=== PATIENT | female | born 1980 | race African-American/Black ===

== ENCOUNTER → 2016-07-02 | Outpatient (CLI) | payer OTHER ==
[~2016-07-02] VITALS: Ht 154.9 cm; Wt 56.7 kg
[~2016-07-02] MED LIST: Acetaminophen PO; BUPIVAC MPF-EPI 0.5%-1:200000 30 ML VIAL. IJ ONE; CALC500T13 PO; CALC625T12 PO; CYCL10TA2 PO; DOCU-27 PO; ERGO500012 PO; FERR325T72 PO; IOHEXOL 180 MG/ML 10 ML VIAL. IT ONE; LEVO100T PO; LEVO112T4 PO; LEVO125T PO; LIDOCAINE 1% / SOD BICARB 8.4% 20 ML VIAL. IJ ONE; MAGN400T22 PO; METR500T PO; OXYC5TAB88 PO; POTA20LI27 PO; THIA100T4 PO
[2016-07-02 12:24] VITALS: BP 105/70
--- NOTE | 2016-07-02 15:00 | RAD ---
Indication chronic leg and low back pain. Lumbar myelogram and post myelogram CT was explained to the patient. Risks of infection and bleeding were outlined. The possibility of damage to nerve roots of worsening of symptoms was discussed. The small possibility of seizure was outlined the possibility of postprocedure headache assess dating placement of a blood patch was also discussed. The patient understood the risks associated with the procedure and wished proceed. Under fluoroscopic guidance appropriate level for entry into the subarachnoid space was identified. Initially a left paramidline approach was utilized. Local anesthesia was accomplished with 1% lidocaine after the skin was prepped and draped in the routine fashion. This approach was unsuccessful gaining access in the thecal sac. Subsequently, with a new tray a left side down midline decubitus approach was utilized. The skin was prepped and draped again in the routine fashion and again local anesthesia was accomplished with 1% lidocaine. The subarachnoid space was entered at L3-4 with a 25-gauge needle. Clear CSF was encountered. 11 cc of Omnipaque 180 was injected into the thecal sac. Multiple films were obtained. Following the myelogram post myelogram CT was performed. Axial images were obtained from the lower thoracic spine through the coccyx. Disc images were also obtained at all levels in the lumbar spine. Images were reformatted in the coronal and sagittal planes Patient tolerated the procedure well. The patient was watched for approximately 1 hour following the procedure and then discharged with appropriate instructions. Myelogram, findings. There is no significant narrowing of the contrast column. No significant finding is seen on the lumbar myelogram plain film. Post mammogram CT: Findings. The visualized soft tissues of the abdomen and pelvis are unremarkable. An IUD is noted. There is no significant canal narrowing or neural foraminal encroachment seen at any level. The conus appears unremarkable. Significant degenerative changes in the lumbar spine are not seen and no acute bony finding is apparent. IMPRESSION: Unremarkable lumbar myelogram and postmyelogram CT PQRS Compliance Statement: One or more of the following individualized dose reduction techniques were utilized for this examination: 1. Automated exposure control 2. Adjustment of the mA and/or kV according to patient size 3. Use of iterative reconstruction technique
== END | disposition home or self-care (01) ==
LOC: RAD 11:54
PROVIDERS: ATTEND Neurological Surgery
DX: M54.5 Low back pain (principal); M79.605 Pain in left leg; G89.29 Other chronic pain
CPT/HCPCS: 72132; 72265

== ENCOUNTER → 2016-11-26 | Outpatient (CLI) | payer OTHER ==
[2016-10-19 19:55] VITALS: BP 127/88
[~2016-11-26] MED LIST changes: -BUPIVAC MPF-EPI 0.5%-1:200000 30 ML VIAL. IJ ONE; +DOCU-109 PO; -DOCU-27 PO; -ERGO500012 PO; +ERGO500027 PO; +FAMO40TA57 PO; -IOHEXOL 180 MG/ML 10 ML VIAL. IT ONE; -LIDOCAINE 1% / SOD BICARB 8.4% 20 ML VIAL. IJ ONE
--- NOTE | 2016-11-26 13:16 | RAD ---
EXAM: Abdomen, 2 views. HISTORY: Pain. COMPARISON: None. FINDINGS: Frontal upright and supine views of the abdomen are obtained. There are nonspecific air-filled loops of bowel within the bilateral abdomen. No transition point is seen to suggest obstruction. There is no free air. There is an UD overlying the pelvis. IMPRESSION: Nonspecific bowel gas pattern, without evidence of obstruction.
== END | disposition home or self-care (01) ==
LOC: RAD 12:17
PROVIDERS: ATTEND Family Medicine
DX: R10.84 Generalized abdominal pain (principal)
CPT/HCPCS: 74020

== ENCOUNTER → 2016-12-16 | Day surgery (SDC) | payer OTHER ==
[~2016-12-16] VITALS: Ht 154.9 cm; Wt 54.4 kg
[~2016-12-16] MED LIST changes: +BUPIVACAINE-EPI 0.25%-1:200000 50 ML VIAL. ONE; +DEXAMETHASONE SOD PHOS 20 MG/5 ML VIAL. ONE; +GLYCOPYRROLATE 1 MG/5 ML VIAL. ONE; +HYDROmorphone 2 MG/ML VIAL IV PRN; +IOHEXOL 300 MG/ML 50 ML VIAL. ONE; +IV RINGERS,LACTATED 1000ML 1,000 ML IV SCH; +KETOROLAC 30 MG/ML INJ FOR OR. INJ ONE; +LIDOCAINE 1% PF 2 ML VIAL. ID PRN; +LIDOCAINE 2% PF Vial for OR 5 ML VIAL. ONE; +MORPHINE SULFATE 2 MG/ML DISP.SYRIN. ONE; +NEOSTIGMINE METHYLSULFATE 5 MG/5 ML SYRINGE. ONE; +ONDANSETRON PF 4 MG/2 ML VIAL. IV PRN; +ONDANSETRON PF 4 MG/2 ML VIAL. ONE; +OXYC-323 PO; +PROCHLORPERAZINE 10 MG/2 ML VIAL. IV PRN; +PROCHLORPERAZINE 10 MG/2 ML VIAL. ONE; +PROPOFOL 20 ML IV ONE; +ROCURONIUM 100 MG/10 ML VIAL. ONE; +SEVOFLURANE 31 TO 60 MINUTES. IH ONE; +SEVOFLURANE 61 TO 120 MINUTES. IH ONE; +SURGICEL HEMOSTAT 4X8 EACH. ONE; +fentaNYL PF VIAL 100 MCG/2 ML VIAL IV PRN; +fentaNYL PF VIAL 100 MCG/2 ML VIAL ONE; +oxyCODONE/APAP 5/325 1 TAB TABLET PO PRN
[2016-12-16 07:04] LABS: NEG OBC UR NEG; POS OBC UR POS
[2016-12-16 07:44] LABS: BARBITURATES NEG (NEG); BENZODIAZEPINES NEG (NEG); CANNABINOIDS NEG (NEG); COCAINE NEG (NEG); METHADONE NEG (NEG); PHENCYCLIDINE NEG (NEG)
[2016-12-16 07:48] LABS: OPIATES POS (NEG)
--- NOTE | 2016-12-16 08:54 | PDOC ---
BRIEF OPERATIVE NOTE Date: Dec 16, 2016 Pre-Op Diagnosis Chronic cholecystitis Post-Op Diagnosis Same Procedure Performed L/S Cholecystectomy Surgeon Eduard Anesthesia Type: General Blood Loss 20ml Specimens Obtained Gallbladder Findings as above Complications None JEAN SHARP MD Dec 16, 2016 8:54 am
--- NOTE | 2016-12-16 08:55 | DISCH ---
DISCHARGE INSTRUCTIONS Condition on Discharge Condition on Discharge: Stable Activity After Discharge Activity Instructions for Disc: Avoid exertion Other activity instructions: No lifting >20lbs for 2 weeks Diet after Discharge Diet after Discharge: Low Fat Wound Incision Care Other wound/incision instructi: May shower in 24 hours Contacting the after DC Call your doctor for: If your condition worsens Follow-Up Follow up with: Dr Sharp in 2 weeks JEAN SHARP MD Dec 16, 2016 8:55 am
[2016-12-16] MEDS: fentaNYL PF VIAL 100 MCG/2 ML VIAL IV PRN ×2 (09:07→09:13)
[2016-12-16] MEDS: MORPHINE SULFATE 2 MG/ML DISP.SYRIN. IV PRN ×2 (09:18→09:28)
--- NOTE | 2016-12-16 09:29 | OP ---
DATE OF SURGERY: 12/16/2016 PREOPERATIVE DIAGNOSIS: Chronic cholecystitis. POSTOPERATIVE DIAGNOSIS: Chronic cholecystitis. PROCEDURE: Laparoscopic cholecystectomy. SURGEON: Anatoliy Sharp MD. INDICATIONS: The patient is a 36-year-old female who has had symptoms of right upper quadrant abdominal pain, usually postprandial as well as diarrhea. Procedure of laparoscopic cholecystectomy was explained to the patient in detail. Risks, benefits were also discussed including bleeding, infection, injury to intra-abdominal contents, possibly necessitating further open operations. Alternatives to this procedure were also discussed with the patient who seemed to understand and gave verbal and written consent to have the procedure performed. DESCRIPTION OF PROCEDURE: The patient was taken to the operating room and placed in the supine position, general anesthesia was initiated. Once the patient was asleep and intubated, her abdomen was prepped and draped in usual sterile fashion using ChloraPrep. An area just below the umbilicus was injected with 0.25% Marcaine with epinephrine. Incision was made with an 11 blade scalpel, and a Veress needle was placed within the abdomen. Pneumoperitoneum was achieved. Once this was complete, an 11 mm port was placed, and a 5 mm camera was placed within the abdomen. Abdomen was inspected. No other abnormalities were noted. At this point, three 5 mm ports were placed, one in the epigastrium, 2 in the right upper quadrant under direct visualization. The dome of the gallbladder was grasped and retracted cephalad. Infundibulum of the gallbladder was grasped and retracted laterally exposing the triangle of Calot. Adherent tissues of the triangle were taken down with blunt dissection exposing the cystic duct and cystic artery. Both were doubly clipped and transected. The gallbladder was taken off the liver with hook electrocautery, placed in EndoCatch bag and removed from the umbilicus. Right upper quadrant was irrigated and suctioned dry. Hemostasis seemed to be appropriate and the pneumoperitoneum was reduced. All ports were removed. Fascial defect at the umbilicus closed with [id number] 0 Vicryl suture, and the skin was reapproximated at all port sites with 4-0 subcuticular Monocryl. Mastisol, Steri-Strips and Band-Aids were applied as dressings. The patient was awakened, extubated in the operating room, taken to recovery in stable condition. All sponge, instrument and needle counts listed as correct. Estimated blood loss 10 mL. ANATOLIY SHARP MD DR: JENNIFER/isamar JOB#: [id number] / [id number]
[2016-12-16 10:00] VITALS: BP 154/97
--- NOTE | 2016-12-17 14:31 | PATHOLOGY ---
PATHOLOGY REPORT * * * * * * * * FINAL DIAGNOSIS: Gallbladder, laparoscopic cholecystectomy: - Cholelithiasis. - Chronic cholecystitis. (JPM:yuliana; 12/17/2016) COMMENT: There is no evidence of malignancy. REPORT ELECTRONICALLY SIGNED BY: Erik Diana M.D. DATE/TIME: 12/17/2016 14:30 * * * * * * * * GROSS PATHOLOGY: Received in formalin labeled "Klaudia Rodriguez, gallbladder sac with contents," is an 8.6 x 3.2 x 2.4 cm, intact gallbladder with light pinkbluish, vascular, and wrinkled serosal surfaces. Opening the gallbladder reveals light green, velvety mucosa and an average wall thickness of 0.2 cm. Calculi are present, measuring 0.1-0.4 cm in maximum dimension, possessing a dark black color, and feeling friable to the touch. No masses are noted grossly. [employer] sections from the body and fundus are submitted along with the proximal margin in cassette A1. (TSD; 12/16/2016) INITIAL CPT CODE(S): A; 88973 Professional services performed [place] [facility] [address] Technical services performed by [facility] at [address] [place] [address], [facility] [address] [place] [address]. SPECIMEN(S) RECEIVED: A.Gallbladder sac with contents CLINICAL HISTORY: Chronic cholecystitis with calculus PATIENT: KLAUDIA RODRIGUEZ /AGE: 7 1980 (Age: 36) PATIENT #: [id number] ALT CASE #: SPECIMEN COLLECTION DATE: 12/16/2016 SPECIMEN RECEIVED DATE: 12/16/2016 [facility] - [address] [place] [address] - PHONE: [phone] * * * END OF REPORT * * *
== END | disposition home or self-care (01) ==
LOC: SURG 06:31
PROVIDERS: ATTEND Surgery
DX: K80.10 Calculus of gallbladder with chronic cholecystitis without obstruction (principal); E03.9 Hypothyroidism, unspecified; F17.200 Nicotine dependence, unspecified, uncomplicated; D64.9 Anemia, unspecified; Z72.0 Tobacco use; Z98.51 Tubal ligation status; Z87.39 Personal history of other diseases of the musculoskeletal system and connective tissue; Z72.89 Other problems related to lifestyle; Z88.2 Allergy status to sulfonamides
CPT/HCPCS: 47562; 80307; 81025; J0690; J0780; J1100; J1885; J2270; J2405; J2704; J2710; J3010; J3490; J7030; 88304; Q9967; G0479; J2001

== ENCOUNTER → 2017-01-16 | Outpatient (CLI) | payer OTHER ==
[2016-12-16 10:00] VITALS: BP 154/97
[~2017-01-16] MED LIST changes: -BUPIVACAINE-EPI 0.25%-1:200000 50 ML VIAL. ONE; -DEXAMETHASONE SOD PHOS 20 MG/5 ML VIAL. ONE; -GLYCOPYRROLATE 1 MG/5 ML VIAL. ONE; -HYDROmorphone 2 MG/ML VIAL IV PRN; -IOHEXOL 300 MG/ML 50 ML VIAL. ONE; -IV RINGERS,LACTATED 1000ML 1,000 ML IV SCH; -KETOROLAC 30 MG/ML INJ FOR OR. INJ ONE; -LIDOCAINE 1% PF 2 ML VIAL. ID PRN; -LIDOCAINE 2% PF Vial for OR 5 ML VIAL. ONE; -MORPHINE SULFATE 2 MG/ML DISP.SYRIN. ONE; -NEOSTIGMINE METHYLSULFATE 5 MG/5 ML SYRINGE. ONE; -ONDANSETRON PF 4 MG/2 ML VIAL. IV PRN; -ONDANSETRON PF 4 MG/2 ML VIAL. ONE; -PROCHLORPERAZINE 10 MG/2 ML VIAL. IV PRN; -PROCHLORPERAZINE 10 MG/2 ML VIAL. ONE; -PROPOFOL 20 ML IV ONE; -ROCURONIUM 100 MG/10 ML VIAL. ONE; -SEVOFLURANE 31 TO 60 MINUTES. IH ONE; -SEVOFLURANE 61 TO 120 MINUTES. IH ONE; -SURGICEL HEMOSTAT 4X8 EACH. ONE; -fentaNYL PF VIAL 100 MCG/2 ML VIAL IV PRN; -fentaNYL PF VIAL 100 MCG/2 ML VIAL ONE; -oxyCODONE/APAP 5/325 1 TAB TABLET PO PRN
--- NOTE | 2017-01-16 12:25 | RAD ---
MRI Brain without contrast History: Bilateral leg weakness for one year, numbness and tingling in extremities Technique: Multiplanar, multisequential noncontrast MR imaging was performed of the brain. Contrast: None Comparison: November 20, 2013 Findings: There is mild motion.There is no evidence of recent infarct or cytotoxic edema. The ventricles, sulci, and cisterns are within normal limits in size and configuration. There is no significant midline shift, mass effect, or focal abnormal extra-axial fluid collection. There is no significant signal abnormality of the brain parenchyma. There is preservation of the major intracranial flow-voids at the skull base. The mastoid air cells are overall aerated, mild thickening on the left as seen previously. The cerebellar tonsils are normal in location. There is no significant abnormality of the pineal gland or pituitary gland. Paranasal sinuses are overall aerated. There is preserved marrow signal of the clivus. Impression: 1. There is no new significant intracranial abnormality. Electronically signed by: Dmitriy Winter MD (01/16/2017 12:21 PM) [id number]
== END | disposition home or self-care (01) ==
LOC: MRI 10:34
PROVIDERS: ATTEND Family Medicine
DX: H53.9 Unspecified visual disturbance (principal); R53.1 Weakness; R20.2 Paresthesia of skin
CPT/HCPCS: 70551

== ENCOUNTER 2017-08-23 10:09 | Emergency (ER) | payer SELFPAY ==
[2017-08-23 11:44] LABS: ADD MAN DIFF? NO
[2017-08-23 11:52] LABS: BASO % 1 % (0-3); EOS % 1 % (0-3); HEMATOCRIT 31.8 % (36.0-47.0); HEMOGLOBIN 10.6 g/dL (12.0-15.5); LYMPH # 0.9 x10^3/uL (1.0-4.8); LYMPH % 26 % (24-48); MEAN CORPUSCULAR HEMOGLOBIN 35 pg (25-35); MEAN CORPUSCULAR HGB CONC 33 g/dL (31-37); MEAN CORPUSCULAR VOLUME 105 fL (79-100); MONO # 0.2 x10^3/uL (0.0-1.1); MONO % 5 % (0-9); NEUT # 2.2 x10^3uL (1.8-7.7); NEUT % 67 % (31-73); PLATELET COUNT 121 x10^3/uL (140-400); RED BLOOD COUNT 3.04 x10^6/uL (3.50-5.40); WHITE BLOOD COUNT 3.3 x10^3/uL (4.0-11.0)
[2017-08-23] MEDS: IV NORMAL SALINE 1000ML BAG 1,000 ML IV (11:53)
[2017-08-23] MEDS: ONDANSETRON PF 4 MG/2 ML VIAL. IV (11:54)
[2017-08-23 11:55] LABS: ANION GAP 17 (6-14); BLOOD UREA NITROGEN 13 mg/dL (7-20); BUN/CREATININE RATIO 26 (6-20); CALCIUM 7.9 mg/dL (8.5-10.1); CARBON DIOXIDE 23 mmol/L (21-32); CHLORIDE 102 mmol/L (98-107); CREATININE 0.5 mg/dL (0.6-1.0); GLUCOSE 82 mg/dL (70-99); POTASSIUM 3.1 mmol/L (3.5-5.1); SODIUM 142 mmol/L (136-145)
[2017-08-23] MEDS: MORPHINE SULFATE 10 MG/ML VIAL. IV (11:55)
[2017-08-23] MEDS: PANTOPRAZOLE IV PUSH 40 MG VIAL. IVP (11:55)
[2017-08-23 11:56] LABS: ETHANOL 209 mg/dL (0-10)
[2017-08-23 12:00] LABS: ALBUMIN 3.8 g/dL (3.4-5.0); ALBUMIN/GLOBULIN RATIO 0.8 (1.0-1.7); ALK PHOS 105 U/L (46-116); ALT (SGPT) 15 U/L (14-59); AST (SGOT) 79 U/L (15-37); LIPASE 190 U/L (73-393); TOTAL BILIRUBIN 3.4 mg/dL (0.2-1.0); TOTAL PROTEIN 8.5 g/dL (6.4-8.2)
[2017-08-23 12:43] LABS: BILIRUBIN,URINE SMALL (NEG); CLARITY,URINE CLEAR; COLOR,URINE AMBER; GLUCOSE,URINE NEGATIVE (NEG); NITRITE,URINE NEGATIVE (NEG); PH,URINE 5.5; PROTEIN,URINE 100 mg/dL (NEG-TRACE)
[2017-08-23 12:44] LABS: BARBITURATES NEG (NEG); BENZODIAZEPINES NEG (NEG); CANNABINOIDS NEG (NEG); COCAINE NEG (NEG); METHADONE NEG (NEG); OPIATES POS (NEG); PHENCYCLIDINE NEG (NEG)
[2017-08-23 12:45] LABS: AMPHETAMINE/METHAMPHETAMINE NEG (NEG); ETHANOL, URINE POS (NEG)
[2017-08-23 13:05] LABS: BACTERIA,URINE FEW /HPF (0-FEW); RBC,URINE RARE /HPF (0-2); SQUAMOUS EPITHELIAL CELL,UR FEW /LPF; WBC,URINE RARE /HPF (0-4)
[2017-08-23 13:49] LABS: ANISOCYTOSIS MOD; PLT ESTIMATE DECREASED (ADEQUATE)
[2017-08-23] MEDS: POTASSIUM CHLORIDE 20 MEQ TABLET.ER. PO (14:40)
== END 2017-08-23 15:26 | disposition home or self-care (01) ==
LOC: ER 10:09
DX: R10.84 Generalized abdominal pain (principal); G89.29 Other chronic pain; E87.6 Hypokalemia; M79.7 Fibromyalgia; I10 Essential (primary) hypertension; E03.9 Hypothyroidism, unspecified; F17.210 Nicotine dependence, cigarettes, uncomplicated; Z90.49 Acquired absence of other specified parts of digestive tract; Z98.51 Tubal ligation status; Z88.2 Allergy status to sulfonamides; Z91.041 Radiographic dye allergy status
CPT/HCPCS: 36415; 74022; 80053; 80307; 81001; 83690; 85025; 96361; 96374; 96375; 99285-25; C9113; G0480; J2270; J2405; J7030

== ENCOUNTER 2017-08-26 21:31 | Emergency (ER) | payer SELFPAY ==
[2017-08-26] MEDS: IV NORMAL SALINE 1000ML BAG 1,000 ML IV (23:00)
[2017-08-26 23:01] LABS: ADD MAN DIFF? NO
[2017-08-26 23:07] LABS: BASO % 1 % (0-3); EOS # 0.1 x10^3/uL (0.0-0.7); EOS % 1 % (0-3); HEMATOCRIT 29.8 % (36.0-47.0); HEMOGLOBIN 9.8 g/dL (12.0-15.5); LYMPH # 2.5 x10^3/uL (1.0-4.8); LYMPH % 45 % (24-48); MEAN CORPUSCULAR HEMOGLOBIN 35 pg (25-35); MEAN CORPUSCULAR HGB CONC 33 g/dL (31-37); MEAN CORPUSCULAR VOLUME 107 fL (79-100); MONO # 0.2 x10^3/uL (0.0-1.1); MONO % 3 % (0-9); NEUT # 2.9 x10^3uL (1.8-7.7); NEUT % 51 % (31-73); PLATELET COUNT 91 x10^3/uL (140-400); RED CELL DISTRIBUTION WIDTH 22.3 % (11.5-14.5); WHITE BLOOD COUNT 5.6 x10^3/uL (4.0-11.0)
[2017-08-26 23:13] LABS: NEG OBC SER NEG; POS OBC SER POS; PREG TEST PT QUAL NEGATIVE (NEG)
[2017-08-26 23:15] LABS: MAGNESIUM 1.2 mg/dL (1.8-2.4)
[2017-08-26 23:16] LABS: ANION GAP 14 (6-14); BLOOD UREA NITROGEN 9 mg/dL (7-20); BUN/CREATININE RATIO 23 (6-20); CALCIUM 8.2 mg/dL (8.5-10.1); CARBON DIOXIDE 25 mmol/L (21-32); CHLORIDE 104 mmol/L (98-107); CREATININE 0.4 mg/dL (0.6-1.0); GFR 217.3; GLUCOSE 108 mg/dL (70-99); SODIUM 143 mmol/L (136-145)
[2017-08-26 23:22] LABS: ALBUMIN 3.6 g/dL (3.4-5.0); ALBUMIN/GLOBULIN RATIO 0.8 (1.0-1.7); ALK PHOS 173 U/L (46-116); ALT (SGPT) 17 U/L (14-59); AST (SGOT) 50 U/L (15-37); LIPASE 236 U/L (73-393); TOTAL BILIRUBIN 2.5 mg/dL (0.2-1.0); TOTAL PROTEIN 7.9 g/dL (6.4-8.2)
[2017-08-26 23:23] LABS: TROPONINI < 0.017 ng/mL (0.000-0.055)
[2017-08-26 23:24] LABS: PLT ESTIMATE DECREASED (ADEQUATE)
[2017-08-26 23:25] LABS: ANISOCYTOSIS MOD
[2017-08-26 23:28] LABS: ETHANOL 426 mg/dL (0-10)
[2017-08-26 23:30] LABS: THYROID STIM HORMONE (TSH) 55.373 uIU/mL (0.358-3.74)
[2017-08-26 23:34] LABS: BILIRUBIN,URINE NEGATIVE (NEG); CLARITY,URINE CLOUDY; COLOR,URINE RED; GLUCOSE,URINE NEGATIVE (NEG); NITRITE,URINE POSITIVE (NEG); PH,URINE 6.5; PROTEIN,URINE 100 mg/dL (NEG-TRACE)
[2017-08-26 23:41] LABS: AMPHETAMINE/METHAMPHETAMINE NEG (NEG); BARBITURATES NEG (NEG); BENZODIAZEPINES NEG (NEG); CANNABINOIDS NEG (NEG); COCAINE NEG (NEG); ETHANOL, URINE POS (NEG); METHADONE NEG (NEG); OPIATES NEG (NEG); PHENCYCLIDINE NEG (NEG)
[2017-08-26 23:46] LABS: BACTERIA,URINE MANY /HPF (0-FEW); SQUAMOUS EPITHELIAL CELL,UR MANY /LPF
[2017-08-26] MEDS: IOHEXOL 300 MG/ML 100ML VIAL. IV (23:50)
[2017-08-27] MEDS: MAGNESIUM SULFATE 2GM 50 ML IV (01:34)
[2017-08-27] MEDS: POTASSIUM CL 40MEQ IN 0.9%NACL 1,000 ML IV (01:34)
== END 2017-08-27 06:00 | disposition home or self-care (01) ==
LOC: ER 08-27 06:00
DX: N39.0 Urinary tract infection, site not specified (principal); F10.129 Alcohol abuse with intoxication, unspecified; K52.9 Noninfective gastroenteritis and colitis, unspecified; I10 Essential (primary) hypertension; F17.210 Nicotine dependence, cigarettes, uncomplicated; E03.9 Hypothyroidism, unspecified; Z90.49 Acquired absence of other specified parts of digestive tract; Z98.51 Tubal ligation status; Z88.2 Allergy status to sulfonamides; Z91.041 Radiographic dye allergy status
CPT/HCPCS: 36415; 74177; 80053; 80307; 81001; 83690; 83735; 84439; 84443; 84484; 84703; 85025; 87086; 93005; 96361; 96365; 96366; 96368; 99285-25; G0480; J3475; J3480; J7030; Q9967

== ENCOUNTER 2017-08-30 20:51 | Emergency (ER) | payer SELFPAY ==
[2017-08-30 21:35] LABS: ADD MAN DIFF? NO
[2017-08-30] MEDS: IV NORMAL SALINE 1000ML BAG 1,000 ML IV (21:36)
[2017-08-30] MEDS: FAMOTIDINE 20 MG/2 ML VIAL IVP (21:36)
[2017-08-30] MEDS: ONDANSETRON PF 4 MG/2 ML VIAL. IV (21:36)
[2017-08-30 21:37] LABS: BASO % 1 % (0-3); EOS # 0.1 x10^3/uL (0.0-0.7); EOS % 2 % (0-3); HEMATOCRIT 29.6 % (36.0-47.0); HEMOGLOBIN 9.9 g/dL (12.0-15.5); LYMPH # 1.8 x10^3/uL (1.0-4.8); LYMPH % 50 % (24-48); MEAN CORPUSCULAR HEMOGLOBIN 36 pg (25-35); MEAN CORPUSCULAR HGB CONC 34 g/dL (31-37); MEAN CORPUSCULAR VOLUME 107 fL (79-100); MONO # 0.1 x10^3/uL (0.0-1.1); MONO % 2 % (0-9); NEUT # 1.7 x10^3uL (1.8-7.7); NEUT % 45 % (31-73); PLATELET COUNT 87 x10^3/uL (140-400); RED BLOOD COUNT 2.77 x10^6/uL (3.50-5.40); WHITE BLOOD COUNT 3.7 x10^3/uL (4.0-11.0)
[2017-08-30 21:51] LABS: ANION GAP 16 (6-14); BLOOD UREA NITROGEN 10 mg/dL (7-20); BUN/CREATININE RATIO 20 (6-20); CARBON DIOXIDE 26 mmol/L (21-32); CHLORIDE 103 mmol/L (98-107); CREATININE 0.5 mg/dL (0.6-1.0); GLUCOSE 98 mg/dL (70-99); SODIUM 145 mmol/L (136-145)
[2017-08-30 21:54] LABS: NEG OBC SER NEG; POS OBC SER POS; PREG TEST PT QUAL NEGATIVE (NEG)
[2017-08-30 21:55] LABS: ALBUMIN 3.6 g/dL (3.4-5.0); ALBUMIN/GLOBULIN RATIO 0.8 (1.0-1.7); ALK PHOS 127 U/L (46-116); ALT (SGPT) 16 U/L (14-59); AST (SGOT) 76 U/L (15-37); LIPASE 174 U/L (73-393); TOTAL BILIRUBIN 2.3 mg/dL (0.2-1.0); TOTAL PROTEIN 8.1 g/dL (6.4-8.2)
[2017-08-30] MEDS: POTASSIUM CHLORIDE 20 MEQ TABLET.ER. PO (22:15)
[2017-08-30 22:18] LABS: PLT ESTIMATE DECREASED (ADEQUATE)
[2017-08-30 22:19] LABS: ANISOCYTOSIS MOD
[2017-08-30] MEDS: KETOROLAC 30 MG/ML INJ. IV (22:21)
[2017-08-30] MEDS: POTASSIUM CHLORIDE 20 MEQ/15 ML ORAL LIQUID. PEG (22:22)
[2017-08-30 23:06] LABS: MAGNESIUM 1.2 mg/dL (1.8-2.4)
[2017-08-30] MEDS: HYDROcodone/APAP 5/325MG 1 TAB TABLET PO (23:08)
== END 2017-08-30 23:40 | disposition home or self-care (01) ==
LOC: ER 20:51
DX: M79.605 Pain in left leg (principal); M79.604 Pain in right leg; R94.8 Abnormal results of function studies of other organs and systems; R79.9 Abnormal finding of blood chemistry, unspecified; E87.6 Hypokalemia; M79.7 Fibromyalgia; I10 Essential (primary) hypertension; E03.9 Hypothyroidism, unspecified; Z88.2 Allergy status to sulfonamides; Z91.041 Radiographic dye allergy status
CPT/HCPCS: 36415; 80053; 83690; 83735; 84703; 85025; 96361; 96374; 96375; 99284-25; J1885; J2405; J7030; S0028

== ENCOUNTER 2017-09-01 18:45 | Emergency (ER) | payer SELFPAY ==
[2017-09-01 20:03] LABS: ADD MAN DIFF? NO
[2017-09-01 20:05] LABS: BASO % 1 % (0-3); EOS # 0.1 x10^3/uL (0.0-0.7); EOS % 3 % (0-3); HEMATOCRIT 27.3 % (36.0-47.0); HEMOGLOBIN 9.2 g/dL (12.0-15.5); LYMPH # 2.3 x10^3/uL (1.0-4.8); LYMPH % 58 % (24-48); MEAN CORPUSCULAR HEMOGLOBIN 36 pg (25-35); MEAN CORPUSCULAR HGB CONC 34 g/dL (31-37); MEAN CORPUSCULAR VOLUME 106 fL (79-100); MONO # 0.1 x10^3/uL (0.0-1.1); MONO % 1 % (0-9); NEUT # 1.5 x10^3uL (1.8-7.7); NEUT % 38 % (31-73); PLATELET COUNT 57 x10^3/uL (140-400); RED BLOOD COUNT 2.57 x10^6/uL (3.50-5.40); RED CELL DISTRIBUTION WIDTH 22.9 % (11.5-14.5)
[2017-09-01] MEDS: IV NORMAL SALINE 1000ML BAG 1,000 ML IV (20:11)
[2017-09-01] MEDS: HYDROcodone/APAP 5/325MG 1 TAB TABLET PO (20:12)
[2017-09-01 20:18] LABS: ANION GAP 13 (6-14); BLOOD UREA NITROGEN 6 mg/dL (7-20); CALCIUM 7.6 mg/dL (8.5-10.1); CARBON DIOXIDE 25 mmol/L (21-32); CHLORIDE 102 mmol/L (98-107); CREATININE 0.4 mg/dL (0.6-1.0); GFR 217.3; GLUCOSE 84 mg/dL (70-99); POTASSIUM 3.2 mmol/L (3.5-5.1); SODIUM 140 mmol/L (136-145)
[2017-09-01 20:26] LABS: ETHANOL 398 mg/dL (0-10)
[2017-09-01 20:37] LABS: ANISOCYTOSIS MOD; PLT ESTIMATE DECREASED (ADEQUATE); POIKILOCYTOSIS SLIGHT
[2017-09-01 20:38] LABS: OVALOCYTES OCC; SPHEROCYTES MOD
[2017-09-01] MEDS: LORazepam 1 MG TABLET PO (21:00)
== END 2017-09-01 21:01 | disposition home or self-care (01) ==
LOC: ER 18:45
DX: G89.29 Other chronic pain (principal); R10.84 Generalized abdominal pain; R53.1 Weakness; F10.229 Alcohol dependence with intoxication, unspecified; M79.7 Fibromyalgia; I10 Essential (primary) hypertension; E03.9 Hypothyroidism, unspecified; Z91.041 Radiographic dye allergy status; Z88.2 Allergy status to sulfonamides; Z90.49 Acquired absence of other specified parts of digestive tract; Z98.51 Tubal ligation status
CPT/HCPCS: 36415; 80048; 85025; 96360; 99284-25; G0480; J7030

== ENCOUNTER 2017-11-12 10:42 | Emergency (ER) | payer OTHER ==
[~2017-11-12] VITALS: Ht 154.9 cm; Wt 59.0 kg
[~2017-11-12 10:42] MED LIST changes: +CEPH-264 PO; +CIPR500T94 PO; +DILT180C29 PO; +GABA-586 PO; +METO50TA29 PO; +POTA10TA17 PO; -THIA100T4 PO; +THIA100T57 PO
[2017-11-12] MEDS ORDERED: MAGNESIUM CITRATE 296 ML SOLUTION. PO ONE (11:30)
[2017-11-12] MEDS ORDERED: BISA-42 PO (11:39)
--- NOTE | 2017-11-12 11:39 | PHYS DOC ---
Past Medical History Past Medical History: Cancer, Endometriosis, Fibromyalgia, Hypertension, Hypothyroid Additional Past Medical Histor: Graves Disease,x2 blood trans, Bulging disc, Lupus, Neuropathy Past Surgical History: Cholecystectomy, Tubal ligation, Other Additional Past Surgical Histo: back surgery Additional Information: 3 cig a day Alcohol Use: Sober Additional Information: Sober 5 days Drug Use: None Adult General Chief Complaint Chief Complaint: CONSTIPATION HPI HPI Patient is a 37 year old female presented to ER today for evaluation of constipation for about 8 days. Patient tried [id number] medication at home but did not get better. Patient denies any nausea, no vomiting, no abdominal pain, no fever. She says she is not . Review of Systems Review of Systems Constitutional: Denies fever or chills [] Eyes: Denies change in visual acuity, redness, or eye pain [] HENT: Denies nasal congestion or sore throat [] Respiratory: Denies cough or shortness of breath [] Cardiovascular: No additional information not addressed in HPI [] GI: Denies abdominal pain, nausea, vomiting, bloody stools or diarrhea . Positive for constipation. : Denies dysuria or hematuria [] Musculoskeletal: Denies back pain or joint pain [] Integument: Denies rash or skin lesions [] Neurologic: Denies headache, focal weakness or sensory changes [] Endocrine: Denies polyuria or polydipsia [] All other systems were reviewed and found to be within normal limits, except as documented in this note. Current Medications Current Medications Current Medications Medications (Trade) Dose Ordered Sig/Emelia Start Time Stop Time Status Last Admin Dose Admin Magnesium Citrate (Citroma) 296 ml 1X ONCE 11/12/17 11:30 11/12/17 11:31 DC 11/12/17 11:26 296 ML Allergies Allergies Allergies Coded Allergies Type Severity Reaction Last Updated Verified Sulfa (Sulfonamide Antibiotics) Allergy Intermediate rapid heart beat Yes I S O L A T I O N *CONTACT* Allergy Unknown 08/23/17 Yes Physical Exam Physical Exam Constitutional: Well developed, well nourished, no acute distress, non-toxic appearance. [] HENT: Normocephalic, atraumatic, bilateral external ears normal, oropharynx moist, no oral exudates, nose normal. [] Eyes: PERRLA, EOMI, conjunctiva normal, no discharge. [] Neck: Normal range of motion, no tenderness, supple, no stridor. [] Cardiovascular:Heart rate regular rhythm, no murmur [] Lungs & Thorax: Bilateral breath sounds clear to auscultation [] Abdomen: Bowel sounds normal, soft, no tenderness, no masses, no pulsatile masses. [] Skin: Warm, dry, no erythema, no rash. [] Back: No tenderness, no CVA tenderness. [] Extremities: No tenderness, no cyanosis, no clubbing, ROM intact, no edema. [] Neurologic: Alert and oriented X 3, normal motor function, normal sensory function, no focal deficits noted. [] Psychologic: Affect normal, judgement normal, mood normal. [] Current Patient Data Vital Signs Vital Signs Date Time Temp Pulse Resp B/P (MAP) Pulse Ox O2 Delivery O2 Flow Rate FiO2 11/12/17 11:45 90 16 126/90 (102) 99 Room Air 11/12/17 10:52 98.5 98.5 EKG EKG [] Radiology/Procedures Radiology/Procedures [] Impressions: constipation Course & Med Decision Making Course & Med Decision Making Pertinent Labs and Imaging studies reviewed. (See chart for details) [] Dragon Disclaimer Dragon Disclaimer This electronic medical record was generated, in whole or in part, using a voice recognition dictation system. Departure Departure Impression: Primary Impression: Constipation Disposition: 01 HOME, SELF-CARE Condition: STABLE Referrals: Mani MILLS MD (PCP) FOLLOW UP WITH YOUR DOCTOR IN 2 DAYS Patient Instructions: Constipation, Adult Scripts Bisacodyl (DULCOLAX) 5 Mg Tablet. 5 MG PO PRN DAILY PRN for CONSTIPATION, #30 TAB 0 Refills Prov: JASBIR VALENCIA DO 11/12/17 JASIBR VALENCIA DO Nov 12, 2017 11:39
[2017-11-12 11:45] VITALS: BP 126/90
[2017-11-17] MEDS ORDERED: FOLI1TAB16 PO (23:45)
[2017-11-17] MEDS ORDERED: LORA1TAB PO (23:45)
== END 2017-11-12 11:55 | disposition home or self-care (01) ==
LOC: ER 10:42
DX: K59.00 Constipation, unspecified (principal); M79.7 Fibromyalgia; I10 Essential (primary) hypertension; E03.9 Hypothyroidism, unspecified; F17.210 Nicotine dependence, cigarettes, uncomplicated; Z90.49 Acquired absence of other specified parts of digestive tract; Z98.51 Tubal ligation status; Z88.2 Allergy status to sulfonamides; Z91.041 Radiographic dye allergy status
CPT/HCPCS: 99284

== ENCOUNTER 2018-01-13 16:25 | Emergency (ER) | payer OTHER ==
[~2018-01-13] VITALS: Ht 154.9 cm; Wt 63.5 kg
[~2018-01-13 16:25] MED LIST changes: +BISA-42 PO; +FOLI1TAB16 PO; +LORA-434 PO; +LORA1TAB PO; +Nicotine 7MG TD; +Pantoprazole PO
[2018-01-13 17:18] LABS: BASO % 1 % (0-3); EOS % 1 % (0-3); HEMATOCRIT 39.2 % (36.0-47.0); HEMOGLOBIN 12.9 g/dL (12.0-15.5); LYMPH # 2.6 x10^3/uL (1.0-4.8); LYMPH % 51 % (24-48); MEAN CORPUSCULAR HEMOGLOBIN 34 pg (25-35); MEAN CORPUSCULAR HGB CONC 33 g/dL (31-37); MEAN CORPUSCULAR VOLUME 102 fL (79-100); MONO # 0.2 x10^3/uL (0.0-1.1); MONO % 3 % (0-9); NEUT # 2.2 x10^3uL (1.8-7.7); NEUT % 44 % (31-73); PLATELET COUNT 304 x10^3/uL (140-400); RED BLOOD COUNT 3.84 x10^6/uL (3.50-5.40); RED CELL DISTRIBUTION WIDTH 17.8 % (11.5-14.5); WHITE BLOOD COUNT 5.1 x10^3/uL (4.0-11.0)
--- NOTE | 2018-01-13 17:37 | PHYS DOC ---
Past Medical History Past Medical History: Alcoholism, Endometriosis, Fibromyalgia, Hypertension, Hypothyroid Additional Past Medical Histor: Graves Disease,x2 blood trans, Bulging disc, Lupus, Neuropathy Past Surgical History: Cholecystectomy, Tubal ligation, Other Additional Past Surgical Histo: back surgery Alcohol Use: Heavy Drug Use: Marijuana Adult General Chief Complaint Chief Complaint: CHEST PAIN HPI HPI Patient is a 37 year old female who presents with multiple complaints. The patient is intoxicated. She states that she drinks about a pint of vodka a day. She states that she started drinking this morning. She is complaining of chest pain, nausea and diarrhea. The patient states that she often has thoughts of harming herself or others. She is tearful in the room. She denies a plan to kill herself today. She denies diaphoresis, radiating chest pain or shortness of breath. She denies abdominal pain. Review of Systems Review of Systems Constitutional: Denies fever or chills [] Eyes: Denies change in visual acuity, redness, or eye pain [] HENT: Denies nasal congestion or sore throat [] Respiratory: Denies cough or shortness of breath [] Cardiovascular: No additional information not addressed in HPI [] GI: See history of present illness : Denies dysuria or hematuria [] Musculoskeletal: Denies back pain or joint pain [] Integument: Denies rash or skin lesions [] Neurologic: Denies headache, focal weakness or sensory changes [] Endocrine: Denies polyuria or polydipsia [] All other systems were reviewed and found to be within normal limits, except as documented in this note. Allergies Allergies Allergies Coded Allergies Type Severity Reaction Last Updated Verified Sulfa (Sulfonamide Antibiotics) Adverse Reaction Intermediate rapid heart beat 11/23/17 Yes Physical Exam Physical Exam Constitutional: Well developed, well nourished, no acute distress, non-toxic appearance. [] HENT: Normocephalic, atraumatic, bilateral external ears normal, oropharynx moist, no oral exudates, nose normal. [] Eyes: PERRLA, EOMI, conjunctiva normal, no discharge. [] Neck: Normal range of motion, no tenderness, supple, no stridor. [] Cardiovascular:Heart rate regular rhythm, no murmur [] Lungs & Thorax: Bilateral breath sounds clear to auscultation [] Abdomen: Bowel sounds normal, soft, no tenderness, no masses, no pulsatile masses. [] Skin: Warm, dry, no erythema, no rash. [] Back: No tenderness, no CVA tenderness. [] Extremities: No tenderness, no cyanosis, no clubbing, ROM intact, no edema. [] Neurologic: Alert and oriented X 3, normal motor function, normal sensory function, no focal deficits noted. [] Psychologic: The patient is tearful and intoxicated[] Current Patient Data Vital Signs Vital Signs Date Time Temp Pulse Resp B/P (MAP) Pulse Ox O2 Delivery O2 Flow Rate FiO2 01/13/18 17:31 97 16 135/96 (109) 97 Room Air 01/13/18 16:30 98.3 98.3 Lab Values Laboratory Tests Test 01/13/18 17:11 01/13/18 17:35 White Blood Count 5.1 x10^3/uL (4.0-11.0) Red Blood Count 3.84 x10^6/uL (3.50-5.40) Hemoglobin 12.9 g/dL (12.0-15.5) Hematocrit 39.2 % (36.0-47.0) Mean Corpuscular Volume 102 fL (79-100) H Mean Corpuscular Hemoglobin 34 pg (25-35) Mean Corpuscular Hemoglobin Concent 33 g/dL (31-37) Red Cell Distribution Width 17.8 % (11.5-14.5) H Platelet Count 304 x10^3/uL (140-400) Neutrophils (%) (Auto) 44 % (31-73) Lymphocytes (%) (Auto) 51 % (24-48) H Monocytes (%) (Auto) 3 % (0-9) Eosinophils (%) (Auto) 1 % (0-3) Basophils (%) (Auto) 1 % (0-3) Neutrophils # (Auto) 2.2 x10^3uL (1.8-7.7) Lymphocytes # (Auto) 2.6 x10^3/uL (1.0-4.8) Monocytes # (Auto) 0.2 x10^3/uL (0.0-1.1) Eosinophils # (Auto) 0.0 x10^3/uL (0.0-0.7) Basophils # (Auto) 0.0 x10^3/uL (0.0-0.2) Sodium Level 149 mmol/L (136-145) H Potassium Level 3.1 mmol/L (3.5-5.1) L Chloride Level 106 mmol/L (98-107) Carbon Dioxide Level 31 mmol/L (21-32) Anion Gap 12 (6-14) Blood Urea Nitrogen 11 mg/dL (7-20) Creatinine 0.6 mg/dL (0.6-1.0) Estimated GFR (Cockcroft-Gault) 135.4 BUN/Creatinine Ratio 18 (6-20) Glucose Level 92 mg/dL (70-99) Calcium Level 7.9 mg/dL (8.5-10.1) L Total Bilirubin 1.0 mg/dL (0.2-1.0) Aspartate Amino Transferase (AST) 47 U/L (15-37) H Alanine Aminotransferase (ALT) 24 U/L (14-59) Alkaline Phosphatase 97 U/L (46-116) Troponin I Quantitative < 0.017 ng/mL (0.000-0.055) Total Protein 8.1 g/dL (6.4-8.2) Albumin 3.4 g/dL (3.4-5.0) Albumin/Globulin Ratio 0.7 (1.0-1.7) L Salicylates Level < 2.8 mg/dL (2.8-20.0) L Salicylate Last Dose Date Unknown Salicylate Last Dose Time Unknown Ethyl Alcohol Level 279 mg/dL (0-10) H Laboratory Tests 01/13/18 17:11 Laboratory Tests 01/13/18 17:35 EKG EKG [] Radiology/Procedures Radiology/Procedures [] Course & Med Decision Making Course & Med Decision Making Pertinent Labs and Imaging studies reviewed. (See chart for details) []The psychiatric assessment team has been notified. The patient is been placed on one-to-one observation in the emergency department. The patient is being transferred to a psychiatric detox facility. She is in agreement with this plan. She is being sent via EMS. A prescription for Librium is being sent with the patient for potential alcohol withdrawal treatment. Dragon Disclaimer Dragon Disclaimer This electronic medical record was generated, in whole or in part, using a voice recognition dictation system. Departure Departure Impression: Primary Impression: Alcohol abuse Additional Impression: History of suicidal ideation Disposition: 05 TRANSFER OTHER Condition: GOOD Referrals: Mani MILLS MD (PCP) Patient Instructions: Alcohol Problems Scripts Chlordiazepoxide Hcl (CHLORDIAZEPOXIDE HCL) 5 Mg Capsule 5 MG PO TID PRN for DELIRIUM, #20 CAP Prov: JAY CRAIG APRN 01/13/18 Problem Qualifiers JAY CRAIG APRN Jan 13, 2018 17:37
--- NOTE | 2018-01-13 17:47 | EKG ---
[facility] [address] [place] [address] Test Date: 2018-01-13 Test Time: 16:32:59 Pat Name: LUIS RODRIGUEZ Department: Room: Gender: F Felled Seam Operator: : 1980 Requested By: JAY CRAIG Order Number: [id number] Reading MD: Jg Duron MD Measurements Intervals [place] Rate: 105 P: 37 NH: 142 QRS: 41 QRSD: 64 T: 87 QT: 382 QTc: 509 Interpretive Statements SINUS TACHYCARDIA Electronically Signed On 01-14-2018 10:46:23 FAMILY NURSE by Jg Duron MD
[2018-01-13 17:58] LABS: ETHANOL 279 mg/dL (0-10); SALIC < 2.8 mg/dL (2.8-20.0)
[2018-01-13 18:04] LABS: CALCIUM 7.9 mg/dL (8.5-10.1); CREATININE 0.6 mg/dL (0.6-1.0); GFR 135.4; POTASSIUM 3.1 mmol/L (3.5-5.1)
[2018-01-13 18:10] LABS: ALBUMIN 3.4 g/dL (3.4-5.0); ALBUMIN/GLOBULIN RATIO 0.7 (1.0-1.7); TOTAL PROTEIN 8.1 g/dL (6.4-8.2)
[2018-01-13] MEDS ORDERED: CHLO5CAP2 PO (19:04)
[2018-01-13] MEDS ORDERED: LORazepam 1 MG TABLET PO ONE (19:15)
[2018-01-13] MEDS ORDERED: POTASSIUM CHLORIDE 20 MEQ TABLET.ER. PO ONE (19:15)
[2018-01-13] MEDS ORDERED: POTASSIUM CHLORIDE 20 MEQ/15 ML ORAL LIQUID. PO ONE (19:30)
[2018-01-13 19:31] VITALS: BP 130/87
== END 2018-01-13 20:44 | disposition short-term general hospital (02) ==
LOC: ER 16:25
DX: F10.229 Alcohol dependence with intoxication, unspecified (principal); R45.851 Suicidal ideations; R07.89 Other chest pain; R19.7 Diarrhea, unspecified; M79.7 Fibromyalgia; I10 Essential (primary) hypertension; E03.9 Hypothyroidism, unspecified; G62.9 Polyneuropathy, unspecified; Z88.2 Allergy status to sulfonamides; Y90.8 Blood alcohol level of 240 mg/100 ml or more
CPT/HCPCS: 36415; 80053; 80329; 84484; 85025; 93005; 99285; G0480

== ENCOUNTER 2018-05-15 13:45 | Emergency (ER) | payer OTHER ==
[~2018-05-15] VITALS: Ht 154.9 cm; Wt 69.9 kg
[~2018-05-15 13:45] MED LIST changes: +CHLO5CAP2 PO; -GABA-586 PO; +GABA300C18 PO; -OXYC-323 PO; +OXYC1TAB15 PO
[2018-05-15] MEDS ORDERED: FAMOTIDINE 20 MG/2 ML VIAL IVP ONE (14:45)
[2018-05-15] MEDS ORDERED: IV NORMAL SALINE 1000ML BAG 1,000 ML IV ONE (14:45)
[2018-05-15] MEDS ORDERED: ASPIRIN 325 MG TABLET PO ONE (14:45)
[2018-05-15] MEDS ORDERED: ONDANSETRON PF 4 MG/2 ML VIAL. IV ONE (14:45)
--- NOTE | 2018-05-15 15:13 | RAD ---
PORTABLE CHEST 1V Clinical indications: HISTORY OF LUPUS, CHEST PAIN AND WEAKNESS COMPARISON: Chest x-ray dated August 23, 2017. Findings: No acute lung infiltrate or pleural effusion or pulmonary edema or lung mass or pneumothorax is seen. The heart size, pulmonary vasculature, mediastinum and both sirisha are unremarkable. Impression: No acute radiographic abnormality is seen. Electronically signed by: Jeanmarie Castro MD (05/15/2018 3:09 PM) [facility]
[2018-05-15 15:30] LABS: BASO % 1 % (0-3); EOS # 0.1 x10^3/uL (0.0-0.7); EOS % 1 % (0-3); HEMATOCRIT 38.1 % (36.0-47.0); HEMOGLOBIN 12.3 g/dL (12.0-15.5); LYMPH # 1.3 x10^3/uL (1.0-4.8); LYMPH % 15 % (24-48); MEAN CORPUSCULAR HEMOGLOBIN 31 pg (25-35); MEAN CORPUSCULAR HGB CONC 32 g/dL (31-37); MEAN CORPUSCULAR VOLUME 97 fL (79-100); MONO # 0.7 x10^3/uL (0.0-1.1); MONO % 9 % (0-9); NEUT # 6.2 x10^3uL (1.8-7.7); NEUT % 75 % (31-73); PLATELET COUNT 292 x10^3/uL (140-400); RED BLOOD COUNT 3.94 x10^6/uL (3.50-5.40); RED CELL DISTRIBUTION WIDTH 14.6 % (11.5-14.5); WHITE BLOOD COUNT 8.3 x10^3/uL (4.0-11.0)
[2018-05-15 15:56] LABS: CALCIUM 9.3 mg/dL (8.5-10.1); CREATININE 0.4 mg/dL (0.6-1.0); GFR 216.1
[2018-05-15 16:01] LABS: ALBUMIN 3.3 g/dL (3.4-5.0); ALBUMIN/GLOBULIN RATIO 0.6 (1.0-1.7); MAGNESIUM 1.5 mg/dL (1.8-2.4); TOTAL BILIRUBIN 0.5 mg/dL (0.2-1.0); TOTAL PROTEIN 8.4 g/dL (6.4-8.2)
--- NOTE | 2018-05-15 16:16 | PHYS DOC ---
Past Medical History Past Medical History: Alcoholism, Endometriosis, Fibromyalgia, Hypertension, Hypothyroid Additional Past Medical Histor: Graves Disease,x2 blood trans, Bulging disc, Lupus, Neuropathy (JUSTA PRECIADO APRN) Past Surgical History: Cholecystectomy, Tubal ligation, Other Additional Past Surgical Histo: back surgery (JUSTA PRECIADO APRN) Alcohol Use: Heavy Drug Use: Marijuana (JUSTA PRECIADO APRN) Adult General Chief Complaint Chief Complaint: MULTIPLE COMPLAINTS HPI HPI Patient is a 37 year old female with history of alcoholism, fibromyalgia, hypertension, who presents to the ED today with multiple complaints. Patient is complaining of chronic diarrhea, she states she's had this diarrhea for months. She states she's been tested for C. difficile before and was positive and was treated 6 months ago. Patient denies any blood in her stools. She is also complaining of nausea and vomiting for unknown period of time. She is also complaining of 10 out of 10 left-sided chest pain. She states the pain has been there for "a couple days". Patient unable to give me further information on this chest pain. She is also complaining of chronic lower extremity pain. Patient denies anything specifically exacerbating or alleviating, chronic lower extremity pain. She keeps asking for pain medicine and giving me limited information. At some point she was choosing not to talk. (JUSTA PRECIADO APRN) Review of Systems Review of Systems Constitutional: Denies fever or chills [] Eyes: Denies change in visual acuity, redness, or eye pain [] HENT: Denies nasal congestion or sore throat [] Respiratory: Denies cough or shortness of breath [] Cardiovascular: Reports chest pain. No additional information not addressed in HPI [] GI: Reports chronic diarrhea, nausea and vomiting. Denies abdominal pain,bloody stools or diarrhea [] : Denies dysuria or hematuria [] Musculoskeletal: Reports chronic lower extremity pain. Denies back pain Integument: Denies rash or skin lesions [] Neurologic: Denies headache, focal weakness or sensory changes [] All other systems were reviewed and found to be within normal limits, except as documented in this note. (JUSTA PRECIADO APRN) Current Medications Current Medications Current Medications Medications (Trade) Dose Ordered Sig/Emelia Start Time Stop Time Status Last Admin Dose Admin Aspirin (Yamini Aspirin) 325 mg 1X ONCE 05/15/18 14:45 3/16/19 14:51 DC 05/15/18 15:30 325 MG Famotidine (Pepcid Vial) 20 mg 1X ONCE 05/15/18 14:45 05/15/18 14:50 DC 05/15/18 15:30 20 MG Ondansetron HCl (Zofran) 4 mg 1X ONCE 05/15/18 14:45 05/15/18 14:50 DC 05/15/18 15:30 4 MG Sodium Chloride 1,000 ml @ 1,000 mls/hr 1X ONCE 05/15/18 14:45 05/15/18 15:44 DC 05/15/18 15:30 1,000 MLS/HR (ESTER ARENAS MD) Allergies Allergies Allergies Coded Allergies Type Severity Reaction Last Updated Verified Sulfa (Sulfonamide Antibiotics) Adverse Reaction Intermediate rapid heart beat 11/23/17 Yes (ESTER ARENAS MD) Physical Exam Physical Exam Constitutional: Well developed, well nourished, no acute distress, non-toxic appearance. [] HENT: Normocephalic, atraumatic, bilateral external ears normal, oropharynx moist, no oral exudates, nose normal. [] Eyes: PERRLA, EOMI, conjunctiva normal, no discharge. [] Neck: Normal range of motion, no tenderness, supple, no stridor. [] Cardiovascular:Heart rate regular rhythm, no murmur [] Lungs & Thorax: Bilateral breath sounds clear to auscultation [] Abdomen: Bowel sounds normal, soft, no tenderness, no masses, no pulsatile masses. [] Skin: Warm, dry, no erythema, no rash. [] Back: No tenderness, no CVA tenderness. [] Extremities: No tenderness, no cyanosis, no clubbing, ROM intact, no edema. [] Neurologic: Alert and oriented X 3, normal motor function, normal sensory function, no focal deficits noted. [] Psychologic: Affect normal, judgement normal, mood normal. [] (JUSTA PRECIADO APRN) Current Patient Data Vital Signs Vital Signs Date Time Temp Pulse Resp B/P (MAP) Pulse Ox O2 Delivery O2 Flow Rate FiO2 05/15/18 14:21 98.6 112 18 102/65 (77) 94 Room Air 98.6 (ESTER ARENAS MD) Lab Values Laboratory Tests Test 05/15/18 15:23 White Blood Count 8.3 x10^3/uL (4.0-11.0) Red Blood Count 3.94 x10^6/uL (3.50-5.40) Hemoglobin 12.3 g/dL (12.0-15.5) Hematocrit 38.1 % (36.0-47.0) Mean Corpuscular Volume 97 fL (79-100) Mean Corpuscular Hemoglobin 31 pg (25-35) Mean Corpuscular Hemoglobin Concent 32 g/dL (31-37) Red Cell Distribution Width 14.6 % (11.5-14.5) H Platelet Count 292 x10^3/uL (140-400) Neutrophils (%) (Auto) 75 % (31-73) H Lymphocytes (%) (Auto) 15 % (24-48) L Monocytes (%) (Auto) 9 % (0-9) Eosinophils (%) (Auto) 1 % (0-3) Basophils (%) (Auto) 1 % (0-3) Neutrophils # (Auto) 6.2 x10^3uL (1.8-7.7) Lymphocytes # (Auto) 1.3 x10^3/uL (1.0-4.8) Monocytes # (Auto) 0.7 x10^3/uL (0.0-1.1) Eosinophils # (Auto) 0.1 x10^3/uL (0.0-0.7) Basophils # (Auto) 0.0 x10^3/uL (0.0-0.2) Sodium Level 138 mmol/L (136-145) Potassium Level 5.0 mmol/L (3.5-5.1) Chloride Level 97 mmol/L (98-107) L Carbon Dioxide Level 33 mmol/L (21-32) H Anion Gap 8 (6-14) Blood Urea Nitrogen 10 mg/dL (7-20) Creatinine 0.4 mg/dL (0.6-1.0) L Estimated GFR (Cockcroft-Gault) 216.1 BUN/Creatinine Ratio 25 (6-20) H Glucose Level 88 mg/dL (70-99) Calcium Level 9.3 mg/dL (8.5-10.1) Magnesium Level 1.5 mg/dL (1.8-2.4) L Total Bilirubin 0.5 mg/dL (0.2-1.0) Aspartate Amino Transferase (AST) 75 U/L (15-37) H Alanine Aminotransferase (ALT) 113 U/L (14-59) H Alkaline Phosphatase 219 U/L (46-116) H Troponin I Quantitative < 0.017 ng/mL (0.000-0.055) TH-Ume-F-Type Natriuretic Peptide 45 pg/mL (0-124) Total Protein 8.4 g/dL (6.4-8.2) H Albumin 3.3 g/dL (3.4-5.0) L Albumin/Globulin Ratio 0.6 (1.0-1.7) L Lipase 43 U/L (73-393) L Thyroid Stimulating Hormone (TSH) 27.140 uIU/mL (0.358-3.74) H Ethyl Alcohol Level < 10 mg/dL (0-10) Laboratory Tests 05/15/18 15:23 Laboratory Tests 05/15/18 15:23 (ESTER ARENAS MD) EKG EKG [] (JUSTA PRECIADO APRN) Radiology/Procedures Radiology/Procedures [] (JUSTA PRECIADO APRN) Course & Med Decision Making Course & Med Decision Making Pertinent Labs and Imaging studies reviewed. (See chart for details) This is a 37-year-old female patient presenting to the ED today with multiple complaints. Patient is complaining of chronic lower extremity pain, chronic diarrhea, nausea, vomiting, no abdominal pain, also complaining of chest pain. Chest and has been there for couple days. She has history of alcoholism CBC with no acute findings, CMP with AST of 75, ALT of 113, AST 219, magnesium 1.5, troponin is normal. Alcohol<10. Patient has history of elevated liver enzymes, she is alcoholic. Patient refused to give us urine, informed she will not be given any pain medicine in the ED. She decided she wants to go home. (JUSTA PRECIADO APRN) Course & Med Decision Making Staff Physician Addendum: I was working in the ER during the course of this patient's visit. I was available for consultation as needed, but I was not directly involved in the care of this patient. (ESTER ARENAS MD) Dragon Disclaimer Dragon Disclaimer This electronic medical record was generated, in whole or in part, using a voice recognition dictation system. (JUSTA PRECIADO APRN) Departure Departure Impression: Primary Impression: Chest pain Additional Impressions: Chronic lower limb pain Chronic diarrhea Transaminitis Disposition: HOME, SELF-CARE Condition: STABLE Referrals: Mani MILLS MD (PCP) Follow-up next week Patient Instructions: Chest Pain (Nonspecific), Diarrhea, [id number] Additional Instructions: You were evaluated in the emergency room for multiple complaints. Your workup was negative for any acute findings. Please follow-up with your own doctor in the course of next week. Problem Qualifiers Primary Impression: Chest pain Chest pain type: unspecified Qualified Codes: R07.9 - Chest pain, unspecified Additional Impressions: Chronic lower limb pain Laterality: bilateral Qualified Codes: M79.604 - Pain in right leg; M79.605 - Pain in left leg; G89.29 - Other chronic pain JUSTA PRECIADO APRN May 15, 2018 16:16 ESTER ARENAS MD May 15, 2018 17:18
[2018-05-15 17:00] VITALS: BP 130/89
--- NOTE | 2018-05-16 14:09 | EKG ---
[facility] [address] [place] [address] Test Date: 2018-05-15 Test Time: 15:08:00 Pat Name: LUIS RODRIGUEZ Department: Room: Gender: F Cloth Examiner Hand: : 1980 Requested By: JUSTA PRECIADO Order Number: [id number] Reading MD: Jg Duron MD Measurements Intervals [place] Rate: 92 P: 54 LA: 160 QRS: 28 QRSD: 56 T: 68 QT: 330 QTc: 413 Interpretive Statements SINUS RHYTHM Electronically Signed On 05-20-2018 15:02:47 CDT by Jg Duron MD
[2018-05-31] MEDS ORDERED: FOLI1TAB16 PO (08:41)
[2018-05-31] MEDS ORDERED: THIA100T22 PO (08:41)
== END 2018-05-15 17:02 | disposition home or self-care (01) ==
LOC: ER 13:45
DX: K52.9 Noninfective gastroenteritis and colitis, unspecified (principal); R74.0 Nonspecific elevation of levels of transaminase and lactic acid dehydrogenase [LDH]; R07.89 Other chest pain; G89.29 Other chronic pain; M79.604 Pain in right leg; M79.605 Pain in left leg; F10.20 Alcohol dependence, uncomplicated; Y90.0 Blood alcohol level of less than 20 mg/100 ml; I10 Essential (primary) hypertension; E03.9 Hypothyroidism, unspecified; Z90.49 Acquired absence of other specified parts of digestive tract; Z98.51 Tubal ligation status; Z88.2 Allergy status to sulfonamides
CPT/HCPCS: 36415; 71045; 80053; 83690; 83735; 83880; 84443; 84484; 85025; 93005; 96361; 96374; 96375; 99285; G0480; J2405; J3490; J7030

== ENCOUNTER 2018-05-25 22:20 | Emergency (ER) | payer OTHER ==
[~2018-05-25] VITALS: Ht 154.9 cm; Wt 70.3 kg
[~2018-05-25 22:20] MED LIST changes: +IV NORMAL SALINE 1000ML BAG 1,000 ML IV ONE
[2018-05-25] MEDS ORDERED: IV NORMAL SALINE 1000ML BAG 1,000 ML IV ONE (23:00)
[2018-05-25] MEDS ORDERED: IOHEXOL 300 MG/ML 100ML VIAL. IV ONE (23:00)
[2018-05-25] MEDS ORDERED: CONTRAST GIVEN. MC PRN (23:00)
[2018-05-25] MEDS ORDERED: KETOROLAC 30 MG/ML VIAL. IV ONE (23:00)
[2018-05-25] MEDS ORDERED: ONDANSETRON PF 4 MG/2 ML VIAL. IV ONE (23:00)
[2018-05-25 23:36] LABS: BILIRUBIN,URINE NEGATIVE (NEG); CLARITY,URINE CLEAR; COLOR,URINE YELLOW; NITRITE,URINE NEGATIVE (NEG); PROTEIN,URINE NEGATIVE (NEG-TRACE); UROBILINOGEN,URINE 0.2 mg/dL (0.2 mg/dL)
[2018-05-25 23:42] LABS: BARBITURATES NEG (NEG); BENZODIAZEPINES NEG (NEG); CANNABINOIDS NEG (NEG); COCAINE NEG (NEG); METHADONE NEG (NEG); OPIATES NEG (NEG); PHENCYCLIDINE NEG (NEG)
[2018-05-25 23:43] LABS: AMPHETAMINE/METHAMPHETAMINE NEG (NEG)
[2018-05-25 23:45] LABS: BASO % 1 % (0-3); EOS # 0.1 x10^3/uL (0.0-0.7); EOS % 1 % (0-3); HEMATOCRIT 34.4 % (36.0-47.0); HEMOGLOBIN 11.3 g/dL (12.0-15.5); LYMPH # 1.6 x10^3/uL (1.0-4.8); LYMPH % 30 % (24-48); MEAN CORPUSCULAR HEMOGLOBIN 32 pg (25-35); MEAN CORPUSCULAR HGB CONC 33 g/dL (31-37); MEAN CORPUSCULAR VOLUME 97 fL (79-100); MONO # 0.7 x10^3/uL (0.0-1.1); MONO % 14 % (0-9); NEUT # 2.8 x10^3uL (1.8-7.7); NEUT % 53 % (31-73); PLATELET COUNT 327 x10^3/uL (140-400); RED BLOOD COUNT 3.55 x10^6/uL (3.50-5.40); RED CELL DISTRIBUTION WIDTH 15.1 % (11.5-14.5); WHITE BLOOD COUNT 5.3 x10^3/uL (4.0-11.0)
[2018-05-25 23:48] LABS: BACTERIA,URINE 0 /HPF (0-FEW); RBC,URINE OCC /HPF (0-2); SQUAMOUS EPITHELIAL CELL,UR MANY /LPF; WBC,URINE OCC /HPF (0-4)
[2018-05-25 23:49] LABS: AMORPHOUS SEDIMENT,UR PRESENT /HPF
[2018-05-25 23:57] LABS: PROTHROMBIN TIME PATIENT 15.5 SEC (11.7-14.0)
[2018-05-26] LABS: CALCIUM 9.1 mg/dL (8.5-10.1); GFR 75.1; POTASSIUM 4.6 mmol/L (3.5-5.1)
[2018-05-26 00:05] LABS: ALBUMIN 3.7 g/dL (3.4-5.0); ALBUMIN/GLOBULIN RATIO 0.7 (1.0-1.7); MAGNESIUM 1.1 mg/dL (1.8-2.4); TOTAL BILIRUBIN 0.4 mg/dL (0.2-1.0); TOTAL PROTEIN 8.8 g/dL (6.4-8.2)
--- NOTE | 2018-05-26 00:46 | RAD ---
EXAM: AP View of the chest DATE: 05/25/2018 10:38 PM INDICATION: WEAKNESS COMPARISON: 05/15/2018 FINDINGS/ IMPRESSION: The heart is not enlarged. Mediastinal and hilar contours are normal. Linear opacities left lung base likely scarring/atelectasis. No lobar consolidation. No pleural effusion or pneumothorax. Electronically signed by: Hu Nj MD (05/26/2018 12:43 AM) [facility]
[2018-05-26] MEDS ORDERED: MAGNESIUM SULFATE 1GM 100 ML IV ONE ×2 (01:00→01:45)
--- NOTE | 2018-05-26 01:35 | RAD ---
CT scan of the abdomen and pelvis with contrast 05/26/2018 CLINICAL HISTORY: Abdominal pain. TECHNIQUE: After the intravenous administration of 75 cc of Omnipaque 300, contiguous, 5 mm axial sections were obtained through the abdomen and pelvis. One or more of the following individualized dose reduction techniques were utilized for this study: 1. Automated exposure control. 2. Adjustment of the mA and/or kV according to patient size. 3. Use of iterative reconstruction technique. FINDINGS: Images through the lung bases demonstrate dependent subsegmental atelectasis involving both lower lobes. The liver, spleen, pancreas, adrenal glands and kidneys are within normal limits. Atherosclerotic calcification of the abdominal aorta is seen. The abdominal aorta tapers normally. Surgical clips are seen within the gallbladder fossa consistent with a cholecystectomy. No free fluid or free air is seen within the abdomen. There is no evidence of bowel obstruction. A moderate to large amount stool is seen throughout the colon. Images through the pelvis demonstrate the urinary bladder distended with urine. An IUD is seen within the uterus. No adnexal mass is seen. No free fluid is noted. Very mild S-shaped curvature of the thoracolumbar spine is seen. IMPRESSION: Moderate to large amount of stool is seen throughout the colon. There is no evidence of bowel obstruction. No acute abnormality is seen. Electronically signed by: Jose Heath MD (05/26/2018 1:32 AM) [facility]
--- NOTE | 2018-05-26 02:04 | PHYS DOC ---
Past Medical History Past Medical History: Alcoholism, Endometriosis, Fibromyalgia, Hypertension, Hypothyroid Additional Past Medical Histor: Graves Disease,x2 blood trans, Bulging disc, Lupus, Neuropathy (JUSTA PRECIADO APRN) Past Surgical History: Cholecystectomy, Tubal ligation, Other Additional Past Surgical Histo: back surgery (JUSTA PRECIADO APRN) Alcohol Use: Heavy Drug Use: Marijuana (JUSTA PRECIADO APRN) Adult General Chief Complaint Chief Complaint: WEAKNESS/GENERALIZED HPI HPI Patient is a 37 year old female with a history of alcoholism, hypertension, fibromyalgia, chronic neuropathy to bilateral lower extremities, who presents today complaining of generalized weakness that began today. Patient is also complaining of chronic nausea and vomiting. Denies any diarrhea. Denies any chance she is constipated. Denies any chest pain or shortness of breath. She is asking for pain medicine. Patient is also complaining of generalized 10 out of 10 abdominal pain as well as chronic lower extremity pain. Denies any known injury. Denies anything exacerbating or relieving her pain. She is not able to give me a description of her pain. (JUSTA PRECIADO APRN) Review of Systems Review of Systems Constitutional: Denies fever or chills [] Eyes: Denies change in visual acuity, redness, or eye pain [] HENT: Denies nasal congestion or sore throat [] Respiratory: Denies cough or shortness of breath [] Cardiovascular: No additional information not addressed in HPI [] GI: Reports nausea, vomiting, generalized abdominal pain, denies bloody stools or diarrhea [] : Denies dysuria or hematuria [] Musculoskeletal: Denies back pain or joint pain [] Integument: Denies rash or skin lesions [] Neurologic: Reports generalized weakness. Denies headache, focal weakness or sensory changes [] All other systems were reviewed and found to be within normal limits, except as documented in this note. (JUSTA PRECIADO APRN) Current Medications Current Medications Current Medications Medications (Trade) Dose Ordered Sig/Emelia Start Time Stop Time Status Last Admin Dose Admin Acetaminophen (Tylenol) 650 mg PRN Q4HRS PRN 05/26/18 02:15 05/26/18 02:58 DC Docusate Sodium (Colace) 100 mg DAILY 05/26/18 09:00 05/26/18 09:00 DC Info (CONTRAST GIVEN -- Rx MONITORING) 1 each PRN DAILY PRN 05/25/18 23:00 05/26/18 02:58 DC Iohexol (Omnipaque 300 Mg/ml) 75 ml 1X ONCE 05/25/18 23:00 05/25/18 23:01 DC 05/25/18 12:30 75 ML Ketorolac Tromethamine (Toradol 30mg Vial) 30 mg 1X ONCE 05/25/18 23:00 05/25/18 23:01 DC 05/25/18 23:38 30 MG Magnesium Sulfate/ Dextrose 100 ml @ 100 mls/hr 1X ONCE 05/26/18 01:45 05/26/18 02:44 DC Ondansetron HCl (Zofran) 4 mg PRN Q8HRS PRN 05/26/18 02:15 05/26/18 02:58 DC Polyethylene Glycol (miraLAX PACKET) 17 gm DAILY 05/26/18 09:00 05/26/18 09:00 DC Sodium Chloride 1,000 ml @ 1,000 mls/hr 1X ONCE 05/25/18 23:00 05/25/18 23:59 DC 05/25/18 23:35 1,000 MLS/HR (CANDACE ETIENNE DO) Allergies Allergies Allergies Coded Allergies Type Severity Reaction Last Updated Verified Sulfa (Sulfonamide Antibiotics) Adverse Reaction Intermediate rapid heart beat 11/23/17 Yes (CANDACE ETIENNE DO) Physical Exam Physical Exam Constitutional: Well developed, well nourished, no acute distress, non-toxic appearance. [] HENT: Normocephalic, atraumatic, bilateral external ears normal, oropharynx moist, no oral exudates, nose normal. [] Eyes: PERRLA, EOMI, conjunctiva normal, no discharge. [] Neck: Normal range of motion, no tenderness, supple, no stridor. [] Cardiovascular:Heart rate regular rhythm, no murmur [] Lungs & Thorax: Bilateral breath sounds clear to auscultation [] Abdomen: Bowel sounds normal, firm abdomen, diffuse tenderness throughout the abdomen no point tenderness to right upper quadrant or right lower quadrant, no masses, no pulsatile masses. [] Skin: Warm, dry, no erythema, no rash. [] Back: No tenderness, no CVA tenderness. [] Extremities: No tenderness, no cyanosis, no clubbing, ROM intact, no edema. [] Neurologic: Alert and oriented X 3, normal motor function, normal sensory function, no focal deficits noted. Cranial nerves II through XII intact Psychologic: Flat affect, appears withdrawn (MUTUNGA,JUSTA ELECTRONIC COMMUNICATIONS TECHNICIAN) Current Patient Data Vital Signs Vital Signs Date Time Temp Pulse Resp B/P (MAP) Pulse Ox O2 Delivery O2 Flow Rate FiO2 05/26/18 02:30 89 12 95 05/25/18 22:20 97.9 111/75 (87) Room Air 97.9 (ETIENNE,CANDACE R DO) Lab Values Laboratory Tests Test 05/25/18 23:20 05/25/18 23:35 Urine Collection Type U cath Urine Color Yellow Urine Clarity Clear Urine pH 5.0 Urine Specific [place] 1.020 Urine Protein Negative mg/dL (NEG-TRACE) Urine Glucose (UA) Negative mg/dL (NEG) Urine Ketones (Stick) Negative mg/dL (NEG) Urine Blood Small (NEG) Urine Nitrite Negative (NEG) Urine Bilirubin Negative (NEG) Urine Urobilinogen Dipstick 0.2 mg/dL (0.2 mg/dL) Urine Leukocyte Esterase Negative (NEG) Urine RBC Occ /HPF (0-2) Urine WBC Occ /HPF (0-4) Urine Squamous Epithelial Cells Many /LPF Urine Amorphous Sediment Present /HPF Urine Bacteria 0 /HPF (0-FEW) Urine Mucus Slight /LPF Urine Opiates Screen Neg (NEG) Urine Methadone Screen Neg (NEG) Urine Barbiturates Neg (NEG) Urine Phencyclidine Screen Neg (NEG) Urine Amphetamine/Methamphetamine Neg (NEG) Urine Benzodiazepines Screen Neg (NEG) Urine Cocaine Screen Neg (NEG) Urine Cannabinoids Screen Neg (NEG) Urine Ethyl Alcohol Pos (NEG) White Blood Count 5.3 x10^3/uL (4.0-11.0) Red Blood Count 3.55 x10^6/uL (3.50-5.40) Hemoglobin 11.3 g/dL (12.0-15.5) L Hematocrit 34.4 % (36.0-47.0) L Mean Corpuscular Volume 97 fL (79-100) Mean Corpuscular Hemoglobin 32 pg (25-35) Mean Corpuscular Hemoglobin Concent 33 g/dL (31-37) Red Cell Distribution Width 15.1 % (11.5-14.5) H Platelet Count 327 x10^3/uL (140-400) Neutrophils (%) (Auto) 53 % (31-73) Lymphocytes (%) (Auto) 30 % (24-48) Monocytes (%) (Auto) 14 % (0-9) H Eosinophils (%) (Auto) 1 % (0-3) Basophils (%) (Auto) 1 % (0-3) Neutrophils # (Auto) 2.8 x10^3uL (1.8-7.7) Lymphocytes # (Auto) 1.6 x10^3/uL (1.0-4.8) Monocytes # (Auto) 0.7 x10^3/uL (0.0-1.1) Eosinophils # (Auto) 0.1 x10^3/uL (0.0-0.7) Basophils # (Auto) 0.0 x10^3/uL (0.0-0.2) Prothrombin Time 15.5 SEC (11.7-14.0) H Prothrombin Time INR 1.3 (0.8-1.1) H Sodium Level 136 mmol/L (136-145) Potassium Level 4.6 mmol/L (3.5-5.1) Chloride Level 94 mmol/L (98-107) L Carbon Dioxide Level 29 mmol/L (21-32) Anion Gap 13 (6-14) Blood Urea Nitrogen 25 mg/dL (7-20) H Creatinine 1.0 mg/dL (0.6-1.0) Estimated GFR (Cockcroft-Gault) 75.1 BUN/Creatinine Ratio 25 (6-20) H Glucose Level 90 mg/dL (70-99) Calcium Level 9.1 mg/dL (8.5-10.1) Magnesium Level 1.1 mg/dL (1.8-2.4) L Total Bilirubin 0.4 mg/dL (0.2-1.0) Aspartate Amino Transferase (AST) 26 U/L (15-37) Alanine Aminotransferase (ALT) 26 U/L (14-59) Alkaline Phosphatase 117 U/L (46-116) H Creatine Kinase 85 U/L (26-192) Creatine Kinase MB (Mass) 1.1 ng/mL (0.0-3.6) Creatine Kinase MB Relative Index 1.3 % (0-4) Troponin I Quantitative < 0.017 ng/mL (0.000-0.055) YG-Whh-S-Type Natriuretic Peptide 40 pg/mL (0-124) Total Protein 8.8 g/dL (6.4-8.2) H Albumin 3.7 g/dL (3.4-5.0) Albumin/Globulin Ratio 0.7 (1.0-1.7) L Lipase 94 U/L (73-393) Thyroid Stimulating Hormone (TSH) 16.331 uIU/mL (0.358-3.74) H Free Thyroxine 0.69 ng/dL (0.76-1.46) L Free Triiodothyronine (T3) pg/mL 1.63 pg/mL (2.18-3.98) L Laboratory Tests 05/25/18 23:35 Laboratory Tests 05/25/18 23:35 (CANDACE ETIENNE DO) EKG EKG [] (JUSTA PRECIADO APRN) Radiology/Procedures Radiology/Procedures [] (JUSTA PRECIADO APRN) Radiology/Procedures PROCEDURE: PORTABLE CHEST 1V EXAM: AP View of the chest DATE: 05/25/2018 10:38 PM INDICATION: WEAKNESS COMPARISON: 05/15/2018 FINDINGS/ IMPRESSION: The heart is not enlarged. Mediastinal and hilar contours are normal. Linear opacities left lung base likely scarring/atelectasis. No lobar consolidation. No pleural effusion or pneumothorax. Electronically signed by: Hu Nj MD (05/26/2018 12:43 AM) [facility] PROCEDURE: CT ABD PELV W/ IV CONTRST ONLY CT scan of the abdomen and pelvis with contrast 05/26/2018 CLINICAL HISTORY: Abdominal pain. TECHNIQUE: After the intravenous administration of 75 cc of Omnipaque 300, contiguous, 5 mm axial sections were obtained through the abdomen and pelvis. One or more of the following individualized dose reduction techniques were utilized for this study: 1. Automated exposure control. 2. Adjustment of the mA and/or kV according to patient size. 3. Use of iterative reconstruction technique. FINDINGS: Images through the lung bases demonstrate dependent subsegmental atelectasis involving both lower lobes. The liver, spleen, pancreas, adrenal glands and kidneys are within normal limits. Atherosclerotic calcification of the abdominal aorta is seen. The abdominal aorta tapers normally. Surgical clips are seen within the gallbladder fossa consistent with a cholecystectomy. No free fluid or free air is seen within the abdomen. There is no evidence of bowel obstruction. A moderate to large amount stool is seen throughout the colon. Images through the pelvis demonstrate the urinary bladder distended with urine. An IUD is seen within the uterus. No adnexal mass is seen. No free fluid is noted. Very mild S-shaped curvature of the thoracolumbar spine is seen. IMPRESSION: Moderate to large amount of stool is seen throughout the colon. There is no evidence of bowel obstruction. No acute abnormality is seen. Electronically signed by: Jose Heath MD (05/26/2018 1:32 AM) [facility] (CANDACE ETIENNE DO) Course & Med Decision Making Course & Med Decision Making Pertinent Labs and Imaging studies reviewed. (See chart for details) This is a 37-year-old female patient presenting to the ED today complaining of generalized weakness, chronic nausea vomiting, chronic bilateral lower extremity pain from neuropathy. CBC with a normal WBC, CMP with magnesium of 1.1, patient was started on IV magnesium. Urine negative for infection. TSH 16.333 CT of the abdomen and pelvic is noted for constipation. Dr. Etienne had recommended we admit patient. Dr. Aranda requested we discharge her to home and f/u with the clinic (JUSTA PRECIADO APRN) Dragon Disclaimer Dragon Disclaimer This electronic medical record was generated, in whole or in part, using a voice recognition dictation system. (JUSTA PRECIADO APRN) Departure Departure Impression: Primary Impression: Constipation Additional Impressions: Weakness Neuropathy of left lower extremity Neuropathy of right lower extremity Hypothyroidism Hypomagnesemia Disposition: 01 HOME, SELF-CARE Condition: STABLE Referrals: Mani SPENCER MD (PCP) Follow-up in 1-2 days Patient Instructions: Constipation, Adult, Weakness, [id number]-Gerh Additional Instructions: You were evaluated in the emergency room and noted to have low magnesium, and constipation. Your thyroid levels of very high meaning you have hypothyroidism. Please contact Dr. Spencer tomorrow in follow-up. Consider taking medicine to help you have bowel movements like magnesium citrate. Scripts Diclofenac Potassium (DICLOFENAC POTASSIUM) 50 Mg Tablet 1 TAB PO BID, #20 TAB 0 Refills Prov: JUSTA PRECIADO APRN 05/26/18 Gabapentin (GABAPENTIN) 600 Mg Tablet 600 MG PO TID for NEUROGENIC PAIN, #30 TAB Prov: JUSTA PRECIADO MELLISA 05/26/18 Magnesium Oxide (MAG-OXIDE) 400 Mg Tablet 1 TAB PO BID, #10 TAB 5 Refills Prov: JUSTA PRECIADO MELLISA 05/26/18 Attending Signature Attending Signature I have reviewed the PA/CERTIFIED ADDICTION COUNSELOR's note and plan of care. I was available for consultation as needed during the patient's visit in the emergency department. I agree with the clinical impression, plan, and disposition. (CANDACE ETIENNE DO) Problem Qualifiers Primary Impression: Constipation Constipation type: unspecified constipation type Qualified Codes: K59.00 - Constipation, unspecified Additional Impressions: Hypothyroidism Hypothyroidism type: unspecified Qualified Codes: E03.9 - Hypothyroidism, unspecified JUSTA PRECIADO MELLISA May 26, 2018 02:04 CANDACE ETIENNE DO May 29, 2018 05:56
[2018-05-26] MEDS ORDERED: ONDANSETRON PF 4 MG/2 ML VIAL. IV PRN (02:15)
[2018-05-26] MEDS ORDERED: ACETAMINOPHEN 325 MG TABLET. PO PRN (02:15)
[2018-05-26] MEDS ORDERED: MAGN400T22 PO (02:15)
[2018-05-26] MEDS ORDERED: GABA600T7 PO (02:15)
[2018-05-26] MEDS ORDERED: DICL50TA2 PO (02:15)
[2018-05-26 02:26] LABS: FREE T4 0.69 ng/dL (0.76-1.46)
[2018-05-26 02:30] VITALS: BP 95/66
--- NOTE | 2018-05-26 04:06 | EKG ---
[facility] [address] [place] [address] Test Date: 2018-05-25 Test Time: 23:05:56 Pat Name: LUIS RODRIGUEZ Department: Room: Gender: F Net Finisher: : 1980 Requested By: JUSTA PRECIADO Order Number: [id number] Reading MD: Jg Duron MD Measurements Intervals [place] Rate: 102 P: 54 AL: 152 QRS: 29 QRSD: 68 T: 59 QT: 328 QTc: 431 Interpretive Statements SINUS TACHYCARDIA NON SPECIFIC ST-T ABNORMALITY (ELEVATION) Electronically Signed On 05-30-2018 21:49:56 CDT by Jg Duron MD
[2018-05-26] MEDS ORDERED: DOCUSATE SODIUM 100 MG CAPSULE. PO SCH (09:00)
[2018-05-26] MEDS ORDERED: POLYETHYLENE GLYCOL 3350 17 GM PACKET. PO SCH (09:00)
[2018-05-31] MEDS ORDERED: FOLI1TAB16 PO (08:41)
[2018-05-31] MEDS ORDERED: THIA100T22 PO (08:41)
== END 2018-05-26 02:58 | disposition home or self-care (01) ==
LOC: ER 22:20
DX: G57.82 Other specified mononeuropathies of left lower limb (principal); G57.81 Other specified mononeuropathies of right lower limb; K59.00 Constipation, unspecified; E03.9 Hypothyroidism, unspecified; E83.42 Hypomagnesemia; R53.1 Weakness; R11.2 Nausea with vomiting, unspecified; R10.84 Generalized abdominal pain; F10.20 Alcohol dependence, uncomplicated; Y90.9 Presence of alcohol in blood, level not specified; I10 Essential (primary) hypertension; Z90.49 Acquired absence of other specified parts of digestive tract; Z98.51 Tubal ligation status; Z88.2 Allergy status to sulfonamides
CPT/HCPCS: 36415; 71045; 74177; 80053; 80307; 81001; 82553; 83690; 83735; 83880; 84439; 84443; 84481; 84484; 85025; 85610; 93005; 96361; 96365; 96374; 96375; 99284; J1885; J2405; J3475; J7030; Q9967

== ENCOUNTER 2018-05-29 06:18 | Inpatient (IN) | payer OTHER ==
[~2018-05-29] VITALS: Ht 162.6 cm; Wt 77.8 kg
[~2018-05-29 06:18] MED LIST changes: +DICL50TA2 PO; +GABA600T7 PO; -IV NORMAL SALINE 1000ML BAG 1,000 ML IV ONE
[2018-05-29] MEDS ORDERED: MULTIVIT INFUSN ADULT K IV ONE ×5 (07:00)
[2018-05-29] MEDS ORDERED: [UNRECOGNIZED DRUG - OTHER] IV ONE ×5 (07:00)
[2018-05-29] MEDS ORDERED: THIAMINE IV ONE ×5 (07:00)
[2018-05-29] MEDS ORDERED: FOLIC ACID IV ONE ×5 (07:00)
--- NOTE | 2018-05-29 07:35 | RAD ---
PORTABLE CHEST 1V History: weakness, loss of strength in the right arm Comparison: May 25, 2018 Findings: AP view of the chest is submitted. There is again some likely atelectasis of the lung bases bilaterally. There is no dependent pleural fluid or pneumothorax. Heart size is stable. Impression: 1. There is bibasilar atelectasis. Electronically signed by: Dmitriy Winter MD (05/29/2018 7:32 AM) [facility]
--- NOTE | 2018-05-29 07:42 | PHYS DOC ---
Past Medical History Past Medical History: Alcoholism, Endometriosis, Fibromyalgia, Hypertension, Hypothyroid Additional Past Medical Histor: Graves Disease,x2 blood trans, Bulging disc, Lupus, Neuropathy Past Surgical History: Cholecystectomy, Tubal ligation, Other Additional Past Surgical Histo: back surgery Smoking: Cigarettes, Less than 1pk/day Alcohol Use: Heavy Drug Use: Marijuana Adult General Chief Complaint Chief Complaint: HYPOTENSION HPI HPI Patient is a 37 year old female who presents with feeling lightheaded and dizzy. This happened 3 days ago when she noted that she was hypotensive. She was evaluated in the emergency department. Ultimately sent home. She is been feeling dizzy since that time, diffuse body aches and pains. Patient has had some nausea, no vomiting or diarrhea. Worse with standing up. Better with sitting and laying down. No chest pain. Patient does drink alcohol, she reports 3-4 drinks a day, last drink at approximately midnight.[] Review of Systems Review of Systems Constitutional: Denies fever or chills [] Eyes: Denies change in visual acuity, redness, or eye pain [] HENT: Denies nasal congestion or sore throat [] Respiratory: Denies cough or shortness of breath [] Cardiovascular: No chest pain or palpitations[] GI: Denies abdominal pain, nausea, vomiting, bloody stools or diarrhea [] : Denies dysuria or hematuria [] Musculoskeletal: See history of present illness[] Integument: Denies rash or skin lesions [] Neurologic: Denies headache, focal weakness or sensory changes [] Endocrine: Denies polyuria or polydipsia [] All other systems were reviewed and found to be within normal limits, except as documented in this note. Current Medications Current Medications Current Medications Medications (Trade) Dose Ordered Sig/Emelia Start Time Stop Time Status Last Admin Dose Admin Multivitamins 10 ml/Thiamine HCl 100 mg/Folic Acid 1 mg/Magnesium Sulfate 2 gm/ Sodium Chloride 1,015.2 ml @ 1,000.088 mls/hr 1X ONCE 05/29/18 07:00 05/29/18 08:00 DC 05/29/18 07:12 1,000.088 MLS/HR Sodium Chloride 1,000 ml @ 1,000 mls/hr 1X ONCE 05/29/18 09:30 05/29/18 10:29 Allergies Allergies Allergies Coded Allergies Type Severity Reaction Last Updated Verified Sulfa (Sulfonamide Antibiotics) Adverse Reaction Intermediate rapid heart beat 11/23/17 Yes Physical Exam Physical Exam Constitutional: Well developed, well nourished, no acute distress, non-toxic appearance. [] HENT: Normocephalic, atraumatic, bilateral external ears normal, oropharynx moist, no oral exudates, nose normal. [] Eyes: PERRLA, EOMI, conjunctiva normal, no discharge. [] Neck: Normal range of motion, no tenderness, supple, no stridor. [] Cardiovascular:Heart rate is tachycardic in the 100s, with a regular rhythm, no murmur [] Lungs & Thorax: Bilateral breath sounds clear to auscultation [] Abdomen: Bowel sounds normal, soft, no tenderness, no masses, no pulsatile masses. [] Skin: Warm, dry, no erythema, no rash. [] Back: No tenderness, no CVA tenderness. [] Extremities: No tenderness, no cyanosis, no clubbing, ROM intact, no edema. [] Neurologic: Alert and oriented X 3, normal motor function, normal sensory function, no focal deficits noted. [] Psychologic: Affect normal, judgement normal, mood normal. [] Current Patient Data Vital Signs Vital Signs Date Time Temp Pulse Resp B/P (MAP) Pulse Ox O2 Delivery O2 Flow Rate FiO2 05/29/18 08:30 116 22 126/85 (99) 97 Room Air 05/29/18 06:20 97.0 97.0 Lab Values Laboratory Tests Test 05/29/18 07:30 05/29/18 08:22 White Blood Count 4.5 x10^3/uL (4.0-11.0) Red Blood Count 3.38 x10^6/uL (3.50-5.40) L Hemoglobin 11.2 g/dL (12.0-15.5) L Hematocrit 33.2 % (36.0-47.0) L Mean Corpuscular Volume 98 fL (79-100) Mean Corpuscular Hemoglobin 33 pg (25-35) Mean Corpuscular Hemoglobin Concent 34 g/dL (31-37) Red Cell Distribution Width 14.5 % (11.5-14.5) Platelet Count 275 x10^3/uL (140-400) Neutrophils (%) (Auto) 48 % (31-73) Lymphocytes (%) (Auto) 39 % (24-48) Monocytes (%) (Auto) 9 % (0-9) Eosinophils (%) (Auto) 3 % (0-3) Basophils (%) (Auto) 1 % (0-3) Neutrophils # (Auto) 2.1 x10^3uL (1.8-7.7) Lymphocytes # (Auto) 1.8 x10^3/uL (1.0-4.8) Monocytes # (Auto) 0.4 x10^3/uL (0.0-1.1) Eosinophils # (Auto) 0.1 x10^3/uL (0.0-0.7) Basophils # (Auto) 0.0 x10^3/uL (0.0-0.2) Prothrombin Time 13.4 SEC (11.7-14.0) Prothrombin Time INR 1.1 (0.8-1.1) Maternal Serum HCG Beta Subunit < 1 mIU/mL (0-5) Sodium Level 145 mmol/L (136-145) Potassium Level 3.8 mmol/L (3.5-5.1) Chloride Level 106 mmol/L (98-107) Carbon Dioxide Level 26 mmol/L (21-32) Anion Gap 13 (6-14) Blood Urea Nitrogen 9 mg/dL (7-20) Creatinine 0.5 mg/dL (0.6-1.0) L Estimated GFR (Cockcroft-Gault) 167.1 BUN/Creatinine Ratio 18 (6-20) Glucose Level 107 mg/dL (70-99) H Calcium Level 8.8 mg/dL (8.5-10.1) Magnesium Level 1.5 mg/dL (1.8-2.4) L Total Bilirubin 0.4 mg/dL (0.2-1.0) Aspartate Amino Transferase (AST) 20 U/L (15-37) Alanine Aminotransferase (ALT) 19 U/L (14-59) Alkaline Phosphatase 138 U/L (46-116) H Ammonia 43 mcmol/L (11-34) H Creatine Kinase 79 U/L (26-192) Troponin I Quantitative < 0.017 ng/mL (0.000-0.055) CO-Ibz-B-Type Natriuretic Peptide 32 pg/mL (0-124) Total Protein 7.6 g/dL (6.4-8.2) Albumin 3.3 g/dL (3.4-5.0) L Albumin/Globulin Ratio 0.8 (1.0-1.7) L Ethyl Alcohol Level 125 mg/dL (0-10) H Urine Collection Type Void Urine Color Yellow Urine Clarity Clear Urine pH 6.0 Urine Specific [place] 1.015 Urine Protein Negative mg/dL (NEG-TRACE) Urine Glucose (UA) Negative mg/dL (NEG) Urine Ketones (Stick) Negative mg/dL (NEG) Urine Blood Negative (NEG) Urine Nitrite Negative (NEG) Urine Bilirubin Negative (NEG) Urine Urobilinogen Dipstick 0.2 mg/dL (0.2 mg/dL) Urine Leukocyte Esterase Negative (NEG) Urine RBC 1-2 /HPF (0-2) Urine WBC 1-4 /HPF (0-4) Urine Squamous Epithelial Cells Mod /LPF Urine Bacteria Few /HPF (0-FEW) Urine Mucus Slight /LPF Urine Test Negative (NEG) Urine Opiates Screen Neg (NEG) Urine Methadone Screen Neg (NEG) Urine Barbiturates Neg (NEG) Urine Phencyclidine Screen Neg (NEG) Urine Amphetamine/Methamphetamine Neg (NEG) Urine Benzodiazepines Screen Neg (NEG) Urine Cocaine Screen Neg (NEG) Urine Cannabinoids Screen Neg (NEG) Urine Ethyl Alcohol Pos (NEG) Laboratory Tests 05/29/18 07:30 Laboratory Tests 05/29/18 07:30 EKG EKG EKG shows a sinus tachycardia at 102 bpm, normal axis, QTC of 463 ms, no ST elevation, interpreted by me at 0659. This was compared with an EKG of 05/25/2018 , no acute changes are noted.[] Radiology/Procedures Radiology/Procedures PORTABLE CHEST 1V History: weakness, loss of strength in the right arm Comparison: May 25, 2018 Findings: AP view of the chest is submitted. There is again some likely atelectasis of the lung bases bilaterally. There is no dependent pleural fluid or pneumothorax. Heart size is stable. Impression: 1. There is bibasilar atelectasis.[] Course & Med Decision Making Course & Med Decision Making Pertinent Labs and Imaging studies reviewed. (See chart for details) ED course: Patient arrived, was placed in bed, and tolerated exam well. Old records were reviewed and noted that the patient was hypomagnesemic on her last visit several days ago. She was given a "banana bag" containing multivitamins, thiamine, folate, and magnesium due to her history of both alcohol use as well as hypomagnesemia. Her heart rate stayed in the 100s to 110s. After the fluids were completed her blood pressure was noted to be 78/45. She was given additional fluids and consultation was made with the on-call member of her primary care team who recommended admission to the medical/surgical floor. Her systolic blood pressure improved to the upper 90s with the additional fluids. She was admitted in improved condition. Medical decision making: There is no evidence of rhabdomyolysis. No evidence of an acute renal failure. Patient is still hypomagnesemic at 1.5. Ammonia is noted to be elevated at 43 with no previous level for comparison. Her alcohol level is noted to be elevated, and most of these issues may be related to her alcohol use and abuse.[] Dragon Disclaimer Dragon Disclaimer This electronic medical record was generated, in whole or in part, using a voice recognition dictation system. Departure Departure Impression: Primary Impression: Hypotension Additional Impressions: Hypomagnesemia Hyperammonemia Alcohol abuse Admitting Physician: Benedicto Mills Condition: IMPROVED Referrals: Mani MILLS MD (PCP) Problem Qualifiers Primary Impression: Hypotension Hypotension type: unspecified hypotension type Qualified Codes: I95.9 - Hypotension, unspecified MISTY ERIC May 29, 2018 07:42
[2018-05-29 07:47] LABS: BASO % 1 % (0-3); EOS # 0.1 x10^3/uL (0.0-0.7); EOS % 3 % (0-3); HEMATOCRIT 33.2 % (36.0-47.0); HEMOGLOBIN 11.2 g/dL (12.0-15.5); LYMPH # 1.8 x10^3/uL (1.0-4.8); LYMPH % 39 % (24-48); MEAN CORPUSCULAR HEMOGLOBIN 33 pg (25-35); MEAN CORPUSCULAR HGB CONC 34 g/dL (31-37); MEAN CORPUSCULAR VOLUME 98 fL (79-100); MONO # 0.4 x10^3/uL (0.0-1.1); MONO % 9 % (0-9); NEUT # 2.1 x10^3uL (1.8-7.7); NEUT % 48 % (31-73); PLATELET COUNT 275 x10^3/uL (140-400); RED BLOOD COUNT 3.38 x10^6/uL (3.50-5.40); RED CELL DISTRIBUTION WIDTH 14.5 % (11.5-14.5); WHITE BLOOD COUNT 4.5 x10^3/uL (4.0-11.0)
[2018-05-29 07:59] LABS: PROTHROMBIN TIME PATIENT 13.4 SEC (11.7-14.0)
[2018-05-29 08:00] LABS: CALCIUM 8.8 mg/dL (8.5-10.1); CREATININE 0.5 mg/dL (0.6-1.0); GFR 167.1; POTASSIUM 3.8 mmol/L (3.5-5.1)
[2018-05-29 08:04] LABS: ALBUMIN 3.3 g/dL (3.4-5.0); ALBUMIN/GLOBULIN RATIO 0.8 (1.0-1.7); MAGNESIUM 1.5 mg/dL (1.8-2.4); TOTAL BILIRUBIN 0.4 mg/dL (0.2-1.0); TOTAL PROTEIN 7.6 g/dL (6.4-8.2)
[2018-05-29 08:48] LABS: BILIRUBIN,URINE NEGATIVE (NEG); CLARITY,URINE CLEAR; COLOR,URINE YELLOW; NITRITE,URINE NEGATIVE (NEG); PROTEIN,URINE NEGATIVE (NEG-TRACE); UROBILINOGEN,URINE 0.2 mg/dL (0.2 mg/dL)
[2018-05-29 08:49] LABS: AMPHETAMINE/METHAMPHETAMINE NEG (NEG); BARBITURATES NEG (NEG); BENZODIAZEPINES NEG (NEG); CANNABINOIDS NEG (NEG); COCAINE NEG (NEG); METHADONE NEG (NEG); OPIATES NEG (NEG); PHENCYCLIDINE NEG (NEG)
[2018-05-29 09:15] LABS: BACTERIA,URINE FEW /HPF (0-FEW); SQUAMOUS EPITHELIAL CELL,UR MOD /LPF
[2018-05-29 09:16] LABS: U PREG PATIENT NEGATIVE (NEG)
--- NOTE | 2018-05-29 09:23 | EKG ---
[facility] [address] [place] [address] Test Date: 2018-05-29 Test Time: 06:47:08 Pat Name: LUIS RODRIGUEZ Department: Room: Gender: F Assurance Engineer: : 1980 Requested By: MISTY ERIC Order Number: [id number] Reading MD: Jg Duron MD Measurements Intervals [place] Rate: 102 P: 36 ME: 156 QRS: 22 QRSD: 64 T: 47 QT: 352 QTc: 463 Interpretive Statements SINUS TACHYCARDIA NON-SPECIFIC ST/T CHANGES Electronically Signed On 05-31-2018 14:28:41 CDT by Jg Duron MD
[2018-05-29] MEDS ORDERED: IV NORMAL SALINE 1000ML BAG 1,000 ML IV ONE (09:30)
[2018-05-29] MEDS ORDERED: ACETAMINOPHEN 325 MG TABLET. PO PRN (10:00)
[2018-05-29] MEDS ORDERED: LACTULOSE 20 GM/30 ML SOLUTION. PO ONE (10:00)
[2018-05-29] MEDS ORDERED: ONDANSETRON PF 4 MG/2 ML VIAL. IV PRN (10:00)
[2018-05-29 10:20] VITALS: BP 122/78
[2018-05-29] MEDS ORDERED: CYAN10005 PO (10:46)
[2018-05-29] MEDS ORDERED: MULT1TAB52 PO (10:55)
[2018-05-29] MEDS ORDERED: QUET100T4 PO (10:55)
[2018-05-29] MEDS ORDERED: HALO5TAB PO (10:55)
[2018-05-29] MEDS ORDERED: LEVO200T5 PO (10:55)
[2018-05-29] MEDS ORDERED: GABA600T7 PO (10:55)
[2018-05-29] MEDS ORDERED: QUET200T4 PO (10:55)
[2018-05-29] MEDS ORDERED: TRAZ150T49 PO (10:55)
[2018-05-29] MEDS ORDERED: DULO60CA6 PO (10:55)
--- NOTE | 2018-05-29 12:13 | PDOC1 ---
History and Physical Date of Admission Date of Admission 05/29/18 Identification/Chief Complaint Chief Complaint Dizzyness Source Source: Patient History of Present Illness History of Present Illness Pt states that she came to the ER because of increased dizzyness and lightheadedness. She says that her symptoms have been going on all week. Pt is a chronic alcohol drinker who has seizures due to alcohol withdrawal. Last seizure was yesterday so started drinking again yesterday. She says that she has chronic diarrhea but the color recently changed to a dark brown. She is supposed to be taking antiabuse, but takes it intermittently. Vomited several times yesterday. Pt says that she was recently diagnosed with a UTI and has one day left of her antibiotics Past Medical History Cardiovascular: HTN, Other Pulmonary: No pertinent hx CENTRAL NERVOUS SYSTEM: Seizure GI: No pertinent hx Heme/Onc: No pertinent hx Hepatobiliary: No pertinent hx Psych: Addictions, Other (Mood Disorder) Rheumatologic: Fibromyalgia Infectious disease: No pertinent hx ENT: No pertinent hx Renal/: No pertinent hx, Other Endocrine: No pertinent hx, Hypothyroidism, Other Dermatology: No pertinent hx Past Surgical History Past Surgical History: Cholecystectomy, Tubal Ligation, Other (D&C, oral surgery) Family History Family History: Diabetes, Hypertension Social History Smoke: <1 pack per day ALCOHOL: heavy Drugs: None Current Problem List Problem List Problems Medical Problems: (1) Alcohol abuse Status: Acute (2) Hyperammonemia Status: Acute (3) Hypomagnesemia Status: Acute (4) Hypotension Status: Acute Current Medications Current Medications Current Medications Medications (Trade) Dose Ordered Sig/Emelia Start Time Stop Time Status Last Admin Dose Admin Acetaminophen (Tylenol) 650 mg PRN Q4HRS PRN 05/29/18 10:00 05/30/18 09:59 Lactulose (Lactulose) 20 gm 1X ONCE 05/29/18 10:00 05/29/18 10:02 DC Multivitamins 10 ml/Thiamine HCl 100 mg/Folic Acid 1 mg/Magnesium Sulfate 2 gm/ Sodium Chloride 1,015.2 ml @ 1,000.088 mls/hr 1X ONCE 05/29/18 07:00 05/29/18 08:00 DC 05/29/18 07:12 1,000.088 MLS/HR Ondansetron HCl (Zofran) 4 mg PRN Q8HRS PRN 05/29/18 10:00 05/30/18 09:59 Sodium Chloride 1,000 ml @ 125 mls/hr Q8H 05/29/18 09:54 05/30/18 09:53 Allergies Allergies Allergies Coded Allergies Type Severity Reaction Last Updated Verified Sulfa (Sulfonamide Antibiotics) Adverse Reaction Intermediate rapid heart beat 11/23/17 Yes ROS Review of System CONSTITUTIONAL: No fever or chills EYES: No recent changes SKIN: No rash or itching CARDIOVASCULAR: No chest pain, syncope, palpitations, or edema RESPIRATORY: No SOB or cough GASTROINTESTINAL: + nausea, vomiting, abdominal pain, diarrhea NEUROLOGICAL: No headaches or weakness ENDOCRINE: No cold or heat intolerance GENITOURINARY: No urgency +frequency of urination MUSCULOSKELETAL: No back pain or joint pain LYMPHATICS: No enlarged lymph nodes PSYCHIATRIC: No anxiety or depression Physical Exam Physical Exam GEN.: No apparent distress. Alert and oriented. HEENT: Head is normocephalic, atraumatic NECK: Supple. LUNGS: Clear to auscultation. HEART: RRR, S1, S2 present. Peripheral pulses intact ABDOMEN: Distended, tender throughout. Positive bowel sounds. EXTREMITIES: Without any cyanosis. NEUROLOGIC: Normal speech, normal tone PSYCHIATRIC: Normal affect, normal mood. SKIN: No ulcerations Vitals Vitals Vital Signs Date Time Temp Pulse Resp B/P (MAP) Pulse Ox O2 Delivery O2 Flow Rate FiO2 05/29/18 10:00 100 14 96/56 (69) 96 Room Air 05/29/18 06:20 97.0 97.0 Labs Labs Laboratory Tests Test 05/29/18 07:30 05/29/18 08:22 White Blood Count 4.5 x10^3/uL (4.0-11.0) Red Blood Count 3.38 x10^6/uL (3.50-5.40) Hemoglobin 11.2 g/dL (12.0-15.5) Hematocrit 33.2 % (36.0-47.0) Mean Corpuscular Volume 98 fL (79-100) Mean Corpuscular Hemoglobin 33 pg (25-35) Mean Corpuscular Hemoglobin Concent 34 g/dL (31-37) Red Cell Distribution Width 14.5 % (11.5-14.5) Platelet Count 275 x10^3/uL (140-400) Neutrophils (%) (Auto) 48 % (31-73) Lymphocytes (%) (Auto) 39 % (24-48) Monocytes (%) (Auto) 9 % (0-9) Eosinophils (%) (Auto) 3 % (0-3) Basophils (%) (Auto) 1 % (0-3) Neutrophils # (Auto) 2.1 x10^3uL (1.8-7.7) Lymphocytes # (Auto) 1.8 x10^3/uL (1.0-4.8) Monocytes # (Auto) 0.4 x10^3/uL (0.0-1.1) Eosinophils # (Auto) 0.1 x10^3/uL (0.0-0.7) Basophils # (Auto) 0.0 x10^3/uL (0.0-0.2) Prothrombin Time 13.4 SEC (11.7-14.0) Prothromb Time International Ratio 1.1 (0.8-1.1) Maternal Serum HCG Beta Subunit < 1 mIU/mL (0-5) Sodium Level 145 mmol/L (136-145) Potassium Level 3.8 mmol/L (3.5-5.1) Chloride Level 106 mmol/L (98-107) Carbon Dioxide Level 26 mmol/L (21-32) Anion Gap 13 (6-14) Blood Urea Nitrogen 9 mg/dL (7-20) Creatinine 0.5 mg/dL (0.6-1.0) Estimated GFR (Cockcroft-Gault) 167.1 BUN/Creatinine Ratio 18 (6-20) Glucose Level 107 mg/dL (70-99) Calcium Level 8.8 mg/dL (8.5-10.1) Magnesium Level 1.5 mg/dL (1.8-2.4) Total Bilirubin 0.4 mg/dL (0.2-1.0) Aspartate Amino Transf (AST/SGOT) 20 U/L (15-37) Alanine Aminotransferase (ALT/SGPT) 19 U/L (14-59) Alkaline Phosphatase 138 U/L (46-116) Ammonia 43 mcmol/L (11-34) Creatine Kinase 79 U/L (26-192) Troponin I Quantitative < 0.017 ng/mL (0.000-0.055) PO-Rqw-E-Type Natriuretic Peptide 32 pg/mL (0-124) Total Protein 7.6 g/dL (6.4-8.2) Albumin 3.3 g/dL (3.4-5.0) Albumin/Globulin Ratio 0.8 (1.0-1.7) Ethyl Alcohol Level 125 mg/dL (0-10) Urine Collection Type Void Urine Color Yellow Urine Clarity Clear Urine pH 6.0 Urine Specific [place] 1.015 Urine Protein Negative mg/dL (NEG-TRACE) Urine Glucose (UA) Negative mg/dL (NEG) Urine Ketones (Stick) Negative mg/dL (NEG) Urine Blood Negative (NEG) Urine Nitrite Negative (NEG) Urine Bilirubin Negative (NEG) Urine Urobilinogen Dipstick 0.2 mg/dL (0.2 mg/dL) Urine Leukocyte Esterase Negative (NEG) Urine RBC 1-2 /HPF (0-2) Urine WBC 1-4 /HPF (0-4) Urine Squamous Epithelial Cells Mod /LPF Urine Bacteria Few /HPF (0-FEW) Urine Mucus Slight /LPF Urine Test Negative (NEG) Urine Opiates Screen Neg (NEG) Urine Methadone Screen Neg (NEG) Urine Barbiturates Neg (NEG) Urine Phencyclidine Screen Neg (NEG) Urine Amphetamine/Methamphetamine Neg (NEG) Urine Benzodiazepines Screen Neg (NEG) Urine Cocaine Screen Neg (NEG) Urine Cannabinoids Screen Neg (NEG) Urine Ethyl Alcohol Pos (NEG) Laboratory Tests Test 05/29/18 07:30 05/29/18 08:22 White Blood Count 4.5 x10^3/uL (4.0-11.0) Red Blood Count 3.38 x10^6/uL (3.50-5.40) Hemoglobin 11.2 g/dL (12.0-15.5) Hematocrit 33.2 % (36.0-47.0) Mean Corpuscular Volume 98 fL (79-100) Mean Corpuscular Hemoglobin 33 pg (25-35) Mean Corpuscular Hemoglobin Concent 34 g/dL (31-37) Red Cell Distribution Width 14.5 % (11.5-14.5) Platelet Count 275 x10^3/uL (140-400) Neutrophils (%) (Auto) 48 % (31-73) Lymphocytes (%) (Auto) 39 % (24-48) Monocytes (%) (Auto) 9 % (0-9) Eosinophils (%) (Auto) 3 % (0-3) Basophils (%) (Auto) 1 % (0-3) Neutrophils # (Auto) 2.1 x10^3uL (1.8-7.7) Lymphocytes # (Auto) 1.8 x10^3/uL (1.0-4.8) Monocytes # (Auto) 0.4 x10^3/uL (0.0-1.1) Eosinophils # (Auto) 0.1 x10^3/uL (0.0-0.7) Basophils # (Auto) 0.0 x10^3/uL (0.0-0.2) Prothrombin Time 13.4 SEC (11.7-14.0) Prothromb Time International Ratio 1.1 (0.8-1.1) Maternal Serum HCG Beta Subunit < 1 mIU/mL (0-5) Sodium Level 145 mmol/L (136-145) Potassium Level 3.8 mmol/L (3.5-5.1) Chloride Level 106 mmol/L (98-107) Carbon Dioxide Level 26 mmol/L (21-32) Anion Gap 13 (6-14) Blood Urea Nitrogen 9 mg/dL (7-20) Creatinine 0.5 mg/dL (0.6-1.0) Estimated GFR (Cockcroft-Gault) 167.1 BUN/Creatinine Ratio 18 (6-20) Glucose Level 107 mg/dL (70-99) Calcium Level 8.8 mg/dL (8.5-10.1) Magnesium Level 1.5 mg/dL (1.8-2.4) Total Bilirubin 0.4 mg/dL (0.2-1.0) Aspartate Amino Transf (AST/SGOT) 20 U/L (15-37) Alanine Aminotransferase (ALT/SGPT) 19 U/L (14-59) Alkaline Phosphatase 138 U/L (46-116) Ammonia 43 mcmol/L (11-34) Creatine Kinase 79 U/L (26-192) Troponin I Quantitative < 0.017 ng/mL (0.000-0.055) XD-Yyi-J-Type Natriuretic Peptide 32 pg/mL (0-124) Total Protein 7.6 g/dL (6.4-8.2) Albumin 3.3 g/dL (3.4-5.0) Albumin/Globulin Ratio 0.8 (1.0-1.7) Ethyl Alcohol Level 125 mg/dL (0-10) Urine Collection Type Void Urine Color Yellow Urine Clarity Clear Urine pH 6.0 Urine Specific [place] 1.015 Urine Protein Negative mg/dL (NEG-TRACE) Urine Glucose (UA) Negative mg/dL (NEG) Urine Ketones (Stick) Negative mg/dL (NEG) Urine Blood Negative (NEG) Urine Nitrite Negative (NEG) Urine Bilirubin Negative (NEG) Urine Urobilinogen Dipstick 0.2 mg/dL (0.2 mg/dL) Urine Leukocyte Esterase Negative (NEG) Urine RBC 1-2 /HPF (0-2) Urine WBC 1-4 /HPF (0-4) Urine Squamous Epithelial Cells Mod /LPF Urine Bacteria Few /HPF (0-FEW) Urine Mucus Slight /LPF Urine Test Negative (NEG) Urine Opiates Screen Neg (NEG) Urine Methadone Screen Neg (NEG) Urine Barbiturates Neg (NEG) Urine Phencyclidine Screen Neg (NEG) Urine Amphetamine/Methamphetamine Neg (NEG) Urine Benzodiazepines Screen Neg (NEG) Urine Cocaine Screen Neg (NEG) Urine Cannabinoids Screen Neg (NEG) Urine Ethyl Alcohol Pos (NEG) VTE Prophylaxis Ordered VTE Prophylaxis Devices: No VTE Pharmacological Prophylaxi: No Assessment/Plan Assessment/Plan Pt is a 37yo AAF admitted for hypotension 1)Hypotension- pt currently receiving IVF hydration, CTM 2)Alcoholism- Alcohol withdrawal protocol ordered. Pt has history of seizures with withdrawal, last was yesterday. CIWA score currently low 3)Chronic back pain- pt continued on Oxycodone 5mg BID 4)Hypothyroidism- uncontrolled. Wonder if this is partially due to noncompliance. Pt currently on 200mcg. Will continue this and have pt f/u with Dr. Spencer outpatient 5)Depression/Mood Disorder/Recent Suicide attempt- pt continued on Haldol 5mg BID, Seroquel 100mg BID and 200mg QHS and Cymbalta 60mg ER 6)Abdominal distention- CT showing large amount of stool, pt currently have diarrhea 7)PEM- mild 8)Anemia- mild, chronic TRAMAINE GARCIA MD May 29, 2018 12:13
[2018-05-29] MEDS ORDERED: traZODone 100 MG TABLET. PO PRN (12:15)
[2018-05-29] MEDS: IV NORMAL SALINE 1000ML BAG 1,000 ML IV SCH ×2 (12:36→16:56)
[2018-05-29] MEDS: oxyCODONE IR 5 MG TABLET PO PRN ×2 (12:36→18:10)
[2018-05-29] MEDS: LORazepam 1 MG TABLET PO SCH ×2 (12:36→18:10)
[2018-05-29] MEDS: DULoxetine HCL 30 MG CAPSULE.DR PO SCH (13:29)
[2018-05-29] MEDS: QUEtiapine 100 MG TABLET. PO SCH ×2 (13:29→21:00)
[2018-05-29] MEDS: PANTOPRAZOLE 40 MG TABLET.DR. PO SCH (13:29)
[2018-05-29] MEDS: CYANOCOBALAMIN (VITAMIN B-12) 1,000 MCG TABLET. PO SCH (13:29)
[2018-05-29] MEDS: LEVOTHYROXINE 100 MCG TABLET PO SCH (13:29)
[2018-05-29] MEDS: HALOPERIDOL 5 MG TABLET. PO SCH ×2 (13:29→21:00)
[2018-05-29] MEDS: GABAPENTIN 300 MG CAPSULE. PO SCH ×2 (13:29→21:00)
[2018-05-29] MEDS: DICLOFENAC SODIUM 25 MG TABLET.DR PO SCH ×2 (15:31→21:00)
[2018-05-29 15:45] VITALS: BP 121/82
[2018-05-29 19:50] VITALS: BP 106/67
[2018-05-29 21:12] VITALS: BP 113/77
[2018-05-29 22:12] VITALS: BP 113/77
[2018-05-30] MEDS: LORazepam 1 MG TABLET PO SCH ×2 (00:15→05:48)
[2018-05-30] MEDS: IV NORMAL SALINE 1000ML BAG 1,000 ML IV SCH (00:21)
[2018-05-30 03:01] VITALS: BP 119/90
[2018-05-30 04:08] LABS: BASO % 1 % (0-3); EOS # 0.1 x10^3/uL (0.0-0.7); EOS % 3 % (0-3); HEMATOCRIT 29.6 % (36.0-47.0); HEMOGLOBIN 9.8 g/dL (12.0-15.5); LYMPH # 1.8 x10^3/uL (1.0-4.8); LYMPH % 40 % (24-48); MEAN CORPUSCULAR HEMOGLOBIN 33 pg (25-35); MEAN CORPUSCULAR HGB CONC 33 g/dL (31-37); MEAN CORPUSCULAR VOLUME 98 fL (79-100); MONO # 0.4 x10^3/uL (0.0-1.1); MONO % 8 % (0-9); NEUT # 2.3 x10^3uL (1.8-7.7); NEUT % 50 % (31-73); PLATELET COUNT 230 x10^3/uL (140-400); RED BLOOD COUNT 3.01 x10^6/uL (3.50-5.40); RED CELL DISTRIBUTION WIDTH 14.3 % (11.5-14.5); WHITE BLOOD COUNT 4.6 x10^3/uL (4.0-11.0)
[2018-05-30 04:39] LABS: ALBUMIN 2.6 g/dL (3.4-5.0); ALBUMIN/GLOBULIN RATIO 0.6 (1.0-1.7); CALCIUM 7.8 mg/dL (8.5-10.1); CREATININE 0.4 mg/dL (0.6-1.0); GFR 216.1; POTASSIUM 4.2 mmol/L (3.5-5.1); TOTAL BILIRUBIN 0.3 mg/dL (0.2-1.0); TOTAL PROTEIN 6.8 g/dL (6.4-8.2)
[2018-05-30] MEDS: LEVOTHYROXINE 100 MCG TABLET PO SCH (05:48)
[2018-05-30 07:25] VITALS: BP 118/81
--- NOTE | 2018-05-30 07:38 | PDOC ---
SUBJECTIVE Subjective Pt states that she is feeling okay; about the same as yesterday. Has not gotten out of bed. Discussed having physical therapy work with her today. Denies nausea, vomiting OBJECTIVE Vital Signs Vital Signs Date Time Temp Pulse Resp B/P (MAP) Pulse Ox O2 Delivery O2 Flow Rate FiO2 05/30/18 03:01 97.5 84 18 119/90 (100) 98 Room Air 97.5 05/29/18 22:12 97.7 94 12 113/77 (89) 99 Room Air 97.7 05/29/18 19:50 98.1 99 16 106/67 (80) 99 Room Air 98.1 05/29/18 19:10 18 98 Nasal Cannula 2.0 05/29/18 18:10 99 05/29/18 15:45 98.0 102 121/82 (95) 99 Room Air 98.0 05/29/18 12:36 18 100 05/29/18 10:20 106 122/78 (93) 100 Room Air 05/29/18 10:00 100 14 96/56 (69) 96 Room Air 05/29/18 09:00 104 13 93/54 (67) 97 Room Air 05/29/18 08:30 116 22 126/85 (99) 97 Room Air 05/29/18 08:00 112 19 108/76 (87) 97 Room Air I & O Intake and Output 05/30/18 06:59 Intake Total 3969.2 ml Output Total 100 ml Balance 3869.2 ml Intake Oral 600 ml IV Total 3369.2 ml Output Urine Total 100 ml # Voids 3 # Bowel Movements 4 PHYSICAL EXAM Physical Exam GEN.: No apparent distress. Alert and oriented. HEENT: Head is normocephalic, atraumatic NECK: Supple. LUNGS: Clear to auscultation. HEART: RRR, S1, S2 present. Peripheral pulses intact ABDOMEN: soft, NTTP, Positive bowel sounds. EXTREMITIES: Without any cyanosis. NEUROLOGIC: Normal speech, normal tone PSYCHIATRIC: flat affect, normal mood. SKIN: No ulcerations ASSESSMENT/PLAN Assessment/Plan Pt is a 37yo AAF admitted for hypotension 1)Hypotension- resolved. Received IVF hydration. 2)Weakness- will have PT/OT work with pt today 3)Alcoholism- Alcohol withdrawal protocol ordered. Pt has history of seizures with withdrawal, last was yesterday. CIWA score currently low 4)Chronic back pain- pt continued on Oxycodone 5mg BID 5)Hypothyroidism- uncontrolled. Wonder if this is partially due to noncompliance. Pt currently on 200mcg. Will continue this and have pt f/u with Dr. Spencer outpatient 6)Depression/Mood Disorder/Recent Suicide attempt- pt continued on Haldol 5mg BID, Seroquel 100mg BID and 200mg QHS and Cymbalta 60mg ER 7)Abdominal distention- recent CT showing large amount of stool, pt stated she was having diarrhea on admission. Abdomen soft this morning 8)PEM- moderate 9)Anemia- acute on chronic, with some contribution from dilution COMMENT Lab Laboratory Tests Test 05/29/18 08:22 05/30/18 02:45 05/30/18 02:55 Urine Collection Type Void Urine Color Yellow Urine Clarity Clear Urine pH 6.0 Urine Specific [place] 1.015 Urine Protein Negative mg/dL (NEG-TRACE) Urine Glucose (UA) Negative mg/dL (NEG) Urine Ketones (Stick) Negative mg/dL (NEG) Urine Blood Negative (NEG) Urine Nitrite Negative (NEG) Urine Bilirubin Negative (NEG) Urine Urobilinogen Dipstick 0.2 mg/dL (0.2 mg/dL) Urine Leukocyte Esterase Negative (NEG) Urine RBC 1-2 /HPF (0-2) Urine WBC 1-4 /HPF (0-4) Urine Squamous Epithelial Cells Mod /LPF Urine Bacteria Few /HPF (0-FEW) Urine Mucus Slight /LPF Urine Test Negative (NEG) Urine Opiates Screen Neg (NEG) Urine Methadone Screen Neg (NEG) Urine Barbiturates Neg (NEG) Urine Phencyclidine Screen Neg (NEG) Urine Amphetamine/Methamphetamine Neg (NEG) Urine Benzodiazepines Screen Neg (NEG) Urine Cocaine Screen Neg (NEG) Urine Cannabinoids Screen Neg (NEG) Urine Ethyl Alcohol Pos (NEG) Sodium Level 136 mmol/L (136-145) Potassium Level 4.2 mmol/L (3.5-5.1) Chloride Level 102 mmol/L (98-107) Carbon Dioxide Level 26 mmol/L (21-32) Anion Gap 8 (6-14) Blood Urea Nitrogen 17 mg/dL (7-20) Creatinine 0.4 mg/dL (0.6-1.0) Estimated GFR (Cockcroft-Gault) 216.1 BUN/Creatinine Ratio 43 (6-20) Glucose Level 90 mg/dL (70-99) Calcium Level 7.8 mg/dL (8.5-10.1) Total Bilirubin 0.3 mg/dL (0.2-1.0) Aspartate Amino Transf (AST/SGOT) 17 U/L (15-37) Alanine Aminotransferase (ALT/SGPT) 13 U/L (14-59) Alkaline Phosphatase 95 U/L (46-116) Total Protein 6.8 g/dL (6.4-8.2) Albumin 2.6 g/dL (3.4-5.0) Albumin/Globulin Ratio 0.6 (1.0-1.7) White Blood Count 4.6 x10^3/uL (4.0-11.0) Red Blood Count 3.01 x10^6/uL (3.50-5.40) Hemoglobin 9.8 g/dL (12.0-15.5) Hematocrit 29.6 % (36.0-47.0) Mean Corpuscular Volume 98 fL (79-100) Mean Corpuscular Hemoglobin 33 pg (25-35) Mean Corpuscular Hemoglobin Concent 33 g/dL (31-37) Red Cell Distribution Width 14.3 % (11.5-14.5) Platelet Count 230 x10^3/uL (140-400) Neutrophils (%) (Auto) 50 % (31-73) Lymphocytes (%) (Auto) 40 % (24-48) Monocytes (%) (Auto) 8 % (0-9) Eosinophils (%) (Auto) 3 % (0-3) Basophils (%) (Auto) 1 % (0-3) Neutrophils # (Auto) 2.3 x10^3uL (1.8-7.7) Lymphocytes # (Auto) 1.8 x10^3/uL (1.0-4.8) Monocytes # (Auto) 0.4 x10^3/uL (0.0-1.1) Eosinophils # (Auto) 0.1 x10^3/uL (0.0-0.7) Basophils # (Auto) 0.0 x10^3/uL (0.0-0.2) Magnesium Level 1.6 mg/dL (1.8-2.4) TRAMAINE GARCIA MD May 30, 2018 07:38
[2018-05-30] MEDS ORDERED: LORazepam 1 MG TABLET PO PRN ×2 (07:45)
[2018-05-30] MEDS: PANTOPRAZOLE 40 MG TABLET.DR. PO SCH (07:55)
[2018-05-30] MEDS: GABAPENTIN 300 MG CAPSULE. PO SCH ×3 (07:55→19:47)
[2018-05-30] MEDS: HALOPERIDOL 5 MG TABLET. PO SCH ×2 (07:55→19:47)
[2018-05-30] MEDS: QUEtiapine 100 MG TABLET. PO SCH ×3 (07:55→19:47)
[2018-05-30] MEDS: DULoxetine HCL 30 MG CAPSULE.DR PO SCH (07:56)
[2018-05-30] MEDS: DICLOFENAC SODIUM 25 MG TABLET.DR PO SCH ×3 (07:56→19:47)
[2018-05-30] MEDS: CYANOCOBALAMIN (VITAMIN B-12) 1,000 MCG TABLET. PO SCH (07:56)
[2018-05-30] MEDS: MULTIVITAMIN with MINERAL TABLET. PO SCH (08:00)
[2018-05-30] MEDS: THIAMINE 100 MG TABLET. PO SCH (08:00)
[2018-05-30] MEDS ORDERED: MULTIVIT INFUSN,ADULT 4,VIT K 10 ML, THIAMINE INJ 100 MG, FOLIC ACID INJ 1 MG in IV NOR... IV SCH (09:00)
[2018-05-30 11:29] VITALS: BP 120/80
[2018-05-30 15:07] VITALS: BP 137/93
[2018-05-30] MEDS: oxyCODONE IR 5 MG TABLET PO PRN (17:56)
[2018-05-30 19:40] VITALS: BP 107/68
[2018-05-30 23:00] VITALS: BP 100/67
[2018-05-31 02:50] VITALS: BP 108/74
[2018-05-31 04:52] LABS: HEMATOCRIT 29.4 % (36.0-47.0); HEMOGLOBIN 9.7 g/dL (12.0-15.5); RED BLOOD COUNT 3.02 x10^6/uL (3.50-5.40); RED CELL DISTRIBUTION WIDTH 14.6 % (11.5-14.5); WHITE BLOOD COUNT 4.2 x10^3/uL (4.0-11.0)
[2018-05-31] MEDS: LEVOTHYROXINE 100 MCG TABLET PO SCH (04:59)
[2018-05-31 07:00] VITALS: BP 115/82
[2018-05-31] MEDS: MULTIVITAMIN with MINERAL TABLET. PO SCH (08:25)
[2018-05-31] MEDS: QUEtiapine 100 MG TABLET. PO SCH (08:25)
[2018-05-31] MEDS: THIAMINE 100 MG TABLET. PO SCH (08:25)
[2018-05-31] MEDS: CYANOCOBALAMIN (VITAMIN B-12) 1,000 MCG TABLET. PO SCH (08:25)
[2018-05-31] MEDS: GABAPENTIN 300 MG CAPSULE. PO SCH (08:26)
[2018-05-31] MEDS: PANTOPRAZOLE 40 MG TABLET.DR. PO SCH (08:26)
[2018-05-31] MEDS: DULoxetine HCL 30 MG CAPSULE.DR PO SCH (08:26)
[2018-05-31] MEDS: HALOPERIDOL 5 MG TABLET. PO SCH (08:26)
[2018-05-31] MEDS: DICLOFENAC SODIUM 25 MG TABLET.DR PO SCH (08:39)
[2018-05-31] MEDS ORDERED: FOLI1TAB16 PO (08:41)
[2018-05-31] MEDS ORDERED: THIA100T22 PO (08:41)
[2018-05-31] MEDS ORDERED: FOLIC ACID 1 MG TABLET. PO SCH (09:00)
--- NOTE | 2018-05-31 11:04 | DISCH ---
DISCHARGE WITH HOME HEALTH DISCHARGE INFORMATION: Discharge Date: May 31, 2018 Final Diagnosis: Problems Medical Problems: (1) Alcohol abuse Status: Acute (2) Hyperammonemia Status: Acute (3) Hypomagnesemia Status: Acute (4) Hypotension Status: Acute Condition on Discharge: Stable CODE STATUS: Code Status: Full HOME HEALTH: Face to Face: I certify this patient is under my care and that I, or a nurse practitioner or physician's assistant professor of psychology working with me, had a face to face encounter that meets the physician face to face encounter requirements with this patient on 05/31/18. Medical Complications: Falls RN For Eval/Treatment: Yes Physical Therapy For: Evalulation/Treatment Occupational Therapy For: Evaluation/Treatment Pt Meets Homebound Status: Poor coordination w/ amb., Unsteady balance w/ amb, , Extreme weakness w/ amb., Frequent falls w/ injury, Limited distance walking POST DISCHARGE ORDERS: Activity Instructions for Disc: Resume previous activity Weight Bearing Status after Di: As tolerated DIET AFTER DISCHARGE: Regular CHECKS AFTER DISCHARGE: Checks after discharge: Check blood press - daily FOLLOW-UP: PCP to follow Home Health: 1-2 weeks TREATMENT/EQUIPMENT ORDERS: Adaptive Equipment Issued: None, Luanne CERTIFICATION STATEMENT: Certification Statement: Certification Statement: Based on the above finding, I certify that this patient is confined to the home and needs intermittent senior living care, physical therapy and/or speech therapy, or continues to need occupational therapy.~ This patient is under my care, and I have initiated the establishment of the plan of care.~ This patient will be followed by myself or a community physician who will periodically review the plan of care. Home Meds Active Scripts Folic Acid (FOLIC ACID) 1 Mg Tablet, 1 MG PO DAILY for vitamin replacement for 30 Days, #30 TAB Prov:Mani MILLS MD 05/31/18 Thiamine Mononitrate (VITAMIN B-1) 100 Mg Tablet, 100 MG PO DAILY for vitamin replacement for 30 Days, #30 TAB Prov:Mani MILLS MD 05/31/18 [Pantoprazole] [address] Huerta Conflict Check, 40 MG PO DAILYAC for 30 Days, #30 5 Refills Prov:Mani MILLS MD 11/24/17 Lorazepam (ATIVAN) 1 Mg Tablet, 2 MG PO PRN Q4HRS PRN for ANXIETY / AGITATION for 30 Days, #60 TAB Prov:Mani MILLS MD 11/24/17 Oxycodone HCl (Roxicodone) 5 Mg Tablet, 15 MG PO PRN Q6HRS PRN for PAIN, #40 TAB Prov:JASON ELAM MD 11/27/13 Reported Medications Trazodone Hcl (TRAZODONE HCL) 150 Mg Tablet, 1 TAB PO QHS for insomnia, #30 TAB 1 Refill 05/29/18 Quetiapine Fumarate (SEROQUEL) 200 Mg Tablet, 1 TAB PO QHS for mood, #30 TAB 1 Refill 05/29/18 Quetiapine Fumarate (SEROQUEL) 100 Mg Tablet, 100 MG PO BID for mood, TAB 05/29/18 Multivitamin (MULTIVITAMINS) 1 Each Tablet, 1 TAB PO DAILY for supp, #90 TAB 3 Refills 05/29/18 Levothyroxine Sodium (LEVOTHYROXINE SODIUM) 200 Mcg Tablet, 1 TAB PO DAILY for hypothyroid, #30 TAB 5 Refills 05/29/18 Haloperidol (HALOPERIDOL) 5 Mg Tablet, 1 TAB PO BID for mood, #60 TAB 1 Refill 05/29/18 Gabapentin (GABAPENTIN) 600 Mg Tablet, 300 MG PO TID for NEUROGENIC PAIN, TAB 05/29/18 Duloxetine Hcl (CYMBALTA) 60 Mg Capsule.dr, 1 CAP PO DAILY for depression, #90 CAP 3 Refills 05/29/18 Cyanocobalamin (Vitamin B-12) (VITAMIN B-12) 1,000 Mcg Tablet, 1 TAB PO DAILY for supp, #30 TAB 2 Refills 05/29/18 Discontinued Scripts Diclofenac Potassium (DICLOFENAC POTASSIUM) 50 Mg Tablet, 1 TAB PO BID, #20 TAB 0 Refills Prov:JUSTA PRECIADO CARDIAC MONITOR 05/26/18 Mani MILLS MD May 31, 2018 11:04
--- NOTE | 2018-05-31 11:28 | NUR ---
SS following up with discharge planning. Discharge orders received for home healthcare. SS contacted [facility], [facility], and [facility] to check on insurance and neither company stated that they could accept pt's insurance. SS contacted [facility] and verified that they could accept pt's insurance. SS phoned and faxed home healthcare referral to [facility], ; fax [phone]. Pt and pt's RN notified.
--- NOTE | 2018-05-31 11:35 | NUR ---
Discharge Note: LUIS RODRIGUEZ [address] [place] [address] Discharge instructions and discharge home medications reviewed with Patient and a copy given. All questions have been answered and understanding verbalized. The following instructions and handouts were given: discharge instructions, new med info, alcohol cessation info, hypotension info, tachycardia info. Discontinued lines and drains: Peripheral IV intact. Patient discharged to Home w/services with transportation via Wheelchair at 1135.
--- NOTE | 2018-05-31 11:59 | PDOC3 ---
Discharge Summary [facility] Date of Admission: May 29, 2018 Discharge Date: May 31, 2018 Admitting Diagnosis hypotension Final Diagnosis Hypotension CONSULTS none Procedures none Brief Hospital Course Ms. Santamaria is a 37 old [sex] who presented with hypotension and electrolyte abnormalities that required IV replacement and fluid bolus. the fluid bolus diluted her hemoglobin and made her chronic mild anemia look worse but her blood pressure normalized, she did not have any withdrawal symptoms, her usual meds were continued, her ammonia level was elevated but she was not confused and did not have encephalopathy, her liver enzymes were normal. She has chronic neuropathy of her legs and weakness and was felt to be in need of HH by therapy, she typically wears diapers and a home commode was also ordered. She is home bound due to leg weakness, balance issues with frequent falls and does not drive Patient History: Unknown Disposition home with HH CONDITION AT DISCHARGE: Improved Scheduled Cyanocobalamin (Vitamin B-12) (Vitamin B-12), 1 TAB PO DAILY, (Reported) Duloxetine Hcl (Cymbalta), 1 CAP PO DAILY, (Reported) Folic Acid (Folic Acid), 1 MG PO DAILY Gabapentin (Gabapentin), 300 MG PO TID, (Reported) Haloperidol (Haloperidol), 1 TAB PO BID, (Reported) Levothyroxine Sodium (Levothyroxine Sodium), 1 TAB PO DAILY, (Reported) Multivitamin (Multivitamins), 1 TAB PO DAILY, (Reported) Quetiapine Fumarate (Seroquel), 100 MG PO BID, (Reported) Quetiapine Fumarate (Seroquel), 1 TAB PO QHS, (Reported) Thiamine Mononitrate (Vitamin B-1), 100 MG PO DAILY Trazodone Hcl (Trazodone Hcl), 1 TAB PO QHS, (Reported) [Pantoprazole], 40 MG PO DAILYAC Scheduled PRN Lorazepam (Ativan), 2 MG PO PRN Q4HRS PRN for ANXIETY / AGITATION Oxycodone HCl (Roxicodone), 15 MG PO PRN Q6HRS PRN for PAIN Discontinued Medications Diclofenac Potassium (Diclofenac Potassium), 1 TAB PO BID Follow Up 1-2 weeks Mani MILLS MD May 31, 2018 11:59
[2018-06-04] MEDS ORDERED: THIAMINE INJ 100 MG in IV DEXTROSE 5% 50 ML IV SCH (09:00)
== END 2018-05-31 11:35 | disposition home health service (06) | DRG 315 ==
LOC: ER 06:18 → 2 NORTH 09:45
PROVIDERS: ADMIT Family Medicine; ATTEND Family Medicine
DX: I95.9 Hypotension, unspecified (principal); F10.239 Alcohol dependence with withdrawal, unspecified; E44.0 Moderate protein-calorie malnutrition; E72.20 Disorder of urea cycle metabolism, unspecified; J98.11 Atelectasis; D64.9 Anemia, unspecified; R56.9 Unspecified convulsions; E03.9 Hypothyroidism, unspecified; E83.42 Hypomagnesemia; F17.210 Nicotine dependence, cigarettes, uncomplicated; F32.9 Major depressive disorder, single episode, unspecified; G62.9 Polyneuropathy, unspecified; F12.90 Cannabis use, unspecified, uncomplicated; G89.29 Other chronic pain; I10 Essential (primary) hypertension; M79.7 Fibromyalgia; R29.6 Repeated falls; Z82.49 Family history of ischemic heart disease and other diseases of the circulatory system; Z91.5 Personal history of self-harm; Z83.3 Family history of diabetes mellitus; Z87.440 Personal history of urinary (tract) infections; Z88.2 Allergy status to sulfonamides; Z98.51 Tubal ligation status; Z68.29 Body mass index [BMI] 29.0-29.9, adult
CPT/HCPCS: 36415; 71045; 80053; 80307; 81001; 81025; 82140; 82550; 83735; 83880; 84484; 84702; 85025; 85027; 85610; 93005; 96365; G0480; J3475; J7030; 99285-25

== ENCOUNTER 2018-06-09 13:11 | Emergency (ER) | payer OTHER ==
[~2018-06-09] VITALS: Ht 154.9 cm; Wt 77.1 kg
[~2018-06-09 13:11] MED LIST changes: +CYAN10005 PO; +DULO60CA6 PO; +HALO5TAB PO; +LEVO200T5 PO; +MULT1TAB52 PO; +QUET100T4 PO; +QUET200T4 PO; +THIA100T22 PO; +TRAZ150T49 PO
[2018-06-09] MEDS ORDERED: MULTIVIT INFUSN,ADULT 4,VIT K 10 ML, THIAMINE INJ 100 MG, FOLIC ACID INJ 1 MG in IV NOR... IV ONE (14:00)
[2018-06-09] MEDS ORDERED: KETOROLAC 30 MG/ML VIAL. IV ONE (14:15)
--- NOTE | 2018-06-09 14:30 | RAD ---
EXAM: ABDOMEN 2 VIEWS WITH PA CHEST History: Constipation, bilateral leg edema COMPARISON: 08/23/2017. FINDINGS: The cardiomediastinal silhouette grossly appears unremarkable. Minimal bibasilar lung airspace opacities likely atelectasis or infiltrates. No evidence of free air identified in the abdomen. Cholecystectomy clips identified in the right upper quadrant of the abdomen. Nonspecific bowel gas pattern. Moderate amount of stool identified throughout the colon. Contraceptive device projects in the pelvis. IMPRESSION: Diffuse amount of stool identified in the colon likely constipation. Electronically signed by: Aime Valdes MD (06/09/2018 2:27 PM) [id number]
[2018-06-09 15:23] LABS: BILIRUBIN,URINE NEGATIVE (NEG); CLARITY,URINE CLEAR; COLOR,URINE YELLOW; NITRITE,URINE POSITIVE (NEG); PROTEIN,URINE NEGATIVE (NEG-TRACE)
[2018-06-09 15:27] LABS: BASO % 1 % (0-3); EOS # 0.1 x10^3/uL (0.0-0.7); EOS % 2 % (0-3); HEMATOCRIT 34.8 % (36.0-47.0); HEMOGLOBIN 11.4 g/dL (12.0-15.5); LYMPH # 2.6 x10^3/uL (1.0-4.8); LYMPH % 47 % (24-48); MEAN CORPUSCULAR HEMOGLOBIN 32 pg (25-35); MEAN CORPUSCULAR HGB CONC 33 g/dL (31-37); MEAN CORPUSCULAR VOLUME 99 fL (79-100); MONO # 0.4 x10^3/uL (0.0-1.1); MONO % 7 % (0-9); NEUT # 2.4 x10^3uL (1.8-7.7); NEUT % 44 % (31-73); PLATELET COUNT 240 x10^3/uL (140-400); RED BLOOD COUNT 3.54 x10^6/uL (3.50-5.40); RED CELL DISTRIBUTION WIDTH 14.9 % (11.5-14.5); WHITE BLOOD COUNT 5.5 x10^3/uL (4.0-11.0)
[2018-06-09 15:31] LABS: BARBITURATES NEG (NEG); BENZODIAZEPINES NEG (NEG); CANNABINOIDS NEG (NEG); COCAINE NEG (NEG); METHADONE NEG (NEG); OPIATES NEG (NEG); PHENCYCLIDINE NEG (NEG)
[2018-06-09 15:35] LABS: BACTERIA,URINE MANY /HPF (0-FEW); SQUAMOUS EPITHELIAL CELL,UR MOD /LPF
[2018-06-09 15:36] LABS: AMPHETAMINE/METHAMPHETAMINE NEG (NEG)
[2018-06-09 15:50] LABS: CALCIUM 8.9 mg/dL (8.5-10.1); CREATININE 0.6 mg/dL (0.6-1.0); GFR 135.4; POTASSIUM 3.6 mmol/L (3.5-5.1)
--- NOTE | 2018-06-09 15:53 | EKG ---
[facility] [address] [place] [address] Test Date: 2018-06-09 Test Time: 14:36:11 Pat Name: LUIS RODRIGUEZ Department: Room: Gender: F Director Of Hotel Operations: : 1980 Requested By: JUSTA PRECIADO Order Number: [id number] Reading MD: Jg Duron MD Measurements Intervals Combs Rate: 116 P: 45 OH: 136 QRS: 40 QRSD: 68 T: 72 QT: 320 QTc: 451 Interpretive Statements SINUS TACHYCARDIA NON-SPECIFIC ST/T CHANGES Electronically Signed On 06-21-2018 10:00:09 CDT by Jg Duron MD
[2018-06-09 15:55] LABS: ALBUMIN 3.5 g/dL (3.4-5.0); ALBUMIN/GLOBULIN RATIO 0.7 (1.0-1.7); MAGNESIUM 1.2 mg/dL (1.8-2.4); TOTAL BILIRUBIN 0.4 mg/dL (0.2-1.0); TOTAL PROTEIN 8.2 g/dL (6.4-8.2)
--- NOTE | 2018-06-09 16:36 | PHYS DOC ---
Past Medical History Past Medical History: Alcoholism, Endometriosis, Fibromyalgia, Hypertension, Hypothyroid Additional Past Medical Histor: Graves Disease,x2 blood trans, Bulging disc, Lupus, Neuropathy Past Surgical History: Cholecystectomy, Tubal ligation, Other Additional Past Surgical Histo: back surgery Alcohol Use: Heavy Drug Use: Marijuana Adult General Chief Complaint Chief Complaint: PAIN CONTROL HPI HPI Patient is a 37 year old female with a history of hypothyroidism, hypertension , fibromyalgia, lupus, who presents to the ED today complaining of chronic bilateral lower extremity pain due to neuropathy and weakness. Patient states she is supposed to be on oxycodone but she ran out of the medication. She appears intoxicated. She is also asking for pain medication. Review of Systems Review of Systems Constitutional: Denies fever or chills [] Eyes: Denies change in visual acuity, redness, or eye pain [] HENT: Denies nasal congestion or sore throat [] Respiratory: Denies cough or shortness of breath [] Cardiovascular: No additional information not addressed in HPI [] GI: Denies abdominal pain, nausea, vomiting, bloody stools or diarrhea [] : Denies dysuria or hematuria [] Musculoskeletal: Reports bilateral lower extremity pain-chronic Integument: Denies rash or skin lesions [] Neurologic: Denies headache, focal weakness or sensory changes [] All other systems were reviewed and found to be within normal limits, except as documented in this note. Current Medications Current Medications Current Medications Medications (Trade) Dose Ordered Sig/[facility] Start Time Stop Time Status Last Admin Dose Admin Ketorolac Tromethamine (Toradol 30mg Vial) 30 mg 1X ONCE 06/09/18 14:15 06/09/18 14:16 DC 06/09/18 15:17 30 MG Magnesium Oxide (Magnesium Oxide) 400 mg 1X STAT 06/09/18 16:48 06/09/18 16:49 DC Magnesium Sulfate 50 ml @ 25 mls/hr 1X ONCE 06/09/18 16:45 06/09/18 18:44 Cancel Multivitamins 10 ml/Thiamine HCl 100 mg/Folic Acid 1 mg/Sodium Chloride 1,011.2 ml @ 1,000.088 mls/hr 1X ONCE 06/09/18 14:00 06/09/18 15:00 DC 06/09/18 15:17 1,000.088 MLS/HR Allergies Allergies Allergies Coded Allergies Type Severity Reaction Last Updated Verified Sulfa (Sulfonamide Antibiotics) Adverse Reaction Intermediate rapid heart beat 11/23/17 Yes Physical Exam Physical Exam Constitutional: Well developed, well nourished, no acute distress, non-toxic appearance. [] HENT: Normocephalic, atraumatic, bilateral external ears normal, oropharynx moist, no oral exudates, nose normal. [] Eyes: PERRLA, EOMI, conjunctiva normal, no discharge. [] Neck: Normal range of motion, no tenderness, supple, no stridor. [] Cardiovascular:Heart rate regular rhythm, no murmur [] Lungs & Thorax: Bilateral breath sounds clear to auscultation [] Abdomen: Bowel sounds normal, soft, no tenderness, no masses, no pulsatile masses. [] Skin: Warm, dry, no erythema, no rash. [] Back: No tenderness, no CVA tenderness. [] Extremities: No tenderness, no cyanosis, no clubbing, ROM intact, no edema. Negative Homans sign bilaterally. Neurologic: Alert and oriented X 3, normal motor function, normal sensory function, no focal deficits noted. [] Psychologic: Flat affect, smells of alcohol. Current Patient Data Vital Signs Vital Signs Date Time Temp Pulse Resp B/P (MAP) Pulse Ox O2 Delivery O2 Flow Rate FiO2 06/09/18 13:18 99.2 120 16 120/72 (88) 96 Room Air 99.2 Lab Values Laboratory Tests Test 06/09/18 14:54 06/09/18 15:00 White Blood Count 5.5 x10^3/uL (4.0-11.0) Red Blood Count 3.54 x10^6/uL (3.50-5.40) Hemoglobin 11.4 g/dL (12.0-15.5) L Hematocrit 34.8 % (36.0-47.0) L Mean Corpuscular Volume 99 fL (79-100) Mean Corpuscular Hemoglobin 32 pg (25-35) Mean Corpuscular Hemoglobin Concent 33 g/dL (31-37) Red Cell Distribution Width 14.9 % (11.5-14.5) H Platelet Count 240 x10^3/uL (140-400) Neutrophils (%) (Auto) 44 % (31-73) Lymphocytes (%) (Auto) 47 % (24-48) Monocytes (%) (Auto) 7 % (0-9) Eosinophils (%) (Auto) 2 % (0-3) Basophils (%) (Auto) 1 % (0-3) Neutrophils # (Auto) 2.4 x10^3uL (1.8-7.7) Lymphocytes # (Auto) 2.6 x10^3/uL (1.0-4.8) Monocytes # (Auto) 0.4 x10^3/uL (0.0-1.1) Eosinophils # (Auto) 0.1 x10^3/uL (0.0-0.7) Basophils # (Auto) 0.0 x10^3/uL (0.0-0.2) Sodium Level 141 mmol/L (136-145) Potassium Level 3.6 mmol/L (3.5-5.1) Chloride Level 100 mmol/L (98-107) Carbon Dioxide Level 27 mmol/L (21-32) Anion Gap 14 (6-14) Blood Urea Nitrogen 17 mg/dL (7-20) Creatinine 0.6 mg/dL (0.6-1.0) Estimated GFR (Cockcroft-Gault) 135.4 BUN/Creatinine Ratio 28 (6-20) H Glucose Level 76 mg/dL (70-99) Calcium Level 8.9 mg/dL (8.5-10.1) Magnesium Level 1.2 mg/dL (1.8-2.4) L Total Bilirubin 0.4 mg/dL (0.2-1.0) Aspartate Amino Transferase (AST) 18 U/L (15-37) Alanine Aminotransferase (ALT) 14 U/L (14-59) Alkaline Phosphatase 114 U/L (46-116) Troponin I Quantitative < 0.017 ng/mL (0.000-0.055) NC-Ybs-V-Type Natriuretic Peptide 53 pg/mL (0-124) Total Protein 8.2 g/dL (6.4-8.2) Albumin 3.5 g/dL (3.4-5.0) Albumin/Globulin Ratio 0.7 (1.0-1.7) L Lipase 77 U/L (73-393) Thyroid Stimulating Hormone (TSH) 6.684 uIU/mL (0.358-3.74) H Ethyl Alcohol Level 47 mg/dL (0-10) H Urine Collection Type Unknown Urine Color Yellow Urine Clarity Clear Urine pH 6.0 Urine Specific [place] 1.020 Urine Protein Negative mg/dL (NEG-TRACE) Urine Glucose (UA) Negative mg/dL (NEG) Urine Ketones (Stick) Negative mg/dL (NEG) Urine Blood Trace (NEG) Urine Nitrite Positive (NEG) Urine Bilirubin Negative (NEG) Urine Urobilinogen Dipstick 1.0 mg/dL (0.2 mg/dL) Urine Leukocyte Esterase Trace (NEG) Urine RBC 1-2 /HPF (0-2) Urine WBC 5-10 /HPF (0-4) Urine Squamous Epithelial Cells Mod /LPF Urine Bacteria Many /HPF (0-FEW) Urine Opiates Screen Neg (NEG) Urine Methadone Screen Neg (NEG) Urine Barbiturates Neg (NEG) Urine Phencyclidine Screen Neg (NEG) Urine Amphetamine/Methamphetamine Neg (NEG) Urine Benzodiazepines Screen Neg (NEG) Urine Cocaine Screen Neg (NEG) Urine Cannabinoids Screen Neg (NEG) Urine Ethyl Alcohol Pos (NEG) Laboratory Tests 06/09/18 14:54 Laboratory Tests 06/09/18 14:54 EKG EKG Interpreted by Dr. Cleveland sinus tachycardia HR 116 no STEMI[] Radiology/Procedures Radiology/Procedures []PROCEDURE: ACUTE ABDOMEN SERIES EXAM: ABDOMEN 2 VIEWS WITH PA CHEST History: Constipation, bilateral leg edema COMPARISON: 08/23/2017. FINDINGS: The cardiomediastinal silhouette grossly appears unremarkable. Minimal bibasilar lung airspace opacities likely atelectasis or infiltrates. No evidence of free air identified in the abdomen. Cholecystectomy clips identified in the right upper quadrant of the abdomen. Nonspecific bowel gas pattern. Moderate amount of stool identified throughout the colon. Contraceptive device projects in the pelvis. IMPRESSION: Diffuse amount of stool identified in the colon likely constipation. Electronically signed by: Aime Valdes MD (06/09/2018 2:27 PM) [id number] DICTATED and SIGNED BY: AIME VALDES MD DATE: 06/09/18 1427 Course & Med Decision Making Course & Med Decision Making Pertinent Labs and Imaging studies reviewed. (See chart for details) This is a 37-year-old female patient well known to this ED presenting today complaining of bilateral lower extremity pain chronic in nature weakness. CBC with no acute findings, CMP noted for magnesium of 1.2. Alcohol level 42, urine analysis is positive for UTI. Acute abdominal series was noted for constipation- educated on OTC medications for constipation. Patient was given banana bag and magnesium in the ED. Spoke with Dr. Phyllis Aranda transition rn for Dr. Spencer, she requested we discharge patient to home and follow-up in the clinic. Patient was discharged to home. Patient was discharged with gabapentin. Also discharged with magnesium oxide. Instructed patient to follow-up with Dr. Spencer as soon as possible, she states she has an appointment on June 15, 2018. Dragon Disclaimer Dragon Disclaimer This electronic medical record was generated, in whole or in part, using a voice recognition dictation system. Departure Departure Impression: Primary Impression: UTI (lower urinary tract infection) Additional Impressions: Hypomagnesemia Chronic pain of lower extremity, bilateral Constipation Disposition: 01 HOME, SELF-CARE Condition: STABLE Referrals: Mani SPENCER MD (PCP) Contact the office tomorrow morning and set up a follow-up appointment Patient Instructions: Constipation, Adult, Urinary Tract Infection Additional Instructions: You were evaluated in the emergency room for chronic lower extremity pain and weakness. You have urinary tract infection, we put you on antibiotics. Please contact Dr. Spencer's office tomorrow and set up a follow-up appointment. Scripts Gabapentin (GABAPENTIN ) 300 Mg Capsule 300 MG PO TID for NEUROGENIC PAIN, #30 CAP Prov: JUSTA PRECIADO APRN 06/09/18 Cephalexin (CEPHALEXIN) 500 Mg Tablet 1 TAB PO BID, #14 TAB Prov: JUSTA PRECIADO APRN 06/09/18 Magnesium Oxide (MAGNESIUM OXIDE) 400 Mg Tablet 1 TAB PO DAILY, #7 TAB 0 Refills Prov: JUSTA PRECIADO APRN 06/09/18 Problem Qualifiers Additional Impressions: Constipation Constipation type: unspecified constipation type Qualified Codes: K59.00 - Constipation, unspecified JUSTA PRECIADO APRN Jun 09, 2018 16:36
[2018-06-09 16:45] VITALS: BP 113/76
[2018-06-09] MEDS ORDERED: MAGNESIUM SULFATE 2GM 50 ML IV ONE (16:45)
[2018-06-09] MEDS ORDERED: MAGNESIUM OXIDE 400 MG TABLET PO STA (16:48)
[2018-06-09] MEDS ORDERED: MAGN400T3 PO (16:54)
[2018-06-09] MEDS ORDERED: CEPH500T PO (16:54)
[2018-06-09] MEDS ORDERED: GABA300C18 PO (16:56)
== END 2018-06-09 17:38 | disposition home or self-care (01) ==
LOC: ER 13:11
DX: G89.29 Other chronic pain (principal); M79.604 Pain in right leg; M79.605 Pain in left leg; K59.00 Constipation, unspecified; N39.0 Urinary tract infection, site not specified; F10.20 Alcohol dependence, uncomplicated; Y90.2 Blood alcohol level of 40-59 mg/100 ml; I10 Essential (primary) hypertension; E03.9 Hypothyroidism, unspecified; Z90.49 Acquired absence of other specified parts of digestive tract; Z90.89 Acquired absence of other organs; Z88.2 Allergy status to sulfonamides
CPT/HCPCS: 36415; 74022; 80053; 80307; 81001; 83690; 83735; 83880; 84443; 84484; 85025; 87086; 93005; 96365; 96375; 99284; G0480; J1885; J7030; 87186

== ENCOUNTER 2018-06-29 05:27 | Emergency (ER) | payer OTHER ==
[~2018-06-29] VITALS: Ht 154.9 cm; Wt 77.1 kg
[~2018-06-29 05:27] MED LIST changes: +CEPH500T PO; +MAGN400T3 PO
[2018-06-29] MEDS ORDERED: IV NORMAL SALINE 1000ML BAG 1,000 ML IV ONE (06:00)
[2018-06-29 06:31] LABS: BILIRUBIN,URINE NEGATIVE (NEG); CLARITY,URINE CLEAR; COLOR,URINE COLORLESS; NITRITE,URINE NEGATIVE (NEG); PH,URINE 6.5; PROTEIN,URINE NEGATIVE (NEG-TRACE); UROBILINOGEN,URINE 0.2 mg/dL (0.2 mg/dL)
[2018-06-29 06:32] LABS: BACTERIA,URINE 0 /HPF (0-FEW); RBC,URINE OCC /HPF (0-2); SQUAMOUS EPITHELIAL CELL,UR MANY /LPF; WBC,URINE 0 /HPF (0-4)
[2018-06-29 06:48] LABS: BASO % 1 % (0-3); EOS # 0.1 x10^3/uL (0.0-0.7); EOS % 2 % (0-3); HEMATOCRIT 36.7 % (36.0-47.0); HEMOGLOBIN 12.1 g/dL (12.0-15.5); LYMPH # 1.4 x10^3/uL (1.0-4.8); LYMPH % 24 % (24-48); MEAN CORPUSCULAR HEMOGLOBIN 32 pg (25-35); MEAN CORPUSCULAR HGB CONC 33 g/dL (31-37); MEAN CORPUSCULAR VOLUME 97 fL (79-100); MONO # 0.5 x10^3/uL (0.0-1.1); MONO % 8 % (0-9); NEUT # 3.8 x10^3uL (1.8-7.7); NEUT % 65 % (31-73); PLATELET COUNT 242 x10^3/uL (140-400); RED BLOOD COUNT 3.78 x10^6/uL (3.50-5.40); RED CELL DISTRIBUTION WIDTH 14.6 % (11.5-14.5); WHITE BLOOD COUNT 5.9 x10^3/uL (4.0-11.0)
[2018-06-29 07:11] LABS: U PREG PATIENT NEGATIVE (NEG)
[2018-06-29] MEDS ORDERED: MORPHINE SULFATE 4 MG/ML VIAL. IV ONE (07:30)
[2018-06-29 08:36] LABS: CALCIUM 8.7 mg/dL (8.5-10.1); CREATININE 0.5 mg/dL (0.6-1.0); GFR 167.1; POTASSIUM 3.3 mmol/L (3.5-5.1)
[2018-06-29 08:42] LABS: ALBUMIN 3.3 g/dL (3.4-5.0); ALBUMIN/GLOBULIN RATIO 0.7 (1.0-1.7); MAGNESIUM 1.4 mg/dL (1.8-2.4); TOTAL BILIRUBIN 0.2 mg/dL (0.2-1.0)
[2018-06-29] MEDS ORDERED: POTASSIUM CHLORIDE 20 MEQ TABLET.ER. PO ONE (09:00)
--- NOTE | 2018-06-29 09:05 | PHYS DOC ---
Past Medical History Past Medical History: Alcoholism, Endometriosis, Fibromyalgia, Hypertension, Hypothyroid Additional Past Medical Histor: Graves Disease,x2 blood trans, Bulging disc, Lupus, Neuropathy Past Surgical History: Cholecystectomy, Tubal ligation, Other Additional Past Surgical Histo: back surgery Alcohol Use: Heavy Drug Use: Marijuana Adult General Chief Complaint Chief Complaint: DIARRHEA HPI HPI Patient is a 37 year old presented to the ER today for evaluation of nausea, vomiting, diarrhea with generalized abdominal pain. Patient is chronically on oxycodone. She ran out of her narcotic for three days. Patient said she will follow up with her PCP this week for refill. She always has diarrhea. NO FEVER. NO BLOOD IN HER STOOL. Review of Systems Review of Systems Constitutional: Denies fever or chills [] Eyes: Denies change in visual acuity, redness, or eye pain [] HENT: Denies nasal congestion or sore throat [] Respiratory: Denies cough or shortness of breath [] Cardiovascular: No additional information not addressed in HPI [] GI: Positive for abdominal pain, nausea, vomiting, and diarrhea [] : Denies dysuria or hematuria [] Musculoskeletal: Denies back pain or joint pain [] Integument: Denies rash or skin lesions [] Neurologic: Denies headache, focal weakness or sensory changes [] Endocrine: Denies polyuria or polydipsia [] All other systems were reviewed and found to be within normal limits, except as documented in this note. Current Medications Current Medications Current Medications Medications (Trade) Dose Ordered Sig/Emelia Start Time Stop Time Status Last Admin Dose Admin Morphine Sulfate (Morphine Sulfate) 4 mg 1X ONCE 06/29/18 07:30 06/29/18 07:31 DC 06/29/18 07:33 4 MG Potassium Chloride (Klor-Con) 40 meq 1X ONCE 06/29/18 09:00 06/29/18 09:01 DC Sodium Chloride 1,000 ml @ 1,000 mls/hr 1X ONCE 06/29/18 06:00 06/29/18 06:59 DC 06/29/18 06:39 1,000 MLS/HR Allergies Allergies Allergies Coded Allergies Type Severity Reaction Last Updated Verified Sulfa (Sulfonamide Antibiotics) Adverse Reaction Intermediate rapid heart beat 11/23/17 Yes Physical Exam Physical Exam Constitutional: Well developed, well nourished, no acute distress, non-toxic appearance. [] HENT: Normocephalic, atraumatic, bilateral external ears normal, oropharynx moist, no oral exudates, nose normal. [] Eyes: PERRLA, EOMI, conjunctiva normal, no discharge. [] Neck: Normal range of motion, no tenderness, supple, no stridor. [] Cardiovascular: Sinus tachycardiar , regular rhythm, no murmur [] Lungs & Thorax: Bilateral breath sounds clear to auscultation [] Abdomen: Bowel sounds normal, soft, no tenderness, no masses, no pulsatile ma sses. [] Skin: Warm, dry, no erythema, no rash. [] Back: No tenderness, no CVA tenderness. [] Extremities: No tenderness, no cyanosis, no clubbing, ROM intact, no edema. [] Neurologic: Alert and oriented X 3, normal motor function, normal sensory function, no focal deficits noted. [] Psychologic: Affect normal, judgement normal, mood normal. [] Current Patient Data Vital Signs Vital Signs Date Time Temp Pulse Resp B/P (MAP) Pulse Ox O2 Delivery O2 Flow Rate FiO2 06/29/18 07:33 18 98 Room Air 06/29/18 05:30 98.5 114 141/95 (110) 98.5 Lab Values Laboratory Tests Test 06/29/18 06:10 06/29/18 06:35 06/29/18 08:15 Urine Collection Type Unknown Urine Color Colorless Urine Clarity Clear Urine pH 6.5 Urine Specific Spencer <=1.005 Urine Protein Negative mg/dL (NEG-TRACE) Urine Glucose (UA) Negative mg/dL (NEG) Urine Ketones (Stick) Negative mg/dL (NEG) Urine Blood Trace (NEG) Urine Nitrite Negative (NEG) Urine Bilirubin Negative (NEG) Urine Urobilinogen Dipstick 0.2 mg/dL (0.2 mg/dL) Urine Leukocyte Esterase Negative (NEG) Urine RBC Occ /HPF (0-2) Urine WBC 0 /HPF (0-4) Urine Squamous Epithelial Cells Many /LPF Urine Bacteria 0 /HPF (0-FEW) Urine Test Negative (NEG) White Blood Count 5.9 x10^3/uL (4.0-11.0) Red Blood Count 3.78 x10^6/uL (3.50-5.40) Hemoglobin 12.1 g/dL (12.0-15.5) Hematocrit 36.7 % (36.0-47.0) Mean Corpuscular Volume 97 fL (79-100) Mean Corpuscular Hemoglobin 32 pg (25-35) Mean Corpuscular Hemoglobin Concent 33 g/dL (31-37) Red Cell Distribution Width 14.6 % (11.5-14.5) H Platelet Count 242 x10^3/uL (140-400) Neutrophils (%) (Auto) 65 % (31-73) Lymphocytes (%) (Auto) 24 % (24-48) Monocytes (%) (Auto) 8 % (0-9) Eosinophils (%) (Auto) 2 % (0-3) Basophils (%) (Auto) 1 % (0-3) Neutrophils # (Auto) 3.8 x10^3uL (1.8-7.7) Lymphocytes # (Auto) 1.4 x10^3/uL (1.0-4.8) Monocytes # (Auto) 0.5 x10^3/uL (0.0-1.1) Eosinophils # (Auto) 0.1 x10^3/uL (0.0-0.7) Basophils # (Auto) 0.0 x10^3/uL (0.0-0.2) Sodium Level 142 mmol/L (136-145) Potassium Level 3.3 mmol/L (3.5-5.1) L Chloride Level 105 mmol/L (98-107) Carbon Dioxide Level 23 mmol/L (21-32) Anion Gap 14 (6-14) Blood Urea Nitrogen 9 mg/dL (7-20) Creatinine 0.5 mg/dL (0.6-1.0) L Estimated GFR (Cockcroft-Gault) 167.1 BUN/Creatinine Ratio 18 (6-20) Glucose Level 98 mg/dL (70-99) Lactic Acid Level 2.5 mmol/L (0.4-2.0) H Calcium Level 8.7 mg/dL (8.5-10.1) Magnesium Level 1.4 mg/dL (1.8-2.4) L Total Bilirubin 0.2 mg/dL (0.2-1.0) Aspartate Amino Transferase (AST) 118 U/L (15-37) H Alanine Aminotransferase (ALT) 35 U/L (14-59) Alkaline Phosphatase 125 U/L (46-116) H Total Protein 8.0 g/dL (6.4-8.2) Albumin 3.3 g/dL (3.4-5.0) L Albumin/Globulin Ratio 0.7 (1.0-1.7) L Lipase 360 U/L (73-393) Laboratory Tests 06/29/18 06:35 Laboratory Tests 06/29/18 08:15 EKG EKG [] Radiology/Procedures Radiology/Procedures [] Course & Med Decision Making Course & Med Decision Making Pertinent Labs and Imaging studies reviewed. (See chart for details) Patient appeared to be in narcotic withdraw, she was given 4 mg morphine, felt much better. Patient tolerated PO without any problem afterward. Dragon Disclaimer Dragon Disclaimer This electronic medical record was generated, in whole or in part, using a voice recognition dictation system. Departure Departure Impression: Primary Impression: Gastroenteritis Disposition: 01 HOME, SELF-CARE Condition: IMPROVED Referrals: Mani MILLS MD (PCP) follow up with your doctor in 1-2 days for reevaluation Patient Instructions: Viral Gastroenteritis JASBIR VALENCIA DO Jun 29, 2018 09:05
[2018-06-29 09:30] VITALS: BP 147/96
== END 2018-06-29 09:57 | disposition home or self-care (01) ==
LOC: ER 05:27
DX: K52.89 Other specified noninfective gastroenteritis and colitis (principal); I10 Essential (primary) hypertension; E03.9 Hypothyroidism, unspecified; F10.20 Alcohol dependence, uncomplicated; Y90.9 Presence of alcohol in blood, level not specified; Z90.49 Acquired absence of other specified parts of digestive tract; Z98.51 Tubal ligation status; Z88.2 Allergy status to sulfonamides
CPT/HCPCS: 36415; 80053; 81001; 81025; 83605; 83690; 83735; 85025; 96361; 96374; 99284; J2270; J7030

== ENCOUNTER 2018-08-11 16:22 | Emergency (ER) | payer OTHER ==
[~2018-08-11] VITALS: Ht 154.9 cm; Wt 72.6 kg
--- NOTE | 2018-08-11 18:10 | PHYS DOC ---
Past Medical History Past Medical History: Alcoholism, Endometriosis, Fibromyalgia, Hypertension, Hypothyroid Additional Past Medical Histor: Graves Disease,x2 blood trans, Bulging disc, Lupus, Neuropathy (CANDACE RILEY APRN) Past Surgical History: Cholecystectomy, Tubal ligation, Other Additional Past Surgical Histo: back surgery (CANDACE RILEY APRN) Additional Information: 2 smokes per days. Alcohol Use: Heavy Drug Use: Marijuana (CANDACE RILEY APRN) Adult General Chief Complaint Chief Complaint: HEADACHE HPI HPI Patient is a 37 year old female presents with a headache this been ongoing for 1 week. The patient also had left flank pain started around the same time. The patient has CVA tenderness to left side. The headache is worse when she moves her neck. Rates her pain as 10 out of 10 and describes as sharp and throbbing. The patient has tried ibuprofen and Tylenol at home but has not helped associated symptoms include a fever this been as high as 101. The fevers 99.5 here in the ER. (CANDACE RILEY APRN) Review of Systems Review of Systems Constitutional: Denies fever or chills [] Eyes: Denies change in visual acuity, redness, or eye pain [] HENT: Denies nasal congestion or sore throat Reports neck pain. Respiratory: Denies cough or shortness of breath [] Cardiovascular: No additional information not addressed in HPI [] GI: Reports L flank abdominal pain, nausea, vomiting, bloody stools or diarrhea [] : Denies dysuria or hematuria [] Musculoskeletal: Denies back pain or joint pain [] Integument: Denies rash or skin lesions [] Neurologic: Reports headache, focal weakness or sensory changes [] Endocrine: Denies polyuria or polydipsia [] Complete systems were reviewed and found to be within normal limits, except as documented in this note. (CANDACE RILEY APRN) Current Medications Current Medications Current Medications Medications (Trade) Dose Ordered Sig/Emelia Start Time Stop Time Status Last Admin Dose Admin Diphenhydramine HCl (Benadryl) 25 mg 1X ONCE 08/11/18 18:30 08/11/18 18:31 DC 08/11/18 18:30 25 MG Ketorolac Tromethamine (Toradol 15mg Vial) 15 mg 1X ONCE 08/11/18 18:30 08/11/18 18:31 DC 08/11/18 19:19 15 MG Levofloxacin (Levaquin) 750 mg 1X ONCE 08/11/18 19:45 08/11/18 19:46 DC 08/11/18 19:48 750 MG Potassium Chloride (KCl Oral Soln) 40 meq 1X ONCE 08/11/18 20:00 08/11/18 20:01 DC 08/11/18 20:04 40 MEQ Potassium Chloride (Klor-Con) 40 meq 1X ONCE 08/11/18 19:30 08/11/18 19:31 DC Prochlorperazine Edisylate (Compazine) 10 mg 1X ONCE 08/11/18 18:30 08/11/18 18:31 DC 08/11/18 19:17 10 MG Sodium Chloride 1,000 ml @ 1,000 mls/hr 1X ONCE 08/11/18 18:30 08/11/18 19:29 DC 08/11/18 19:16 1,000 MLS/HR (ESTER ARENAS MD) Allergies Allergies Allergies Coded Allergies Type Severity Reaction Last Updated Verified Sulfa (Sulfonamide Antibiotics) Adverse Reaction Intermediate rapid heart beat 11/23/17 Yes (ESTER ARENAS MD) Physical Exam Physical Exam Constitutional: Well developed, well nourished, no acute distress, non-toxic appearance. [] HENT: Normocephalic, atraumatic, bilateral external ears normal, oropharynx moist, no oral exudates, nose normal. [] Eyes: PERRLA, EOMI, conjunctiva normal, no discharge. [] Neck: reduced range of motion, tenderness, supple, no stridor. [] Cardiovascular:Heart rate regular rhythm, no murmur [] Lungs & Thorax: Bilateral breath sounds clear to auscultation [] Abdomen: Bowel sounds normal, soft, L flank tenderness, no masses, no pulsatile masses. [] Skin: Warm, dry, no erythema, no rash. [] Back: No tenderness, L CVA tenderness. [] Extremities: No tenderness, no cyanosis, no clubbing, ROM intact, no edema. [] Neurologic: Alert and oriented X 3, normal motor function, normal sensory function, no focal deficits noted. [] Psychologic: Affect normal, judgement normal, mood normal. [] (CANDACE RILEY APRN) Current Patient Data Vital Signs Vital Signs Date Time Temp Pulse Resp B/P (MAP) Pulse Ox O2 Delivery O2 Flow Rate FiO2 08/11/18 19:38 92 98 08/11/18 17:10 99.5 20 131/86 (101) Room Air 99.5 (ESTER ARENAS MD) Lab Values Laboratory Tests Test 08/11/18 18:00 08/11/18 18:10 08/11/18 19:00 Urine Collection Type Unknown Urine Color Mary Jane Urine Clarity Cloudy Urine pH 6.0 Urine Specific [place] >=1.030 Urine Protein 100 mg/dL (NEG-TRACE) Urine Glucose (UA) Negative mg/dL (NEG) Urine Ketones (Stick) Negative mg/dL (NEG) Urine Blood Negative (NEG) Urine Nitrite Negative (NEG) Urine Bilirubin Small (NEG) Urine Urobilinogen Dipstick 2.0 mg/dL (0.2 mg/dL) Urine Leukocyte Esterase Small (NEG) Urine RBC 11-20 /HPF (0-2) Urine WBC 5-10 /HPF (0-4) Urine Squamous Epithelial Cells Mod /LPF Urine Transitional Epithelial Cells Few /LPF Urine Bacteria 0 /HPF (0-FEW) Urine Hyaline Casts Moderate /HPF Urine Mucus Marked /LPF Urine Test Negative (NEG) White Blood Count 8.8 x10^3/uL (4.0-11.0) Red Blood Count 3.39 x10^6/uL (3.50-5.40) L Hemoglobin 11.2 g/dL (12.0-15.5) L Hematocrit 32.8 % (36.0-47.0) L Mean Corpuscular Volume 97 fL (79-100) Mean Corpuscular Hemoglobin 33 pg (25-35) Mean Corpuscular Hemoglobin Concent 34 g/dL (31-37) Red Cell Distribution Width 16.9 % (11.5-14.5) H Platelet Count 206 x10^3/uL (140-400) Neutrophils (%) (Auto) 75 % (31-73) H Lymphocytes (%) (Auto) 13 % (24-48) L Monocytes (%) (Auto) 10 % (0-9) H Eosinophils (%) (Auto) 1 % (0-3) Basophils (%) (Auto) 1 % (0-3) Neutrophils # (Auto) 6.6 x10^3uL (1.8-7.7) Lymphocytes # (Auto) 1.2 x10^3/uL (1.0-4.8) Monocytes # (Auto) 0.9 x10^3/uL (0.0-1.1) Eosinophils # (Auto) 0.1 x10^3/uL (0.0-0.7) Basophils # (Auto) 0.1 x10^3/uL (0.0-0.2) Sodium Level 140 mmol/L (136-145) Potassium Level 3.2 mmol/L (3.5-5.1) L Chloride Level 101 mmol/L (98-107) Carbon Dioxide Level 27 mmol/L (21-32) Anion Gap 12 (6-14) Blood Urea Nitrogen 8 mg/dL (7-20) Creatinine 0.6 mg/dL (0.6-1.0) Estimated GFR (Cockcroft-Gault) 135.4 BUN/Creatinine Ratio 13 (6-20) Glucose Level 100 mg/dL (70-99) H Calcium Level 8.3 mg/dL (8.5-10.1) L Total Bilirubin 0.4 mg/dL (0.2-1.0) Aspartate Amino Transferase (AST) 30 U/L (15-37) Alanine Aminotransferase (ALT) 52 U/L (14-59) Alkaline Phosphatase 120 U/L (46-116) H Total Protein 7.7 g/dL (6.4-8.2) Albumin 2.4 g/dL (3.4-5.0) L Albumin/Globulin Ratio 0.5 (1.0-1.7) L Lipase 58 U/L (73-393) L Laboratory Tests 08/11/18 19:00 Laboratory Tests 08/11/18 19:00 (ESTER ARENAS MD) Lab Values Laboratory Tests Test 08/11/18 18:00 08/11/18 18:10 08/11/18 19:00 Urine Collection Type Unknown Urine Color Mary Jane Urine Clarity Cloudy Urine pH 6.0 Urine Specific [place] >=1.030 Urine Protein 100 mg/dL (NEG-TRACE) Urine Glucose (UA) Negative mg/dL (NEG) Urine Ketones (Stick) Negative mg/dL (NEG) Urine Blood Negative (NEG) Urine Nitrite Negative (NEG) Urine Bilirubin Small (NEG) Urine Urobilinogen Dipstick 2.0 mg/dL (0.2 mg/dL) Urine Leukocyte Esterase Small (NEG) Urine RBC 11-20 /HPF (0-2) Urine WBC 5-10 /HPF (0-4) Urine Squamous Epithelial Cells Mod /LPF Urine Transitional Epithelial Cells Few /LPF Urine Bacteria 0 /HPF (0-FEW) Urine Hyaline Casts Moderate /HPF Urine Mucus Marked /LPF Urine Test Negative (NEG) White Blood Count 8.8 x10^3/uL (4.0-11.0) Red Blood Count 3.39 x10^6/uL (3.50-5.40) L Hemoglobin 11.2 g/dL (12.0-15.5) L Hematocrit 32.8 % (36.0-47.0) L Mean Corpuscular Volume 97 fL (79-100) Mean Corpuscular Hemoglobin 33 pg (25-35) Mean Corpuscular Hemoglobin Concent 34 g/dL (31-37) Red Cell Distribution Width 16.9 % (11.5-14.5) H Platelet Count 206 x10^3/uL (140-400) Neutrophils (%) (Auto) 75 % (31-73) H Lymphocytes (%) (Auto) 13 % (24-48) L Monocytes (%) (Auto) 10 % (0-9) H Eosinophils (%) (Auto) 1 % (0-3) Basophils (%) (Auto) 1 % (0-3) Neutrophils # (Auto) 6.6 x10^3uL (1.8-7.7) Lymphocytes # (Auto) 1.2 x10^3/uL (1.0-4.8) Monocytes # (Auto) 0.9 x10^3/uL (0.0-1.1) Eosinophils # (Auto) 0.1 x10^3/uL (0.0-0.7) Basophils # (Auto) 0.1 x10^3/uL (0.0-0.2) Sodium Level 140 mmol/L (136-145) Potassium Level 3.2 mmol/L (3.5-5.1) L Chloride Level 101 mmol/L (98-107) Carbon Dioxide Level 27 mmol/L (21-32) Anion Gap 12 (6-14) Blood Urea Nitrogen 8 mg/dL (7-20) Creatinine 0.6 mg/dL (0.6-1.0) Estimated GFR (Cockcroft-Gault) 135.4 BUN/Creatinine Ratio 13 (6-20) Glucose Level 100 mg/dL (70-99) H Calcium Level 8.3 mg/dL (8.5-10.1) L Total Bilirubin 0.4 mg/dL (0.2-1.0) Aspartate Amino Transferase (AST) 30 U/L (15-37) Alanine Aminotransferase (ALT) 52 U/L (14-59) Alkaline Phosphatase 120 U/L (46-116) H Total Protein 7.7 g/dL (6.4-8.2) Albumin 2.4 g/dL (3.4-5.0) L Albumin/Globulin Ratio 0.5 (1.0-1.7) L Lipase 58 U/L (73-393) L Laboratory Tests 08/11/18 19:00 Laboratory Tests 08/11/18 19:00 (CANDACE RILEY APRN) EKG EKG [] (CANDACE RILEY APRN) Radiology/Procedures Radiology/Procedures []PATIENT: LUIS RODRIGUEZ TACCOUNT: [id number]#: [id number] : 1980 LOCATION: ER AGE: 37 SEX: F EXAM STATUS: REG ER ORD. PHYSICIAN: CANDACE RILEY APRN REASON: LEFT FLANK PAIN PROCEDURE: CT CHEST ABDOMEN PELVIS WO Exam performed: CT chest, abdomen and pelvis without contrast HISTORY: Left flank pain. DATE OF SERVICE: 08/11/2018. COMPARISON: None available TECHNIQUE: Contiguous helical acquisitions are obtained through the chest, abdomen and pelvis without IV contrast. Sagittal and coronally acquired images are obtained and reviewed. FINDINGS: Consolidating infiltrates seen in the posterior left lower lobe with air bronchograms. There are linear opacities in the right upper lobe probably atelectasis or scarring. Unopacified neck and intrathoracic great vessels appear grossly normal in course and caliber. No mediastinal or hilar adenopathy is seen. Heart size is normal without pericardial effusion. Aorta is normal in caliber. Bones are normal. Unopacified liver, spleen, adrenals appear normal. Cholecystectomy. Both adrenal glands and bilateral kidneys are normal in size. No hydronephrosis or nephrolithiasis is seen. Mild atheromatous aortic calcification without aneurysm. Unopacified small and large bowel loops are nondilated and unremarkable. Visualized appendix is normal. No inflammatory changes seen in the right lower quadrant. Urinary bladder is decompressed. Uterus is anteverted with IUD in place. No adnexal masses seen. No free or focal fluid collections. Bones are normal. IMPRESSION: Consolidative infiltrate left lower lobe consistent with pneumonia. No acute intra-abdominal or pelvic process detected. PQRS Compliance Statement: One or more of the following individualized dose reduction techniques were utilized for this examination: 1. Automated exposure control 2. Adjustment of the mA and/or kV according to patient size 3. Use of iterative reconstruction technique Electronically signed by: Judy Kiran MD (08/11/2018 7:10 PM) [facility] PATIENT: LUIS RODRIGUEZ ACCOUNT: [id number] : 1980 LOCATION: ER AGE: 37 SEX: F EXAM STATUS: REG ER ORD. PHYSICIAN: CANDACE RILEY APRN REASON: headache PROCEDURE: CT HEAD WO CONTRAST Exam performed: CT scan of the head without contrast. Date of Service: 08/11/2018. Comparison: None available. Clinical History: Headache. Technique: Helical acquisitions are obtained from the foramen magnum to the vertex without intravenous administration of contrast. Findings: The ventricles are midline without evidence of dilatation. Normal wong-white differentiation is maintained. The sulcal prominence is somewhat out of proportion to the patient's age There is no extra axial fluid collection, intraparenchymal hemorrhage or mass lesion. The visualized portions of the orbits, paranasal sinuses and the mastoid air cells appear clear. The calvarium is intact. Impression: 1. No acute intracranial process detected. PQRS Compliance Statement: One or more of the following individualized dose reduction techniques were utilized for this examination: 1. Automated exposure control 2. Adjustment of the mA and/or kV according to patient size 3. Use of iterative reconstruction technique Electronically signed by: Judy Kiran MD (08/11/2018 6:30 PM) [facility] (CANDACE RILEY APRN) Course & Med Decision Making Course & Med Decision Making Pertinent Labs and Imaging studies reviewed. (See chart for details) Will get CT of head, labs, urine, CT abd pelvis wo, chest and give supportive care. Appears to have pneumonia. Will d/c home with Levaquin. WBC is 8.8. Potassium is 3.2, will give 40 meq of potassium. Other than that labs are unremarkable. Will d/c home. (CANDACE RILEY APRN) Course & Med Decision Making Staff Physician Addendum: I was working in the ER during the course of this patient's visit. I was available for consultation as needed, but I was not directly involved in the care of this patient. (ESTER ARENAS MD) Dragon Disclaimer Dragon Disclaimer This electronic medical record was generated, in whole or in part, using a voice recognition dictation system. (CANDACE RILEY APRN) Departure Departure Impression: Primary Impression: Pneumonia Additional Impression: UTI (lower urinary tract infection) Disposition: HOME, SELF-CARE Condition: STABLE Referrals: Mani MILLS MD (PCP) Patient Instructions: Pneumonia, Adult, Urinary Tract Infection Additional Instructions: Follow up with your doctor for follow up imaging make sure the treatment is successful in 6 weeks. Follow up with ER and primary care as needed. Come back if symptoms worsen. Scripts Levofloxacin (LEVOFLOXACIN) 750 Mg Tablet 1 TAB PO DAILY for 7 Days, #7 TAB Prov: CANDACE RILEY APRN 08/11/18 Problem Qualifiers Primary Impression: Pneumonia Pneumonia type: due to unspecified organism Laterality: left Lung location: lower lobe of lung Qualified Codes: J18.1 - Lobar pneumonia, unspecified organism CANDACE RILEY APRN Aug 11, 2018 18:10 ESTER ARENAS MD Aug 11, 2018 21:44
[2018-08-11 18:20] LABS: BILIRUBIN,URINE SMALL (NEG); CLARITY,URINE CLOUDY; COLOR,URINE AMBER; NITRITE,URINE NEGATIVE (NEG); PROTEIN,URINE 100 mg/dL (NEG-TRACE)
[2018-08-11 18:26] LABS: HYALINE CASTS, URINE MODERATE /HPF; SQUAMOUS EPITHELIAL CELL,UR MOD /LPF
[2018-08-11 18:27] LABS: BACTERIA,URINE 0 /HPF (0-FEW)
[2018-08-11] MEDS ORDERED: IV NORMAL SALINE 1000ML BAG 1,000 ML IV ONE (18:30)
[2018-08-11] MEDS ORDERED: KETOROLAC 15 MG/ML VIAL. IV ONE (18:30)
[2018-08-11] MEDS ORDERED: diphenhydrAMINE 50 MG/ML VIAL IVP ONE (18:30)
[2018-08-11] MEDS ORDERED: PROCHLORPERAZINE 10 MG/2 ML VIAL. IV ONE (18:30)
--- NOTE | 2018-08-11 18:33 | RAD ---
Exam performed: CT scan of the head without contrast. Date of Service: 08/11/2018. Comparison: None available. Clinical History: Headache. Technique: Helical acquisitions are obtained from the foramen magnum to the vertex without intravenous administration of contrast. Findings: The ventricles are midline without evidence of dilatation. Normal wong-white differentiation is maintained. The sulcal prominence is somewhat out of proportion to the patient's age There is no extra axial fluid collection, intraparenchymal hemorrhage or mass lesion. The visualized portions of the orbits, paranasal sinuses and the mastoid air cells appear clear. The calvarium is intact. Impression: 1. No acute intracranial process detected. PQRS Compliance Statement: One or more of the following individualized dose reduction techniques were utilized for this examination: 1. Automated exposure control 2. Adjustment of the mA and/or kV according to patient size 3. Use of iterative reconstruction technique Electronically signed by: Judy Kiran MD (08/11/2018 6:30 PM) [facility]
[2018-08-11 19:13] LABS: BASO # 0.1 x10^3/uL (0.0-0.2); BASO % 1 % (0-3); EOS # 0.1 x10^3/uL (0.0-0.7); EOS % 1 % (0-3); HEMATOCRIT 32.8 % (36.0-47.0); HEMOGLOBIN 11.2 g/dL (12.0-15.5); LYMPH # 1.2 x10^3/uL (1.0-4.8); LYMPH % 13 % (24-48); MEAN CORPUSCULAR HEMOGLOBIN 33 pg (25-35); MEAN CORPUSCULAR HGB CONC 34 g/dL (31-37); MEAN CORPUSCULAR VOLUME 97 fL (79-100); MONO # 0.9 x10^3/uL (0.0-1.1); MONO % 10 % (0-9); NEUT # 6.6 x10^3uL (1.8-7.7); NEUT % 75 % (31-73); PLATELET COUNT 206 x10^3/uL (140-400); RED BLOOD COUNT 3.39 x10^6/uL (3.50-5.40); RED CELL DISTRIBUTION WIDTH 16.9 % (11.5-14.5); WHITE BLOOD COUNT 8.8 x10^3/uL (4.0-11.0)
--- NOTE | 2018-08-11 19:13 | RAD ---
Exam performed: CT chest, abdomen and pelvis without contrast HISTORY: Left flank pain. DATE OF SERVICE: 08/11/2018. COMPARISON: None available TECHNIQUE: Contiguous helical acquisitions are obtained through the chest, abdomen and pelvis without IV contrast. Sagittal and coronally acquired images are obtained and reviewed. FINDINGS: Consolidating infiltrates seen in the posterior left lower lobe with air bronchograms. There are linear opacities in the right upper lobe probably atelectasis or scarring. Unopacified neck and intrathoracic great vessels appear grossly normal in course and caliber. No mediastinal or hilar adenopathy is seen. Heart size is normal without pericardial effusion. Aorta is normal in caliber. Bones are normal. Unopacified liver, spleen, adrenals appear normal. Cholecystectomy. Both adrenal glands and bilateral kidneys are normal in size. No hydronephrosis or nephrolithiasis is seen. Mild atheromatous aortic calcification without aneurysm. Unopacified small and large bowel loops are nondilated and unremarkable. Visualized appendix is normal. No inflammatory changes seen in the right lower quadrant. Urinary bladder is decompressed. Uterus is anteverted with IUD in place. No adnexal masses seen. No free or focal fluid collections. Bones are normal. IMPRESSION: Consolidative infiltrate left lower lobe consistent with pneumonia. No acute intra-abdominal or pelvic process detected. PQRS Compliance Statement: One or more of the following individualized dose reduction techniques were utilized for this examination: 1. Automated exposure control 2. Adjustment of the mA and/or kV according to patient size 3. Use of iterative reconstruction technique Electronically signed by: Judy Kiran MD (08/11/2018 7:10 PM) [facility]
[2018-08-11 19:23] LABS: CALCIUM 8.3 mg/dL (8.5-10.1); CREATININE 0.6 mg/dL (0.6-1.0); GFR 135.4; POTASSIUM 3.2 mmol/L (3.5-5.1)
[2018-08-11 19:28] LABS: ALBUMIN 2.4 g/dL (3.4-5.0); ALBUMIN/GLOBULIN RATIO 0.5 (1.0-1.7); TOTAL BILIRUBIN 0.4 mg/dL (0.2-1.0); TOTAL PROTEIN 7.7 g/dL (6.4-8.2)
[2018-08-11] MEDS ORDERED: POTASSIUM CHLORIDE 20 MEQ TABLET.ER. PO ONE (19:30)
[2018-08-11 19:38] VITALS: BP 136/94
[2018-08-11 19:38] LABS: U PREG PATIENT NEGATIVE (NEG)
[2018-08-11] MEDS ORDERED: LEVO750T5 PO (19:42)
[2018-08-11] MEDS ORDERED: POTASSIUM CHLORIDE 20 MEQ/15 ML ORAL LIQUID. PO ONE (20:00)
== END 2018-08-11 20:16 | disposition home or self-care (01) ==
LOC: ER 16:22
DX: J18.1 Lobar pneumonia, unspecified organism (principal); N39.0 Urinary tract infection, site not specified; R11.2 Nausea with vomiting, unspecified; I10 Essential (primary) hypertension; E03.9 Hypothyroidism, unspecified; Z98.51 Tubal ligation status; Z90.49 Acquired absence of other specified parts of digestive tract; F10.20 Alcohol dependence, uncomplicated; Y90.9 Presence of alcohol in blood, level not specified; F17.200 Nicotine dependence, unspecified, uncomplicated; Z88.2 Allergy status to sulfonamides
CPT/HCPCS: 36415; 70450; 71250; 74176; 80053; 81001; 81025; 83690; 85025; 96361; 96374; 96375; 99285; J0780; J1200; J1885; J7030

== ENCOUNTER 2019-02-19 18:35 | Emergency (ER) | payer OTHER ==
[~2019-02-19] VITALS: Ht 154.9 cm; Wt 72.6 kg
[~2019-02-19 18:35] MED LIST changes: +CYAN-25 PO; -CYAN10005 PO; +LEVO750T5 PO; -MAGN400T3 PO; +MAGN400T5 PO; +POTA20LI2 PO; -POTA20LI27 PO
[2019-02-19] MEDS ORDERED: fentaNYL PF VIAL 100 MCG/2 ML VIAL IV ONE (19:00)
[2019-02-19] MEDS ORDERED: ONDANSETRON PF 4 MG/2 ML VIAL. IV ONE (19:00)
[2019-02-19 19:16] LABS: BILIRUBIN,URINE NEGATIVE (NEG); CLARITY,URINE CLOUDY; COLOR,URINE YELLOW; NITRITE,URINE NEGATIVE (NEG); PROTEIN,URINE 30 mg/dL (NEG-TRACE)
[2019-02-19 19:24] LABS: BARBITURATES NEG (NEG); BENZODIAZEPINES NEG (NEG); CANNABINOIDS NEG (NEG); COCAINE NEG (NEG); METHADONE NEG (NEG); OPIATES NEG (NEG); PHENCYCLIDINE NEG (NEG)
[2019-02-19 19:32] LABS: AMPHETAMINE/METHAMPHETAMINE NEG (NEG)
[2019-02-19 19:33] LABS: BACTERIA,URINE 0 /HPF (0-FEW); SQUAMOUS EPITHELIAL CELL,UR MOD /LPF; WBC,URINE OCC /HPF (0-4)
[2019-02-19 19:34] LABS: AMORPHOUS SEDIMENT,UR PRESENT /HPF
[2019-02-19] MEDS ORDERED: MULTIVIT INFUSN,ADULT 4,VIT K 10 ML, THIAMINE INJ 100 MG, FOLIC ACID INJ 1 MG in IV NOR... IV ONE (20:00)
[2019-02-19 20:04] LABS: BASO % 1 % (0-3); EOS # 0.1 x10^3/uL (0.0-0.7); EOS % 2 % (0-3); HEMATOCRIT 36.2 % (36.0-47.0); HEMOGLOBIN 12.1 g/dL (12.0-15.5); LYMPH # 2.1 x10^3/uL (1.0-4.8); LYMPH % 49 % (24-48); MEAN CORPUSCULAR HEMOGLOBIN 33 pg (25-35); MEAN CORPUSCULAR HGB CONC 33 g/dL (31-37); MEAN CORPUSCULAR VOLUME 100 fL (79-100); MONO # 0.4 x10^3/uL (0.0-1.1); MONO % 9 % (0-9); NEUT # 1.7 x10^3/uL (1.8-7.7); NEUT % 40 % (31-73); PLATELET COUNT 358 x10^3/uL (140-400); RED BLOOD COUNT 3.61 x10^6/uL (3.50-5.40); RED CELL DISTRIBUTION WIDTH 17.9 % (11.5-14.5); WHITE BLOOD COUNT 4.3 x10^3/uL (4.0-11.0)
[2019-02-19 20:13] LABS: CALCIUM 8.8 mg/dL (8.5-10.1); CREATININE 0.6 mg/dL (0.6-1.0); GFR 134.7; POTASSIUM 3.5 mmol/L (3.5-5.1)
[2019-02-19 20:18] LABS: ALBUMIN 4.3 g/dL (3.4-5.0); MAGNESIUM 1.6 mg/dL (1.8-2.4); TOTAL BILIRUBIN 0.8 mg/dL (0.2-1.0); TOTAL PROTEIN 8.7 g/dL (6.4-8.2)
--- NOTE | 2019-02-19 20:26 | PHYS DOC ---
Past Medical History Past Medical History: Alcoholism, Endometriosis, Fibromyalgia, Hypertension, Hypothyroid Additional Past Medical Histor: Graves Disease,x2 blood trans, Bulging disc, Lupus, Neuropathy Past Surgical History: Cholecystectomy, Tubal ligation, Other Additional Past Surgical Histo: back surgery Additional Information: 3 CIGS/DAY Alcohol Use: Heavy Additional Information: 1 PINT EVERY 3 DAYS Drug Use: Marijuana Adult General Chief Complaint Chief Complaint: GENERALIZED BODY ACHES HPI HPI Patient is a 38-year-old female with multiple medical problems including lupus and alcoholism presents stating she hurts all over. She states she self medicates with alcohol at home. She states she also takes oxycodone at times for her discomfort and she has not had this for several months. She denies any fever chills or sweats. She denies any trauma. She has not been seeing her primary care physician. She states the pain that she is sensing is aching in her muscles and joints. She has been able to ambulate without difficulty. She states it feels most similar to her lupus.[] Review of Systems Review of Systems Constitutional: Denies fever or chills [] Eyes: Denies change in visual acuity, redness, or eye pain [] HENT: Denies nasal congestion or sore throat [] Respiratory: Denies cough or shortness of breath [] Cardiovascular: No additional information not addressed in HPI [] GI: Denies abdominal pain, nausea, vomiting, bloody stools or diarrhea [] : Denies dysuria or hematuria [] Musculoskeletal: Reports myalgias and arthralgias[] Integument: Denies rash or skin lesions [] Neurologic: Reports headache but denies any lateralizing neurologic weakness[] Endocrine: Denies polyuria or polydipsia [] All other systems were reviewed and found to be within normal limits, except as documented in this note. Current Medications Current Medications Current Medications Medications (Trade) Dose Ordered Sig/Emelia Start Time Stop Time Status Last Admin Dose Admin Fentanyl Citrate (Fentanyl 2ml Vial) 25 mcg 1X ONCE 02/19/19 19:00 02/19/19 19:01 DC 02/19/19 19:48 25 MCG Multivitamins 10 ml/Thiamine HCl 100 mg/Folic Acid 1 mg/Sodium Chloride 1,011.2 ml @ 1,000.088 mls/hr 1X ONCE 02/19/19 20:00 02/19/19 21:00 DC 02/19/19 19:49 1,000.088 MLS/HR Ondansetron HCl (Zofran) 4 mg 1X ONCE 02/19/19 19:00 02/19/19 19:01 DC 02/19/19 19:49 4 MG Allergies Allergies Allergies Coded Allergies Type Severity Reaction Last Updated Verified No Known Medication Allergies Allergy Unknown 02/19/19 Yes Sulfa (Sulfonamide Antibiotics) Adverse Reaction Intermediate rapid heart beat 11/23/17 Yes Physical Exam Physical Exam Constitutional: Well developed, well nourished, no acute distress, non-toxic appearance, smells strongly of alcohol. [] HENT: Normocephalic, atraumatic, bilateral external ears normal, oropharynx moist, no oral exudates, nose normal. [] Eyes: PERRLA, EOMI, conjunctiva normal, no discharge. [] Neck: Normal range of motion, no tenderness, supple, no stridor. [] Cardiovascular:Heart rate regular rhythm, no murmur [] Lungs & Thorax: Bilateral breath sounds clear to auscultation [] Abdomen: Bowel sounds normal, soft, no tenderness, no masses, no pulsatile masses. [] Skin: Warm, dry, no erythema, no rash. [] Back: No tenderness, no CVA tenderness. [] Extremities: No tenderness, no cyanosis, no clubbing, ROM intact, no edema, no obvious joint swelling see. [] Neurologic: Alert and oriented X 3, normal motor function, normal sensory function, no focal deficits noted. [] Psychologic: Pressed affect but not suicidal or homicidal. [] Current Patient Data Vital Signs Vital Signs Date Time Temp Pulse Resp B/P (MAP) Pulse Ox O2 Delivery O2 Flow Rate FiO2 02/19/19 20:57 89 18 123/79 (94) 96 Room Air 02/19/19 18:47 98.3 98.3 Lab Values Laboratory Tests Test 02/19/19 19:08 02/19/19 19:44 Urine Collection Type U cath Urine Color Yellow Urine Clarity Cloudy Urine pH 6.0 Urine Specific [place] 1.015 Urine Protein 30 mg/dL (NEG-TRACE) Urine Glucose (UA) Negative mg/dL (NEG) Urine Ketones (Stick) Trace mg/dL (NEG) Urine Blood Moderate (NEG) Urine Nitrite Negative (NEG) Urine Bilirubin Negative (NEG) Urine Urobilinogen Dipstick 1.0 mg/dL (0.2 mg/dL) Urine Leukocyte Esterase Negative (NEG) Urine RBC 1-2 /HPF (0-2) Urine WBC Occ /HPF (0-4) Urine Squamous Epithelial Cells Mod /LPF Urine Amorphous Sediment Present /HPF Urine Bacteria 0 /HPF (0-FEW) Urine Opiates Screen Neg (NEG) Urine Methadone Screen Neg (NEG) Urine Barbiturates Neg (NEG) Urine Phencyclidine Screen Neg (NEG) Urine Amphetamine/Methamphetamine Neg (NEG) Urine Benzodiazepines Screen Neg (NEG) Urine Cocaine Screen Neg (NEG) Urine Cannabinoids Screen Neg (NEG) Urine Ethyl Alcohol Pos (NEG) White Blood Count 4.3 x10^3/uL (4.0-11.0) Red Blood Count 3.61 x10^6/uL (3.50-5.40) Hemoglobin 12.1 g/dL (12.0-15.5) Hematocrit 36.2 % (36.0-47.0) Mean Corpuscular Volume 100 fL (79-100) Mean Corpuscular Hemoglobin 33 pg (25-35) Mean Corpuscular Hemoglobin Concent 33 g/dL (31-37) Red Cell Distribution Width 17.9 % (11.5-14.5) H Platelet Count 358 x10^3/uL (140-400) Neutrophils (%) (Auto) 40 % (31-73) Lymphocytes (%) (Auto) 49 % (24-48) H Monocytes (%) (Auto) 9 % (0-9) Eosinophils (%) (Auto) 2 % (0-3) Basophils (%) (Auto) 1 % (0-3) Neutrophils # (Auto) 1.7 x10^3/uL (1.8-7.7) L Lymphocytes # (Auto) 2.1 x10^3/uL (1.0-4.8) Monocytes # (Auto) 0.4 x10^3/uL (0.0-1.1) Eosinophils # (Auto) 0.1 x10^3/uL (0.0-0.7) Basophils # (Auto) 0.0 x10^3/uL (0.0-0.2) Segmented Neutrophils % 23 % (35-66) L Band Neutrophils % 13 % (0-9) H Lymphocytes % 53 % (24-48) H Monocytes % 11 % (0-10) H Platelet Estimate Adequate (ADEQUATE) Erythrocyte Sedimentation Rate 71 (0-25) H Sodium Level 141 mmol/L (136-145) Potassium Level 3.5 mmol/L (3.5-5.1) Chloride Level 98 mmol/L (98-107) Carbon Dioxide Level 21 mmol/L (21-32) Anion Gap 22 (6-14) H Blood Urea Nitrogen 9 mg/dL (7-20) Creatinine 0.6 mg/dL (0.6-1.0) Estimated GFR (Cockcroft-Gault) 134.7 BUN/Creatinine Ratio 15 (6-20) Glucose Level 75 mg/dL (70-99) Calcium Level 8.8 mg/dL (8.5-10.1) Magnesium Level 1.6 mg/dL (1.8-2.4) L Total Bilirubin 0.8 mg/dL (0.2-1.0) Aspartate Amino Transferase (AST) 150 U/L (15-37) H Alanine Aminotransferase (ALT) 35 U/L (14-59) Alkaline Phosphatase 129 U/L (46-116) H C-Reactive Protein, Quantitative 8.2 mg/L (0-3.3) H Total Protein 8.7 g/dL (6.4-8.2) H Albumin 4.3 g/dL (3.4-5.0) Albumin/Globulin Ratio 1.0 (1.0-1.7) Ethyl Alcohol Level 340 mg/dL (0-10) H Laboratory Tests 02/19/19 19:44 Laboratory Tests 02/19/19 19:44 EKG EKG [] Radiology/Procedures Radiology/Procedures [] Course & Med Decision Making Course & Med Decision Making Pertinent Labs and Imaging studies reviewed. (See chart for details) [ED course: Evaluation reveals a 38-year-old mildly intoxicated female. Her laboratory studies appear unremarkable. She was given a banana bag during her stay in the department along with significant known Zofran to call her symptoms. At this point I think she is safe for discharge home.] Dragon Disclaimer Dragon Disclaimer This electronic medical record was generated, in whole or in part, using a voice recognition dictation system. Departure Departure Impression: Primary Impression: Alcohol intoxication Additional Impression: Chronic pain Disposition: HOME, SELF-CARE Condition: STABLE Referrals: Mani MILLS MD (PCP) Patient Instructions: Alcohol Intoxication, Chronic Alcoholism, Chronic Pain Additional Instructions: Follow with Dr. Mills this week for recheck. Problem Qualifiers Primary Impression: Alcohol intoxication Complication of substance-induced condition: uncomplicated Qualified Codes: F10.920 - Alcohol use, unspecified with intoxication, uncomplicated Additional Impression: Chronic pain Chronic pain type: chronic pain syndrome Qualified Codes: G89.4 - Chronic pain syndrome OTTO MCNAMARA DO Feb 19, 2019 20:26
[2019-02-19 20:47] LABS: C-REACTIVE PROTEIN 8.2 mg/L (0-3.3)
[2019-02-19 20:57] VITALS: BP 123/79
[2019-02-19 21:17] LABS: % BANDS 13 % (0-9); % LYMPHS 53 % (24-48); % MONOS 11 % (0-10); % SEGS 23 % (35-66)
[2019-02-19 21:18] LABS: PLT ESTIMATE ADEQUATE (ADEQUATE)
== END 2019-02-19 23:08 | disposition home or self-care (01) ==
LOC: ER 18:35
DX: F10.229 Alcohol dependence with intoxication, unspecified (principal); R07.89 Other chest pain; Y90.8 Blood alcohol level of 240 mg/100 ml or more; G89.4 Chronic pain syndrome; M32.9 Systemic lupus erythematosus, unspecified; E03.9 Hypothyroidism, unspecified; I10 Essential (primary) hypertension; Z98.51 Tubal ligation status; Z90.49 Acquired absence of other specified parts of digestive tract; F17.210 Nicotine dependence, cigarettes, uncomplicated; Z88.2 Allergy status to sulfonamides
CPT/HCPCS: 36415; 80053; 80307; 81001; 83735; 85007; 85025; 85651; 86140; 96365; 96375; 99284; G0480; J2405; J3010; J7030

== ENCOUNTER 2019-03-20 11:35 | Emergency (ER) | payer OTHER ==
[2019-03-20 12:37] LABS: BASO # 0.1 x10^3/uL (0.0-0.2); BASO % 1 % (0-3); EOS # 0.1 x10^3/uL (0.0-0.7); EOS % 2 % (0-3); HEMOGLOBIN 12.9 g/dL (12.0-15.5); LYMPH # 1.8 x10^3/uL (1.0-4.8); LYMPH % 34 % (24-48); MEAN CORPUSCULAR HEMOGLOBIN 35 pg (25-35); MEAN CORPUSCULAR HGB CONC 35 g/dL (31-37); MEAN CORPUSCULAR VOLUME 101 fL (79-100); MONO # 0.4 x10^3/uL (0.0-1.1); MONO % 7 % (0-9); NEUT # 2.9 x10^3/uL (1.8-7.7); NEUT % 56 % (31-73); PLATELET COUNT 321 x10^3/uL (140-400); RED BLOOD COUNT 3.66 x10^6/uL (3.50-5.40); RED CELL DISTRIBUTION WIDTH 18.8 % (11.5-14.5); WHITE BLOOD COUNT 5.2 x10^3/uL (4.0-11.0)
--- NOTE | 2019-03-20 12:37 | RAD ---
Three-view left shoulder dated 03/20/2019. No comparison available. CLINICAL INDICATION: Chest pain. FINDINGS: 3 views left shoulder show normal bony alignment. No displaced fracture. No acute osseous or articular abnormality. Mild hypertrophic change of the AC joint. IMPRESSION: No acute radiographic abnormality. Electronically signed by: Eugenio Mcneill MD (03/20/2019 12:34 PM) [facility]
--- NOTE | 2019-03-20 12:37 | RAD ---
Single view chest dated 03/20/2019: Comparison made to 05/29/2018 Clinical Indication: Chest pain. Findings: Single upright portable exam of the chest was performed. Heart size and mediastinal contours are within normal limits given technique. The lungs are clear without evidence of focal consolidation. Vascular interstitium is within normal limits. Impression:: Negative portable chest. Electronically signed by: Eugenio Mcneill MD (03/20/2019 12:33 PM) [facility]
[2019-03-20] MEDS ORDERED: ACETAMINOPHEN 500 MG TABLET PO ONE (12:45)
[2019-03-20 12:46] LABS: BILIRUBIN,URINE NEGATIVE (NEG); CLARITY,URINE CLEAR; COLOR,URINE YELLOW; NITRITE,URINE POSITIVE (NEG); PH,URINE 5.5; PROTEIN,URINE >=300 mg/dL (NEG-TRACE); UROBILINOGEN,URINE 0.2 mg/dL (0.2 mg/dL)
[2019-03-20 12:50] LABS: ANION GAP 19 (6-14); BLOOD UREA NITROGEN 13 mg/dL (7-20); BUN/CREATININE RATIO 33 (6-20); CALCIUM 9.3 mg/dL (8.5-10.1); CARBON DIOXIDE 22 mmol/L (21-32); CHLORIDE 101 mmol/L (98-107); CREATININE 0.4 mg/dL (0.6-1.0); GLUCOSE 75 mg/dL (70-99); POTASSIUM 3.3 mmol/L (3.5-5.1); SODIUM 142 mmol/L (136-145)
[2019-03-20 12:54] LABS: BARBITURATES NEG (NEG); BENZODIAZEPINES NEG (NEG); CANNABINOIDS NEG (NEG); COCAINE NEG (NEG); METHADONE NEG (NEG); OPIATES NEG (NEG); PHENCYCLIDINE NEG (NEG)
[2019-03-20 12:55] LABS: ALBUMIN/GLOBULIN RATIO 0.8 (1.0-1.7); ALK PHOS 91 U/L (46-116); AST (SGOT) 20 U/L (15-37); TOTAL BILIRUBIN 0.7 mg/dL (0.2-1.0); TOTAL PROTEIN 9.2 g/dL (6.4-8.2)
[2019-03-20 13:00] LABS: ALT (SGPT) < 6 U/L (14-59); ETHANOL 293 mg/dL (0-10); SALIC 2.8 mg/dL (2.8-20.0)
[2019-03-20 13:01] LABS: ACETAMIN < 2 mcg/ml (10-30)
[2019-03-20 13:01] LABS: AMPHETAMINE/METHAMPHETAMINE NEG (NEG); SQUAMOUS EPITHELIAL CELL,UR FEW /LPF
[2019-03-20 13:02] LABS: HYALINE CASTS, URINE MODERATE /HPF
[2019-03-20 13:03] LABS: BACTERIA,URINE MANY /HPF (0-FEW); RBC,URINE 0 /HPF (0-2)
[2019-03-20] MEDS ORDERED: POTASSIUM CHLORIDE 20 MEQ TABLET.ER. PO ONE (13:15)
[2019-03-20] MEDS ORDERED: KETOROLAC 30 MG/ML VIAL. IM ONE (14:00)
--- NOTE | 2019-03-20 14:10 | PHYS DOC ---
Past Medical History Past Medical History: Alcoholism, Endometriosis, Fibromyalgia, Hypertension, Hypothyroid Additional Past Medical Histor: Graves Disease,x2 blood trans, Bulging disc, Lupus, Neuropathy Past Surgical History: Cholecystectomy, Tubal ligation, Other Additional Past Surgical Histo: back surgery Alcohol Use: Heavy Additional Information: PT REPORTS SHE DRANK A "WHOLE LOT" LAST NIGHT, A PINT OF VODKA. Drug Use: Marijuana Adult General Chief Complaint Chief Complaint: SUICDAL IDEATION HPI HPI Patient is a 38 year old female chief complaint left shoulder pain and alcohol intoxication and suicidal ideation. Patient has a long history of chronic pain has been diagnosed with fibromyalgia may have lupus apparently the AMA was elevated a while back nontender any medication for that however. She drank alcohol quite heavily she also smokes marijuana. She says the shoulder. Hurting her for a month she does not recall trauma. She reports suicidal ideation she says she's been that way for 2 years initially she said she doesn't have a plan but then she told me that she wanted to overdose on her pills that she might do it. She's been having months and months if not years now for abdominal pain and diarrhea.] Review of Systems Review of Systems Limited by alcohol intoxication Current Medications Current Medications Current Medications Medications (Trade) Dose Ordered Sig/Emelia Start Time Stop Time Status Last Admin Dose Admin Acetaminophen (Tylenol) 1,000 mg 1X ONCE 03/20/19 12:45 03/20/19 12:46 DC 03/20/19 12:50 1,000 MG Ketorolac Tromethamine (Toradol 30mg Vial) 30 mg 1X ONCE 03/20/19 14:00 03/20/19 14:01 DC 03/20/19 14:16 30 MG Potassium Bicarbonate (Potassium Effervescent Tablet) 40 meq 1X ONCE 03/20/19 14:15 03/20/19 14:16 DC 03/20/19 14:14 40 MEQ Potassium Chloride (Klor-Con) 40 meq 1X ONCE 03/20/19 13:15 03/20/19 13:16 DC Allergies Allergies Allergies Coded Allergies Type Severity Reaction Last Updated Verified Sulfa (Sulfonamide Antibiotics) Adverse Reaction Intermediate rapid heart beat 11/23/17 Yes Physical Exam Physical Exam Constitutional: Well developed, well nourished, no acute distress, non-toxic appearance. [] HENT: Normocephalic, atraumatic, bilateral external ears normal, oropharynx moist, no oral exudates, nose normal. [] Eyes: PERRLA, EOMI, conjunctiva normal, no discharge. [] Neck: Normal range of motion, no tenderness, supple, no stridor. [] Cardiovascular:Heart rate regular rhythm, no murmur [] Lungs & Thorax: Bilateral breath sounds clear to auscultation [] Abdomen: Bowel sounds normal, soft, no tenderness, no masses, no pulsatile masses. [] Skin: Warm, dry, no erythema, no rash. [] Back: No tenderness, no CVA tenderness. [] Extremities: Tender to palpation left shoulder range of motion is somewhat limited secondary to pain with passive range of motion is intact there is no erythema no induration Neurologic: Alert and oriented X 3, normal motor function, normal sensory function, no focal deficits noted. []Slurred speech consistent with known alcohol Psychologic: Patient is reporting suicidal ideation does have a intermittently labile mood. Current Patient Data Vital Signs Vital Signs Date Time Temp Pulse Resp B/P (MAP) Pulse Ox O2 Delivery O2 Flow Rate FiO2 03/20/19 11:35 97.9 105 18 115/82 (93) 98 Room Air 97.9 Lab Values Laboratory Tests Test 03/20/19 12:20 03/20/19 12:40 White Blood Count 5.2 x10^3/uL (4.0-11.0) Red Blood Count 3.66 x10^6/uL (3.50-5.40) Hemoglobin 12.9 g/dL (12.0-15.5) Hematocrit 37.0 % (36.0-47.0) Mean Corpuscular Volume 101 fL (79-100) H Mean Corpuscular Hemoglobin 35 pg (25-35) Mean Corpuscular Hemoglobin Concent 35 g/dL (31-37) Red Cell Distribution Width 18.8 % (11.5-14.5) H Platelet Count 321 x10^3/uL (140-400) Neutrophils (%) (Auto) 56 % (31-73) Lymphocytes (%) (Auto) 34 % (24-48) Monocytes (%) (Auto) 7 % (0-9) Eosinophils (%) (Auto) 2 % (0-3) Basophils (%) (Auto) 1 % (0-3) Neutrophils # (Auto) 2.9 x10^3/uL (1.8-7.7) Lymphocytes # (Auto) 1.8 x10^3/uL (1.0-4.8) Monocytes # (Auto) 0.4 x10^3/uL (0.0-1.1) Eosinophils # (Auto) 0.1 x10^3/uL (0.0-0.7) Basophils # (Auto) 0.1 x10^3/uL (0.0-0.2) Maternal Serum HCG Beta Subunit < 1 mIU/mL (0-5) Sodium Level 142 mmol/L (136-145) Potassium Level 3.3 mmol/L (3.5-5.1) L Chloride Level 101 mmol/L (98-107) Carbon Dioxide Level 22 mmol/L (21-32) Anion Gap 19 (6-14) H Blood Urea Nitrogen 13 mg/dL (7-20) Creatinine 0.4 mg/dL (0.6-1.0) L Estimated GFR (Cockcroft-Gault) 215.0 BUN/Creatinine Ratio 33 (6-20) H Glucose Level 75 mg/dL (70-99) Calcium Level 9.3 mg/dL (8.5-10.1) Total Bilirubin 0.7 mg/dL (0.2-1.0) Aspartate Amino Transferase (AST) 20 U/L (15-37) Alanine Aminotransferase (ALT) < 6 U/L (14-59) L Alkaline Phosphatase 91 U/L (46-116) Total Protein 9.2 g/dL (6.4-8.2) H Albumin 4.0 g/dL (3.4-5.0) Albumin/Globulin Ratio 0.8 (1.0-1.7) L Salicylates Level 2.8 mg/dL (2.8-20.0) Salicylate Last Dose Date Unknown Salicylate Last Dose Time Unknown Acetaminophen Level < 2 mcg/ml (10-30) L Acetaminophen Last Dose Date Unknown Acetaminophen Last Dose Time Unknown Ethyl Alcohol Level 293 mg/dL (0-10) H Urine Collection Type U cath Urine Color Yellow Urine Clarity Clear Urine pH 5.5 Urine Specific [place] 1.020 Urine Protein >=300 mg/dL (NEG-TRACE) Urine Glucose (UA) Negative mg/dL (NEG) Urine Ketones (Stick) Negative mg/dL (NEG) Urine Blood Large (NEG) Urine Nitrite Positive (NEG) Urine Bilirubin Negative (NEG) Urine Urobilinogen Dipstick 0.2 mg/dL (0.2 mg/dL) Urine Leukocyte Esterase Negative (NEG) Urine RBC 0 /HPF (0-2) Urine WBC 1-4 /HPF (0-4) Urine Squamous Epithelial Cells Few /LPF Urine Bacteria Many /HPF (0-FEW) Urine Hyaline Casts Moderate /HPF Urine Mucus Slight /LPF Urine Opiates Screen Neg (NEG) Urine Methadone Screen Neg (NEG) Urine Barbiturates Neg (NEG) Urine Phencyclidine Screen Neg (NEG) Urine Amphetamine/Methamphetamine Neg (NEG) Urine Benzodiazepines Screen Neg (NEG) Urine Cocaine Screen Neg (NEG) Urine Cannabinoids Screen Neg (NEG) Urine Ethyl Alcohol Pos (NEG) Laboratory Tests 03/20/19 12:20 Laboratory Tests 03/20/19 12:20 EKG EKG []nsr no stemi or ischemia Radiology/Procedures Radiology/Procedures []Findings: Single upright portable exam of the chest was performed. Heart size and mediastinal contours are within normal limits given technique. The lungs are clear without evidence of focal consolidation. Vascular interstitium is within normal limits. Impression:: Negative portable chest. Electronically signed by: Eugenio Mcneill MD (03/20/2019 12:33 PM) [facility] DICTATED and SIGNED BY: EUGENIO MCNEILL MD DATE: 03/20/19 1233 Impressions: 3 views left shoulder show normal bony alignment. No displaced fracture. No acute osseous or articular abnormality. Mild hypertrophic change of the AC joint. IMPRESSION: No acute radiographic abnormality. Electronically signed by: Eugenio Mcneill MD (03/20/2019 12:34 PM) [facility] DICTATED and SIGNED BY: EUGENIO MCNEILL MD DATE: 03/20/19 1234 Course & Med Decision Making Course & Med Decision Making Pertinent Labs and Imaging studies reviewed. (See chart for details) []38-year-old female presenting with multiple issues primary issue appears to be musculoskeletal pain she has a long history of same no evidence of trauma or septic joint here in the emergency room today complaining of some diarrhea long- standing chronic no evidence of diarrhea here in the ER. Patient occult level was quite elevated I think that's probably the primary issue going on. Did re port suicidal H ideation we did place the patient on a 1-1 and had Chery from the PET team come over to see the patient, SHE SIGNED safety plan, she said she is not actuallly suicidal. labs looked stable, i ordered potassium. pt stable in er, asked for food it went down fine. reports months or years of diarrhea, noted her history but abdomen benign today, labs looked good, taking po in the er, no diarrhea while here. she asked for meds refilled. i refilled her thyroid medicine and a short course seroquel but she was given resources for rsi and i advsied she follow up [facility] for treatment of her alcohol abuse and psychiatric issues. Dragon Disclaimer Dragon Disclaimer This electronic medical record was generated, in whole or in part, using a voice recognition dictation system. Departure Departure Impression: Primary Impression: Alcohol abuse Disposition: 01 HOME, SELF-CARE Condition: STABLE Referrals: Mani MILLS MD (PCP) Scripts Levothyroxine Sodium (LEVOTHYROXINE SODIUM) 200 Mcg Tablet 1 TAB PO DAILY, #30 TAB Prov: ESTER ARENAS MD 03/20/19 Quetiapine Fumarate (SEROQUEL) 100 Mg Tablet 100 MG PO BID, #10 TAB Prov: ESTER ARENAS MD 03/20/19 ESTER ARENAS MD Mar 20, 2019 14:09
[2019-03-20] MEDS ORDERED: POTASSIUM BICARB 20 MEQ EFFERVESCENT TABLET. PO ONE (14:15)
[2019-03-20 14:30] VITALS: BP 97/75
[2019-03-20] MEDS ORDERED: QUET100T4 PO (14:50)
[2019-03-20] MEDS ORDERED: LEVO200T5 PO (15:05)
--- NOTE | 2019-03-21 06:10 | EKG ---
[facility] [address] [place] [address] Test Date: 2019-03-20 Test Time: 12:07:59 Pat Name: LUIS RODRIGUEZ Department: Room: Gender: F [employer]: : 1980 Requested By: ESTER ARENAS Order Number: [id number] Reading MD: Measurements Intervals [place] Rate: 101 P: -95 WV: 116 QRS: 28 QRSD: 70 T: 86 QT: 376 QTc: 488 Interpretive Statements SUPRAVENTRICULAR RHYTHM T ABNORMALITY IN ANTEROLATERAL LEADS ABNORMAL ECG RI6.01 No previous ECG available for comparison
== END 2019-03-20 15:10 | disposition home or self-care (01) ==
LOC: ER 11:35
DX: F10.229 Alcohol dependence with intoxication, unspecified (principal); Y90.8 Blood alcohol level of 240 mg/100 ml or more; M25.512 Pain in left shoulder; R45.851 Suicidal ideations; E03.9 Hypothyroidism, unspecified; I10 Essential (primary) hypertension; G89.29 Other chronic pain; Z88.2 Allergy status to sulfonamides
CPT/HCPCS: 36415; 71045; 73030; 80053; 80307; 80329; 81001; 84702; 85025; 87086; 93005; 96372; 99285; G0480; J1885

== ENCOUNTER 2019-07-05 10:27 | Inpatient (IN) | payer SELFPAY ==
[~2019-07-05] VITALS: Ht 154.9 cm; Wt 77.6 kg
[~2019-07-05 10:27] MED LIST changes: +LEVO-101 PO; -LEVO100T PO; -LEVO112T4 PO; +LEVO112T49 PO
[2019-07-05 11:30] LABS: BARBITURATES NEG (NEG); BENZODIAZEPINES NEG (NEG); CANNABINOIDS NEG (NEG); COCAINE NEG (NEG); METHADONE NEG (NEG); OPIATES NEG (NEG); PHENCYCLIDINE NEG (NEG)
[2019-07-05 11:32] LABS: AMPHETAMINE/METHAMPHETAMINE NEG (NEG)
[2019-07-05 11:43] LABS: BASO # 0.1 x10^3/uL (0.0-0.2); BASO % 1 % (0-3); EOS % 1 % (0-3); HEMATOCRIT 33.1 % (36.0-47.0); LYMPH # 1.5 x10^3/uL (1.0-4.8); LYMPH % 41 % (24-48); MEAN CORPUSCULAR HEMOGLOBIN 36 pg (25-35); MEAN CORPUSCULAR HGB CONC 33 g/dL (31-37); MEAN CORPUSCULAR VOLUME 109 fL (79-100); MONO # 0.3 x10^3/uL (0.0-1.1); MONO % 9 % (0-9); NEUT # 1.7 x10^3/uL (1.8-7.7); NEUT % 48 % (31-73); PLATELET COUNT 402 x10^3/uL (140-400); RED BLOOD COUNT 3.03 x10^6/uL (3.50-5.40); RED CELL DISTRIBUTION WIDTH 17.8 % (11.5-14.5); WHITE BLOOD COUNT 3.6 x10^3/uL (4.0-11.0)
--- NOTE | 2019-07-05 11:44 | RAD ---
PORTABLE CHEST 1V 07/05/2019 10:58 AM INDICATION: Chest pain COMPARISON: 03/20/2019 TECHNIQUE: Portable frontal view of the chest is provided. FINDINGS: The cardiomediastinal silhouette is within normal limits. Low lung volumes eccentric pulmonary vasculature. There is poor inspiratory excursion. No new airspace consolidation. There are no significant pleural effusions. There is no pulmonary vascular congestion. No pneumothorax. No suspicious osseous abnormality. IMPRESSION: Given limitations due to poor inspiratory excursion, no acute cardiopulmonary process. Electronically signed by: Yasmin Llamas MD (07/05/2019 11:41 AM) [id number]
[2019-07-05 11:52] LABS: PROTHROMBIN TIME PATIENT 18.9 SEC (11.7-14.0)
[2019-07-05 12:02] LABS: ALBUMIN 3.2 g/dL (3.4-5.0); ALBUMIN/GLOBULIN RATIO 0.7 (1.0-1.7); CALCIUM 6.7 mg/dL (8.5-10.1); CREATININE 0.7 mg/dL (0.6-1.0); GFR 112.7; MAGNESIUM 1.1 mg/dL (1.8-2.4); TOTAL BILIRUBIN 0.8 mg/dL (0.2-1.0); TOTAL PROTEIN 7.9 g/dL (6.4-8.2)
[2019-07-05 12:07] LABS: POTASSIUM 2.6 mmol/L (3.5-5.1)
[2019-07-05] MEDS ORDERED: POTASSIUM CHLORIDE 20 MEQ TABLET.ER. PO ONE ×2 (12:15→16:15)
[2019-07-05] MEDS ORDERED: MAGNESIUM SULFATE 2GM 50 ML IV ONE (12:15)
[2019-07-05] MEDS ORDERED: fentaNYL PF VIAL 100 MCG/2 ML VIAL IVP ONE (13:00)
[2019-07-05] MEDS ORDERED: ONDANSETRON PF 4 MG/2 ML VIAL. IVP ONE (13:00)
--- NOTE | 2019-07-05 13:05 | PHYS DOC ---
Past Medical History Past Medical History: Alcoholism, Endometriosis, Fibromyalgia, Hypertension, Hypothyroid Additional Past Medical Histor: Graves Disease,x2 blood trans, Bulging disc, Lupus, Neuropathy Past Surgical History: Cholecystectomy, Tubal ligation, Other Additional Past Surgical Histo: back surgery Smoking Status: Current Every Day Smoker Alcohol Use: Heavy Drug Use: Marijuana Social History Narrative: "has not used marijuana in 3 weeks" General Adult EDM: Chief Complaint: CHEST WALL PAIN HPI: HPI: Patient is a 38 year old female who was brought here by EMS from home due to nausea vomiting, generalized weakness, diarrhea. Patient has history of neuropathy in her legs, now she is having pain all over her legs. Patient denies any trouble breathing or no cough or fever. Patient complained of chest pain for 2 days. Patient says she was exposed to somebody who tested positive for COVID-19 about 10 days ago. Review of Systems: Review of Systems: Constitutional: Denies fever or chills. [] Eyes: Denies change in visual acuity. [] HENT: Denies nasal congestion or sore throat. [] Respiratory: Denies cough or shortness of breath. [] Cardiovascular: Positive for chest pain, no edema. [] GI: Denies abdominal pain, positive for nausea, vomiting, diarrhea. [] : Denies dysuria. [] Musculoskeletal: Denies back pain, positive for joint pain. [] Integument: Denies rash. [] Neurologic: Denies headache, focal weakness or sensory changes. [] Endocrine: Denies polyuria or polydipsia. [] Lymphatic: Denies swollen glands. [] Psychiatric: Denies depression or anxiety. [] Heart Score: Risk Factors: Risk Factors: DM, Current or recent (<one month) smoker, HTN, HLP, family history of CAD, obesity. Risk Scores: Score 0 - 3: 2.5% MACE over next 6 weeks - Discharge Home Score 4 - 6: 20.3% MACE over next 6 weeks - Admit for Clinical Observation Score 7 - 10: 72.7% MACE over next 6 weeks - Early Invasive Strategies Current Medications: Current Medications Medications (Trade) Dose Ordered Sig/Emelia Start Time Stop Time Status Last Admin Dose Admin Fentanyl Citrate (Fentanyl 2ml Vial) 50 mcg 1X ONCE 07/05/19 13:00 07/05/19 13:01 DC Magnesium Sulfate 50 ml @ 25 mls/hr 1X ONCE 07/05/19 12:15 07/05/19 14:14 07/05/19 12:46 25 MLS/HR Ondansetron HCl (Zofran) 4 mg 1X ONCE 07/05/19 13:00 07/05/19 13:01 DC Potassium Chloride (Klor-Con) 80 meq 1X ONCE 07/05/19 12:15 07/05/19 12:55 DC Allergies: Allergies: Allergies Coded Allergies Type Severity Reaction Last Updated Verified Sulfa (Sulfonamide Antibiotics) Adverse Reaction Intermediate rapid heart beat 11/23/17 Yes Physical Exam: PE: Constitutional: Well developed, well nourished, no acute distress, non-toxic appearance. [] HENT: Normocephalic, atraumatic, bilateral external ears normal, oropharynx moist, no oral exudates, nose normal. [] Eyes: PERRLA, EOMI, conjunctiva normal, no discharge. [] Neck: Normal range of motion, no tenderness, supple, no stridor. [] Cardiovascular:Heart rate regular rhythm, no murmur [] Lungs & Thorax: Bilateral breath sounds clear to auscultation [] Abdomen: Bowel sounds normal, soft, no tenderness, no masses, no pulsatile masses. [] Skin: Warm, dry, no erythema, no rash. [] Back: No tenderness, no CVA tenderness. [] Extremities: No tenderness, no cyanosis, no clubbing, ROM intact, no edema. [] Neurologic: Alert and oriented X 3, normal motor function, normal sensory function, no focal deficits noted. [] Psychologic: Affect normal, judgement normal, mood normal. [] Current Patient Data: Labs: Laboratory Tests Test 07/05/19 11:15 07/05/19 11:30 Urine Opiates Screen Neg (NEG) Urine Methadone Screen Neg (NEG) Urine Barbiturates Neg (NEG) Urine Phencyclidine Screen Neg (NEG) Urine Amphetamine/Methamphetamine Neg (NEG) Urine Benzodiazepines Screen Neg (NEG) Urine Cocaine Screen Neg (NEG) Urine Cannabinoids Screen Neg (NEG) Urine Ethyl Alcohol Pos (NEG) White Blood Count 3.6 x10^3/uL (4.0-11.0) L Red Blood Count 3.03 x10^6/uL (3.50-5.40) L Hemoglobin 11.0 g/dL (12.0-15.5) L Hematocrit 33.1 % (36.0-47.0) L Mean Corpuscular Volume 109 fL (79-100) H Mean Corpuscular Hemoglobin 36 pg (25-35) H Mean Corpuscular Hemoglobin Concent 33 g/dL (31-37) Red Cell Distribution Width 17.8 % (11.5-14.5) H Platelet Count 402 x10^3/uL (140-400) H Neutrophils (%) (Auto) 48 % (31-73) Lymphocytes (%) (Auto) 41 % (24-48) Monocytes (%) (Auto) 9 % (0-9) Eosinophils (%) (Auto) 1 % (0-3) Basophils (%) (Auto) 1 % (0-3) Neutrophils # (Auto) 1.7 x10^3/uL (1.8-7.7) L Lymphocytes # (Auto) 1.5 x10^3/uL (1.0-4.8) Monocytes # (Auto) 0.3 x10^3/uL (0.0-1.1) Eosinophils # (Auto) 0.0 x10^3/uL (0.0-0.7) Basophils # (Auto) 0.1 x10^3/uL (0.0-0.2) Prothrombin Time 18.9 SEC (11.7-14.0) H Prothrombin Time INR 1.6 (0.8-1.1) H Sodium Level 144 mmol/L (136-145) Potassium Level 2.6 mmol/L (3.5-5.1) *L Chloride Level 101 mmol/L (98-107) Carbon Dioxide Level 28 mmol/L (21-32) Anion Gap 15 (6-14) H Blood Urea Nitrogen 7 mg/dL (7-20) Creatinine 0.7 mg/dL (0.6-1.0) Estimated GFR (Cockcroft-Gault) 112.7 BUN/Creatinine Ratio 10 (6-20) Glucose Level 85 mg/dL (70-99) Calcium Level 6.7 mg/dL (8.5-10.1) L Magnesium Level 1.1 mg/dL (1.8-2.4) L Total Bilirubin 0.8 mg/dL (0.2-1.0) Aspartate Amino Transferase (AST) 73 U/L (15-37) H Alanine Aminotransferase (ALT) 16 U/L (14-59) Alkaline Phosphatase 156 U/L (46-116) H Troponin I Quantitative < 0.017 ng/mL (0.000-0.055) BG-Iav-X-Type Natriuretic Peptide 33 pg/mL (0-124) Total Protein 7.9 g/dL (6.4-8.2) Albumin 3.2 g/dL (3.4-5.0) L Albumin/Globulin Ratio 0.7 (1.0-1.7) L Lipase 71 U/L (73-393) L Thyroid Stimulating Hormone (TSH) 52.956 uIU/mL (0.358-3.74) H Laboratory Tests 07/05/19 11:30 Laboratory Tests 07/05/19 11:30 Vital Signs: Vital Signs Date Time Temp Pulse Resp B/P (MAP) Pulse Ox O2 Delivery O2 Flow Rate FiO2 07/05/19 10:45 98.4 99 16 96/66 (76) 93 Room Air 98.4 EKG: EKG: EKG was done at 1033, heart rate of 98 bpm, sinus rhythm, prolonged QT C interval 495 MS, no ST segment elevation. EKG was read by this physician. Radiology/Procedures: Radiology/Procedures: [][facility] [address] [place] [address] IMAGING REPORT Signed PATIENT: LUIS RODRIGUEZ ACCOUNT: [id number] : 1980 LOCATION: ER AGE: 38 SEX: F EXAM STATUS: REG ER ORD. PHYSICIAN: JASBIR VALENCIA DO REASON: CHEST PAIN PROCEDURE: PORTABLE CHEST 1V PORTABLE CHEST 1V 07/05/2019 10:58 AM INDICATION: Chest pain COMPARISON: 03/20/2019 TECHNIQUE: Portable frontal view of the chest is provided. FINDINGS: The cardiomediastinal silhouette is within normal limits. Low lung volumes eccentric pulmonary vasculature. There is poor inspiratory excursion. No new airspace consolidation. There are no significant pleural effusions. There is no pulmonary vascular congestion. No pneumothorax. No suspicious osseous abnormality. IMPRESSION: Given limitations due to poor inspiratory excursion, no acute cardiopulmonary process. Electronically signed by: Dami Brock MD (07/05/2019 11:41 AM) [id number] DICTATED and SIGNED BY: DAMI BROCK MD DATE: 07/05/19 1141 Course & Med Decision Making: Course & Med Decision Making Pertinent Labs and Imaging studies reviewed. (See chart for details) Patient is a 38-year-old female who was evaluated in the ER today due to nausea vomiting, diarrhea. Patient was found to have significant low level of magnesium, potassium, calcium. Patient will be admitted to hospital for further evaluation and treatment. Patient was exposed to COVID-19 positive individual, patient will be put in isolation and tested for COVID-19. Dragon Disclaimer: Dragon Disclaimer: This electronic medical record was generated, in whole or in part, using a voice recognition dictation system. Departure Departure Impression: Primary Impression: Hypomagnesemia Additional Impressions: Hypokalemia Nausea & vomiting Suspected 2019-nCoV infection Hypocalcemia Disposition: ADMITTED INPATIENT Admitting Physician: WILBUR (Dr. JOYCE) Condition: STABLE Referrals: Mani MILLS MD (PCP) COVID-19 Assessment: COVID-19 Patient Risks: Age 65 or older: No Sign of co-morbidity: Yes Exp to person + for COVID: Yes Exp to PUI: Yes Travel from affected area: No Lower respiratory symptoms: No Fever: No Other: No PPE Use: Full PPE with N95 mask or PAPR: Yes JASBIR VALENCIA DO July 05, 2019 13:05
--- NOTE | 2019-07-05 13:26 | EKG ---
[facility] [address] [place] [address] Test Date: 2019-07-05 Test Time: 10:32:29 Pat Name: LUIS RODRIGUEZ Department: Room: Gender: F Security Infrastructure Engineer: : 1980 Requested By: JASBIR VALENCIA Order Number: [id number] Reading MD: Jg Duron MD Measurements Intervals [place] Rate: 98 P: 11 MI: 178 QRS: 31 QRSD: 74 T: 54 QT: 386 QTc: 495 Interpretive Statements SINUS RHYTHM PROLONGED QT Electronically Signed On 07-07-2019 11:28:43 CDT by Jg Duron MD
[2019-07-05] MEDS ORDERED: CALCIUM CHLORIDE 1,000 MG/10 ML DISP.SYRIN IV ONE (13:30)
[2019-07-05] MEDS ORDERED: IV NORMAL SALINE 1000ML BAG 1,000 ML IV SCH (13:38)
[2019-07-05] MEDS ORDERED: MORPHINE SULFATE 4 MG/ML VIAL. IV PRN (13:45)
[2019-07-05] MEDS ORDERED: ONDANSETRON PF 4 MG/2 ML VIAL. IV PRN (13:45)
[2019-07-05] MEDS: POTASSIUM CHLORIDE 40 MEQ in IV DEXTROSE 5% 1,000 ML IV SCH (14:33)
[2019-07-05] MEDS ORDERED: MAGNESIUM SULFATE 4GM 100 ML IV ONE (16:15)
[2019-07-05 17:37] VITALS: BP 112/67
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
[2019-07-05] MEDS ORDERED: MULTIVIT INFUSN,ADULT 4,VIT K 10 ML, FOLIC ACID INJ 1 MG in IV NORMAL SALINE 1000ML BAG... IV ONE (18:15)
[2019-07-05] MEDS ORDERED: LEVOTHYROXINE 100 MCG TABLET PO ONE (18:15)
[2019-07-05] MEDS: oxyCODONE/APAP 5/325 1 TAB TABLET PO PRN ×2 (18:53→23:00)
[2019-07-05 19:00] VITALS: BP 102/71
[2019-07-05] MEDS ORDERED: LOPERAMIDE 2 MG CAPSULE PO PRN (21:15)
[2019-07-05] MEDS: QUEtiapine 100 MG TABLET. PO SCH (21:54)
[2019-07-05] MEDS: GABAPENTIN 300 MG CAPSULE. PO SCH (21:54)
[2019-07-05] MEDS: traZODone 50 MG TABLET. PO SCH (21:54)
[2019-07-05 23:00] VITALS: BP 99/74
[2019-07-06 03:30] VITALS: BP 104/62
[2019-07-06] MEDS: oxyCODONE/APAP 5/325 1 TAB TABLET PO PRN ×4 (03:45→23:58)
[2019-07-06 05:33] LABS: ALBUMIN 2.7 g/dL (3.4-5.0); ALBUMIN/GLOBULIN RATIO 0.8 (1.0-1.7); CREATININE 0.9 mg/dL (0.6-1.0); GFR 84.3; POTASSIUM 3.3 mmol/L (3.5-5.1); TOTAL BILIRUBIN 0.5 mg/dL (0.2-1.0); TOTAL PROTEIN 6.3 g/dL (6.4-8.2)
[2019-07-06 05:51] LABS: BASO % 0 % (0-3); EOS % 1 % (0-3); HEMATOCRIT 26.8 % (36.0-47.0); LYMPH # 1.2 x10^3/uL (1.0-4.8); LYMPH % 34 % (24-48); MEAN CORPUSCULAR HEMOGLOBIN 37 pg (25-35); MEAN CORPUSCULAR HGB CONC 34 g/dL (31-37); MEAN CORPUSCULAR VOLUME 111 fL (79-100); MONO # 0.2 x10^3/uL (0.0-1.1); MONO % 6 % (0-9); NEUT # 2.1 x10^3/uL (1.8-7.7); NEUT % 59 % (31-73); PLATELET COUNT 291 x10^3/uL (140-400); RED BLOOD COUNT 2.42 x10^6/uL (3.50-5.40); WHITE BLOOD COUNT 3.6 x10^3/uL (4.0-11.0)
[2019-07-06] MEDS: LEVOTHYROXINE 100 MCG TABLET PO SCH (06:11)
[2019-07-06] MEDS: PANTOPRAZOLE 40 MG TABLET.DR. PO SCH (06:11)
[2019-07-06 07:00] VITALS: BP 109/67
[2019-07-06] MEDS ORDERED: CYANOCOBALAMIN (VITAMIN B-12) 1,000 MCG TABLET. PO SCH (09:00)
[2019-07-06] MEDS ORDERED: MAGNESIUM SULFATE 4GM 100 ML IV ONE (10:00)
[2019-07-06] MEDS ORDERED: ERGOCALCIFEROL (VITAMIN D2) 50,000 UNIT CAPSULE. PO SCH (10:00)
[2019-07-06] MEDS: GABAPENTIN 300 MG CAPSULE. PO SCH ×3 (10:16→20:50)
[2019-07-06] MEDS: VITAMIN B12,B9,B6 COMPLEX 1 TABLET. PO SCH (10:16)
[2019-07-06] MEDS: POTASSIUM CHLORIDE 20 MEQ TABLET.ER. PO SCH (10:16)
[2019-07-06] MEDS: THIAMINE 100 MG TABLET. PO SCH (10:16)
[2019-07-06] MEDS: MULTIVITAMIN with MINERAL TABLET. PO SCH (10:16)
[2019-07-06] MEDS: FOLIC ACID 1 MG TABLET. PO SCH (10:16)
[2019-07-06] MEDS: MAGNESIUM OXIDE 400 MG TABLET PO SCH (10:16)
[2019-07-06] MEDS: QUEtiapine 100 MG TABLET. PO SCH ×2 (10:17→20:50)
[2019-07-06 10:48] LABS: PLT ESTIMATE ADEQUATE (ADEQUATE)
[2019-07-06 10:52] LABS: ANISOCYTOSIS PRESENT
[2019-07-06 11:00] VITALS: BP 115/76
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
--- NOTE | 2019-07-06 14:17 | NUR ---
IP: Pt is COVID negative.
--- NOTE | 2019-07-06 14:51 | NUR ---
SS following for discharge planning. SS reviewed pt chart and discussed with pt RN. Pt is from home with daughter and is currently requiring oxygen. Pt's RN working to titrate oxygen. Pt is self pay pt. PAT team met with pt on 07/05/2019 for ETOH and history of SI. Pt having no SI at this time. Pt declined needing help with ETOH. Resources provided for RADAC, RSI, and AA meetings. Pt also provided with community resource list. Pt is COVID19 negative. SS will continue to follow for discharge planning.
[2019-07-06 15:00] VITALS: BP 90/68
[2019-07-06] MEDS: POTASSIUM CHLORIDE 40 MEQ in IV DEXTROSE 5% 1,000 ML IV SCH ×2 (17:12→18:35)
[2019-07-06 19:00] VITALS: BP 104/79
[2019-07-06] MEDS: traZODone 50 MG TABLET. PO SCH (20:50)
[2019-07-06 23:00] VITALS: BP 102/76
[2019-07-07 03:00] VITALS: BP 113/75
[2019-07-07 04:01] LABS: BASO % 1 % (0-3); EOS % 0 % (0-3); HEMATOCRIT 27.9 % (36.0-47.0); HEMOGLOBIN 9.1 g/dL (12.0-15.5); LYMPH # 1.3 x10^3/uL (1.0-4.8); LYMPH % 23 % (24-48); MEAN CORPUSCULAR HEMOGLOBIN 36 pg (25-35); MEAN CORPUSCULAR HGB CONC 33 g/dL (31-37); MEAN CORPUSCULAR VOLUME 112 fL (79-100); MONO # 0.2 x10^3/uL (0.0-1.1); MONO % 3 % (0-9); NEUT # 4.4 x10^3/uL (1.8-7.7); NEUT % 74 % (31-73); PLATELET COUNT 271 x10^3/uL (140-400); RED CELL DISTRIBUTION WIDTH 17.3 % (11.5-14.5)
[2019-07-07 04:39] LABS: ALBUMIN 2.9 g/dL (3.4-5.0); ALBUMIN/GLOBULIN RATIO 0.8 (1.0-1.7); CALCIUM 6.6 mg/dL (8.5-10.1); CREATININE 0.7 mg/dL (0.6-1.0); GFR 112.7; POTASSIUM 4.8 mmol/L (3.5-5.1); TOTAL BILIRUBIN 0.4 mg/dL (0.2-1.0); TOTAL PROTEIN 6.5 g/dL (6.4-8.2)
[2019-07-07] MEDS: LEVOTHYROXINE 100 MCG TABLET PO SCH (06:20)
[2019-07-07 07:00] VITALS: BP 87/64
[2019-07-07] MEDS: POTASSIUM CHLORIDE 20 MEQ TABLET.ER. PO SCH (08:19)
[2019-07-07] MEDS: GABAPENTIN 300 MG CAPSULE. PO SCH ×3 (08:20→19:59)
[2019-07-07] MEDS: MAGNESIUM OXIDE 400 MG TABLET PO SCH (08:20)
[2019-07-07] MEDS: THIAMINE 100 MG TABLET. PO SCH (08:20)
[2019-07-07] MEDS: PANTOPRAZOLE 40 MG TABLET.DR. PO SCH (08:20)
[2019-07-07] MEDS: QUEtiapine 100 MG TABLET. PO SCH ×2 (08:20→19:59)
[2019-07-07] MEDS: MULTIVITAMIN with MINERAL TABLET. PO SCH (08:20)
[2019-07-07] MEDS: VITAMIN B12,B9,B6 COMPLEX 1 TABLET. PO SCH (08:20)
[2019-07-07] MEDS: oxyCODONE/APAP 5/325 1 TAB TABLET PO PRN (08:26)
[2019-07-07] MEDS: FOLIC ACID 1 MG TABLET. PO SCH (08:27)
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
--- NOTE | 2019-07-07 09:27 | NUR ---
SW following. Discussed with RN, pt from home, requiring oxygen on and off but does not want to wear it. Pt cleared by PAT. Pt is COVID-19 negative. HCFS following for self pay status. SW will continue to follow.
[2019-07-07] MEDS: POTASSIUM CHLORIDE 40 MEQ in IV DEXTROSE 5% 1,000 ML IV SCH ×2 (09:45→23:19)
[2019-07-07 11:00] VITALS: BP 112/78
[2019-07-07 15:00] VITALS: BP 98/69
[2019-07-07 19:00] VITALS: BP 100/71
[2019-07-07] MEDS: traZODone 50 MG TABLET. PO SCH (19:59)
--- NOTE | 2019-07-07 20:00 | NUR ---
2100 medication given at this time per Patient request.
[2019-07-07 23:00] VITALS: BP 96/71
[2019-07-08 03:00] VITALS: BP 104/74
[2019-07-08] MEDS: oxyCODONE/APAP 5/325 1 TAB TABLET PO PRN ×2 (03:31→08:43)
[2019-07-08] MEDS: LEVOTHYROXINE 100 MCG TABLET PO SCH (06:13)
[2019-07-08 07:00] VITALS: BP 111/71
[2019-07-08] MEDS: GABAPENTIN 300 MG CAPSULE. PO SCH (08:37)
[2019-07-08] MEDS: QUEtiapine 100 MG TABLET. PO SCH (08:37)
[2019-07-08] MEDS: MULTIVITAMIN with MINERAL TABLET. PO SCH (08:37)
[2019-07-08] MEDS: MAGNESIUM OXIDE 400 MG TABLET PO SCH (08:37)
[2019-07-08] MEDS: THIAMINE 100 MG TABLET. PO SCH (08:37)
[2019-07-08] MEDS: POTASSIUM CHLORIDE 20 MEQ TABLET.ER. PO SCH (08:38)
[2019-07-08] MEDS: VITAMIN B12,B9,B6 COMPLEX 1 TABLET. PO SCH (08:38)
[2019-07-08] MEDS: PANTOPRAZOLE 40 MG TABLET.DR. PO SCH (08:38)
[2019-07-08] MEDS: FOLIC ACID 1 MG TABLET. PO SCH (08:43)
[2019-07-08] MEDS: POTASSIUM CHLORIDE 40 MEQ in IV DEXTROSE 5% 1,000 ML IV SCH (10:00)
[2019-07-08] MEDS ORDERED: TRAZ150T49 PO (10:39)
[2019-07-08] MEDS ORDERED: GABA300C18 PO (10:39)
[2019-07-08] MEDS ORDERED: LEVO200T5 PO (10:39)
[2019-07-08 11:47] VITALS: BP 98/77
--- NOTE | 2019-07-08 12:50 | NUR ---
SW following. Discussed with RN, pt discharging home today with self care. Pt is wheelchair bound. Transportation arranged with [employer] due to no [employer] bung driver today. Transportation time [id number]. RN notified.
--- NOTE | 2019-07-08 14:00 | NUR ---
Pt discharged home with self care. Discharge instructions and prescriptions discussed. Pt verbalized understanding. IV removed.
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
== END 2019-07-08 14:00 | disposition home or self-care (01) | DRG 643 ==
LOC: ER 10:27 → 6 SOUTH 13:35 → 4 NORTH 07-06 19:24
PROVIDERS: ADMIT Internal Medicine; ATTEND Internal Medicine
DX: E05.91 Thyrotoxicosis, unspecified with thyrotoxic crisis or storm (principal); E03.5 Myxedema coma; E83.42 Hypomagnesemia; E87.6 Hypokalemia; F32.9 Major depressive disorder, single episode, unspecified; Z20.828 Contact with and (suspected) exposure to other viral communicable diseases; D53.9 Nutritional anemia, unspecified; F10.10 Alcohol abuse, uncomplicated; F17.210 Nicotine dependence, cigarettes, uncomplicated; I10 Essential (primary) hypertension; M79.7 Fibromyalgia; R53.81 Other malaise; Z91.19 Patient's noncompliance with other medical treatment and regimen; Z91.14 Patient's other noncompliance with medication regimen; Z88.2 Allergy status to sulfonamides; Z83.3 Family history of diabetes mellitus; Z82.49 Family history of ischemic heart disease and other diseases of the circulatory system
CPT/HCPCS: 36415; 71045; 80053; 80307; 83690; 83735; 83880; 84443; 84484; 85025; 85610; 87635; 93005; 96361; 96374; 96375; J2405; J3010; J3475; J3480; J3490; J7030; J7060; 99285-25; G0378

== ENCOUNTER 2019-11-05 15:40 | Inpatient (IN) | payer SELFPAY ==
[~2019-11-05] VITALS: Ht 154.9 cm; Wt 71.7 kg
[~2019-11-05 15:40] MED LIST changes: -CALC500T13 PO; +CALC500T14 PO; +MULT-445 PO; -MULT1TAB52 PO
[2019-11-05] MEDS ORDERED: IV NORMAL SALINE 1000ML BAG 1,000 ML IV ONE (16:45)
[2019-11-05 16:56] LABS: BILIRUBIN,URINE NEGATIVE (NEG); CLARITY,URINE CLEAR; COLOR,URINE YELLOW; NITRITE,URINE NEGATIVE (NEG); PH,URINE 6.5 (<5.0-8.0); PROTEIN,URINE NEGATIVE (NEG-TRACE)
[2019-11-05 17:02] LABS: BARBITURATES NEG (NEG); BENZODIAZEPINES NEG (NEG); CANNABINOIDS NEG (NEG); COCAINE NEG (NEG); METHADONE NEG (NEG); OPIATES NEG (NEG); PHENCYCLIDINE NEG (NEG)
[2019-11-05 17:05] LABS: AMPHETAMINE/METHAMPHETAMINE NEG (NEG)
[2019-11-05 17:16] LABS: AMORPHOUS SEDIMENT,UR PRESENT /HPF; BACTERIA,URINE FEW /HPF (0-FEW); RBC,URINE 0 /HPF (0-2); SQUAMOUS EPITHELIAL CELL,UR FEW /LPF; WBC,URINE 0 /HPF (0-4)
--- NOTE | 2019-11-05 17:33 | RAD ---
PORTABLE CHEST 1V 11/05/2019 4:42 PM INDICATION: Weakness COMPARISON: 07/05/2019 TECHNIQUE: Portable frontal view of the chest is provided. FINDINGS: The cardiomediastinal silhouette is within normal limits. Lungs are clear. There are no significant pleural effusions. There is no pulmonary vascular congestion. No pneumothorax. No suspicious osseous abnormality. IMPRESSION: There is no acute cardiopulmonary process. Electronically signed by: Yasmin Llamas MD (11/05/2019 5:30 PM) [facility]
[2019-11-05 18:01] LABS: BASO % 1 % (0-3); EOS % 1 % (0-3); HEMATOCRIT 31.5 % (36.0-47.0); HEMOGLOBIN 10.3 g/dL (12.0-15.5); LYMPH # 2.1 x10^3/uL (1.0-4.8); LYMPH % 58 % (24-48); MEAN CORPUSCULAR HEMOGLOBIN 35 pg (25-35); MEAN CORPUSCULAR HGB CONC 33 g/dL (31-37); MEAN CORPUSCULAR VOLUME 106 fL (79-100); MONO # 0.2 x10^3/uL (0.0-1.1); MONO % 5 % (0-9); NEUT # 1.2 x10^3/uL (1.8-7.7); NEUT % 35 % (31-73); PLATELET COUNT 147 x10^3/uL (140-400); RED BLOOD COUNT 2.98 x10^6/uL (3.50-5.40); RED CELL DISTRIBUTION WIDTH 20.4 % (11.5-14.5); WHITE BLOOD COUNT 3.5 x10^3/uL (4.0-11.0)
[2019-11-05 18:15] LABS: ALBUMIN 3.6 g/dL (3.4-5.0); ALBUMIN/GLOBULIN RATIO 0.7 (1.0-1.7); CALCIUM 7.1 mg/dL (8.5-10.1); CREATININE 0.6 mg/dL (0.6-1.0); TOTAL BILIRUBIN 2.5 mg/dL (0.2-1.0); TOTAL PROTEIN 8.9 g/dL (6.4-8.2)
[2019-11-05 18:19] LABS: POTASSIUM 2.2 mmol/L (3.5-5.1)
[2019-11-05] MEDS ORDERED: POTASSIUM CHLORIDE 20 MEQ TABLET.ER. PO ONE (19:15)
[2019-11-05] MEDS: POTASSIUM CHLORIDE 10MEQ 100 ML IV SCH ×2 (19:15→20:15)
[2019-11-05] MEDS ORDERED: ONDANSETRON PF 4 MG/2 ML VIAL. IV PRN (20:15)
[2019-11-05] MEDS ORDERED: cloNIDine HCL 0.1 MG TABLET PO PRN (20:15)
[2019-11-05 20:25] LABS: PLT ESTIMATE ADEQUATE (ADEQUATE)
[2019-11-05 20:26] LABS: ANISOCYTOSIS MOD; POLYCHROMASIA SLIGHT
--- NOTE | 2019-11-05 20:27 | PHYS DOC ---
Past Medical History Past Medical History: Alcoholism, Endometriosis, Fibromyalgia, Hypertension, Hypothyroid Additional Past Medical Histor: Graves Disease,x2 blood trans, Bulging disc, Lupus, Neuropathy (JUSTA PRECIADO APRN) Past Surgical History: Cholecystectomy, Tubal ligation, Other Additional Past Surgical Histo: back surgery (JUSTA PRECIADO APRN) Smoking Status: Current Every Day Smoker Alcohol Use: Heavy Drug Use: Marijuana (JUSTA PRECIADO APRN) General Adult EDM: Chief Complaint: NAUSEA/VOMITING/DIARRHA HPI: HPI: Patient is a 39 year old female with a history of fibromyalgia, hypertension, high cholesterol, who presents the ED today with multiple complaints. Patient is concerned she has COVID19. She states she has been exposed through friends. Patient denies any fever or coughing. She is also complaining of generalized fatigue for 1 week. She is also complaining of diarrhea for 1 week. She is al so complaining of weakness to bilateral lower extremities. Patient denies any hematemesis or bloody stools. She also reports she has history of alcoholism and had a cup of vodka yesterday. (JUSTA PRECIADO APRN) Review of Systems: Review of Systems: Constitutional: Reports concern for COVID19, reports fatigue. Denies fever or chills. [] Eyes: Denies change in visual acuity. [] HENT: Denies nasal congestion or sore throat. [] Respiratory: Denies cough or shortness of breath. [] Cardiovascular: Denies chest pain or edema. [] GI: Reports diarrhea. Denies abdominal pain, nausea, vomiting, bloody stools : Denies dysuria. [] Musculoskeletal: Reports weakness to bilateral lower extremities. Denies back pain or joint pain. [] Integument: Denies rash. [] Neurologic: Denies headache, focal weakness or sensory changes. [] Psychiatric: Denies depression or anxiety. [] (JUSTA PRECIADO APRN) Heart Score: Risk Factors: Risk Factors: DM, Current or recent (<one month) smoker, HTN, HLP, family history of CAD, obesity. Risk Scores: Score 0 - 3: 2.5% MACE over next 6 weeks - Discharge Home Score 4 - 6: 20.3% MACE over next 6 weeks - Admit for Clinical Observation Score 7 - 10: 72.7% MACE over next 6 weeks - Early Invasive Strategies (JUSTA PRECIADO APRN) Current Medications: Current Medications Medications (Trade) Dose Ordered Sig/Emelia Start Time Stop Time Status Last Admin Dose Admin Acetaminophen (Tylenol) 650 mg PRN Q4HRS PRN 11/05/19 20:15 11/06/19 20:14 Clonidine HCl (Catapres) 0.1 mg PRN Q1HR PRN 11/05/19 20:15 UNV Lorazepam (Ativan Inj) 2 mg PRN Q1HR PRN 11/05/19 20:15 UNV Magnesium Sulfate/ Dextrose 100 ml @ 100 mls/hr 1X ONCE 11/05/19 20:15 11/05/19 21:14 UNV Morphine Sulfate (Morphine Sulfate) 2 mg PRN Q2HR PRN 11/05/19 20:15 11/06/19 20:14 Multivitamins 10 ml/Thiamine HCl 100 mg/Folic Acid 1 mg/Sodium Chloride 1,011.2 ml @ 100 mls/ hr DAILY 11/06/19 09:00 11/10/19 19:07 UNV Ondansetron HCl (Zofran) 4 mg PRN Q8HRS PRN 11/05/19 20:15 11/06/19 20:14 Potassium Chloride/Water 100 ml @ 100 mls/hr Q1H 11/05/19 19:15 11/05/19 21:14 11/05/19 19:15 100 MLS/HR Potassium Chloride (Klor-Con) 40 meq 1X ONCE 11/05/19 19:15 11/05/19 19:16 DC 11/05/19 19:15 40 MEQ Sodium Chloride 1,000 ml @ 1,000 mls/hr 1X ONCE 11/05/19 16:45 11/05/19 17:44 DC 11/05/19 16:45 1,000 MLS/HR (JUSTA PRECIADO BIOSTATISTICS PROFESSOR) Allergies: Allergies: Allergies Coded Allergies Type Severity Reaction Last Updated Verified Sulfa (Sulfonamide Antibiotics) Adverse Reaction Intermediate rapid heart beat 11/23/17 Yes (JUSTA PRECIADO APRN) Physical Exam: PE: Constitutional: Well developed, well nourished, no acute distress, non-toxic appearance. [] HENT: Normocephalic, atraumatic, bilateral external ears normal, oropharynx moist, no oral exudates, nose normal. [] Eyes: PERRLA, EOMI, jaundice to bilateral conjunctiva, no discharge. [] Neck: Normal range of motion, no tenderness, supple, no stridor. [] Cardiovascular:Heart rate regular rhythm, no murmur [] Lungs & Thorax: Bilateral breath sounds clear to auscultation [] Abdomen: Bowel sounds normal, soft, no tenderness, no masses, no pulsatile masses. [] Skin: Warm, dry, no erythema, no rash. [] Back: No tenderness, no CVA tenderness. [] Extremities: No tenderness, no cyanosis, no clubbing, ROM intact, no edema. [] Neurologic: Alert and oriented X 3, normal motor function, normal sensory function, no focal deficits noted. [] Psychologic: Flat affect, appears drunk (MUTUNGA,JUSTA BIOSTATISTICS PROFESSOR) Current Patient Data: Labs: Laboratory Tests Test 11/05/19 16:20 11/05/19 17:48 Urine Collection Type Void Urine Color Yellow Urine Clarity Clear Urine pH 6.5 (<5.0-8.0) Urine Specific Delta <=1.005 (1.000-1.030) Urine Protein Negative mg/dL (NEG-TRACE) Urine Glucose (UA) Negative mg/dL (NEG) Urine Ketones (Stick) Negative mg/dL (NEG) Urine Blood Trace (NEG) Urine Nitrite Negative (NEG) Urine Bilirubin Negative (NEG) Urine Urobilinogen Dipstick 1.0 mg/dL (0.2 mg/dL) Urine Leukocyte Esterase Negative (NEG) Urine RBC 0 /HPF (0-2) Urine WBC 0 /HPF (0-4) Urine Squamous Epithelial Cells Few /LPF Urine Amorphous Sediment Present /HPF Urine Bacteria Few /HPF (0-FEW) Urine Opiates Screen Neg (NEG) Urine Methadone Screen Neg (NEG) Urine Barbiturates Neg (NEG) Urine Phencyclidine Screen Neg (NEG) Urine Amphetamine/Methamphetamine Neg (NEG) Urine Benzodiazepines Screen Neg (NEG) Urine Cocaine Screen Neg (NEG) Urine Cannabinoids Screen Neg (NEG) Urine Ethyl Alcohol Pos (NEG) White Blood Count 3.5 x10^3/uL (4.0-11.0) L Red Blood Count 2.98 x10^6/uL (3.50-5.40) L Hemoglobin 10.3 g/dL (12.0-15.5) L Hematocrit 31.5 % (36.0-47.0) L Mean Corpuscular Volume 106 fL (79-100) H Mean Corpuscular Hemoglobin 35 pg (25-35) Mean Corpuscular Hemoglobin Concent 33 g/dL (31-37) Red Cell Distribution Width 20.4 % (11.5-14.5) H Platelet Count 147 x10^3/uL (140-400) Neutrophils (%) (Auto) 35 % (31-73) Lymphocytes (%) (Auto) 58 % (24-48) H Monocytes (%) (Auto) 5 % (0-9) Eosinophils (%) (Auto) 1 % (0-3) Basophils (%) (Auto) 1 % (0-3) Neutrophils # (Auto) 1.2 x10^3/uL (1.8-7.7) L Lymphocytes # (Auto) 2.1 x10^3/uL (1.0-4.8) Monocytes # (Auto) 0.2 x10^3/uL (0.0-1.1) Eosinophils # (Auto) 0.0 x10^3/uL (0.0-0.7) Basophils # (Auto) 0.0 x10^3/uL (0.0-0.2) Platelet Estimate Pending Sodium Level 136 mmol/L (136-145) Potassium Level 2.2 mmol/L (3.5-5.1) *L Chloride Level 95 mmol/L (98-107) L Carbon Dioxide Level 25 mmol/L (21-32) Anion Gap 16 (6-14) H Blood Urea Nitrogen 3 mg/dL (7-20) L Creatinine 0.6 mg/dL (0.6-1.0) Estimated GFR (Cockcroft-Gault) 134.0 BUN/Creatinine Ratio 5 (6-20) L Glucose Level 88 mg/dL (70-99) Calcium Level 7.1 mg/dL (8.5-10.1) L Magnesium Level 1.0 mg/dL (1.8-2.4) L Total Bilirubin 2.5 mg/dL (0.2-1.0) H Aspartate Amino Transferase (AST) 73 U/L (15-37) H Alanine Aminotransferase (ALT) 15 U/L (14-59) Alkaline Phosphatase 161 U/L (46-116) H Troponin I Quantitative < 0.017 ng/mL (0.000-0.055) Total Protein 8.9 g/dL (6.4-8.2) H Albumin 3.6 g/dL (3.4-5.0) Albumin/Globulin Ratio 0.7 (1.0-1.7) L Lipase 155 U/L (73-393) Ethyl Alcohol Level 310 mg/dL (0-10) H Laboratory Tests 11/05/19 17:48 Laboratory Tests 11/05/19 17:48 Vital Signs: Vital Signs Date Time Temp Pulse Resp B/P (MAP) Pulse Ox O2 Delivery O2 Flow Rate FiO2 11/05/19 18:21 97.4 108 18 97/70 (79) 100 Room Air 97.4 (JUSTA PRECIADO APRN) EKG: EKG: [] (JUSTA PRECIADO APRN) Radiology/Procedures: Radiology/Procedures: [] (JUSTA PRECIADO APRN) Course & Med Decision Making: Course & Med Decision Making Pertinent Labs and Imaging studies reviewed. (See chart for details) This is a 39-year-old female patient presenting to the ED today with multiple complaints including alcohol intoxication, generalized weakness, diarrhea for 1 week, concern for COVID19. CBC with a WBC of 3.5, RAMESH globin 10.8, hematocrit 31.5, potassium 2.2, oral potassium was administered as well as IV potassium started. Magnesium 7.1, IV magnesium was ordered. Bilirubin 2.5, AST 73, ALT 15, ALK 161, calcium 7.1. Alcohol level [address] Townsend who accepted patient for admission. (JUSTA PRECIADO APRN) Dragon Disclaimer: Dragon Disclaimer: This electronic medical record was generated, in whole or in part, using a voice recognition dictation system. (JUSTA PRECIADO APRN) Departure Departure Impression: Primary Impression: Hypokalemia Additional Impressions: Person under investigation for COVID-19 Hypomagnesemia ETOH abuse Disposition: ADMITTED INPATIENT Condition: STABLE Referrals: Mani MILLS MD (PCP) Justicifation of Admission Dx: Justifications for Admission: Justification of Admission Dx: Yes (JUSTA PRECIADO APRN) Attending Signature Attending Signature I have reviewed the PA/REGULATORY AFFAIRS CONSULTANT's note and plan of care. I was available for consultation as needed during the patient's visit in the emergency department. I agree with the clinical impression, plan, and disposition. (CANDACE ETIENNE DO) JUSTA PRECIADO APRN Nov 05, 2019 20:27 CANDACE ETIENNE DO Nov 06, 2019 06:26
[2019-11-05] MEDS ORDERED: MAGNESIUM SULFATE 1GM 100 ML IV ONE (21:00)
[2019-11-05 22:45] VITALS: BP 95/63
[2019-11-06 03:00] VITALS: BP 96/57
[2019-11-06] MEDS ORDERED: POTASSIUM BICARB 20 MEQ EFFERVESCENT TABLET. PO ONE ×2 (04:00→11:00)
[2019-11-06] MEDS: MORPHINE SULFATE 2 MG/ML VIAL. IV PRN ×3 (04:05→14:58)
[2019-11-06 05:04] LABS: BASO % 1 % (0-3); EOS % 1 % (0-3); HEMATOCRIT 27.1 % (36.0-47.0); LYMPH # 1.6 x10^3/uL (1.0-4.8); LYMPH % 48 % (24-48); MEAN CORPUSCULAR HEMOGLOBIN 34 pg (25-35); MEAN CORPUSCULAR HGB CONC 33 g/dL (31-37); MEAN CORPUSCULAR VOLUME 102 fL (79-100); MONO # 0.1 x10^3/uL (0.0-1.1); MONO % 4 % (0-9); NEUT # 1.6 x10^3/uL (1.8-7.7); NEUT % 46 % (31-73); PLATELET COUNT 128 x10^3/uL (140-400); RED BLOOD COUNT 2.67 x10^6/uL (3.50-5.40); WHITE BLOOD COUNT 3.4 x10^3/uL (4.0-11.0)
[2019-11-06 05:06] VITALS: BP 96/57
[2019-11-06 05:08] LABS: CALCIUM 6.5 mg/dL (8.5-10.1); CREATININE 0.6 mg/dL (0.6-1.0)
[2019-11-06 05:19] LABS: POTASSIUM 2.2 mmol/L (3.5-5.1)
[2019-11-06 07:00] VITALS: BP 90/56
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
[2019-11-06] MEDS: THIAMINE 100 MG TABLET. PO SCH (09:14)
[2019-11-06] MEDS: PANTOPRAZOLE 40 MG TABLET.DR. PO SCH (09:14)
[2019-11-06] MEDS: HALOPERIDOL 5 MG TABLET. PO SCH ×2 (09:14→21:00)
[2019-11-06] MEDS: MULTIVITAMIN with MINERAL TABLET. PO SCH (09:14)
[2019-11-06] MEDS: DULoxetine HCL 30 MG CAPSULE.DR PO SCH (09:14)
[2019-11-06] MEDS: GABAPENTIN 300 MG CAPSULE. PO SCH ×3 (09:14→21:00)
[2019-11-06] MEDS: CYANOCOBALAMIN (VITAMIN B-12) 1,000 MCG TABLET. PO SCH (09:14)
[2019-11-06] MEDS: FOLIC ACID 1 MG TABLET. PO SCH (09:14)
[2019-11-06] MEDS: MULTIVIT INFUSN,ADULT 4,VIT K 10 ML, THIAMINE INJ 100 MG, FOLIC ACID INJ 1 MG in IV NOR... IV SCH (09:15)
[2019-11-06] MEDS: LEVOTHYROXINE 100 MCG TABLET PO SCH (09:15)
[2019-11-06] MEDS ORDERED: MAGNESIUM SULFATE 4GM 100 ML IV ONE ×2 (09:30→13:30)
[2019-11-06] MEDS: ONDANSETRON PF 4 MG/2 ML VIAL. IV PRN ×2 (09:39→14:57)
[2019-11-06 11:00] VITALS: BP 87/62
[2019-11-06 15:01] VITALS: BP 109/76
[2019-11-06] MEDS ORDERED: LEVOTHYROXINE SODIUM INJ 100 MCG in NORMAL SALINE 5 ML IVP ONE (16:00)
[2019-11-06] MEDS: ENOXAPARIN 40 MG/0.4 ML SYRINGE. SQ SCH (17:21)
[2019-11-06 19:57] VITALS: BP 120/79
[2019-11-06] MEDS: QUEtiapine 100 MG TABLET. PO SCH (21:00)
[2019-11-06] MEDS: traZODone 50 MG TABLET. PO SCH (21:00)
[2019-11-07] VITALS (7 sets, daily range): BP systolic 81–105; BP diastolic 44–64
[2019-11-07 06:31] LABS: CALCIUM 6.1 mg/dL (8.5-10.1); CREATININE 0.6 mg/dL (0.6-1.0); MAGNESIUM 2.1 mg/dL (1.8-2.4)
[2019-11-07 06:39] LABS: POTASSIUM 2.7 mmol/L (3.5-5.1)
[2019-11-07] MEDS ORDERED: POTASSIUM BICARB 20 MEQ EFFERVESCENT TABLET. PEG ONE (07:00)
[2019-11-07 07:06] LABS: BASO % 0 % (0-3); EOS % 1 % (0-3); HEMATOCRIT 22.5 % (36.0-47.0); HEMOGLOBIN 7.6 g/dL (12.0-15.5); LYMPH # 1.2 x10^3/uL (1.0-4.8); LYMPH % 29 % (24-48); MEAN CORPUSCULAR HEMOGLOBIN 34 pg (25-35); MEAN CORPUSCULAR HGB CONC 34 g/dL (31-37); MEAN CORPUSCULAR VOLUME 102 fL (79-100); MONO # 0.1 x10^3/uL (0.0-1.1); MONO % 2 % (0-9); NEUT # 2.8 x10^3/uL (1.8-7.7); NEUT % 68 % (31-73); PLATELET COUNT 81 x10^3/uL (140-400); RED BLOOD COUNT 2.21 x10^6/uL (3.50-5.40); RED CELL DISTRIBUTION WIDTH 19.8 % (11.5-14.5); WHITE BLOOD COUNT 4.2 x10^3/uL (4.0-11.0)
[2019-11-07] MEDS: LEVOTHYROXINE 100 MCG TABLET PO SCH (07:21)
[2019-11-07] MEDS: PANTOPRAZOLE 40 MG TABLET.DR. PO SCH (07:22)
[2019-11-07] MEDS: MULTIVIT INFUSN,ADULT 4,VIT K 10 ML, THIAMINE INJ 100 MG, FOLIC ACID INJ 1 MG in IV NOR... IV SCH (09:09)
[2019-11-07] MEDS: HALOPERIDOL 5 MG TABLET. PO SCH ×2 (09:10→21:57)
[2019-11-07] MEDS: DULoxetine HCL 30 MG CAPSULE.DR PO SCH (09:10)
[2019-11-07] MEDS: GABAPENTIN 300 MG CAPSULE. PO SCH ×3 (09:10→21:56)
[2019-11-07] MEDS: CYANOCOBALAMIN (VITAMIN B-12) 1,000 MCG TABLET. PO SCH (09:10)
[2019-11-07] MEDS: POTASSIUM BICARB 20 MEQ EFFERVESCENT TABLET. PEG SCH ×2 (09:10→21:00)
[2019-11-07] MEDS: THIAMINE 100 MG TABLET. PO SCH (09:10)
[2019-11-07] MEDS: FOLIC ACID 1 MG TABLET. PO SCH (09:10)
[2019-11-07] MEDS: ACETAMINOPHEN 325 MG TABLET. PO PRN (09:10)
[2019-11-07] MEDS: MULTIVITAMIN with MINERAL TABLET. PO SCH (09:10)
--- NOTE | 2019-11-07 11:17 | PDOC ---
PROGRESS NOTES Date of Service: DATE: 11/07/19 TIME: 11:17 Chief Complaint Chief Complaint VTE Prophylaxis Ordered VTE Prophylaxis Devices: Yes VTE Pharmacological Prophylaxi: Yes IMPRESSION Assessment/Plan A/P: Acute metabolic encephalopathy - will cont CIWA scale and replace lytes and levothyroxine Myxedema coma, continue levothyroxine. May need IV hypokalemia, hypomag, critical - will replace Severe depression SLE - not on meds Tobacco use - counseled on cessation macrocytic anemia alcohol use, abuse disorder on ciwa protocol - will have PAT team to see non-compliance meds, 1 month, weakness and debility - PT/OT Fibromyalgia - cont meds SLE - stable FEN - General PPX - lovenox FULL CODE Dispo - inpatient NEEDS DPOA History of Present Illness History of Present Illness History of Present Illness History of Present Illness Ms Santamaria is a 39 yo F with a history of fibromyalgia, lupus, hypertension, high cholesterol, hypothyroidism, ETOH abuse who presents the ED with multiple complaints. Patient is concerned she has COVID19. She states she has been exposed through friends. Patient denies any fever or coughing. She is also complaining of generalized fatigue for 1 week. She is also complaining of diarrhea for 1 week. She is also complaining of weakness to bilateral lower extremities. Patient denies any hematemesis or bloody stools. She also reports she has history of alcoholism and had a cup of vodka right before admission. WBC of 3.5, Hb 10.8, hematocrit 31.5, potassium 2.2, oral potassium was administered as well as IV potassium started. Magnesium 7.1, IV magnesium was ordered. Bilirubin 2.5, AST 73, ALT 15, ALK 161, calcium 7.1. Alcohol level 310 TSH 50 CXR clear Past Medical History Cardiovascular: HTN, Other Heme/Onc: No pertinent hx Rheumatologic: Fibromyalgia Renal/: Other Endocrine: Hypothyroidism, Other Past Surgical History Past Surgical History: Tubal Ligation Family History Family History: Diabetes, Hypertension Social History Smoke: 1 pack per day ALCOHOL: heavy Drugs: None Vitals Vitals Vital Signs Date Time Temp Pulse Resp B/P (MAP) Pulse Ox O2 Delivery O2 Flow Rate FiO2 11/07/19 11:00 97.8 108 20 98/57 (71) 92 Nasal Cannula 2.5 97.8 Physical Exam General: Alert, Cooperative, mild distress Lungs: Clear Abdomen: Normal bowel sounds, Soft, No tenderness, No hepatosplenomegaly, No masses Extremities: No clubbing, No cyanosis, No edema, Normal pulses, No tenderness/swelling Skin: No rashes, No breakdown, No significant lesion Labs LABS Laboratory Tests Test 11/07/19 05:55 White Blood Count 4.2 x10^3/uL (4.0-11.0) Red Blood Count 2.21 x10^6/uL (3.50-5.40) Hemoglobin 7.6 g/dL (12.0-15.5) Hematocrit 22.5 % (36.0-47.0) Mean Corpuscular Volume 102 fL (79-100) Mean Corpuscular Hemoglobin 34 pg (25-35) Mean Corpuscular Hemoglobin Concent 34 g/dL (31-37) Red Cell Distribution Width 19.8 % (11.5-14.5) Platelet Count 81 x10^3/uL (140-400) Neutrophils (%) (Auto) 68 % (31-73) Lymphocytes (%) (Auto) 29 % (24-48) Monocytes (%) (Auto) 2 % (0-9) Eosinophils (%) (Auto) 1 % (0-3) Basophils (%) (Auto) 0 % (0-3) Neutrophils # (Auto) 2.8 x10^3/uL (1.8-7.7) Lymphocytes # (Auto) 1.2 x10^3/uL (1.0-4.8) Monocytes # (Auto) 0.1 x10^3/uL (0.0-1.1) Eosinophils # (Auto) 0.0 x10^3/uL (0.0-0.7) Basophils # (Auto) 0.0 x10^3/uL (0.0-0.2) Sodium Level 136 mmol/L (136-145) Potassium Level 2.7 mmol/L (3.5-5.1) Chloride Level 97 mmol/L (98-107) Carbon Dioxide Level 32 mmol/L (21-32) Anion Gap 7 (6-14) Blood Urea Nitrogen 3 mg/dL (7-20) Creatinine 0.6 mg/dL (0.6-1.0) Estimated GFR (Cockcroft-Gault) 134.0 Glucose Level 87 mg/dL (70-99) Calcium Level 6.1 mg/dL (8.5-10.1) Magnesium Level 1.9 mg/dL (1.8-2.4) C-Reactive Protein, Quantitative 3.4 mg/L (0-3.3) Assessment and Plan Assessmemt and Plan Problems Medical Problems: (1) Hypokalemia Status: Acute (2) Hypomagnesemia Status: Acute (3) Person under investigation for COVID-19 Status: Acute DPOA DISCUSSION 16 MIN What Is a Power of Toy Mechanic? A power of state's attorney (POA) is a legal document giving one person (the agent or inibekeg-ue-orgj) the power to act for another person (the principal). The agent can have broad legal authority or limited authority to make legal decisions about the principal's property, finances or medical care. The power of state's attorney is frequently used in the event of a principal's illness or disability, or when the principal can't be present to sign necessary legal documents for financial transactions. A power of state's attorney can end for a number of reasons, such as when the principal dies, the principal revokes it, a court invalidates it, the principal divorces their spouse, who happens to be the agent, or the agent can no longer carry out the outlined responsibilities. Conventional POAs lapse when the creator becomes incapacitated, but a durable POA remains in force to enable the agent to manage the creators affairs, and a springing POA comes into effect only if and when the creator of the POA becomes incapacitated. A medical or healthcare POA enables an agent to make medical decisions on behalf of an incapacitated person. A power of state's attorney (POA) is a legal document giving one person, the agent or qymggees-wb-zyqd the power to act for another person, the principal. The agent can have broad legal authority or limited authority to make decisions about the principal's property, finances or medical care. The power of state's attorney is often used when a principal becomes ill or disabled, or when they can't be present to sign necessary legal documents for financial transactions. Understanding Power of Toy Mechanic A power of state's attorney should be considered when planning for long-term care. There are different types of POAs that fall under either a general power of state's attorney or limited power of state's attorney. A general power of state's attorney acts on behalf of the principal in any and all matters, as allowed by the state. The agent under a general POA agreement may be authorized to take care of issues such as handling bank accounts, signing check s, selling property and assets like stocks, f A limited power of state's attorney gives the agent the power to act on behalf of the principal in specific matters or events. For example, the limited POA may explicitly state that the agent is only allowed to manage the principal's nursing home accounts. A limited POA may also be limited to a specific period of time (e.g., if the principal will be out of the country for, say, two years). Most cobb of state's attorney documents allow an agent to represent the principal in all property and financial matters as long as the principals mental state of mind is good. If a situation occurs where the principal becomes incapable of making decisions for him or herself, the POA agreement would automatically end. However, someone who wants the POA to remain in effect after the persons health deteriorates would need to sign a durable power of state's attorney (DPOA). Important:A person appointed as power of state's attorney is not necessarily an state's attorney. The person could just be a trusted family member, friend, or acquaintance. Understanding the Durable Power of Toy Mechanic (DPOA) The durable power of state's attorney (DPOA) remains in control of certain legal, property or financial matters specifically spelled out in the agreement, even after the principal becomes mentally incapacitated. While a DPOA can pay medical bills on behalf of the principal, the durable agent cannot make decisions related to the principal's health (e.g., taking the principal off life support is not up to a DPOA). The principal can sign a durable power of state's attorney for health care, or healthcare power of state's attorney (HCPA), if he wants an agent to have the power to make health-related decisions. This document also called a healthcare proxy, outlines the principals consent to give the agent POA privileges in the event of an unfortunate medical condition. The durable POA for healthcare is legally bound to oversee medical care decisions on behalf of the principal. Another type of DPOA is the durable power of state's attorney for finances, or simply a financial power of state's attorney. This document allows an agent to manage the business and financial affairs of the principal, such as signing checks, filing tax returns, mailing and depositing Social Security checks and managing investment accounts, in the event, the latter becomes unable to understand or make decisions. To the extent of what the agreement spells out as the agents responsibility, the agent has to carry out the principals wishes to the best of his ability. When the agent acts on behalf of the principal by making investment decisions through the farm service consultant or medical decisions through the healthcare professional, both institutions would ask to see the DPOA. Although the DPOA for both medical and financial matters can be one document, it is good to have separate DPOA for healthcare and finances. Since the DPOA for healthcare will have the principal's personal medical information, it would be inappropriate for the farm service consultant to have it, and the medical records administrator dont need to know the financial status of the patient either. conditions for which a durable POA may become active are set up in a document called the springing power of state's attorney. The springing POA defines the kind of event or level of incapacitation that should occur before the DPOA springs into effect. A power of state's attorney can remain dormant until a negative health occurrence activates it to a DPOA. How Power of Toy Mechanic Works You can buy or download a power of state's attorney template. If you do, be sure it is for your state, as requirements differ. However, this document may be too important to leave to the chance that you got the correct form and handled it properly. A better way to start the process of establishing a power of state's attorney is by locating an state's attorney who specializes in family law in your state. If state's attorney's fees are more than you can afford, legal services offices staffed with cre dentialed attorneys exist in virtually every part of the [place]. Visit the [employer] website, which has a "Find Program Specialist" search function. Clients who qualify will receive pro isael (cost-free) assistance Many states require that the signature of the principal (the person who initiates the POA) be notarized. Some states also require that witnesses' signa tures be notarized. The following provisos apply generally, nationwide, and everyone who needs to create a POA should be aware of them: There is no standard POA form for all 50 states; state law and procedures vary All states accept some version of the durable power of state's attorney A few ruano cobb cannot be delegated. These include the authority to do the following: Make, amend, or revoke a will Contract a marriage in most states, although a handful of states allow it Vote (but the guardian may request a ballot on behalf of the principal) While the details may differ, the following rules apply [place] [facility]: Put It in Writing While some regions of the country accept oral POA grants, verbal instruction is not a reliable substitute for getting each of the cobb of state's attorney granted to your agent spelled out [id number] on paper. Written clarity helps to avoid arguments and confusion. Use the Proper Format Many variations of power of state's attorney forms exist. Some POAs are short-lived; others are meant to last until . Decide what cobb you wish to araseli and prepare a POA specific to that desire. The POA must also satisfy the requirements of your state. To find a form that will be accepted by a court of law in the state in which you live, perform an internet search, check with an office-supply store or ask a local estate-planning professional to help you. The best option is to use an state's attorney. Identify the Parties The term for the person granting the POA is the "principal." The individual who receives the power of state's attorney is called either the "agent" or the "erdwkghi-ec-owoe." Check whether your state requires that you use specific terminology. Delegate the Cobb A POA can be as broad or as limited as the principal wishes. However, each of the cobb granted must be clear, even if the principal grants the agent "general power of state's attorney." In other words, the principal cannot araseli sweeping authority such as, I delegate all things having to do with my life. Specify Durability In most states, a power of state's attorney terminates if the principal is incapacitated. If this happens, the only way an agent can keep his or her cobb is if the POA was written with an indication that it is "durable," a designation that makes it last for the principal's lifetime unless the principal revokes it. Notarize the POA Many states require cobb of state's attorney to be notarized. Even in states that don't, it is potentially much easier for the agent if a notarys seal and signature are on the document. Record It Not all cobb of state's attorney must be recorded formally by the county in order to be legal. But recording is standard practice for many estate planners and individuals who want to create a record that the document exists. File It Some states require specific kinds of POAs to be filed with a court or government office before they can be made valid. For instance, [place] requires that any POA used to araseli grandparents guardianship over a child must be filed with the juvenile court. It also requires a POA that transfers real estate to be recorded by the [facility] in which the property is located. Choosing a Power of Toy Mechanic Like the property deed for your house or car, a POA grants immense ownership authority and responsibility. It is literally a matter of life and in the case of a medical POA. And you could find yourself facing financial privation or bankruptcy if you end up with a mishandled or abused durable POA. Therefore, you should choose your agent with the greatest of care to ensure your wishes are carried out to the greatest extent possible. It is critical to name a person who is both trustworthy and capable to serve as your agent. This person will act with the same legal authority you would have, so any mistakes made by your agent may be very difficult to correct. Even worse, depending on the extent of the cobb you araseli, there may be dangerous potential for self-dealing. An agent may have access to your bank accounts, the power to make gifts and transfer your funds, and the ability to sell your property. Your agent can be any competent adult, including a professional such as an state's attorney, prison psychiatrist, or banker. But your agent may also be a family member such as a spouse, adult child or another relative. Naming a family member as your agent saves the fees a professional would charge, and may also keep confidential information about your finances and other private matters in the family." Naming Children as Power of Toy Mechanic Parents who create POAs very commonly choose adult children to serve as their agents. Compared to naming ones spouse as the agent, the relative youth of the child is an advantage when the purpose of the POA is to relieve an aging parent of the burden of managing the details of financial and investment affairs or provide management for an aging parents affairs should the parent become incapacitated. In these cases, a spouse named as the agent who is near the same age as the person creating the POA may come to suffer the same debilities that led the POAs creator to establish it, defeating its purpose. When the child is honest, capable, and respects the parents desires, this can be the best choice for a POA. When there is more than one child, parents may struggle with the decision of who to select for the role of the agent. This is not a decision to be taken lightly. Your agent named under your POA acts with your authority, so costly financial mistakes resulting from carelessness or lack of financial understanding may be impossible to fix. The same is true of acts that create interfamily conflict by favoring some members over others. Worst of all, when delivered into the wrong hands, a POA can create a veritable license to steal, giving your agent access to your bank accounts and the ability to spend your money and take many other wrongful actions. Children have different characters, skills, and circumstances, and mckeon selection of children as agents, and of the cobb given to them, can avert these dangers. The good news is that you can have multiple POAs naming separate agents and customize them for each rick skill set, temperament, and ability to act on your behalf. Consider these three ruano factors when choosing which child you want to give important cobb to under a POA: 1.Trustworthiness: This is the single most important trait of any agent named under a POA. This includes not just honesty but also reliability in performing tasks that need regular attention, from managing an investment portfolio to payi ng bills, and diligence in acting according to your wishes. 2.Abilities of each child: Specific abilities of different children may make them best suited to take on particular roles in managing your financial affairs. You can use limited POAs to give different children defined and limited cobb over different aspects of your finances. These may include the followin.Managing everyday expenses of the family 4.Receiving income from and paying expenses on real estate 5.Controlling a financial portfolio 6.Managing insurance and annuities 7.Running a [employer] business 8.Multiple agents: More than one agent can be named by a POA, either with the authority to act separately or required to act jointly. Having two children separately authorized to manage routine items can be a convenience if one becomes unavailable for some reason while requiring two to agree on major actions like selling a house can assure family agreement over major decisions. Tip:Say one child is a busy financial expert living in a distant city, while another works part-time and lives conveniently close by. You can have one POA that names the first to manage your investment portfolio and another that names the second to manage your routine daily expenses and pay monthly bills. But naming multiple agents can cause problems if disputes arise between them. For instance, if two children are required to act jointly in managing an investment account but disagree over how to do so, it may be effectively frozen. So when choosing two children to act jointly as agents under a POA, be sure they have not only the skills for the task but personalities to cooperate. Risks of Naming Children as Power of Toy Mechanic Mistakesand worse, acts of self-dealingcommitted by your agent can be extr yunior costly. This is especially so with a durable POA that gives broad control over your affairs during a time when you are incapacitated. You must be convinced that the agent will follow your instructions, has the ability to do so, and will pursue your wishes even over the objections of other family members if need be. Never name a child to be your agent as a matter of fairness, to avoid hurt feelings or to preserve family harmony, if you lack trust. The cobb are far too important to be granted other than on the merits of trustworthiness and ability. Beware naming a child as your agent if: You experience difficulty, awkwardness, or resistance when explaining to the child the duties to be taken on as your agent under the POA The child may not be available to perform the duties, or not be reliable in doing so due to their own concerns or distractions The child has a history of problems with gambling or substance abuse The child has serious debts or has been irresponsible in managing his/her own finances and affairs The child is engaged in intra-family conflicts that may result is using the cobb received under the POA to favor some family members over others Risks of Naming a POA Be aware of the dangers of theft and self-dealing created by a POA, even when your agent is your own child. To minimize the risk of such wrongdoing, in addition to the steps mentioned above, have your POA require your agent to report all actions periodically to an outside democrat, such as the familys prison psychiatrist or state's attorney. In other words, trust but verify. A capable state's attorney can draft your POA to include these safeguards under your states laws. As family circumstances change, periodically review and update the POAs you have created. You can revoke a POA simply by writing a letter that clearly identifies it and states that you revoke it, and delivering the letter to your former agent . (Some states require such a letter to be notarized.) Its a good idea to also send copies to third parties with whom the agent may have acted on your behalf. Then create a new POA and deliver it to your new choice of agent. A power of state's attorney can provide you with both convenience and protection by giving a trusted individual the legal authority to act on your behalf and in yo ur interests. Adult children who are both fully trustworthy and capable of accomplishing your wishes may make the best agent under your POA. But dont name a person the agent simply because he or she is your child. Be sure your agent is trustworthy and capable as a first requirement, whomever you name. Getting Your Parents' to Create a Power of Toy Mechanic If you are the child as opposed to the parent in this situation, you face a different set of obstacles. Parents often are reluctant to give others power over their affairs. Moreover, a POA applies to individuals, not couples, so the challenge is to convince each parent to create a POA. If you have a parent who is reluctant to do so, try the following ideas to persuade them. Warn of the dangers of not having POAs. If a parent becomes incapacitated and unable to manage his or her own affairs without a POA in place that enables a named agent to step in and do so, then nobody may have the legal right to do so. For instance, nobody may have the right to take JERONIMO distributions the parent needs for income or to borrow funds to pay medical bills or to deal with the IRS concerning the parents taxes. It then will be necessary to go to court to seek to be named as a conservator or guardian for the parent, a course that may prove costly and slowand could be contested, causing family conflicts. Suggest customized POAs for their needs. There are many different kinds of POAs, and a person can have more than one. While a general POA enables the agent to ac t with the authority of the POAs creator in all matters, a special POA can limit that authority to a specific subject, such as managing an investment account, or to a limited period of time, such as while the creator of the POA is traveling abroad. Convince your parents by crafting one or more POAs to meet a parents specific wishes. You can begin by suggesting a special POA to be used only to provide a convenience that the parent will valuesuch as one that enables you to prepare and file the parents tax return and manage the parents dealings with the IRS. A parent who benefits from one POA is more likely to then become open to using others. Ask parents to create POAs for the sake of everyone in the familyincluding the children and grandchildrenwho may be harmed by the complications and costs that result if a parent is incapacitated without a durable POA in place to manage the parents affairs. Have Safeguards The creator of a POA may, and should, be concerned about the risk that the agent will abuse the cobb received under it. Insure against this by having the POA require that the agent periodically report all actions taken to a trusted third democrat whom family members agree upon, such as the [employer] almond huller or prison psychiatrist. Or have them name two agents and require they agree on major transactions, such as the sale of a home. Persons of all ages gain valuable protection from having a durable POA, as one can become unexpectedly incapacitated at any stage of life. One way to encourage a reluctant parent to create a durable POA is to create one for yourself and ask your parents to join you by doing the same. Consult Trusted Advisors Trusted professional advisors, such as a almond huller, prison psychiatrist, and doctor, can help persuade parents of the wisdom and necessity of adopting POAs. Obtaining POAs from your parents can provide valuable benefits to both them and the entire family. If they are reluctant to araseli broad cobb at once, you may still be able to convince them to do so gradually. But dont delay, or there may be costly consequences. A person must be mentally competent to create a power of state's attorney. Once a parent loses the capability to manage his or her own affairs it is too late, and court proceedings likely will be necessary. Special Considerations There are many good reasons to make a power of state's attorney, as it ensures that someone will look after your financial affairs if you become incapacitated. You should choose a trusted family member, a proven friend, or a reputable and honest professional. Remember, however, that signing a power of state's attorney that grants broad authority to an agent is very much like signing a blank checkso make sure you choose wisely and understand the laws that apply to the document. Comment Comment Review of Relevant I have reviewed the following items fernandez (where applicable) has been applied. Labs Laboratory Tests Test 11/05/19 16:20 11/05/19 17:48 11/06/19 04:30 11/07/19 05:55 Urine Collection Type Void Urine Color Yellow Urine Clarity Clear Urine pH 6.5 (<5.0-8.0) Urine Specific [place] <=1.005 (1.000-1.030) Urine Protein Negative mg/dL (NEG-TRACE) Urine Glucose (UA) Negative mg/dL (NEG) Urine Ketones (Stick) Negative mg/dL (NEG) Urine Blood Trace (NEG) Urine Nitrite Negative (NEG) Urine Bilirubin Negative (NEG) Urine Urobilinogen Dipstick 1.0 mg/dL (0.2 mg/dL) Urine Leukocyte Esterase Negative (NEG) Urine RBC 0 /HPF (0-2) Urine WBC 0 /HPF (0-4) Urine Squamous Epithelial Cells Few /LPF Urine Amorphous Sediment Present /HPF Urine Bacteria Few /HPF (0-FEW) Urine Opiates Screen Neg (NEG) Urine Methadone Screen Neg (NEG) Urine Barbiturates Neg (NEG) Urine Phencyclidine Screen Neg (NEG) Urine Amphetamine/Methamphetamine Neg (NEG) Urine Benzodiazepines Screen Neg (NEG) Urine Cocaine Screen Neg (NEG) Urine Cannabinoids Screen Neg (NEG) Urine Ethyl Alcohol Pos (NEG) White Blood Count 3.5 x10^3/uL (4.0-11.0) 3.4 x10^3/uL (4.0-11.0) 4.2 x10^3/uL (4.0-11.0) Red Blood Count 2.98 x10^6/uL (3.50-5.40) 2.67 x10^6/uL (3.50-5.40) 2.21 x10^6/uL (3.50-5.40) Hemoglobin 10.3 g/dL (12.0-15.5) 9.0 g/dL (12.0-15.5) 7.6 g/dL (12.0-15.5) Hematocrit 31.5 % (36.0-47.0) 27.1 % (36.0-47.0) 22.5 % (36.0-47.0) Mean Corpuscular Volume 106 fL (79-100) 102 fL (79-100) 102 fL (79-100) Mean Corpuscular Hemoglobin 35 pg (25-35) 34 pg (25-35) 34 pg (25-35) Mean Corpuscular Hemoglobin Concent 33 g/dL (31-37) 33 g/dL (31-37) 34 g/dL (31-37) Red Cell Distribution Width 20.4 % (11.5-14.5) 19.0 % (11.5-14.5) 19.8 % (11.5-14.5) Platelet Count 147 x10^3/uL (140-400) 128 x10^3/uL (140-400) 81 x10^3/uL (140-400) Neutrophils (%) (Auto) 35 % (31-73) 46 % (31-73) 68 % (31-73) Lymphocytes (%) (Auto) 58 % (24-48) 48 % (24-48) 29 % (24-48) Monocytes (%) (Auto) 5 % (0-9) 4 % (0-9) 2 % (0-9) Eosinophils (%) (Auto) 1 % (0-3) 1 % (0-3) 1 % (0-3) Basophils (%) (Auto) 1 % (0-3) 1 % (0-3) 0 % (0-3) Neutrophils # (Auto) 1.2 x10^3/uL (1.8-7.7) 1.6 x10^3/uL (1.8-7.7) 2.8 x10^3/uL (1.8-7.7) Lymphocytes # (Auto) 2.1 x10^3/uL (1.0-4.8) 1.6 x10^3/uL (1.0-4.8) 1.2 x10^3/uL (1.0-4.8) Monocytes # (Auto) 0.2 x10^3/uL (0.0-1.1) 0.1 x10^3/uL (0.0-1.1) 0.1 x10^3/uL (0.0-1.1) Eosinophils # (Auto) 0.0 x10^3/uL (0.0-0.7) 0.0 x10^3/uL (0.0-0.7) 0.0 x10^3/uL (0.0-0.7) Basophils # (Auto) 0.0 x10^3/uL (0.0-0.2) 0.0 x10^3/uL (0.0-0.2) 0.0 x10^3/uL (0.0-0.2) Platelet Estimate Adequate (ADEQUATE) Giant Platelets Occ Polychromasia Slight Anisocytosis Mod Macrocytosis Slight Sodium Level 136 mmol/L (136-145) 137 mmol/L (136-145) 136 mmol/L (136-145) Potassium Level 2.2 mmol/L (3.5-5.1) 2.2 mmol/L (3.5-5.1) 2.7 mmol/L (3.5-5.1) Chloride Level 95 mmol/L (98-107) 96 mmol/L (98-107) 97 mmol/L (98-107) Carbon Dioxide Level 25 mmol/L (21-32) 26 mmol/L (21-32) 32 mmol/L (21-32) Anion Gap 16 (6-14) 15 (6-14) 7 (6-14) Blood Urea Nitrogen 3 mg/dL (7-20) 4 mg/dL (7-20) 3 mg/dL (7-20) Creatinine 0.6 mg/dL (0.6-1.0) 0.6 mg/dL (0.6-1.0) 0.6 mg/dL (0.6-1.0) Estimated GFR (Cockcroft-Gault) 134.0 134.0 134.0 BUN/Creatinine Ratio 5 (6-20) Glucose Level 88 mg/dL (70-99) 99 mg/dL (70-99) 87 mg/dL (70-99) Calcium Level 7.1 mg/dL (8.5-10.1) 6.5 mg/dL (8.5-10.1) 6.1 mg/dL (8.5-10.1) Magnesium Level 1.0 mg/dL (1.8-2.4) 0.8 mg/dL (1.8-2.4) 1.9 mg/dL (1.8-2.4) Total Bilirubin 2.5 mg/dL (0.2-1.0) Aspartate Amino Transf (AST/SGOT) 73 U/L (15-37) Alanine Aminotransferase (ALT/SGPT) 15 U/L (14-59) Alkaline Phosphatase 161 U/L (46-116) Troponin I Quantitative < 0.017 ng/mL (0.000-0.055) Total Protein 8.9 g/dL (6.4-8.2) Albumin 3.6 g/dL (3.4-5.0) Albumin/Globulin Ratio 0.7 (1.0-1.7) Lipase 155 U/L (73-393) Ethyl Alcohol Level 310 mg/dL (0-10) Thyroid Stimulating Hormone (TSH) 50.130 uIU/mL (0.358-3.74) C-Reactive Protein, Quantitative 3.4 mg/L (0-3.3) Laboratory Tests Test 11/07/19 05:55 White Blood Count 4.2 x10^3/uL (4.0-11.0) Red Blood Count 2.21 x10^6/uL (3.50-5.40) Hemoglobin 7.6 g/dL (12.0-15.5) Hematocrit 22.5 % (36.0-47.0) Mean Corpuscular Volume 102 fL (79-100) Mean Corpuscular Hemoglobin 34 pg (25-35) Mean Corpuscular Hemoglobin Concent 34 g/dL (31-37) Red Cell Distribution Width 19.8 % (11.5-14.5) Platelet Count 81 x10^3/uL (140-400) Neutrophils (%) (Auto) 68 % (31-73) Lymphocytes (%) (Auto) 29 % (24-48) Monocytes (%) (Auto) 2 % (0-9) Eosinophils (%) (Auto) 1 % (0-3) Basophils (%) (Auto) 0 % (0-3) Neutrophils # (Auto) 2.8 x10^3/uL (1.8-7.7) Lymphocytes # (Auto) 1.2 x10^3/uL (1.0-4.8) Monocytes # (Auto) 0.1 x10^3/uL (0.0-1.1) Eosinophils # (Auto) 0.0 x10^3/uL (0.0-0.7) Basophils # (Auto) 0.0 x10^3/uL (0.0-0.2) Sodium Level 136 mmol/L (136-145) Potassium Level 2.7 mmol/L (3.5-5.1) Chloride Level 97 mmol/L (98-107) Carbon Dioxide Level 32 mmol/L (21-32) Anion Gap 7 (6-14) Blood Urea Nitrogen 3 mg/dL (7-20) Creatinine 0.6 mg/dL (0.6-1.0) Estimated GFR (Cockcroft-Gault) 134.0 Glucose Level 87 mg/dL (70-99) Calcium Level 6.1 mg/dL (8.5-10.1) Magnesium Level 1.9 mg/dL (1.8-2.4) C-Reactive Protein, Quantitative 3.4 mg/L (0-3.3) Medications Current Medications Sodium Chloride 1,000 ml @ 1,000 mls/hr 1X ONCE IV Last administered on 11/05/19at 16:45; Start 11/05/19 at 16:45; Stop 11/05/19 at 17:44; Status DC Potassium Chloride (Klor-Con) 40 meq 1X ONCE PO Last administered on 11/05/19at 19:15; Start 11/05/19 at 19:15; Stop 11/05/19 at 19:16; Status DC Potassium Chloride/Water 100 ml @ 100 mls/hr Q1H IV Last administered on 11/05/19at 19:15; Start 11/05/19 at 19:15; Stop 11/05/19 at 21:14; Status DC Ondansetron HCl (Zofran) 4 mg PRN Q8HRS PRN IV NAUSEA/VOMITING Last administered on 11/06/19at 04:05; Start 11/05/19 at 20:15; Stop 11/06/19 at 09:29; Status DC Morphine Sulfate (Morphine Sulfate) 2 mg PRN Q2HR PRN IV PAIN Last administered on 11/06/19at 14:58; Start 11/05/19 at 20:15 Acetaminophen (Tylenol) 650 mg PRN Q4HRS PRN PO FEVER > 100.3'F Last administered on 11/07/19at 09:10; Start 11/05/19 at 20:15 Multivitamins 10 ml/Thiamine HCl 100 mg/Folic Acid 1 mg/Sodium Chloride 1,011.2 ml @ 100 mls/ hr DAILY IV Last administered on 11/07/19at 09:09; Start 11/06/19 at 09:00; Stop 11/10/19 at 19:07 Lorazepam (Ativan Inj) 2 mg PRN Q1HR PRN IV For CIWA 8-14; Start 11/05/19 at 20:15 Clonidine HCl (Catapres) 0.1 mg PRN Q1HR PRN PO SBP > 180 or DBP > 100, MRX3; Start 11/05/19 at 20:15 Magnesium Sulfate/ Dextrose 100 ml @ 100 mls/hr 1X ONCE IV Last administered on 11/06/19at 04:52; Start 11/05/19 at 21:00; Stop 11/05/19 at 21:59; Status DC Potassium Bicarbonate (Potassium Effervescent Tablet) 40 meq 1X ONCE PO Last administered on 11/06/19at 04:55; Start 11/06/19 at 04:00; Stop 11/06/19 at 04:13; Status DC Potassium Bicarbonate (Potassium Effervescent Tablet) 40 meq 1X ONCE PO Last administered on 11/06/19at 11:19; Start 11/06/19 at 11:00; Stop 11/06/19 at 11:01; Status DC Calcium Carbonate/ Glycine (Tums) 500 mg TIDAFTMEAL PRN PO INDIGESTION; Start 11/06/19 at 07:30 Cyanocobalamin (Vitamin B-12) 1,000 mcg DAILY PO Last administered on 11/07/19 09:10; Start 11/06/19 at 09:00 Folic Acid (Folic Acid) 1 mg DAILY PO Last administered on 11/07/19 09:10; Start 11/06/19 at 09:00 Gabapentin (Neurontin) 300 mg TID PO Last administered on 11/07/19 09:10; Start 11/06/19 at 09:00 Haloperidol (Haldol) 5 mg BID PO Last administered on 11/07/19 09:10; Start 11/06/19 at 09:00 Thiamine Mononitrate (Vitamin B-1) 100 mg DAILY PO Last administered on 11/07/19 09:10; Start 11/06/19 at 09:00 Duloxetine HCl (Cymbalta) 60 mg DAILY PO Last administered on 11/07/19 09:10; Start 11/06/19 at 09:00 Levothyroxine Sodium (Synthroid) 200 mcg DAILY06 PO Last administered on 11/07/19 07:21; Start 11/06/19 at 07:30 Multivitamins (Thera M Plus) 1 tab DAILY PO Last administered on 11/07/19 09:10; Start 11/06/19 at 09:00 Quetiapine Fumarate (SEROquel) 200 mg QHS PO Last administered on 11/06/19 21:00; Start 11/06/19 at 21:00 Trazodone HCl (Desyrel) 150 mg QHS PO Last administered on 11/06/19 21:00; Start 11/06/19 at 21:00 Pantoprazole Sodium (Protonix) 40 mg DAILYAC PO Last administered on 11/07/19 07:22; Start 11/06/19 at 08:00 Ondansetron HCl (Zofran) 4 mg PRN Q4HRS PRN IV NAUSEA/VOMITING Last administered on 11/06/19at 14:57; Start 9/6/20 at 09:30 Magnesium Sulfate 100 ml @ 25 mls/hr 1X ONCE IV Last administered on 11/06/19at 13:05; Start 11/06/19 at 13:30; Stop 11/06/19 at 17:29; Status DC Magnesium Sulfate 100 ml @ 25 mls/hr 1X ONCE IV Last administered on 11/06/19at 09:40; Start 11/06/19 at 09:30; Stop 11/06/19 at 13:29; Status DC Levothyroxine Sodium 100 mcg/ Sodium Chloride 5 ml @ 100 mls/hr 1X ONCE IVP Last administered on 11/06/19at 17:21; Start 11/06/19 at 16:00; Stop 11/06/19 at 16:02; Status DC Enoxaparin Sodium (Lovenox 40mg Syringe) 40 mg Q24H SQ Last administered on 11/06/19at 17:21; Start 11/06/19 at 18:00 Potassium Bicarbonate (Potassium Effervescent Tablet) 40 meq BID PEG Last administered on 11/07/19at 09:10; Start 11/07/19 at 09:00 Potassium Bicarbonate (Potassium Effervescent Tablet) 120 meq 1X ONCE PEG Last administered on 11/07/19at 07:22; Start 11/07/19 at 07:00; Stop 11/07/19 at 07:04; Status DC Active Scripts Active Gabapentin (Gabapentin) 300 Mg Capsule 300 Mg PO TID Trazodone Hcl 150 Mg Tablet 1 Tab PO QHS Levothyroxine Sodium 200 Mcg Tablet 1 Tab PO DAILY Folic Acid 1 Mg Tablet 1 Mg PO DAILY 30 Days Vitamin B-1 (Thiamine Mononitrate) 100 Mg Tablet 100 Mg PO DAILY 30 Days [Pantoprazole] 40 MG Tablet. 40 Mg PO DAILYAC 30 Days Reported Seroquel (Quetiapine Fumarate) 200 Mg Tablet 1 Tab PO QHS Multivitamins (Multivitamin) 1 Each Tablet 1 Tab PO DAILY Haloperidol 5 Mg Tablet 1 Tab PO BID Cymbalta (Duloxetine Hcl) 60 Mg Capsule. 1 Cap PO DAILY Vitamin B-12 (Cyanocobalamin (Vitamin B-12)) 1,000 Mcg Tablet 1 Tab PO DAILY Vitals/I & O Vital Sign - Last 24 Hours 11/06/19 11/06/19 11/06/19 11/06/19 14:58 15:01 17:12 19:25 Temp 97.4 97.4 Pulse 96 Resp 18 17 18 B/P (MAP) 109/76 (87) Pulse Ox 92 87 87 O2 Delivery Room Air Nasal Cannula O2 Flow Rate 2.0 11/06/19 11/07/19 11/07/19 11/07/19 19:57 03:20 07:00 08:00 Temp 97.9 97.3 97.7 97.9 97.3 97.7 Pulse 86 109 118 Resp 16 16 18 B/P (MAP) 120/79 (93) 83/52 (62) 105/64 (78) Pulse Ox 94 94 92 O2 Delivery Nasal Cannula Nasal Cannula Nasal Cannula Nasal Cannula O2 Flow Rate 2.0 2.0 3.0 3.0 11/07/19 11:00 Temp 97.8 97.8 Pulse 108 Resp 20 B/P (MAP) 98/57 (71) Pulse Ox 92 O2 Delivery Nasal Cannula O2 Flow Rate 2.5 Intake and Output 11/06/19 11/06/19 11/07/19 15:00 23:00 07:00 Intake Total 900 ml Balance 900 ml Justicifation of Admission Dx: Justifications for Admission: Justification of Admission Dx: Yes JEAN AHN MD Nov 07, 2019 11:17
[2019-11-07] MEDS: MORPHINE SULFATE 2 MG/ML VIAL. IV PRN (11:47)
[2019-11-07] MEDS: ENOXAPARIN 40 MG/0.4 ML SYRINGE. SQ SCH (13:48)
--- NOTE | 2019-11-07 16:10 | NUR ---
This Rn gave report to José Manuel Pina on 2S. Brought patient down at 1600. Belongings and chart with her. informed daughter and patient COVID neg.
[2019-11-07 18:29] LABS: CREATININE 0.6 mg/dL (0.6-1.0)
[2019-11-07 18:37] LABS: CALCIUM 5.8 mg/dL (8.5-10.1); POTASSIUM 6.1 mmol/L (3.5-5.1)
[2019-11-07] MEDS: QUEtiapine 100 MG TABLET. PO SCH (21:56)
[2019-11-07] MEDS: traZODone 50 MG TABLET. PO SCH (21:56)
[2019-11-07] MEDS ORDERED: CALCIUM CARBONATE 500 MG TABLET PO PRN (23:45)
[2019-11-08] LABS: CREATININE 0.5 mg/dL (0.6-1.0); GFR 165.3; MAGNESIUM 1.7 mg/dL (1.8-2.4); POTASSIUM 4.9 mmol/L (3.5-5.1)
[2019-11-08 00:07] LABS: CALCIUM 5.9 mg/dL (8.5-10.1)
[2019-11-08 02:54] VITALS: BP 90/61
[2019-11-08] MEDS: ACETAMINOPHEN 325 MG TABLET. PO PRN ×3 (04:26→21:00)
[2019-11-08] MEDS: LEVOTHYROXINE 100 MCG TABLET PO SCH (06:26)
[2019-11-08 07:00] VITALS: BP 91/55
[2019-11-08 08:14] LABS: CALCIUM 6.2 mg/dL (8.5-10.1); CREATININE 0.5 mg/dL (0.6-1.0); GFR 165.3; MAGNESIUM 1.8 mg/dL (1.8-2.4)
[2019-11-08] MEDS: MULTIVIT INFUSN,ADULT 4,VIT K 10 ML, THIAMINE INJ 100 MG, FOLIC ACID INJ 1 MG in IV NOR... IV SCH (08:53)
[2019-11-08] MEDS: MULTIVITAMIN with MINERAL TABLET. PO SCH (08:54)
[2019-11-08] MEDS: CYANOCOBALAMIN (VITAMIN B-12) 1,000 MCG TABLET. PO SCH (08:54)
[2019-11-08] MEDS: THIAMINE 100 MG TABLET. PO SCH (08:54)
[2019-11-08] MEDS: DULoxetine HCL 30 MG CAPSULE.DR PO SCH (08:54)
[2019-11-08] MEDS: CALCIUM CARBONATE 500 MG TAB.CHEW PO PRN ×2 (08:54→20:58)
[2019-11-08] MEDS: FOLIC ACID 1 MG TABLET. PO SCH (08:54)
[2019-11-08] MEDS: HALOPERIDOL 5 MG TABLET. PO SCH ×2 (08:54→20:57)
[2019-11-08] MEDS: PANTOPRAZOLE 40 MG TABLET.DR. PO SCH (08:54)
[2019-11-08] MEDS: POTASSIUM BICARB 20 MEQ EFFERVESCENT TABLET. PEG SCH ×2 (08:55→20:57)
[2019-11-08] MEDS: GABAPENTIN 300 MG CAPSULE. PO SCH ×3 (08:55→20:58)
[2019-11-08] MEDS ORDERED: CALCIUM CHLORIDE 2,000 MG in IV NORMAL SALINE 100ML 100 ML IV ONE (10:30)
[2019-11-08 10:52] LABS: FREE T4 0.64 ng/dL (0.76-1.46)
[2019-11-08 10:53] VITALS: BP 88/60
--- NOTE | 2019-11-08 11:33 | RAD ---
EXAM: Head CT without contrast. HISTORY: Hemiplegia. TECHNIQUE: Computed tomographic images of the head were obtained without contrast. *One or more of the following individualized dose reduction techniques were utilized for this examination: 1. Automated exposure control. 2. Adjustment of the mA and/or kV according to patient size. 3. Use of iterative reconstruction technique. COMPARISON: 08/11/2018. FINDINGS: There is no acute or subacute extra-axial or intraparenchymal hemorrhage. There is no mass effect or midline shift. There is no hydrocephalus. There is cerebral volume loss. This is greater than expected for patient age. The wong-white matter differentiation pattern is intact. The visualized portions of the orbits, paranasal sinuses and mastoid air cells are unremarkable. No suspicious calvarial lesion is seen. IMPRESSION: 1. No acute intracranial finding. Note is made that MRI is more sensitive for acute infarction. 2. Cerebral volume loss. This is greater than expected for patient age. Electronically signed by: Veronica Anne MD (11/08/2019 11:30 AM) [id number]
--- NOTE | 2019-11-08 12:15 | NUR ---
SS following for discharge planning. SS reviewed pt chart and discussed with pt RN. Pt is from home with daughter and is currently requiring oxygen. PT/OT recommended acute rehabilitation. Pt is self pay. PAT team consulted for ETOH. SS will continue to follow for discharge planning.
--- NOTE | 2019-11-08 12:22 | PDOC ---
PROGRESS NOTES Date of Service: DATE: 11/08/19 TIME: 12:18 Chief Complaint Chief Complaint VTE Prophylaxis Ordered VTE Prophylaxis Devices: Yes VTE Pharmacological Prophylaxi: Yes IMPRESSION Assessment/Plan A/P: Acute metabolic encephalopathy - will cont CIWA scale and replace lytes and levothyroxine, will do CT of the head rule out CVA Myxedema coma, continue levothyroxine. will add T3 hypokalemia, hypomag, critical - will replace Severe depression SLE - not on meds Tobacco use - counseled on cessation macrocytic anemia alcohol use, abuse disorder on ciwa protocol - will have PAT team to see non-compliance meds, 1 month, weakness and debility - PT/OT, patient unable to move lower extremities as per therapist, deep tendon reflexed were decreased as expected with Hypothyroidism Fibromyalgia - cont meds SLE - stable FEN - General PPX - lovenox FULL CODE Dispo - inpatient NEEDS DPOA History of Present Illness History of Present Illness History of Present Illness History of Present Illness Ms Santamaria is a 39 yo F with a history of fibromyalgia, lupus, hypertension, high cholesterol, hypothyroidism, ETOH abuse who presents the ED with multiple complaints. Patient is concerned she has COVID19. She states she has been exposed through friends. Patient denies any fever or coughing. She is also complaining of generalized fatigue for 1 week. She is also complaining of diarrhea for 1 week. She is also complaining of weakness to bilateral lower extremities. Patient denies any hematemesis or bloody stools. She also reports she has history of alcoholism and had a cup of vodka right before admission. WBC of 3.5, Hb 10.8, hematocrit 31.5, potassium 2.2, oral potassium was administered as well as IV potassium started. Magnesium 7.1, IV magnesium was ordered. Bilirubin 2.5, AST 73, ALT 15, ALK 161, calcium 7.1. Alcohol level 310 TSH 50 CXR clear 11/08/2019 Patient quite debilitated and unable to have a meaningful conversation patient seems to be just mumbling seems to be oriented in person but cannot assess if he is aware of her surroundings. She is trying to eat a breakfast time which during my visit but is unable to do so, discussed with nursing staff and therapists. Thyroid function test have been requested and we will do CAT scan of the head rule out central etiology for her symptoms Vitals Vitals Vital Signs Date Time Temp Pulse Resp B/P (MAP) Pulse Ox O2 Delivery O2 Flow Rate FiO2 11/08/19 10:53 97.4 99 16 88/60 (69) 90 Nasal Cannula 3.0 97.4 Physical Exam Physical Exam Neurological exam Cranial nerves II to XII seem to be grossly intact Motor deficits over the lower extremity 1 out of 5 weakness No sensory deficit appreciated Grimaces to painful stimuli Deep tendon reflexes decreased in the lower extremities General: Alert, Cooperative, mild distress Heart: Regular rate, Normal S1, Normal S2 Lungs: Clear Abdomen: Normal bowel sounds, Soft, No tenderness, No hepatosplenomegaly, No masses Extremities: No clubbing, No cyanosis, No edema, Normal pulses, No tend erness/swelling Skin: No rashes, No breakdown, No significant lesion Labs LABS Laboratory Tests Test 11/07/19 17:53 11/07/19 23:02 11/08/19 07:15 Sodium Level 136 mmol/L (136-145) 135 mmol/L (136-145) 136 mmol/L (136-145) Potassium Level 6.1 mmol/L (3.5-5.1) 4.9 mmol/L (3.5-5.1) 4.0 mmol/L (3.5-5.1) Chloride Level 102 mmol/L (98-107) 100 mmol/L (98-107) 100 mmol/L (98-107) Carbon Dioxide Level 31 mmol/L (21-32) 27 mmol/L (21-32) 28 mmol/L (21-32) Anion Gap 3 (6-14) 8 (6-14) 8 (6-14) Blood Urea Nitrogen 3 mg/dL (7-20) 2 mg/dL (7-20) 3 mg/dL (7-20) Creatinine 0.6 mg/dL (0.6-1.0) 0.5 mg/dL (0.6-1.0) 0.5 mg/dL (0.6-1.0) Estimated GFR (Cockcroft-Gault) 134.0 165.3 165.3 Glucose Level 93 mg/dL (70-99) 93 mg/dL (70-99) 84 mg/dL (70-99) Calcium Level 5.8 mg/dL (8.5-10.1) 5.9 mg/dL (8.5-10.1) 6.2 mg/dL (8.5-10.1) Magnesium Level 1.7 mg/dL (1.8-2.4) 1.8 mg/dL (1.8-2.4) Free Thyroxine 0.64 ng/dL (0.76-1.46) Free Triiodothyronine (T3) pg/mL 0.59 pg/mL (2.18-3.98) Assessment and Plan Assessmemt and Plan Problems Medical Problems: (1) Hypokalemia Status: Acute (2) Hypomagnesemia Status: Acute (3) Person under investigation for COVID-19 Status: Acute Comment Review of Relevant I have reviewed the following items fernandez (where applicable) has been applied. Labs Laboratory Tests Test 11/07/19 05:55 11/07/19 17:53 11/07/19 23:02 11/08/19 07:15 White Blood Count 4.2 x10^3/uL (4.0-11.0) Red Blood Count 2.21 x10^6/uL (3.50-5.40) Hemoglobin 7.6 g/dL (12.0-15.5) Hematocrit 22.5 % (36.0-47.0) Mean Corpuscular Volume 102 fL (79-100) Mean Corpuscular Hemoglobin 34 pg (25-35) Mean Corpuscular Hemoglobin Concent 34 g/dL (31-37) Red Cell Distribution Width 19.8 % (11.5-14.5) Platelet Count 81 x10^3/uL (140-400) Neutrophils (%) (Auto) 68 % (31-73) Lymphocytes (%) (Auto) 29 % (24-48) Monocytes (%) (Auto) 2 % (0-9) Eosinophils (%) (Auto) 1 % (0-3) Basophils (%) (Auto) 0 % (0-3) Neutrophils # (Auto) 2.8 x10^3/uL (1.8-7.7) Lymphocytes # (Auto) 1.2 x10^3/uL (1.0-4.8) Monocytes # (Auto) 0.1 x10^3/uL (0.0-1.1) Eosinophils # (Auto) 0.0 x10^3/uL (0.0-0.7) Basophils # (Auto) 0.0 x10^3/uL (0.0-0.2) Sodium Level 136 mmol/L (136-145) 136 mmol/L (136-145) 135 mmol/L (136-145) 136 mmol/L (136-145) Potassium Level 2.7 mmol/L (3.5-5.1) 6.1 mmol/L (3.5-5.1) 4.9 mmol/L (3.5-5.1) 4.0 mmol/L (3.5-5.1) Chloride Level 97 mmol/L (98-107) 102 mmol/L (98-107) 100 mmol/L (98-107) 100 mmol/L (98-107) Carbon Dioxide Level 32 mmol/L (21-32) 31 mmol/L (21-32) 27 mmol/L (21-32) 28 mmol/L (21-32) Anion Gap 7 (6-14) 3 (6-14) 8 (6-14) 8 (6-14) Blood Urea Nitrogen 3 mg/dL (7-20) 3 mg/dL (7-20) 2 mg/dL (7-20) 3 mg/dL (7- 20) Creatinine 0.6 mg/dL (0.6-1.0) 0.6 mg/dL (0.6-1.0) 0.5 mg/dL (0.6-1.0) 0.5 mg/dL (0.6-1.0) Estimated GFR (Cockcroft-Gault) 134.0 134.0 165.3 165.3 Glucose Level 87 mg/dL (70-99) 93 mg/dL (70-99) 93 mg/dL (70-99) 84 mg/dL (70-99) Calcium Level 6.1 mg/dL (8.5-10.1) 5.8 mg/dL (8.5-10.1) 5.9 mg/dL (8.5-10.1) 6.2 mg/dL (8.5-10.1) Magnesium Level 1.9 mg/dL (1.8-2.4) 1.7 mg/dL (1.8-2.4) 1.8 mg/dL (1.8-2.4) C-Reactive Protein, Quantitative 3.4 mg/L (0-3.3) Free Thyroxine 0.64 ng/dL (0.76-1.46) Free Triiodothyronine (T3) pg/mL 0.59 pg/mL (2.18-3.98) Laboratory Tests Test 11/07/19 17:53 11/07/19 23:02 11/08/19 07:15 Sodium Level 136 mmol/L (136-145) 135 mmol/L (136-145) 136 mmol/L (136-145) Potassium Level 6.1 mmol/L (3.5-5.1) 4.9 mmol/L (3.5-5.1) 4.0 mmol/L (3.5-5.1) Chloride Level 102 mmol/L (98-107) 100 mmol/L (98-107) 100 mmol/L (98-107) Carbon Dioxide Level 31 mmol/L (21-32) 27 mmol/L (21-32) 28 mmol/L (21-32) Anion Gap 3 (6-14) 8 (6-14) 8 (6-14) Blood Urea Nitrogen 3 mg/dL (7-20) 2 mg/dL (7-20) 3 mg/dL (7-20) Creatinine 0.6 mg/dL (0.6-1.0) 0.5 mg/dL (0.6-1.0) 0.5 mg/dL (0.6-1.0) Estimated GFR (Cockcroft-Gault) 134.0 165.3 165.3 Glucose Level 93 mg/dL (70-99) 93 mg/dL (70-99) 84 mg/dL (70-99) Calcium Level 5.8 mg/dL (8.5-10.1) 5.9 mg/dL (8.5-10.1) 6.2 mg/dL (8.5-10.1) Magnesium Level 1.7 mg/dL (1.8-2.4) 1.8 mg/dL (1.8-2.4) Free Thyroxine 0.64 ng/dL (0.76-1.46) Free Triiodothyronine (T3) pg/mL 0.59 pg/mL (2.18-3.98) Medications Current Medications Sodium Chloride 1,000 ml @ 1,000 mls/hr 1X ONCE IV Last administered on 11/05/19at 16:45; Start 11/05/19 at 16:45; Stop 11/05/19 at 17:44; Status DC Potassium Chloride (Klor-Con) 40 meq 1X ONCE PO Last administered on 11/05/19at 19:15; Start 11/05/19 at 19:15; Stop 11/05/19 at 19:16; Status DC Potassium Chloride/Water 100 ml @ 100 mls/hr Q1H IV Last administered on 11/05/19at 19:15; Start 11/05/19 at 19:15; Stop 11/05/19 at 21:14; Status DC Ondansetron HCl (Zofran) 4 mg PRN Q8HRS PRN IV NAUSEA/VOMITING Last administered on 11/06/19at 04:05; Start 11/05/19 at 20:15; Stop 11/06/19 at 09:29; Status DC Morphine Sulfate (Morphine Sulfate) 2 mg PRN Q2HR PRN IV PAIN Last administered on 11/07/19at 11:47; Start 11/05/19 at 20:15 Acetaminophen (Tylenol) 650 mg PRN Q4HRS PRN PO FEVER > 100.3'F Last administered on 11/08/19at 04:26; Start 11/05/19 at 20:15 Multivitamins 10 ml/Thiamine HCl 100 mg/Folic Acid 1 mg/Sodium Chloride 1,011.2 ml @ 100 mls/ hr DAILY IV Last administered on 11/08/19at 08:53; Start 11/06/19 at 09:00; Stop 11/10/19 at 19:07 Lorazepam (Ativan Inj) 2 mg PRN Q1HR PRN IV For CIWA 8-14; Start 11/05/19 at 20:15 Clonidine HCl (Catapres) 0.1 mg PRN Q1HR PRN PO SBP > 180 or DBP > 100, MRX3; Start 11/05/19 at 20:15 Magnesium Sulfate/ Dextrose 100 ml @ 100 mls/hr 1X ONCE IV Last administered on 11/06/19at 04:52; Start 11/05/19 at 21:00; Stop 11/05/19 at 21:59; Status DC Potassium Bicarbonate (Potassium Effervescent Tablet) 40 meq 1X ONCE PO Last administered on 11/06/19 04:55; Start 11/06/19 at 04:00; Stop 11/06/19 at 04:13; Status DC Potassium Bicarbonate (Potassium Effervescent Tablet) 40 meq 1X ONCE PO Last administered on 11/06/19 11:19; Start 11/06/19 at 11:00; Stop 11/06/19 at 11:01; Status DC Calcium Carbonate/ Glycine (Tums) 500 mg TIDAFTMEAL PRN PO INDIGESTION Last administered on 11/08/19 08:54; Start 11/06/19 at 07:30 Cyanocobalamin (Vitamin B-12) 1,000 mcg DAILY PO Last administered on 11/08/19 08:54; Start 11/06/19 at 09:00 Folic Acid (Folic Acid) 1 mg DAILY PO Last administered on 11/08/19 08:54; Start 11/06/19 at 09:00 Gabapentin (Neurontin) 300 mg TID PO Last administered on 11/08/19 08:55; Start 11/06/19 at 09:00 Haloperidol (Haldol) 5 mg BID PO Last administered on 11/08/19 08:54; Start 11/06/19 at 09:00 Thiamine Mononitrate (Vitamin B-1) 100 mg DAILY PO Last administered on 11/08/19 08:54; Start 11/06/19 at 09:00 Duloxetine HCl (Cymbalta) 60 mg DAILY PO Last administered on 11/08/19 08:54; Start 11/06/19 at 09:00 Levothyroxine Sodium (Synthroid) 200 mcg DAILY06 PO Last administered on 06:26; Start 11/06/19 at 07:30 Multivitamins (Thera M Plus) 1 tab DAILY PO Last administered on 11/08/19 08:54; Start 11/06/19 at 09:00 Quetiapine Fumarate (SEROquel) 200 mg QHS PO Last administered on 11/07/19 21:56; Start 11/06/19 at 21:00 Trazodone HCl (Desyrel) 150 mg QHS PO Last administered on 11/07/19 21:56; Start 11/06/19 at 21:00 Pantoprazole Sodium (Protonix) 40 mg DAILYAC PO Last administered on 11/08/19at 08:54; Start 11/06/19 at 08:00 Ondansetron HCl (Zofran) 4 mg PRN Q4HRS PRN IV NAUSEA/VOMITING Last administered on 11/06/19at 14:57; Start 11/06/19 at 09:30 Magnesium Sulfate 100 ml @ 25 mls/hr 1X ONCE IV Last administered on 11/06/19at 13:05; Start 11/06/19 at 13:30; Stop 11/06/19 at 17:29; Status DC Magnesium Sulfate 100 ml @ 25 mls/hr 1X ONCE IV Last administered on 11/06/19at 09:40; Start 11/06/19 at 09:30; Stop 11/06/19 at 13:29; Status DC Levothyroxine Sodium 100 mcg/ Sodium Chloride 5 ml @ 100 mls/hr 1X ONCE IVP Last administered on 11/06/19at 17:21; Start 11/06/19 at 16:00; Stop 11/06/19 at 16:02; Status DC Enoxaparin Sodium (Lovenox 40mg Syringe) 40 mg Q24H SQ Last administered on 11/07/19at 13:48; Start 11/06/19 at 18:00 Potassium Bicarbonate (Potassium Effervescent Tablet) 40 meq BID PEG Last administered on 11/07/19at 09:10; Start 11/07/19 at 09:00 Potassium Bicarbonate (Potassium Effervescent Tablet) 120 meq 1X ONCE PEG Last administered on 11/07/19at 07:22; Start 11/07/19 at 07:00; Stop 11/07/19 at 07:04; Status DC Calcium Carbonate/ Glycine (Oscal) 1,000 mg 1X PRN PO PER PROTOCOL Last adm inistered on 11/08/19at 00:22; Start 11/07/19 at 23:45 Calcium Chloride 2000 mg/Sodium Chloride 120 ml @ 240 mls/hr 1X ONCE IV Last administered on 11/08/19at 11:30; Start 11/08/19 at 10:30; Stop 11/08/19 at 10:59; Status DC Active Scripts Active Gabapentin (Gabapentin) 300 Mg Capsule 300 Mg PO TID Trazodone Hcl 150 Mg Tablet 1 Tab PO QHS Levothyroxine Sodium 200 Mcg Tablet 1 Tab PO DAILY Folic Acid 1 Mg Tablet 1 Mg PO DAILY 30 Days Vitamin B-1 (Thiamine Mononitrate) 100 Mg Tablet 100 Mg PO DAILY 30 Days [Pantoprazole] 40 MG Tablet.dr 40 Mg PO DAILYAC 30 Days Reported Seroquel (Quetiapine Fumarate) 200 Mg Tablet 1 Tab PO QHS Multivitamins (Multivitamin) 1 Each Tablet 1 Tab PO DAILY Haloperidol 5 Mg Tablet 1 Tab PO BID Cymbalta (Duloxetine Hcl) 60 Mg Capsule. 1 Cap PO DAILY Vitamin B-12 (Cyanocobalamin (Vitamin B-12)) 1,000 Mcg Tablet 1 Tab PO DAILY Vitals/I & O Vital Sign - Last 24 Hours 11/07/19 11/07/19 11/07/19 11/07/19 12:30 14:10 15:00 17:51 Temp 98.4 97.7 98.4 97.7 Pulse 48 98 Resp 16 18 B/P (MAP) 82/44 (57) 96/57 (70) Pulse Ox 92 88 93 O2 Delivery Nasal Cannula Nasal Cannula Nasal Cannula Nasal Cannula O2 Flow Rate 2.5 3.0 2.5 2.0 11/07/19 11/07/19 11/07/19 11/08/19 19:00 20:00 22:45 02:54 Temp 97.8 98.0 98.2 97.8 98.0 98.2 Pulse 98 101 68 Resp 19 18 18 B/P (MAP) 88/61 (70) 81/59 (66) 90/61 (71) Pulse Ox 96 97 94 O2 Delivery Nasal Cannula Nasal Cannula Nasal Cannula Nasal Cannula O2 Flow Rate 2.5 3.0 2.5 3.0 11/08/19 11/08/19 11/08/19 07:00 08:00 10:53 Temp 97.6 97.4 97.6 97.4 Pulse 113 99 Resp 18 16 B/P (MAP) 91/55 (67) 88/60 (69) Pulse Ox 90 90 O2 Delivery Nasal Cannula Nasal Cannula Nasal Cannula O2 Flow Rate 3.0 3.0 3.0 Intake and Output 11/07/19 11/07/19 11/08/19 15:00 23:00 07:00 Intake Total 320 ml 600 ml Balance 320 ml 600 ml Justicifation of Admission Dx: Justifications for Admission: Justification of Admission Dx: Yes VANDANA DAVILA MD Nov 08, 2019 12:22
[2019-11-08] MEDS: LIOTHYRONINE 5 MCG TABLET. PO SCH (13:27)
[2019-11-08 15:00] VITALS: BP 110/81
--- NOTE | 2019-11-08 15:09 | NUR ---
SS following up with discharge planning. Chery from PAT team met with pt and pt declining services for ETOH at this time. Per report, pt drinks one pint of vodka per day. Chery reported that she will visit with pt tomorrow to discuss further. SS will continue to follow for discharge planning.
[2019-11-08] MEDS: ENOXAPARIN 40 MG/0.4 ML SYRINGE. SQ SCH (17:42)
[2019-11-08 19:00] VITALS: BP 120/84
[2019-11-08] MEDS: traZODone 50 MG TABLET. PO SCH (20:57)
[2019-11-08] MEDS: QUEtiapine 100 MG TABLET. PO SCH (20:58)
[2019-11-08] MEDS: MORPHINE SULFATE 2 MG/ML VIAL. IV PRN (21:10)
--- NOTE | 2019-11-08 21:13 | NUR ---
Patient rates her pain at 10 -plus bilateral legs. States that the pain medicine she recieved last night and today (Tylenol) did not relieve her pain adequately.
[2019-11-08 23:26] VITALS: BP 95/75
[2019-11-09 03:13] VITALS: BP 96/67
--- NOTE | 2019-11-09 04:33 | EKG ---
[facility] [address] [place] [address] Test Date: 2019-11-05 Test Time: 17:10:34 Pat Name: LUIS RODRIGUEZ Department: Room: Gender: F Microbiology Lab Analyst: : [id number] Requested By: JUSTA PRECIADO Order Number: [id number] Reading MD: Measurements Intervals [place] Rate: 114 P: 42 AR: 152 QRS: 31 QRSD: 84 T: 156 QT: 366 QTc: 508 Interpretive Statements SINUS TACHYCARDIA OTHERWISE NORMAL ECG RI6.02 No previous ECG available for comparison
[2019-11-09] MEDS: MORPHINE SULFATE 2 MG/ML VIAL. IV PRN (05:10)
[2019-11-09] MEDS: LEVOTHYROXINE 100 MCG TABLET PO SCH (05:47)
[2019-11-09 07:00] VITALS: BP 109/81
[2019-11-09 07:11] LABS: CALCIUM 9.3 mg/dL (8.5-10.1); CREATININE 0.5 mg/dL (0.6-1.0); GFR 165.3; POTASSIUM 4.6 mmol/L (3.5-5.1)
[2019-11-09] MEDS: GABAPENTIN 300 MG CAPSULE. PO SCH ×3 (08:47→21:40)
[2019-11-09] MEDS: CYANOCOBALAMIN (VITAMIN B-12) 1,000 MCG TABLET. PO SCH (08:47)
[2019-11-09] MEDS: DULoxetine HCL 30 MG CAPSULE.DR PO SCH (08:48)
[2019-11-09] MEDS: HALOPERIDOL 5 MG TABLET. PO SCH ×2 (08:48→21:41)
[2019-11-09] MEDS: THIAMINE 100 MG TABLET. PO SCH (08:48)
[2019-11-09] MEDS: FOLIC ACID 1 MG TABLET. PO SCH (08:48)
[2019-11-09] MEDS: LIOTHYRONINE 5 MCG TABLET. PO SCH (08:48)
[2019-11-09] MEDS: CALCIUM CARBONATE 500 MG TAB.CHEW PO PRN (08:48)
[2019-11-09] MEDS: PANTOPRAZOLE 40 MG TABLET.DR. PO SCH (08:48)
[2019-11-09] MEDS: MULTIVITAMIN with MINERAL TABLET. PO SCH ×2 (08:48→08:53)
[2019-11-09] MEDS: POTASSIUM BICARB 20 MEQ EFFERVESCENT TABLET. PEG SCH ×2 (08:49→21:40)
[2019-11-09] MEDS: MULTIVIT INFUSN,ADULT 4,VIT K 10 ML, THIAMINE INJ 100 MG, FOLIC ACID INJ 1 MG in IV NOR... IV SCH (10:51)
[2019-11-09 11:00] VITALS: BP 95/70
--- NOTE | 2019-11-09 12:26 | PDOC ---
[employer] PROGRESS NOTE Date of Service DOS: DATE: 11/09/19 TIME: 12:23 Chief Complaint Chief Complaint IMPRESSION Assessment/Plan A/P: Acute metabolic encephalopathy - will cont CIWA scale and replace lytes and levothyroxine, CT head negative Myxedema coma, continue levothyroxine. Continue T3 replacement hypokalemia, hypomag, critical - will continue to replace Severe depression SLE - not on meds Tobacco use - counseled on cessation macrocytic anemia alcohol use, abuse disorder on ciwa protocol - will have PAT team to see non-compliance meds, 1 month, weakness and debility - PT/OT, patient unable to move lower extremities as per therapist, deep tendon reflexed were decreased as expected with Hypothyroidism Fibromyalgia - cont meds SLE - stable FEN - General PPX - lovenox FULL CODE Dispo - inpatient NEEDS DPOA History of Present Illness History of Present Illness History of Present Illness History of Present Illness Ms Santamaria is a 39 yo F with a history of fibromyalgia, lupus, hypertension, high cholesterol, hypothyroidism, ETOH abuse who presents the ED with multiple compl aints. Patient is concerned she has COVID19. She states she has been exposed through friends. Patient denies any fever or coughing. She is also complaining of generalized fatigue for 1 week. She is also complaining of diarrhea for 1 week. She is also complaining of weakness to bilateral lower extremities. Patient denies any hematemesis or bloody stools. She also reports she has history of alcoholism and had a cup of vodka right before admission. WBC of 3.5, Hb 10.8, hematocrit 31.5, potassium 2.2, oral potassium was administered as well as IV potassium started. Magnesium 7.1, IV magnesium was ordered. Bilirubin 2.5, AST 73, ALT 15, ALK 161, calcium 7.1. Alcohol level 310 TSH 50 CXR clear 11/08/2019 Patient quite debilitated and unable to have a meaningful conversation patient seems to be just mumbling seems to be oriented in person but cannot assess if he is aware of her surroundings. She is trying to eat a breakfast time which during my visit but is unable to do so, discussed with nursing staff and therapists. Thyroid function test have been requested and we will do CAT scan of the head rule out central etiology for her symptoms 11/09/2019 No acute events overnight. Patient appears to be lethargic but sitting in a recliner. Weakness in lower extremities but wiggling her toes. Tolerating diet. CIWA high as of 8. Patient's chart, labs, images were reviewed and discussed with RN Vitals/I&O Vitals/I&O: Vital Signs Date Time Temp Pulse Resp B/P (MAP) Pulse Ox O2 Delivery O2 Flow Rate FiO2 11/09/19 11:00 98.0 96 16 95/70 (78) 98 Nasal Cannula 3.0 98.0 I & O 11/08/19 11/08/19 11/09/19 15:00 23:00 07:00 Intake Total 50 ml 75 ml 180 ml Balance 50 ml 75 ml 180 ml Physical Exam Physical Exam: Neurological exam Cranial nerves II to XII seem to be grossly intact Motor deficits over the lower extremity 1 out of 5 weakness No sensory deficit appreciated Grimaces to painful stimuli Deep tendon reflexes decreased in the lower extremities General: Alert, Cooperative, mild distress Heart: Regular rate, Normal S1, Normal S2 Lungs: Clear Abdomen: Normal bowel sounds, Soft, No tenderness, No hepatosplenomegaly, No masses Extremities: No clubbing, No cyanosis, No edema, Normal pulses, No tenderness/swelling Skin: No rashes, No breakdown, No significant lesion Labs Labs: Laboratory Tests Test 11/09/19 06:25 Sodium Level 136 mmol/L (136-145) Potassium Level 4.6 mmol/L (3.5-5.1) Chloride Level 102 mmol/L (98-107) Carbon Dioxide Level 28 mmol/L (21-32) Anion Gap 6 (6-14) Blood Urea Nitrogen 2 mg/dL (7-20) Creatinine 0.5 mg/dL (0.6-1.0) Estimated GFR (Cockcroft-Gault) 165.3 Glucose Level 90 mg/dL (70-99) Calcium Level 9.3 mg/dL (8.5-10.1) Cortisol AM Sample 8.7 ug/dL (4.3-22.4) Assessment and Plan Assessmemt and Plan Problems Medical Problems: (1) Hypokalemia Status: Acute (2) Hypomagnesemia Status: Acute (3) Person under investigation for COVID-19 Status: Acute Comment Review of Relevant I have reviewed the following items fernandez (where applicable) has been applied. Medications: Current Medications Medications (Trade) Dose Ordered Sig/Emelia Route PRN Reason Start Time Stop Time Status Last Admin Dose Admin Liothyronine Sodium (Cytomel) 5 mcg DAILY PO 11/08/19 13:00 11/09/19 08:48 Justifications for Admission Other Justification ADI MCINTYRE MD Nov 09, 2019 12:26
--- NOTE | 2019-11-09 13:11 | NUR ---
SS following up with discharge planning. SS reviewed pt chart and discussed with pt RN. Pt is currently requiring oxygen. PT/OT recommended acute rehabilitation. Pt is self pay. Pt on CIWA protocol. Chery from PAT team met with pt on 11/08/2019 and is meeting again with pt today to discuss ETOH and resources for treatment. SS will continue to follow for discharge planning.
[2019-11-09 15:00] VITALS: BP 116/77
[2019-11-09] MEDS: ENOXAPARIN 40 MG/0.4 ML SYRINGE. SQ SCH (18:30)
[2019-11-09 19:58] VITALS: BP 111/79
[2019-11-09] MEDS: traZODone 50 MG TABLET. PO SCH (21:41)
[2019-11-09] MEDS: QUEtiapine 100 MG TABLET. PO SCH (21:41)
[2019-11-09 23:02] VITALS: BP 104/80
[2019-11-10 03:26] VITALS: BP 101/72
[2019-11-10 07:00] VITALS: BP 94/69
[2019-11-10 07:31] LABS: CALCIUM 9.2 mg/dL (8.5-10.1); CREATININE 0.5 mg/dL (0.6-1.0); GFR 165.3; MAGNESIUM 1.3 mg/dL (1.8-2.4); PHOSPHORUS 3.7 mg/dL (2.6-4.7); POTASSIUM 4.6 mmol/L (3.5-5.1)
[2019-11-10] MEDS: LEVOTHYROXINE 100 MCG TABLET PO SCH (07:42)
[2019-11-10] MEDS: PANTOPRAZOLE 40 MG TABLET.DR. PO SCH (07:42)
[2019-11-10] MEDS: POTASSIUM BICARB 20 MEQ EFFERVESCENT TABLET. PEG SCH ×2 (08:52→21:00)
[2019-11-10] MEDS: DULoxetine HCL 30 MG CAPSULE.DR PO SCH (08:54)
[2019-11-10] MEDS: THIAMINE 100 MG TABLET. PO SCH (08:54)
[2019-11-10] MEDS: GABAPENTIN 300 MG CAPSULE. PO SCH ×3 (08:54→22:31)
[2019-11-10] MEDS: LIOTHYRONINE 5 MCG TABLET. PO SCH (08:55)
[2019-11-10] MEDS: MULTIVITAMIN with MINERAL TABLET. PO SCH (08:55)
[2019-11-10] MEDS: FOLIC ACID 1 MG TABLET. PO SCH (08:55)
[2019-11-10] MEDS: MORPHINE SULFATE 2 MG/ML VIAL. IV PRN ×2 (08:55→15:09)
[2019-11-10] MEDS: HALOPERIDOL 5 MG TABLET. PO SCH ×2 (08:55→22:31)
[2019-11-10] MEDS: CYANOCOBALAMIN (VITAMIN B-12) 1,000 MCG TABLET. PO SCH (08:56)
[2019-11-10 11:00] VITALS: BP 87/62
[2019-11-10] MEDS ORDERED: MAGNESIUM SULFATE 4GM 100 ML IV ONE (11:00)
[2019-11-10 15:00] VITALS: BP 91/63
[2019-11-10 16:11] LABS: ANA INTERP Negative (.)
--- NOTE | 2019-11-10 16:54 | PDOC ---
PROGRESS NOTES Date of Service: DATE: 11/10/19 TIME: 16:44 Chief Complaint Chief Complaint IMPRESSION Assessment/Plan A/P: Acute metabolic encephalopathy - will cont CIWA scale and replace lytes and levothyroxine, CT head negative Myxedema coma, continue levothyroxine. Continue T3 replacement hypokalemia, hypomag, critical - will continue to replace Severe depression SLE - not on meds Tobacco use - counseled on cessation macrocytic anemia alcohol use, abuse disorder on ciwa protocol - will have PAT team to see non-compliance meds, 1 month, weakness and debility - PT/OT, patient unable to move lower extremities as per therapist, deep tendon reflexed were decreased as expected with Hypothyroidism Fibromyalgia - cont meds SLE - stable FEN - General PPX - lovenox FULL CODE Dispo - inpatient NEEDS DPOA History of Present Illness History of Present Illness History of Present Illness History of Present Illness Ms Santamaria is a 39 yo F with a history of fibromyalgia, lupus, hypertension, high cholesterol, hypothyroidism, ETOH abuse who presents the ED with multiple complaints. Patient is concerned she has COVID19. She states she has been exposed through friends. Patient denies any fever or coughing. She is also complaining of generalized fatigue for 1 week. She is also complaining of diarrhea for 1 week. She is also complaining of weakness to bilateral lower extremities. Patient denies any hematemesis or bloody stools. She also reports she has history of alcoholism and had a cup of vodka right before admission. WBC of 3.5, Hb 10.8, hematocrit 31.5, potassium 2.2, oral potassium was adminis tered as well as IV potassium started. Magnesium 7.1, IV magnesium was ordered. Bilirubin 2.5, AST 73, ALT 15, ALK 161, calcium 7.1. Alcohol level 310 TSH 50 CXR clear 11/08/2019 Patient quite debilitated and unable to have a meaningful conversation patient seems to be just mumbling seems to be oriented in person but cannot assess if he is aware of her surroundings. She is trying to eat a breakfast time which during my visit but is unable to do so, discussed with nursing staff and therapists. Thyroid function test have been requested and we will do CAT scan of the head rule out central etiology for her symptoms 11/09/2019 No acute events overnight. Patient appears to be lethargic but sitting in a recliner. Weakness in lower extremities but wiggling her toes. Tolerating diet. CIWA high as of 8. Patient's chart, labs, images were reviewed and discussed with RN 11/10/2019 Patient working with PT seems to be doing little improvements, hopefully tomorrow her thyroid fucntion tests are better. No new complaints or acute events reported overnight. Vitals Vitals Vital Signs Date Time Temp Pulse Resp B/P (MAP) Pulse Ox O2 Delivery O2 Flow Rate FiO2 11/10/19 15:39 94 Room Air 2.0 11/10/19 15:00 97.6 88 20 91/63 (72) 97.6 Physical Exam Physical Exam Neurological exam Cranial nerves II to XII seem to be grossly intact Motor deficits over the lower extremity 1 out of 5 weakness No sensory deficit appreciated Grimaces to painful stimuli Deep tendon reflexes decreased in the lower extremities General: Alert, Cooperative, mild distress Heart: Regular rate, Normal S1, Normal S2 Lungs: Clear Abdomen: Normal bowel sounds, Soft, No tenderness, No hepatosplenomegaly, No masses Extremities: No clubbing, No cyanosis, No edema, Normal pulses, No tenderness/swelling Skin: No rashes, No breakdown, No significant lesion Labs LABS Laboratory Tests Test 11/10/19 06:15 Sodium Level 134 mmol/L (136-145) Potassium Level 4.6 mmol/L (3.5-5.1) Chloride Level 99 mmol/L (98-107) Carbon Dioxide Level 28 mmol/L (21-32) Anion Gap 7 (6-14) Blood Urea Nitrogen 4 mg/dL (7-20) Creatinine 0.5 mg/dL (0.6-1.0) Estimated GFR (Cockcroft-Gault) 165.3 Glucose Level 82 mg/dL (70-99) Calcium Level 9.2 mg/dL (8.5-10.1) Phosphorus Level 3.7 mg/dL (2.6-4.7) Magnesium Level 1.3 mg/dL (1.8-2.4) Assessment and Plan Assessmemt and Plan Problems Medical Problems: (1) Hypokalemia Status: Acute (2) Hypomagnesemia Status: Acute (3) Person under investigation for COVID-19 Status: Acute Comment Review of Relevant I have reviewed the following items fernandez (where applicable) has been applied. Labs Laboratory Tests Test 11/09/19 06:25 11/10/19 06:15 Sodium Level 136 mmol/L (136-145) 134 mmol/L (136-145) Potassium Level 4.6 mmol/L (3.5-5.1) 4.6 mmol/L (3.5-5.1) Chloride Level 102 mmol/L (98-107) 99 mmol/L (98-107) Carbon Dioxide Level 28 mmol/L (21-32) 28 mmol/L (21-32) Anion Gap 6 (6-14) 7 (6-14) Blood Urea Nitrogen 2 mg/dL (7-20) 4 mg/dL (7-20) Creatinine 0.5 mg/dL (0.6-1.0) 0.5 mg/dL (0.6-1.0) Estimated GFR (Cockcroft-Gault) 165.3 165.3 Glucose Level 90 mg/dL (70-99) 82 mg/dL (70-99) Calcium Level 9.3 mg/dL (8.5-10.1) 9.2 mg/dL (8.5-10.1) Cortisol AM Sample 8.7 ug/dL (4.3-22.4) Phosphorus Level 3.7 mg/dL (2.6-4.7) Magnesium Level 1.3 mg/dL (1.8-2.4) Laboratory Tests Test 11/10/19 06:15 Sodium Level 134 mmol/L (136-145) Potassium Level 4.6 mmol/L (3.5-5.1) Chloride Level 99 mmol/L (98-107) Carbon Dioxide Level 28 mmol/L (21-32) Anion Gap 7 (6-14) Blood Urea Nitrogen 4 mg/dL (7-20) Creatinine 0.5 mg/dL (0.6-1.0) Estimated GFR (Cockcroft-Gault) 165.3 Glucose Level 82 mg/dL (70-99) Calcium Level 9.2 mg/dL (8.5-10.1) Phosphorus Level 3.7 mg/dL (2.6-4.7) Magnesium Level 1.3 mg/dL (1.8-2.4) Medications Current Medications Sodium Chloride 1,000 ml @ 1,000 mls/hr 1X ONCE IV Last administered on 11/05/19at 16:45; Start 11/05/19 at 16:45; Stop 11/05/19 at 17:44; Status DC Potassium Chloride (Klor-Con) 40 meq 1X ONCE PO Last administered on 11/05/19at 19:15; Start 11/05/19 at 19:15; Stop 11/05/19 at 19:16; Status DC Potassium Chloride/Water 100 ml @ 100 mls/hr Q1H IV Last administered on 11/05/19at 19:15; Start 11/05/19 at 19:15; Stop 11/05/19 at 21:14; Status DC Ondansetron HCl (Zofran) 4 mg PRN Q8HRS PRN IV NAUSEA/VOMITING Last administered on 11/06/19at 04:05; Start 11/05/19 at 20:15; Stop 11/06/19 at 09:29; Status DC Morphine Sulfate (Morphine Sulfate) 2 mg PRN Q2HR PRN IV PAIN Last administered on 11/10/19at 15:09; Start 11/05/19 at 20:15 Acetaminophen (Tylenol) 650 mg PRN Q4HRS PRN PO FEVER > 100.3'F Last administered on 11/08/19at 21:00; Start 11/05/19 at 20:15 Multivitamins 10 ml/Thiamine HCl 100 mg/Folic Acid 1 mg/Sodium Chloride 1,011.2 ml @ 100 mls/ hr DAILY IV Last administered on 11/09/19at 10:51; Start 11/06/19 at 09:00; Stop 11/09/19 at 14:39; Status DC Lorazepam (Ativan Inj) 2 mg PRN Q1HR PRN IV For CIWA 8-14; Start 11/05/19 at 20:15 Clonidine HCl (Catapres) 0.1 mg PRN Q1HR PRN PO SBP > 180 or DBP > 100, MRX3; Start 11/05/19 at 20:15 Magnesium Sulfate/ Dextrose 100 ml @ 100 mls/hr 1X ONCE IV Last administered on 11/06/19at 04:52; Start 11/05/19 at 21:00; Stop 11/05/19 at 21:59; Status DC Potassium Bicarbonate (Potassium Effervescent Tablet) 40 meq 1X ONCE PO Last administered on 11/06/19at 04:55; Start 11/06/19 at 04:00; Stop 11/06/19 at 04:13; Status DC Potassium Bicarbonate (Potassium Effervescent Tablet) 40 meq 1X ONCE PO Last administered on 11/06/19 11:19; Start 11/06/19 at 11:00; Stop 11/06/19 at 11:01; Status DC Calcium Carbonate/ Glycine (Tums) 500 mg TIDAFTMEAL PRN PO INDIGESTION Last administered on 11/09/19 08:48; Start 11/06/19 at 07:30 Cyanocobalamin (Vitamin B-12) 1,000 mcg DAILY PO Last administered on 11/10/19 08:56; Start 11/06/19 at 09:00 Folic Acid (Folic Acid) 1 mg DAILY PO Last administered on 11/10/19 08:55; Start 11/06/19 at 09:00 Gabapentin (Neurontin) 300 mg TID PO Last administered on 11/10/19 14:28; Start 11/06/19 at 09:00 Haloperidol (Haldol) 5 mg BID PO Last administered on 11/10/19 08:55; Start 11/06/19 at 09:00 Thiamine Mononitrate (Vitamin B-1) 100 mg DAILY PO Last administered on 11/10/19 08:54; Start 11/06/19 at 09:00 Duloxetine HCl (Cymbalta) 60 mg DAILY PO Last administered on 11/10/19 08:54; Start 11/06/19 at 09:00 Levothyroxine Sodium (Synthroid) 200 mcg DAILY06 PO Last administered on 11/10/19 07:42; Start 11/06/19 at 07:30 Multivitamins (Thera M Plus) 1 tab DAILY PO Last administered on 11/08/19 08:54; Start 11/06/19 at 09:00 Quetiapine Fumarate (SEROquel) 200 mg QHS PO Last administered on 11/09/19 21:41; Start 11/06/19 at 21:00 Trazodone HCl (Desyrel) 150 mg QHS PO Last administered on 11/09/19 21:41; Start 11/06/19 at 21:00 Pantoprazole Sodium (Protonix) 40 mg DAILYAC PO Last administered on 11/10/19 07:42; Start 11/06/19 at 08:00 Ondansetron HCl (Zofran) 4 mg PRN Q4HRS PRN IV NAUSEA/VOMITING Last administered on 11/06/19 14:57; Start 11/06/19 at 09:30 Magnesium Sulfate 100 ml @ 25 mls/hr 1X ONCE IV Last administered on 11/06/19at 13:05; Start 11/06/19 at 13:30; Stop 11/06/19 at 17:29; Status DC Magnesium Sulfate 100 ml @ 25 mls/hr 1X ONCE IV Last administered on 11/06/19at 09:40; Start 11/06/19 at 09:30; Stop 11/06/19 at 13:29; Status DC Levothyroxine Sodium 100 mcg/ Sodium Chloride 5 ml @ 100 mls/hr 1X ONCE IVP Last administered on 11/06/19 17:21; Start 11/06/19 at 16:00; Stop 11/06/19 at 16:02; Status DC Enoxaparin Sodium (Lovenox 40mg Syringe) 40 mg Q24H SQ Last administered on 11/09/19 18:30; Start 11/06/19 at 18:00 Potassium Bicarbonate (Potassium Effervescent Tablet) 40 meq BID PEG Last administered on 11/10/19 08:52; Start 11/07/19 at 09:00 Potassium Bicarbonate (Potassium Effervescent Tablet) 120 meq 1X ONCE PEG Last administered on 11/07/19 07:22; Start 11/07/19 at 07:00; Stop 11/07/19 at 07:04; Status DC Calcium Carbonate/ Glycine (Oscal) 1,000 mg 1X PRN PO PER PROTOCOL Last administered on 11/08/19at 00:22; Start 11/07/19 at 23:45 Calcium Chloride 2000 mg/Sodium Chloride 120 ml @ 240 mls/hr 1X ONCE IV Last administered on 11/08/19 11:30; Start 11/08/19 at 10:30; Stop 11/08/19 at 10:59; Status DC Liothyronine Sodium (Cytomel) 5 mcg DAILY PO Last administered on 11/10/19at 08:55; Start 11/08/19 at 13:00 Magnesium Sulfate 100 ml @ 25 mls/hr 1X ONCE IV Last administered on 9/10/20at 11:12; Start 11/10/19 at 11:00; Stop 11/10/19 at 14:59; Status DC Active Scripts Active Gabapentin (Gabapentin) 300 Mg Capsule 300 Mg PO TID Trazodone Hcl 150 Mg Tablet 1 Tab PO QHS Levothyroxine Sodium 200 Mcg Tablet 1 Tab PO DAILY Folic Acid 1 Mg Tablet 1 Mg PO DAILY 30 Days Vitamin B-1 (Thiamine Mononitrate) 100 Mg Tablet 100 Mg PO DAILY 30 Days [Pantoprazole] 40 MG Tablet. 40 Mg PO DAILYAC 30 Days Reported Seroquel (Quetiapine Fumarate) 200 Mg Tablet 1 Tab PO QHS Multivitamins (Multivitamin) 1 Each Tablet 1 Tab PO DAILY Haloperidol 5 Mg Tablet 1 Tab PO BID Cymbalta (Duloxetine Hcl) 60 Mg Capsule.dr 1 Cap PO DAILY Vitamin B-12 (Cyanocobalamin (Vitamin B-12)) 1,000 Mcg Tablet 1 Tab PO DAILY Vitals/I & O Vital Sign - Last 24 Hours 11/09/19 11/09/19 11/09/19 11/10/19 19:58 20:00 23:02 03:26 Temp 98.7 98.5 98.8 98.7 98.5 98.8 Pulse 107 105 107 Resp 18 18 18 B/P (MAP) 111/79 (90) 104/80 (88) 101/72 (82) Pulse Ox 94 90 90 O2 Delivery Nasal Cannula Nasal Cannula Nasal Cannula Nasal Cannula O2 Flow Rate 3.0 2.0 3.0 3.0 11/10/19 11/10/19 11/10/19 11/10/19 07:00 08:00 08:55 09:26 Temp 98.2 98.2 Pulse 103 Resp 18 15 B/P (MAP) 94/69 (77) Pulse Ox 96 90 90 O2 Delivery Nasal Cannula Room Air Room Air Nasal Cannula O2 Flow Rate 2.0 2.0 11/10/19 11/10/19 11/10/19 11/10/19 11:00 15:00 15:09 15:39 Temp 97.6 97.6 97.6 97.6 Pulse 59 88 Resp 20 20 B/P (MAP) 87/62 (70) 91/63 (72) Pulse Ox 94 98 94 94 O2 Delivery Nasal Cannula Nasal Cannula Room Air Room Air O2 Flow Rate 2.0 2.0 2.0 2.0 Intake and Output 11/09/19 11/09/19 11/10/19 14:59 22:59 06:59 Intake Total 1005 ml Output Total 400 ml 0 ml Balance -400 ml 1005 ml Justicifation of Admission Dx: Justifications for Admission: Justification of Admission Dx: Yes VANDANA DAVILA MD Nov 10, 2019 16:54
[2019-11-10] MEDS: ENOXAPARIN 40 MG/0.4 ML SYRINGE. SQ SCH (17:26)
[2019-11-10 19:55] VITALS: BP 87/62
[2019-11-10] MEDS: traZODone 50 MG TABLET. PO SCH (22:31)
[2019-11-10] MEDS: QUEtiapine 100 MG TABLET. PO SCH (22:31)
[2019-11-10 22:36] VITALS: BP 84/56
[2019-11-11 03:00] VITALS: BP 107/68
[2019-11-11] MEDS: LEVOTHYROXINE 100 MCG TABLET PO SCH (06:25)
[2019-11-11 07:00] VITALS: BP 96/68
[2019-11-11] MEDS: MULTIVITAMIN with MINERAL TABLET. PO SCH (09:00)
[2019-11-11] MEDS: THIAMINE 100 MG TABLET. PO SCH (09:42)
[2019-11-11] MEDS: DULoxetine HCL 30 MG CAPSULE.DR PO SCH (09:43)
[2019-11-11] MEDS: PANTOPRAZOLE 40 MG TABLET.DR. PO SCH (09:43)
[2019-11-11] MEDS: FOLIC ACID 1 MG TABLET. PO SCH (09:43)
[2019-11-11] MEDS: GABAPENTIN 300 MG CAPSULE. PO SCH ×2 (09:43→13:41)
[2019-11-11] MEDS: LIOTHYRONINE 5 MCG TABLET. PO SCH (09:43)
[2019-11-11] MEDS: CYANOCOBALAMIN (VITAMIN B-12) 1,000 MCG TABLET. PO SCH (09:43)
[2019-11-11] MEDS: HALOPERIDOL 5 MG TABLET. PO SCH (09:43)
[2019-11-11] MEDS: POTASSIUM BICARB 20 MEQ EFFERVESCENT TABLET. PEG SCH (09:44)
[2019-11-11 09:45] LABS: HEMATOCRIT 24.4 % (36.0-47.0); HEMOGLOBIN 8.1 g/dL (12.0-15.5); RED BLOOD COUNT 2.35 x10^6/uL (3.50-5.40); RED CELL DISTRIBUTION WIDTH 22.3 % (11.5-14.5); WHITE BLOOD COUNT 3.7 x10^3/uL (4.0-11.0)
[2019-11-11] MEDS: MORPHINE SULFATE 2 MG/ML VIAL. IV PRN ×2 (09:45→18:13)
[2019-11-11 10:04] LABS: CALCIUM 8.9 mg/dL (8.5-10.1); CREATININE 0.5 mg/dL (0.6-1.0); GFR 165.3; MAGNESIUM 1.8 mg/dL (1.8-2.4); POTASSIUM 4.4 mmol/L (3.5-5.1)
[2019-11-11 11:00] VITALS: BP 90/57
[2019-11-11 11:11] LABS: FREE T4 0.76 ng/dL (0.76-1.46); THYROID STIM HORMONE (TSH) 33.356 uIU/mL (0.358-3.74)
--- NOTE | 2019-11-11 14:25 | RAD ---
EXAM: Chest, single view. HISTORY: Decreased oxygen saturation. COMPARISON: 11/05/2019 FINDINGS: A frontal view of the chest is obtained. There is focal opacity overlying the left mid thorax possibly due to infiltrate. There is lingular and left lower lobe atelectasis. No pleural effusion or pneumothorax is seen. The heart is normal in size. IMPRESSION: Possible new focal infiltrate within the left mid thorax. Electronically signed by: Veronica Anne MD (11/11/2019 2:22 PM) [id number]
[2019-11-11 15:00] VITALS: BP 93/66
--- NOTE | 2019-11-11 16:40 | NUR ---
Review and agree with documentation by international bank manager and have made changes as needed
--- NOTE | 2019-11-11 17:48 | PDOC ---
PROGRESS NOTES Date of Service: DATE: 11/11/19 TIME: 17:47 Chief Complaint Chief Complaint IMPRESSION Assessment/Plan A/P: Acute metabolic encephalopathy - will cont CIWA scale and replace lytes and levothyroxine, CT head negative Myxedema coma, continue levothyroxine. Continue T3 replacement hypokalemia, hypomag, critical - will continue to replace Severe depression SLE - not on meds Tobacco use - counseled on cessation macrocytic anemia alcohol use, abuse disorder on ciwa protocol - will have PAT team to see non-compliance meds, 1 month, weakness and debility - PT/OT, patient unable to move lower extremities as per therapist, deep tendon reflexed were decreased as expected with Hypothyroidism Fibromyalgia - cont meds SLE - stable FEN - General PPX - lovenox FULL CODE Dispo - inpatient NEEDS DPOA History of Present Illness History of Present Illness History of Present Illness History of Present Illness Ms Santamaria is a 39 yo F with a history of fibromyalgia, lupus, hypertension, high cholesterol, hypothyroidism, ETOH abuse who presents the ED with multiple complaints. Patient is concerned she has COVID19. She states she has been exposed through friends. Patient denies any fever or coughing. She is also complaining of generalized fatigue for 1 week. She is also complaining of diarrhea for 1 week. She is also complaining of weakness to bilateral lower extremities. Patient denies any hematemesis or bloody stools. She also reports she has history of alcoholism and had a cup of vodka right before admission. WBC of 3.5, Hb 10.8, hematocrit 31.5, potassium 2.2, oral potassium was adminis tered as well as IV potassium started. Magnesium 7.1, IV magnesium was ordered. Bilirubin 2.5, AST 73, ALT 15, ALK 161, calcium 7.1. Alcohol level 310 TSH 50 CXR clear 11/08/2019 Patient quite debilitated and unable to have a meaningful conversation patient seems to be just mumbling seems to be oriented in person but cannot assess if he is aware of her surroundings. She is trying to eat a breakfast time which during my visit but is unable to do so, discussed with nursing staff and therapists. Thyroid function test have been requested and we will do CAT scan of the head rule out central etiology for her symptoms 11/09/2019 No acute events overnight. Patient appears to be lethargic but sitting in a recliner. Weakness in lower extremities but wiggling her toes. Tolerating diet. CIWA high as of 8. Patient's chart, labs, images were reviewed and discussed with RN 11/10/2019 Patient working with PT seems to be doing little improvements, hopefully tomorrow her thyroid fucntion tests are better. No new complaints or acute events reported overnight. 11/11/2019 Patient with significant improvement of her symptoms. Still requiring a lot of support from the nursing staff and nevertheless she is much better compared to yesterday. Much more awake does not seem to be having withdrawal symptoms. We are trying to wean off her oxygen in order for her to be able to safely transfer back to her household all concerns were addressed to the best of my abilities Vitals Vitals Vital Signs Date Time Temp Pulse Resp B/P (MAP) Pulse Ox O2 Delivery O2 Flow Rate FiO2 11/11/19 15:00 97.7 99 20 93/66 (75) 94 Nasal Cannula 1.0 97.7 Physical Exam Physical Exam Neurological exam Cranial nerves II to XII seem to be grossly intact Motor deficits over the lower extremity 1 out of 5 weakness No sensory deficit appreciated Grimaces to painful stimuli Deep tendon reflexes decreased in the lower extremities General: Alert, Cooperative, mild distress Heart: Regular rate, Normal S1, Normal S2 Lungs: Clear Abdomen: Normal bowel sounds, Soft, No tenderness, No hepatosplenomegaly, No masses Extremities: No clubbing, No cyanosis, No edema, Normal pulses, No tenderness/swelling Skin: No rashes, No breakdown, No significant lesion Labs LABS Laboratory Tests Test 11/11/19 09:20 White Blood Count 3.7 x10^3/uL (4.0-11.0) Red Blood Count 2.35 x10^6/uL (3.50-5.40) Hemoglobin 8.1 g/dL (12.0-15.5) Hematocrit 24.4 % (36.0-47.0) Mean Corpuscular Volume 104 fL (79-100) Mean Corpuscular Hemoglobin 35 pg (25-35) Mean Corpuscular Hemoglobin Concent 33 g/dL (31-37) Red Cell Distribution Width 22.3 % (11.5-14.5) Platelet Count 157 x10^3/uL (140-400) Sodium Level 135 mmol/L (136-145) Potassium Level 4.4 mmol/L (3.5-5.1) Chloride Level 98 mmol/L (98-107) Carbon Dioxide Level 32 mmol/L (21-32) Anion Gap 5 (6-14) Blood Urea Nitrogen 5 mg/dL (7-20) Creatinine 0.5 mg/dL (0.6-1.0) Estimated GFR (Cockcroft-Gault) 165.3 Glucose Level 80 mg/dL (70-99) Calcium Level 8.9 mg/dL (8.5-10.1) Magnesium Level 1.8 mg/dL (1.8-2.4) Thyroid Stimulating Hormone (TSH) 33.356 uIU/mL (0.358-3.74) Free Thyroxine 0.76 ng/dL (0.76-1.46) Free Triiodothyronine (T3) pg/mL 0.87 pg/mL (2.18-3.98) Assessment and Plan Assessmemt and Plan Problems Medical Problems: (1) Hypokalemia Status: Acute (2) Hypomagnesemia Status: Acute (3) Person under investigation for COVID-19 Status: Acute Comment Review of Relevant I have reviewed the following items fernandez (where applicable) has been applied. Labs Laboratory Tests Test 11/10/19 06:15 11/11/19 09:20 Sodium Level 134 mmol/L (136-145) 135 mmol/L (136-145) Potassium Level 4.6 mmol/L (3.5-5.1) 4.4 mmol/L (3.5-5.1) Chloride Level 99 mmol/L (98-107) 98 mmol/L (98-107) Carbon Dioxide Level 28 mmol/L (21-32) 32 mmol/L (21-32) Anion Gap 7 (6-14) 5 (6-14) Blood Urea Nitrogen 4 mg/dL (7-20) 5 mg/dL (7-20) Creatinine 0.5 mg/dL (0.6-1.0) 0.5 mg/dL (0.6-1.0) Estimated GFR (Cockcroft-Gault) 165.3 165.3 Glucose Level 82 mg/dL (70-99) 80 mg/dL (70-99) Calcium Level 9.2 mg/dL (8.5-10.1) 8.9 mg/dL (8.5-10.1) Phosphorus Level 3.7 mg/dL (2.6-4.7) Magnesium Level 1.3 mg/dL (1.8-2.4) 1.8 mg/dL (1.8-2.4) White Blood Count 3.7 x10^3/uL (4.0-11.0) Red Blood Count 2.35 x10^6/uL (3.50-5.40) Hemoglobin 8.1 g/dL (12.0-15.5) Hematocrit 24.4 % (36.0-47.0) Mean Corpuscular Volume 104 fL (79-100) Mean Corpuscular Hemoglobin 35 pg (25-35) Mean Corpuscular Hemoglobin Concent 33 g/dL (31-37) Red Cell Distribution Width 22.3 % (11.5-14.5) Platelet Count 157 x10^3/uL (140-400) Thyroid Stimulating Hormone (TSH) 33.356 uIU/mL (0.358-3.74) Free Thyroxine 0.76 ng/dL (0.76-1.46) Free Triiodothyronine (T3) pg/mL 0.87 pg/mL (2.18-3.98) Laboratory Tests Test 11/11/19 09:20 White Blood Count 3.7 x10^3/uL (4.0-11.0) Red Blood Count 2.35 x10^6/uL (3.50-5.40) Hemoglobin 8.1 g/dL (12.0-15.5) Hematocrit 24.4 % (36.0-47.0) Mean Corpuscular Volume 104 fL (79-100) Mean Corpuscular Hemoglobin 35 pg (25-35) Mean Corpuscular Hemoglobin Concent 33 g/dL (31-37) Red Cell Distribution Width 22.3 % (11.5-14.5) Platelet Count 157 x10^3/uL (140-400) Sodium Level 135 mmol/L (136-145) Potassium Level 4.4 mmol/L (3.5-5.1) Chloride Level 98 mmol/L (98-107) Carbon Dioxide Level 32 mmol/L (21-32) Anion Gap 5 (6-14) Blood Urea Nitrogen 5 mg/dL (7-20) Creatinine 0.5 mg/dL (0.6-1.0) Estimated GFR (Cockcroft-Gault) 165.3 Glucose Level 80 mg/dL (70-99) Calcium Level 8.9 mg/dL (8.5-10.1) Magnesium Level 1.8 mg/dL (1.8-2.4) Thyroid Stimulating Hormone (TSH) 33.356 uIU/mL (0.358-3.74) Free Thyroxine 0.76 ng/dL (0.76-1.46) Free Triiodothyronine (T3) pg/mL 0.87 pg/mL (2.18-3.98) Medications Current Medications Sodium Chloride 1,000 ml @ 1,000 mls/hr 1X ONCE IV Last administered on 11/05/19 16:45; Start 11/05/19 at 16:45; Stop 11/05/19 at 17:44; Status DC Potassium Chloride (Klor-Con) 40 meq 1X ONCE PO Last administered on 11/05/19at 19:15; Start 11/05/19 at 19:15; Stop 11/05/19 at 19:16; Status DC Potassium Chloride/Water 100 ml @ 100 mls/hr Q1H IV Last administered on 11/05/19 19:15; Start 11/05/19 at 19:15; Stop 11/05/19 at 21:14; Status DC Ondansetron HCl (Zofran) 4 mg PRN Q8HRS PRN IV NAUSEA/VOMITING Last admi nistered on 11/06/19at 04:05; Start 11/05/19 at 20:15; Stop 11/06/19 at 09:29; Status DC Morphine Sulfate (Morphine Sulfate) 2 mg PRN Q2HR PRN IV PAIN Last administered on 11/11/19 09:45; Start 11/05/19 at 20:15 Acetaminophen (Tylenol) 650 mg PRN Q4HRS PRN PO FEVER > 100.3'F Last administered on 11/08/19at 21:00; Start 11/05/19 at 20:15 Multivitamins 10 ml/Thiamine HCl 100 mg/Folic Acid 1 mg/Sodium Chloride 1,011.2 ml @ 100 mls/ hr DAILY IV Last administered on 11/09/19at 10:51; Start 11/06/19 at 09:00; Stop 11/09/19 at 14:39; Status DC Lorazepam (Ativan Inj) 2 mg PRN Q1HR PRN IV For CIWA 8-14; Start 11/05/19 at 20:15 Clonidine HCl (Catapres) 0.1 mg PRN Q1HR PRN PO SBP > 180 or DBP > 100, MRX3; Start 11/05/19 at 20:15 Magnesium Sulfate/ Dextrose 100 ml @ 100 mls/hr 1X ONCE IV Last administered on 11/06/19at 04:52; Start 11/05/19 at 21:00; Stop 11/05/19 at 21:59; Status DC Potassium Bicarbonate (Potassium Effervescent Tablet) 40 meq 1X ONCE PO Last administered on 11/06/19at 04:55; Start 11/06/19 at 04:00; Stop 11/06/19 at 04:13; Status DC Potassium Bicarbonate (Potassium Effervescent Tablet) 40 meq 1X ONCE PO Last administered on 11/06/19at 11:19; Start 11/06/19 at 11:00; Stop 11/06/19 at 11:01; Status DC Calcium Carbonate/ Glycine (Tums) 500 mg TIDAFTMEAL PRN PO INDIGESTION Last administered on 11/09/19 08:48; Start 11/06/19 at 07:30 Cyanocobalamin (Vitamin B-12) 1,000 mcg DAILY PO Last administered on 11/11/19 09:43; Start 11/06/19 at 09:00 Folic Acid (Folic Acid) 1 mg DAILY PO Last administered on 11/11/19at 09:43; Start 11/06/19 at 09:00 Gabapentin (Neurontin) 300 mg TID PO Last administered on 11/11/19 13:41; Start 11/06/19 at 09:00 Haloperidol (Haldol) 5 mg BID PO Last administered on 11/11/19 09:43; Start 11/06/19 at 09:00 Thiamine Mononitrate (Vitamin B-1) 100 mg DAILY PO Last administered on 11/11/19 09:42; Start 11/06/19 at 09:00 Duloxetine HCl (Cymbalta) 60 mg DAILY PO Last administered on 11/11/19 09:43; Start 11/06/19 at 09:00 Levothyroxine Sodium (Synthroid) 200 mcg DAILY06 PO Last administered on 10/31 06:25; Start 11/06/19 at 07:30 Multivitamins (Thera M Plus) 1 tab DAILY PO Last administered on 11/08/19 08:54; Start 11/06/19 at 09:00 Quetiapine Fumarate (SEROquel) 200 mg QHS PO Last administered on 11/10/19 22:31; Start 11/06/19 at 21:00 Trazodone HCl (Desyrel) 150 mg QHS PO Last administered on 11/10/19 22:31; Start 11/06/19 at 21:00 Pantoprazole Sodium (Protonix) 40 mg DAILYAC PO Last administered on 11/11/19 09:43; Start 11/06/19 at 08:00 Ondansetron HCl (Zofran) 4 mg PRN Q4HRS PRN IV NAUSEA/VOMITING Last administered on 11/06/19 14:57; Start 11/06/19 at 09:30 Magnesium Sulfate 100 ml @ 25 mls/hr 1X ONCE IV Last administered on 11/06/19 13:05; Start 11/06/19 at 13:30; Stop 11/06/19 at 17:29; Status DC Magnesium Sulfate 100 ml @ 25 mls/hr 1X ONCE IV Last administered on 11/06/19 09:40; Start 11/06/19 at 09:30; Stop 11/06/19 at 13:29; Status DC Levothyroxine Sodium 100 mcg/ Sodium Chloride 5 ml @ 100 mls/hr 1X ONCE IVP Last administered on 11/06/19 17:21; Start 11/06/19 at 16:00; Stop 11/06/19 at 16:02; Status DC Enoxaparin Sodium (Lovenox 40mg Syringe) 40 mg Q24H SQ Last administered on 11/10/19 17:26; Start 11/06/19 at 18:00 Potassium Bicarbonate (Potassium Effervescent Tablet) 40 meq BID PEG Last administered on 11/11/19 09:44; Start 11/07/19 at 09:00 Potassium Bicarbonate (Potassium Effervescent Tablet) 120 meq 1X ONCE PEG Last administered on 11/07/19at 07:22; Start 11/07/19 at 07:00; Stop 11/07/19 at 07:04; Status DC Calcium Carbonate/ Glycine (Oscal) 1,000 mg 1X PRN PO PER PROTOCOL Last administered on 11/08/19at 00:22; Start 11/07/19 at 23:45 Calcium Chloride 2000 mg/Sodium Chloride 120 ml @ 240 mls/hr 1X ONCE IV Last administered on 11/08/19at 11:30; Start 11/08/19 at 10:30; Stop 11/08/19 at 10:59; Status DC Liothyronine Sodium (Cytomel) 5 mcg DAILY PO Last administered on 11/11/19at 09:43; Start 11/08/19 at 13:00 Magnesium Sulfate 100 ml @ 25 mls/hr 1X ONCE IV Last administered on 11/10/19at 11:12; Start 11/10/19 at 11:00; Stop 11/10/19 at 14:59; Status DC Active Scripts Active Gabapentin (Gabapentin) 300 Mg Capsule 300 Mg PO TID Trazodone Hcl 150 Mg Tablet 1 Tab PO QHS Levothyroxine Sodium 200 Mcg Tablet 1 Tab PO DAILY Folic Acid 1 Mg Tablet 1 Mg PO DAILY 30 Days Vitamin B-1 (Thiamine Mononitrate) 100 Mg Tablet 100 Mg PO DAILY 30 Days [Pantoprazole] 40 MG Tablet.dr 40 Mg PO DAILYAC 30 Days Reported Seroquel (Quetiapine Fumarate) 200 Mg Tablet 1 Tab PO QHS Multivitamins (Multivitamin) 1 Each Tablet 1 Tab PO DAILY Haloperidol 5 Mg Tablet 1 Tab PO BID Cymbalta (Duloxetine Hcl) 60 Mg Capsule.dr 1 Cap PO DAILY Vitamin B-12 (Cyanocobalamin (Vitamin B-12)) 1,000 Mcg Tablet 1 Tab PO DAILY Vitals/I & O Vital Sign - Last 24 Hours 11/10/19 11/10/19 11/10/19 11/11/19 19:55 20:00 22:36 03:00 Temp 97.8 97.3 97.5 97.8 97.3 97.5 Pulse 74 96 94 Resp 18 18 18 B/P (MAP) 87/62 (70) 84/56 (65) 107/68 (81) Pulse Ox 91 99 100 O2 Delivery Nasal Cannula Nasal Cannula Nasal Cannula Nasal Cannula O2 Flow Rate 2.0 2.0 2.0 2.0 11/11/19 11/11/19 11/11/19 11/11/19 07:00 08:00 09:45 10:15 Temp 98.1 98.1 Pulse 92 Resp 20 B/P (MAP) 96/68 (77) Pulse Ox 97 O2 Delivery Nasal Cannula Nasal Cannula Room Air Nasal Cannula O2 Flow Rate 2.0 2.0 11/11/19 11/11/19 11:00 15:00 Temp 97.6 97.7 97.6 97.7 Pulse 101 99 Resp 20 20 B/P (MAP) 90/57 (68) 93/66 (75) Pulse Ox 90 94 O2 Delivery Nasal Cannula Nasal Cannula O2 Flow Rate 1.0 1.0 Intake and Output 11/10/19 11/10/19 11/11/19 15:00 23:00 07:00 Intake Total 210 ml 250 ml Balance 210 ml 250 ml Justicifation of Admission Dx: Justifications for Admission: Justification of Admission Dx: Yes VANDANA DAVILA MD Nov 11, 2019 17:48
[2019-11-11] MEDS: ENOXAPARIN 40 MG/0.4 ML SYRINGE. SQ SCH (18:18)
[2019-11-11 19:58] VITALS: BP 101/71
--- NOTE | 2019-11-11 21:01 | NUR ---
Patient's meds pulled, but is asleep, soundly, so will administer when more awake.
[2019-11-11 22:20] VITALS: BP 90/59
[2019-11-12] MEDS: MORPHINE SULFATE 2 MG/ML VIAL. IV PRN ×2 (00:31→11:57)
[2019-11-12] MEDS: GABAPENTIN 300 MG CAPSULE. PO SCH ×4 (00:35→21:04)
[2019-11-12] MEDS: traZODone 50 MG TABLET. PO SCH ×2 (00:35→21:04)
[2019-11-12] MEDS: HALOPERIDOL 5 MG TABLET. PO SCH ×3 (00:35→21:04)
[2019-11-12] MEDS: QUEtiapine 100 MG TABLET. PO SCH ×2 (00:35→21:04)
[2019-11-12] MEDS: POTASSIUM BICARB 20 MEQ EFFERVESCENT TABLET. PEG SCH ×3 (00:35→21:04)
[2019-11-12 03:43] VITALS: BP 83/55
[2019-11-12 07:00] VITALS: BP 93/64
[2019-11-12] MEDS: THIAMINE 100 MG TABLET. PO SCH (08:37)
[2019-11-12] MEDS: CYANOCOBALAMIN (VITAMIN B-12) 1,000 MCG TABLET. PO SCH (08:37)
[2019-11-12] MEDS: LIOTHYRONINE 5 MCG TABLET. PO SCH (08:37)
[2019-11-12] MEDS: PANTOPRAZOLE 40 MG TABLET.DR. PO SCH (08:37)
[2019-11-12] MEDS: ACETAMINOPHEN 325 MG TABLET. PO PRN (08:38)
[2019-11-12] MEDS: CALCIUM CARBONATE 500 MG TAB.CHEW PO PRN (08:38)
[2019-11-12] MEDS: FOLIC ACID 1 MG TABLET. PO SCH (08:38)
[2019-11-12] MEDS: DULoxetine HCL 30 MG CAPSULE.DR PO SCH (08:38)
[2019-11-12] MEDS: LEVOTHYROXINE 100 MCG TABLET PO SCH (08:38)
[2019-11-12] MEDS: MULTIVITAMIN with MINERAL TABLET. PO SCH (08:39)
[2019-11-12 10:51] VITALS: BP 86/61
[2019-11-12 15:05] VITALS: BP 86/59
[2019-11-12] MEDS: ENOXAPARIN 40 MG/0.4 ML SYRINGE. SQ SCH (17:10)
[2019-11-12 19:35] VITALS: BP 94/66
[2019-11-12 23:15] VITALS: BP 92/56
[2019-11-13 03:27] VITALS: BP 91/59
[2019-11-13] MEDS: LEVOTHYROXINE 100 MCG TABLET PO SCH (06:23)
[2019-11-13 07:00] VITALS: BP 89/52
[2019-11-13] MEDS: HALOPERIDOL 5 MG TABLET. PO SCH ×2 (08:15→20:14)
[2019-11-13] MEDS: CYANOCOBALAMIN (VITAMIN B-12) 1,000 MCG TABLET. PO SCH (08:16)
[2019-11-13] MEDS: GABAPENTIN 300 MG CAPSULE. PO SCH ×3 (08:16→20:14)
[2019-11-13] MEDS: THIAMINE 100 MG TABLET. PO SCH (08:16)
[2019-11-13] MEDS: PANTOPRAZOLE 40 MG TABLET.DR. PO SCH (08:16)
[2019-11-13] MEDS: LIOTHYRONINE 5 MCG TABLET. PO SCH (08:16)
[2019-11-13] MEDS: FOLIC ACID 1 MG TABLET. PO SCH (08:16)
[2019-11-13] MEDS: DULoxetine HCL 30 MG CAPSULE.DR PO SCH (08:16)
[2019-11-13] MEDS: MULTIVITAMIN with MINERAL TABLET. PO SCH (08:17)
[2019-11-13] MEDS: POTASSIUM BICARB 20 MEQ EFFERVESCENT TABLET. PEG SCH ×3 (08:17→20:13)
[2019-11-13] MEDS: oxyCODONE/APAP 5/325 1 TAB TABLET PO PRN (08:17)
[2019-11-13 11:00] VITALS: BP 87/53
--- NOTE | 2019-11-13 11:24 | PDOC ---
PROGRESS NOTES Date of Service: DATE: 11/13/19 TIME: 11:20 Chief Complaint Chief Complaint IMPRESSION Assessment/Plan A/P: Acute metabolic encephalopathy - will cont CIWA scale and replace lytes and levothyroxine, CT head negative Myxedema coma, continue levothyroxine. Continue T3 replacement hypokalemia, hypomag, critical - will continue to replace Severe depression SLE - not on meds Tobacco use - counseled on cessation macrocytic anemia alcohol use, abuse disorder on ciwa protocol - will have PAT team to see non-compliance meds, 1 month, weakness and debility - PT/OT, patient unable to move lower extremities as per therapist, deep tendon reflexed were decreased as expected with Hypothyroidism Fibromyalgia - cont meds SLE - stable FEN - General PPX - lovenox FULL CODE Dispo - inpatient NEEDS DPOA History of Present Illness History of Present Illness History of Present Illness History of Present Illness Ms Santamaria is a 39 yo F with a history of fibromyalgia, lupus, hypertension, high cholesterol, hypothyroidism, ETOH abuse who presents the ED with multiple complaints. Patient is concerned she has COVID19. She states she has been exposed through friends. Patient denies any fever or coughing. She is also complaining of generalized fatigue for 1 week. She is also complaining of diarrhea for 1 week. She is also complaining of weakness to bilateral lower extremities. Patient denies any hematemesis or bloody stools. She also reports she has history of alcoholism and had a cup of vodka right before admission. WBC of 3.5, Hb 10.8, hematocrit 31.5, potassium 2.2, oral potassium was adminis tered as well as IV potassium started. Magnesium 7.1, IV magnesium was ordered. Bilirubin 2.5, AST 73, ALT 15, ALK 161, calcium 7.1. Alcohol level 310 TSH 50 CXR clear 11/08/2019 Patient quite debilitated and unable to have a meaningful conversation patient seems to be just mumbling seems to be oriented in person but cannot assess if he is aware of her surroundings. She is trying to eat a breakfast time which during my visit but is unable to do so, discussed with nursing staff and therapists. Thyroid function test have been requested and we will do CAT scan of the head rule out central etiology for her symptoms 11/09/2019 No acute events overnight. Patient appears to be lethargic but sitting in a recliner. Weakness in lower extremities but wiggling her toes. Tolerating diet. CIWA high as of 8. Patient's chart, labs, images were reviewed and discussed with RN 11/10/2019 Patient working with PT seems to be doing little improvements, hopefully tomorrow her thyroid fucntion tests are better. No new complaints or acute events reported overnight. 11/11/2019 Patient with significant improvement of her symptoms. Still requiring a lot of support from the nursing staff and nevertheless she is much better compared to yesterday. Much more awake does not seem to be having withdrawal symptoms. We are trying to wean off her oxygen in order for her to be able to safely transfer back to her household all concerns were addressed to the best of my abilities 11/11 No acute events reported overnight, case discussed with nursing staff patient in no acute distress no complaints during my visit trying to get her weaned off the oxygen 11/12 Patient continues to be on 2 L of oxygen, I have discussed with nursing staff discontinuing the oxygen and monitoring for next any 4 hours and hopefully anticipation for the morning. Thyroid function test will be rechecked one more time in order to ensue proper resolution of her myxedema coma patient hemodynamically stable and clinically much more alert and improved compared to admission hoping to be going home in the morning Vitals Vitals Vital Signs Date Time Temp Pulse Resp B/P (MAP) Pulse Ox O2 Delivery O2 Flow Rate FiO2 11/13/19 09:15 14 94 Nasal Cannula 1.0 11/13/19 07:00 97.9 93 89/52 (64) 97.9 Physical Exam Physical Exam Neurological exam Cranial nerves II to XII seem to be grossly intact Motor deficits over the lower extremity 1 out of 5 weakness No sensory deficit appreciated Grimaces to painful stimuli Deep tendon reflexes decreased in the lower extremities General: Alert, Cooperative, mild distress Heart: Regular rate, Normal S1, Normal S2 Lungs: Clear Abdomen: Normal bowel sounds, Soft, No tenderness, No hepatosplenomegaly, No masses Extremities: No clubbing, No cyanosis, No edema, Normal pulses, No tenderness/swelling Skin: No rashes, No breakdown, No significant lesion Assessment and Plan Assessmemt and Plan Problems Medical Problems: (1) Hypokalemia Status: Acute (2) Hypomagnesemia Status: Acute (3) Person under investigation for COVID-19 Status: Acute Comment Review of Relevant I have reviewed the following items fernandez (where applicable) has been applied. Medications Current Medications Sodium Chloride 1,000 ml @ 1,000 mls/hr 1X ONCE IV Last administered on 11/05/19at 16:45; Start 11/05/19 at 16:45; Stop 11/05/19 at 17:44; Status DC Potassium Chloride (Klor-Con) 40 meq 1X ONCE PO Last administered on 11/05/19at 19:15; Start 11/05/19 at 19:15; Stop 11/05/19 at 19:16; Status DC Potassium Chloride/Water 100 ml @ 100 mls/hr Q1H IV Last administered on 11/05/19at 19:15; Start 11/05/19 at 19:15; Stop 11/05/19 at 21:14; Status DC Ondansetron HCl (Zofran) 4 mg PRN Q8HRS PRN IV NAUSEA/VOMITING Last administered on 11/06/19at 04:05; Start 11/05/19 at 20:15; Stop 11/06/19 at 09:29; Status DC Morphine Sulfate (Morphine Sulfate) 2 mg PRN Q2HR PRN IV PAIN Last administered on 11/12/19at 11:57; Start 11/05/19 at 20:15 Acetaminophen (Tylenol) 650 mg PRN Q4HRS PRN PO FEVER > 100.3'F Last administered on 11/12/19at 08:38; Start 11/05/19 at 20:15 Multivitamins 10 ml/Thiamine HCl 100 mg/Folic Acid 1 mg/Sodium Chloride 1,011.2 ml @ 100 mls/ hr DAILY IV Last administered on 11/09/19at 10:51; Start 11/06/19 at 09:00; Stop 11/09/19 at 14:39; Status DC Lorazepam (Ativan Inj) 2 mg PRN Q1HR PRN IV For CIWA 8-14; Start 11/05/19 at 20:15 Clonidine HCl (Catapres) 0.1 mg PRN Q1HR PRN PO SBP > 180 or DBP > 100, MRX3; Start 11/05/19 at 20:15 Magnesium Sulfate/ Dextrose 100 ml @ 100 mls/hr 1X ONCE IV Last administered on 11/06/19at 04:52; Start 11/05/19 at 21:00; Stop 11/05/19 at 21:59; Status DC Potassium Bicarbonate (Potassium Effervescent Tablet) 40 meq 1X ONCE PO Last administered on 11/06/19at 04:55; Start 11/06/19 at 04:00; Stop 11/06/19 at 04:13; Status DC Potassium Bicarbonate (Potassium Effervescent Tablet) 40 meq 1X ONCE PO Last administered on 11/06/19at 11:19; Start 11/06/19 at 11:00; Stop 11/06/19 at 11:01; Status DC Calcium Carbonate/ Glycine (Tums) 500 mg TIDAFTMEAL PRN PO INDIGESTION Last administered on 11/12/19 08:38; Start 11/06/19 at 07:30 Cyanocobalamin (Vitamin B-12) 1,000 mcg DAILY PO Last administered on 11/13/19 08:16; Start 11/06/19 at 09:00 Folic Acid (Folic Acid) 1 mg DAILY PO Last administered on 11/13/19 08:16; Start 11/06/19 at 09:00 Gabapentin (Neurontin) 300 mg TID PO Last administered on 11/13/19 08:16; Start 11/06/19 at 09:00 Haloperidol (Haldol) 5 mg BID PO Last administered on 11/13/19 08:15; Start 11/06/19 at 09:00 Thiamine Mononitrate (Vitamin B-1) 100 mg DAILY PO Last administered on 11/13/19 08:16; Start 11/06/19 at 09:00 Duloxetine HCl (Cymbalta) 60 mg DAILY PO Last administered on 11/13/19 08:16; Start 11/06/19 at 09:00 Levothyroxine Sodium (Synthroid) 200 mcg DAILY06 PO Last administered on 11/13/19 06:23; Start 11/06/19 at 07:30 Multivitamins (Thera M Plus) 1 tab DAILY PO Last administered on 11/08/19at 08:54; Start 11/06/19 at 09:00 Quetiapine Fumarate (SEROquel) 200 mg QHS PO Last administered on 11/12/19at 21:04; Start 11/06/19 at 21:00 Trazodone HCl (Desyrel) 150 mg QHS PO Last administered on 11/12/19 21:04; Start 11/06/19 at 21:00 Pantoprazole Sodium (Protonix) 40 mg DAILYAC PO Last administered on 11/13/19at 08:16; Start 11/06/19 at 08:00 Ondansetron HCl (Zofran) 4 mg PRN Q4HRS PRN IV NAUSEA/VOMITING Last administered on 11/06/19 14:57; Start 11/06/19 at 09:30 Magnesium Sulfate 100 ml @ 25 mls/hr 1X ONCE IV Last administered on 11/06/19at 13:05; Start 11/06/19 at 13:30; Stop 11/06/19 at 17:29; Status DC Magnesium Sulfate 100 ml @ 25 mls/hr 1X ONCE IV Last administered on 11/06/19 09:40; Start 11/06/19 at 09:30; Stop 11/06/19 at 13:29; Status DC Levothyroxine Sodium 100 mcg/ Sodium Chloride 5 ml @ 100 mls/hr 1X ONCE IVP Last administered on 11/06/19at 17:21; Start 11/06/19 at 16:00; Stop 11/06/19 at 16:02; Status DC Enoxaparin Sodium (Lovenox 40mg Syringe) 40 mg Q24H SQ Last administered on 11/12/19 17:10; Start 11/06/19 at 18:00 Potassium Bicarbonate (Potassium Effervescent Tablet) 40 meq BID PEG Last administered on 11/12/19at 21:04; Start 11/07/19 at 09:00 Potassium Bicarbonate (Potassium Effervescent Tablet) 120 meq 1X ONCE PEG Last administered on 11/07/19at 07:22; Start 11/07/19 at 07:00; Stop 11/07/19 at 07:04; Status DC Calcium Carbonate/ Glycine (Oscal) 1,000 mg 1X PRN PO PER PROTOCOL Last ad ministered on 11/08/19at 00:22; Start 11/07/19 at 23:45 Calcium Chloride 2000 mg/Sodium Chloride 120 ml @ 240 mls/hr 1X ONCE IV Last administered on 11/08/19at 11:30; Start 11/08/19 at 10:30; Stop 11/08/19 at 10:59; Status DC Liothyronine Sodium (Cytomel) 5 mcg DAILY PO Last administered on 11/13/19at 08:16; Start 11/08/19 at 13:00 Magnesium Sulfate 100 ml @ 25 mls/hr 1X ONCE IV Last administered on 11/10/19at 11:12; Start 11/10/19 at 11:00; Stop 11/10/19 at 14:59; Status DC Oxycodone/ Acetaminophen (Percocet 5/325) 1 tab PRN Q6HRS PRN PO PAIN Last administered on 11/13/19at 08:17; Start 11/12/19 at 13:30 Active Scripts Active Gabapentin (Gabapentin) 300 Mg Capsule 300 Mg PO TID Trazodone Hcl 150 Mg Tablet 1 Tab PO QHS Levothyroxine Sodium 200 Mcg Tablet 1 Tab PO DAILY Folic Acid 1 Mg Tablet 1 Mg PO DAILY 30 Days Vitamin B-1 (Thiamine Mononitrate) 100 Mg Tablet 100 Mg PO DAILY 30 Days [Pantoprazole] 40 MG Tablet.dr 40 Mg PO DAILYAC 30 Days Reported Seroquel (Quetiapine Fumarate) 200 Mg Tablet 1 Tab PO QHS Multivitamins (Multivitamin) 1 Each Tablet 1 Tab PO DAILY Haloperidol 5 Mg Tablet 1 Tab PO BID Cymbalta (Duloxetine Hcl) 60 Mg Capsule.dr 1 Cap PO DAILY Vitamin B-12 (Cyanocobalamin (Vitamin B-12)) 1,000 Mcg Tablet 1 Tab PO DAILY Vitals/I & O Vital Sign - Last 24 Hours 11/12/19 11/12/19 11/12/19 11/12/19 11:57 12:27 15:05 19:35 Temp 98.1 97.6 98.1 97.6 Pulse 96 91 Resp 16 14 18 20 B/P (MAP) 86/59 (68) 94/66 (75) Pulse Ox 95 97 98 O2 Delivery Nasal Cannula Room Air Nasal Cannula O2 Flow Rate 2.0 2.0 11/12/19 11/12/19 11/13/19 11/13/19 19:37 23:15 03:27 07:00 Temp 98.1 97.9 97.9 98.1 97.9 97.9 Pulse 95 98 93 Resp 16 16 18 B/P (MAP) 92/56 (68) 91/59 (70) 89/52 (64) Pulse Ox 95 96 94 O2 Delivery Nasal Cannula Nasal Cannula Nasal Cannula Nasal Cannula O2 Flow Rate 2.0 2.0 1.0 1.0 11/13/19 11/13/19 11/13/19 07:40 08:17 09:15 Resp 16 14 Pulse Ox 94 94 O2 Delivery Nasal Cannula Nasal Cannula Nasal Cannula O2 Flow Rate 1.0 1.0 1.0 Intake and Output 11/12/19 11/12/19 11/13/19 15:00 23:00 07:00 Intake Total 340 ml 240 ml Balance 340 ml 240 ml Justicifation of Admission Dx: Justifications for Admission: Justification of Admission Dx: Yes VANDANA DAVILA MD Nov 13, 2019 11:24
--- NOTE | 2019-11-13 13:33 | RAD ---
EXAM: Abdomen, single view. HISTORY: Distention. COMPARISON: 08/11/2018 FINDINGS: A frontal view of the abdomen is obtained. There are prominent air-filled loops of bowel throughout the abdomen. There is colonic stool. No transition point is seen to suggest obstruction. There are cholecystomy clips. There is an IUD overlying the pelvis. IMPRESSION: Prominent air-filled loops of bowel throughout the abdomen. There is no transition point to suggest obstruction. This may be due to ileus. Electronically signed by: Veronica Anne MD (11/13/2019 1:30 PM) [id number]
[2019-11-13 14:51] VITALS: BP 92/58
[2019-11-13] MEDS: ENOXAPARIN 40 MG/0.4 ML SYRINGE. SQ SCH (17:29)
[2019-11-13 19:39] VITALS: BP 98/71
[2019-11-13] MEDS: traZODone 50 MG TABLET. PO SCH (20:14)
[2019-11-13] MEDS: QUEtiapine 100 MG TABLET. PO SCH (20:14)
[2019-11-13 23:09] VITALS: BP 89/62
[2019-11-14] VITALS (7 sets, daily range): BP systolic 89–114; BP diastolic 54–68
[2019-11-14 04:47] LABS: FREE T4 0.81 ng/dL (0.76-1.46); THYROID STIM HORMONE (TSH) 25.371 uIU/mL (0.358-3.74)
[2019-11-14] MEDS: LEVOTHYROXINE 100 MCG TABLET PO SCH (06:39)
[2019-11-14] MEDS: HALOPERIDOL 5 MG TABLET. PO SCH ×2 (08:49→20:09)
[2019-11-14] MEDS: FOLIC ACID 1 MG TABLET. PO SCH (08:49)
[2019-11-14] MEDS: DULoxetine HCL 30 MG CAPSULE.DR PO SCH (08:49)
[2019-11-14] MEDS: LIOTHYRONINE 5 MCG TABLET. PO SCH (08:49)
[2019-11-14] MEDS: MULTIVITAMIN with MINERAL TABLET. PO SCH ×2 (08:49→08:54)
[2019-11-14] MEDS: THIAMINE 100 MG TABLET. PO SCH (08:49)
[2019-11-14] MEDS: PANTOPRAZOLE 40 MG TABLET.DR. PO SCH (08:49)
[2019-11-14] MEDS: GABAPENTIN 300 MG CAPSULE. PO SCH ×3 (08:49→20:09)
[2019-11-14] MEDS: POTASSIUM BICARB 20 MEQ EFFERVESCENT TABLET. PEG SCH ×2 (08:50→20:10)
[2019-11-14] MEDS: CYANOCOBALAMIN (VITAMIN B-12) 1,000 MCG TABLET. PO SCH (08:51)
[2019-11-14] MEDS: oxyCODONE/APAP 5/325 1 TAB TABLET PO PRN ×2 (09:00→13:20)
--- NOTE | 2019-11-14 10:13 | PDOC ---
[facility] PROGRESS NOTE Date of Service DOS: DATE: 11/14/19 TIME: 10:05 Chief Complaint Chief Complaint A/P: Acute metabolic encephalopathy - will cont CIWA scale and replace lytes and levothyroxine, CT head negative Myxedema coma, continue levothyroxine. Continue T3 replacement hypokalemia, hypomag, critical - will continue to replace Severe depression SLE - not on meds Tobacco use - counseled on cessation macrocytic anemia alcohol use, abuse disorder on ciwa protocol - will have PAT team to see non-compliance meds, 1 month, Weakness and debility - PT/OT, patient unable to move lower extremities as per therapist, deep tendon reflexed were decreased as expected with Hypothyroidism Fibromyalgia - cont meds SLE - stable FEN - General PPX - lovenox FULL CODE Dispo - inpatient NEEDS DPOA History of Present Illness History of Present Illness Ms Santamaria is a 39 yo F with a history of fibromyalgia, lupus, hypertension, high cholesterol, hypothyroidism, ETOH abuse who presents the ED with multiple complaints. Patient is concerned she has COVID19. She states she has been exposed through friends. Patient denies any fever or coughing. She is also co mplaining of generalized fatigue for 1 week. She is also complaining of diarrhea for 1 week. She is also complaining of weakness to bilateral lower extremities. Patient denies any hematemesis or bloody stools. She also reports she has history of alcoholism and had a cup of vodka right before admission. WBC of 3.5, Hb 10.8, hematocrit 31.5, potassium 2.2, oral potassium was admi nistered as well as IV potassium started. Magnesium 7.1, IV magnesium was ordered. Bilirubin 2.5, AST 73, ALT 15, ALK 161, calcium 7.1. Alcohol level 310 TSH 50 CXR clear 11/07: Patient quite debilitated and unable to have a meaningful conversation patient seems to be just mumbling seems to be oriented in person but cannot assess if he is aware of her surroundings. She is trying to eat a breakfast time which during my visit but is unable to do so. 11/08: Patient appears to be lethargic but sitting in a recliner. Weakness in lower extremities but wiggling her toes. Tolerating diet. CIWA high as of 8. Patient's chart, labs, images were reviewed and discussed with RN 11/09: Patient working with PT seems to be doing little improvements, hopefully tomorrow her thyroid fucntion tests are better. No new complaints or acute events reported overnight. 11/10: Patient with significant improvement of her symptoms. Still requiring a lot of support from the nursing staff and nevertheless she is much better compared to yesterday. Much more awake does not seem to be having withdrawal symptoms. We are trying to wean off her oxygen. 11/11: No acute events reported overnight, case discussed with nursing staff patient in no acute distress no complaints during my visit trying to get her weaned off the oxygen Afebrile. Profoundly weak today. She is asking if she can have some vodka and cigarettes. She is unable to stand without maximum assistance. Weaning off O2. Vitals/I&O Vitals/I&O: Vital Signs Date Time Temp Pulse Resp B/P (MAP) Pulse Ox O2 Delivery O2 Flow Rate FiO2 11/14/19 09:01 95 99/68 (78) 11/14/19 09:00 19 95 Room Air 11/14/19 07:00 97.9 97.9 11/13/19 09:15 1.0 I & O 11/13/19 11/13/19 11/14/19 15:00 23:00 07:00 Intake Total 440 ml 1020 ml Balance 440 ml 1020 ml Physical Exam Physical Exam: Neurological exam Cranial nerves II to XII seem to be grossly intact Motor deficits over the lower extremity 1 out of 5 weakness No sensory deficit appreciated Grimaces to painful stimuli Deep tendon reflexes decreased in the lower extremities General: Alert, Cooperative, mild distress Heart: Regular rate, Normal S1, Normal S2 Lungs: Clear Abdomen: Normal bowel sounds, Soft, No tenderness, No hepatosplenomegaly, No masses Extremities: No clubbing, No cyanosis, No edema, Normal pulses, No tenderness/swelling Skin: No rashes, No breakdown, No significant lesion Labs Labs: Laboratory Tests Test 11/14/19 03:30 Thyroid Stimulating Hormone (TSH) 25.371 uIU/mL (0.358-3.74) Free Thyroxine 0.81 ng/dL (0.76-1.46) Free Triiodothyronine (T3) pg/mL 1.18 pg/mL (2.18-3.98) Assessment and Plan Assessmemt and Plan Problems Medical Problems: (1) Hypokalemia Status: Acute (2) Hypomagnesemia Status: Acute (3) Person under investigation for COVID-19 Status: Acute Comment Review of Relevant I have reviewed the following items fernandez (where applicable) has been applied. Justifications for Admission Other Justification AYAH DAMICO MD Nov 14, 2019 10:13
[2019-11-14] MEDS: ENOXAPARIN 40 MG/0.4 ML SYRINGE. SQ SCH (17:33)
[2019-11-14] MEDS: traZODone 50 MG TABLET. PO SCH (20:10)
[2019-11-14] MEDS: QUEtiapine 100 MG TABLET. PO SCH (20:10)
[2019-11-15 03:00] VITALS: BP 92/52
[2019-11-15 05:22] LABS: BASO % 1 % (0-3); EOS % 1 % (0-3); HEMATOCRIT 24.2 % (36.0-47.0); LYMPH # 1.8 x10^3/uL (1.0-4.8); LYMPH % 38 % (24-48); MEAN CORPUSCULAR HEMOGLOBIN 34 pg (25-35); MEAN CORPUSCULAR HGB CONC 33 g/dL (31-37); MEAN CORPUSCULAR VOLUME 104 fL (79-100); MONO # 0.6 x10^3/uL (0.0-1.1); MONO % 12 % (0-9); NEUT # 2.3 x10^3/uL (1.8-7.7); NEUT % 49 % (31-73); PLATELET COUNT 244 x10^3/uL (140-400); RED BLOOD COUNT 2.32 x10^6/uL (3.50-5.40); RED CELL DISTRIBUTION WIDTH 21.4 % (11.5-14.5); WHITE BLOOD COUNT 4.8 x10^3/uL (4.0-11.0)
[2019-11-15 05:46] LABS: ALBUMIN 2.8 g/dL (3.4-5.0); ALBUMIN/GLOBULIN RATIO 0.5 (1.0-1.7); CALCIUM 9.1 mg/dL (8.5-10.1); CREATININE 0.7 mg/dL (0.6-1.0); GFR 112.1; POTASSIUM 4.6 mmol/L (3.5-5.1); TOTAL BILIRUBIN 0.2 mg/dL (0.2-1.0)
[2019-11-15] MEDS: LEVOTHYROXINE 100 MCG TABLET PO SCH (05:51)
[2019-11-15] MEDS: PANTOPRAZOLE 40 MG TABLET.DR. PO SCH (05:51)
[2019-11-15 07:00] VITALS: BP 96/71
[2019-11-15] MEDS: LIOTHYRONINE 5 MCG TABLET. PO SCH (08:43)
[2019-11-15] MEDS: DULoxetine HCL 30 MG CAPSULE.DR PO SCH (08:43)
[2019-11-15] MEDS: oxyCODONE/APAP 5/325 1 TAB TABLET PO PRN ×2 (08:43→14:23)
[2019-11-15] MEDS: HALOPERIDOL 5 MG TABLET. PO SCH (08:44)
[2019-11-15] MEDS: THIAMINE 100 MG TABLET. PO SCH (08:44)
[2019-11-15] MEDS: GABAPENTIN 300 MG CAPSULE. PO SCH ×2 (08:44→14:23)
[2019-11-15] MEDS: MULTIVITAMIN with MINERAL TABLET. PO SCH (08:44)
[2019-11-15] MEDS: POTASSIUM BICARB 20 MEQ EFFERVESCENT TABLET. PEG SCH (08:44)
[2019-11-15] MEDS: FOLIC ACID 1 MG TABLET. PO SCH (08:44)
[2019-11-15] MEDS: CYANOCOBALAMIN (VITAMIN B-12) 1,000 MCG TABLET. PO SCH (08:44)
[2019-11-15 11:00] VITALS: BP 87/59
--- NOTE | 2019-11-15 12:37 | PDOC ---
[facility] PROGRESS NOTE Date of Service DOS: DATE: 11/15/19 TIME: 12:36 Chief Complaint Chief Complaint Weakness Fatigue Diarrhea History of Present Illness History of Present Illness 11/15/2019 Pt seen and examined. BRAYAN RN. BRAYAN KUNZ. Ms Santamaria is a 39 yo F with a history of fibromyalgia, lupus, hypertension, high cholesterol, hypothyroidism, ETOH abuse who presents the ED with multiple complaints. Patient is concerned she has COVID19. She states she has been exposed through friends. Patient denies any fever or coughing. She is also complaining of generalized fatigue for 1 week. She is also complaining of diarrhea for 1 week. She is also complaining of weakness to bilateral lower extremities. Patient denies any hematemesis or bloody stools. She also reports she has history of alcoholism and had a cup of vodka right before admission. WBC of 3.5, Hb 10.8, hematocrit 31.5, potassium 2.2, oral potassium was administered as well as IV potassium started. Magnesium 7.1, IV magnesium was ordered. Bilirubin 2.5, AST 73, ALT 15, ALK 161, calcium 7.1. Alcohol level 310 TSH 50 CXR clear 11/07: Patient quite debilitated and unable to have a meaningful conversation patient seems to be just mumbling seems to be oriented in person but cannot assess if he is aware of her surroundings. She is trying to eat a breakfast time which during my visit but is unable to do so. 11/08: Patient appears to be lethargic but sitting in a recliner. Weakness in lower extremities but wiggling her toes. Tolerating diet. CIWA high as of 8. Patient's chart, labs, images were reviewed and discussed with RN 11/09: Patient working with PT seems to be doing little improvements, hopefully tomorrow her thyroid fucntion tests are better. No new complaints or acute events reported overnight. 11/10: Patient with significant improvement of her symptoms. Still requiring a lot of support from the nursing staff and nevertheless she is much better compared to yesterday. Much more awake does not seem to be having withdrawal symptoms. We are trying to wean off her oxygen. 11/11: No acute events reported overnight, case discussed with nursing staff patient in no acute distress no complaints during my visit trying to get her weaned off the oxygen Afebrile. Profoundly weak today. She is asking if she can have some vodka and cigarettes. She is unable to stand without maximum assistance. Weaning off O2. Vitals/I&O Vitals/I&O: Vital Signs Date Time Temp Pulse Resp B/P (MAP) Pulse Ox O2 Delivery O2 Flow Rate FiO2 11/15/19 09:43 18 Nasal Cannula 2.0 11/15/19 07:00 97.9 84 96/71 (79) 100 97.9 I & O 11/14/19 11/14/19 11/15/19 15:00 23:00 07:00 Intake Total 600 ml 240 ml Balance 600 ml 240 ml Physical Exam General: Alert, Oriented X3, Cooperative, mild distress Heart: Regular rate, Normal S1, Normal S2 Lungs: Clear Abdomen: Normal bowel sounds, Soft, No tenderness, No hepatosplenomegaly, No masses Extremities: No clubbing, No cyanosis, No edema, Normal pulses, No tend erness/swelling Skin: No rashes, No breakdown, No significant lesion Labs Labs: Laboratory Tests Test 11/15/19 03:52 White Blood Count 4.8 x10^3/uL (4.0-11.0) Red Blood Count 2.32 x10^6/uL (3.50-5.40) Hemoglobin 8.0 g/dL (12.0-15.5) Hematocrit 24.2 % (36.0-47.0) Mean Corpuscular Volume 104 fL (79-100) Mean Corpuscular Hemoglobin 34 pg (25-35) Mean Corpuscular Hemoglobin Concent 33 g/dL (31-37) Red Cell Distribution Width 21.4 % (11.5-14.5) Platelet Count 244 x10^3/uL (140-400) Neutrophils (%) (Auto) 49 % (31-73) Lymphocytes (%) (Auto) 38 % (24-48) Monocytes (%) (Auto) 12 % (0-9) Eosinophils (%) (Auto) 1 % (0-3) Basophils (%) (Auto) 1 % (0-3) Neutrophils # (Auto) 2.3 x10^3/uL (1.8-7.7) Lymphocytes # (Auto) 1.8 x10^3/uL (1.0-4.8) Monocytes # (Auto) 0.6 x10^3/uL (0.0-1.1) Eosinophils # (Auto) 0.0 x10^3/uL (0.0-0.7) Basophils # (Auto) 0.0 x10^3/uL (0.0-0.2) Sodium Level 138 mmol/L (136-145) Potassium Level 4.6 mmol/L (3.5-5.1) Chloride Level 100 mmol/L (98-107) Carbon Dioxide Level 33 mmol/L (21-32) Anion Gap 5 (6-14) Blood Urea Nitrogen 13 mg/dL (7-20) Creatinine 0.7 mg/dL (0.6-1.0) Estimated GFR (Cockcroft-Gault) 112.1 BUN/Creatinine Ratio 19 (6-20) Glucose Level 83 mg/dL (70-99) Calcium Level 9.1 mg/dL (8.5-10.1) Total Bilirubin 0.2 mg/dL (0.2-1.0) Aspartate Amino Transf (AST/SGOT) 21 U/L (15-37) Alanine Aminotransferase (ALT/SGPT) 15 U/L (14-59) Alkaline Phosphatase 123 U/L (46-116) Total Protein 8.0 g/dL (6.4-8.2) Albumin 2.8 g/dL (3.4-5.0) Albumin/Globulin Ratio 0.5 (1.0-1.7) Review of Systems Review of Systems: No fever. No cough. Assessment and Plan Assessmemt and Plan Problems Medical Problems: (1) Hypokalemia Status: Acute (2) Hypomagnesemia Status: Acute (3) Person under investigation for COVID-19 Status: Acute Assessment: Acute metabolic encephalopathy Myxedema coma Alcohol use disorder. covid negative Plan: Home Meds. PT OT. Labs in the AM. Discussed with CM, working to discharge pending medicaid status. Appreciate subspeciality input. Comment Review of Relevant I have reviewed the following items fernandez (where applicable) has been applied. Justifications for Admission Other Justification ELFEGO MEDINA III DO Nov 15, 2019 12:37
--- NOTE | 2019-11-15 14:39 | NUR ---
Pt discharged to home and transportation provided by [facility]. Discharge teaching completed. Pt verbalized understanding.
--- NOTE | 2019-11-20 14:13 | DS ---
DATE OF DISCHARGE: 11/15/2019 ADMISSION DIAGNOSES: Hypokalemia, possible COVID, alcohol issues. DISCHARGE DIAGNOSIS: Resolving hypokalemia. HOSPITAL COURSE: The patient is a pleasant middle-aged female, who presented with alcohol and shortness of breath, cough was noted to have hypokalemia. She was admitted with ruled out COVID-19. We gave her alcohol withdrawal protocol. Correct her electrolytes and over the next few days, she returned to her baseline. We discharged to home. ELFEGO MEDINA DO DR: LUIZ/isamar JOB#: [id number] / [id number]
--- NOTE | 2019-11-20 14:14 | DS ---
DATE OF DISCHARGE: 11/15/2019 ADMISSION DIAGNOSES: Metabolic encephalopathy, alcohol abuse, possible COVID-19, hypokalemia, depression, lupus, tobacco abuse, macrocytic anemia, noncompliance, fibromyalgia. DISCHARGE DIAGNOSES: Resolving metabolic encephalopathy, resolving myxedema coma, alcohol abuse, COVID negative. CONSULTS: None. PROCEDURES: None. HOSPITAL COURSE: The patient is a pleasant middle-aged female, who presented with metabolic encephalopathy. She had multiple issues. Basically, we admitted her, gave her IV fluids. Did some physical therapy and occupational therapy. Her TSH was quite high at 50.13. We replaced her thyroid hormone. Over the next few days, she did better. We discharged to home with close outpatient followup. DISPOSITION: Home. ACTIVITY: As tolerated. DIET: Low sodium. MEDICATIONS: Please see the MRAD. TOTAL TIME: 34 minutes. MATIASL Marah MEDINA DO DR: LUIZ/isamar JOB#: [id number] / [id number]
== END 2019-11-15 14:40 | disposition home or self-care (01) | DRG 70 ==
LOC: ER 15:40 → 6 SOUTH 21:38 → 2 SOUTH 11-07 16:39
PROVIDERS: ADMIT Internal Medicine; ATTEND Internal Medicine
DX: G93.41 Metabolic encephalopathy (principal); E03.5 Myxedema coma; E87.6 Hypokalemia; E83.42 Hypomagnesemia; D53.9 Nutritional anemia, unspecified; E78.00 Pure hypercholesterolemia, unspecified; F10.10 Alcohol abuse, uncomplicated; F17.210 Nicotine dependence, cigarettes, uncomplicated; F32.9 Major depressive disorder, single episode, unspecified; I10 Essential (primary) hypertension; M32.9 Systemic lupus erythematosus, unspecified; G62.9 Polyneuropathy, unspecified; M79.7 Fibromyalgia; Y90.8 Blood alcohol level of 240 mg/100 ml or more; Z20.828 Contact with and (suspected) exposure to other viral communicable diseases; Z82.49 Family history of ischemic heart disease and other diseases of the circulatory system; Z83.3 Family history of diabetes mellitus; Z91.19 Patient's noncompliance with other medical treatment and regimen; Z90.49 Acquired absence of other specified parts of digestive tract; Z71.6 Tobacco abuse counseling
CPT/HCPCS: 36415; 70450; 71045; 74018; 80048; 80053; 80307; 81001; 82306; 82533; 82607; 83540; 83550; 83690; 83735; 84100; 84439; 84443; 84480; 84481; 84484; 85025; 85027; 86038; 86140; 93005; 96360; 99285; G0480; J1650; J2270; J2405; J3411; J3475; J3480; J3490; J7030; 97110-GP; 97530-GO; 97530-GP; 97535-GO; G0378; U0003-CS

== ENCOUNTER 2020-11-14 13:52 | Emergency (ER) | payer OTHER ==
[~2020-11-14] VITALS: Ht 154.9 cm; Wt 77.2 kg
[~2020-11-14 13:52] MED LIST changes: +CALC1TAB54 PO; +CHOL5000 PO; +DOXY100T PO; +DULO30CA2 PO; +IBUP-1027 PO; +IPRA4AER INH; +LEVO150T5 PO; +METH5TAB12 PO; +PANT40TA77 PO; +POLY17PO52 PO; +PRED-220 PO; +PRED20TA PO; +PRED5TAB PO; +ZINC220C5 PO
--- NOTE | 2020-11-14 14:11 | PHYS DOC ---
Past Medical History Past Medical History: Alcoholism, Endometriosis, Fibromyalgia, Hypertension, Hypothyroid, Sciatica Additional Past Medical Histor: Graves Disease,x2 blood trans, Bulging disc, Lupus, Neuropathy Past Surgical History: Cholecystectomy, Tubal ligation, Other Additional Past Surgical Histo: back surgery Smoking Status: Current Every Day Smoker Alcohol Use: Occasionally Drug Use: Marijuana General Adult EDM: Chief Complaint: shortness of air HPI: HPI: Patient is a 40 year old female who present to ER for evaluation of trouble breathing. Patient said symptoms started 3 days ago and again worse. Patient is worried about COVID-19 infection. Patient also ran out of albuterol inhaler. Patient denies any chest pain. Review of Systems: Review of Systems: Constitutional: Denies fever or chills. [] Eyes: Denies change in visual acuity. [] HENT: Denies nasal congestion or sore throat. [] Respiratory: Positive for cough and trouble breathing. Cardiovascular: Denies chest pain or edema. [] GI: Denies abdominal pain, nausea, vomiting, bloody stools or diarrhea. [] : Denies dysuria. [] Musculoskeletal: Denies back pain or joint pain. [] Integument: Denies rash. [] Neurologic: Denies headache, focal weakness or sensory changes. [] Endocrine: Denies polyuria or polydipsia. [] Lymphatic: Denies swollen glands. [] Psychiatric: Denies depression or anxiety. [] Heart Score: C/O Chest Pain: N/A Risk Factors: Risk Factors: DM, Current or recent (<one month) smoker, HTN, HLP, family history of CAD, obesity. Risk Scores: Score 0 - 3: 2.5% MACE over next 6 weeks - Discharge Home Score 4 - 6: 20.3% MACE over next 6 weeks - Admit for Clinical Observation Score 7 - 10: 72.7% MACE over next 6 weeks - Early Invasive Strategies Allergies: Allergies: Allergies Coded Allergies Type Severity Reaction Last Updated Verified Sulfa (Sulfonamide Antibiotics) Adverse Reaction Intermediate rapid heart beat 09/14/20 Yes Physical Exam: PE: Constitutional: Well developed, well nourished, no acute distress, non-toxic appearance. [] HENT: Normocephalic, atraumatic, bilateral external ears normal, oropharynx moist, no oral exudates, nose normal. [] Eyes: PERRLA, EOMI, conjunctiva normal, no discharge. [] Neck: Normal range of motion, no tenderness, supple, no stridor. [] Cardiovascular:Heart rate regular rhythm, no murmur [] Lungs & Thorax: Bilateral breath sounds clear to auscultation [] Abdomen: Bowel sounds normal, soft, no tenderness, no masses, no pulsatile masses. [] Skin: Warm, dry, no erythema, no rash. [] Back: No tenderness, no CVA tenderness. [] Extremities: No tenderness, no cyanosis, no clubbing, ROM intact, no edema. [] Neurologic: Alert and oriented X 3, normal motor function, normal sensory function, no focal deficits noted. [] Psychologic: Affect normal, judgement normal, mood normal. [] Current Patient Data: Labs: Laboratory Tests Test 11/14/20 14:24 SARS-CoV-2 Antigen (Rapid) Negative EKG: EKG: [] Radiology/Procedures: Radiology/Procedures: [][facility] [address] [place], [place] [id number] IMAGING REPORT Signed PATIENT: LUIS RODRIGUEZ ACCOUNT: [id number] : 1980 LOCATION: ER AGE: 40 SEX: F EXAM STATUS: PRE ER ORD. PHYSICIAN: JASBIR VALENCIA DO REASON: soa PROCEDURE: CHEST AP ONLY EXAM: Chest, single view. HISTORY: Shortness of air. COMPARISON: 09/17/2020 FINDINGS: A frontal view of the chest is obtained. There has been resolution of previously demonstrated multifocal infiltrate. There is no infiltrate, pleural effusion or pneumothorax. The heart is normal in size. IMPRESSION: No acute pulmonary finding. Electronically signed by: Veronica Jack MD (11/14/2020 2:33 PM) [id number] DICTATED and SIGNED BY: VERONICA JACK MD DATE: 11/14/20 [id number] 0 Course & Med Decision Making: Course & Med Decision Making Pertinent Labs and Imaging studies reviewed. (See chart for details) Patient is a 40-year-old female who present to ER due to trouble breathing. Patient says she has history of asthma, she ran out of albuterol inhaler, she she also wanted to be tested for COVID-19. Chest x-ray did not show any acute problem, her lungs sound examination was normal. Patient did not have any wheezing. Her vital signs were stable, her oxygen saturation was 100% on room air. Patient was tested negative for COVID-19. Patient was discharged home with a prescription for proair inhaler. Dragon Disclaimer: Dragon Disclaimer: This electronic medical record was generated, in whole or in part, using a voice recognition dictation system. Departure Departure Impression: Primary Impression: SOB (shortness of breath) Disposition: HOME / SELF CARE / HOMELESS Condition: STABLE Referrals: Mani MILLS MD (PCP) Follow up with your doctor this week. Patient Instructions: Shortness of Breath Additional Instructions: Thank you for visiting our Emergency Department. We appreciate you trusting us with your care. If any additional problems come up don't hesitate to return to visit us. Please follow up with your primary care provider so they can plan additional care if needed and know about the problem that you had. If symptoms worsen come back to the Emergency Department. Any concerning symptoms that start such as chest pain, shortness of air, weakness or numbness on one side of the body, running high fevers or any other concerning symptoms return to the ER. Scripts Albuterol Sulfate (PROAIR HFA INHALER) 8.5 Gm Hfa.aer.ad 1 PUFF INH PRN Q6HRS PRN for SHORTNESS OF BREATH for 30 Days, #1 EACH 0 Refills Prov: JASBIR VALENCIA DO 11/14/20 JASBIR VALENCIA DO Nov 14, 2020 14:11
[2020-11-14 14:17] VITALS: BP 113/67
--- NOTE | 2020-11-14 14:35 | RAD ---
EXAM: Chest, single view. HISTORY: Shortness of air. COMPARISON: 09/17/2020 FINDINGS: A frontal view of the chest is obtained. There has been resolution of previously demonstrat ed multifocal infiltrate. There is no infiltrate, pleural effusion or pneumothorax. The heart is norm al in size. IMPRESSION: No acute pulmonary finding. Electronically signed by: Veronica Anne MD (11/14/2020 2:33 PM) [id number]
[2020-11-14] MEDS ORDERED: ALBU2.5V8 INH (16:23)
--- NOTE | 2020-11-16 10:04 | NUR ---
IP: Attempted to contact pt concerning covid test. Received a recording stating call is rejected.
--- NOTE | 2020-11-17 12:49 | NUR ---
IP: Attempted again to contact pt concerning covid results. Again the call was rejected.
== END 2020-11-14 16:32 | disposition home or self-care (01) ==
LOC: ER 13:52
DX: R06.02 Shortness of breath (principal); Z20.822 Contact with and (suspected) exposure to COVID-19; I10 Essential (primary) hypertension; E03.9 Hypothyroidism, unspecified; F17.200 Nicotine dependence, unspecified, uncomplicated; Z88.2 Allergy status to sulfonamides
CPT/HCPCS: 71045; 87426; 99284; U0003; U0005

== ENCOUNTER 2021-02-28 15:00 | Emergency (ER) | payer OTHER ==
[~2021-02-28] VITALS: Ht 154.9 cm; Wt 72.7 kg
[~2021-02-28 15:00] MED LIST changes: +ALBU2.5V8 INH; +CYCL10TA19 PO; -CYCL10TA2 PO; -DULO60CA6 PO; +DULO60CA7 PO; +MAGN400T48 PO; -MAGN400T5 PO
[2021-02-28 15:45] VITALS: BP 89/64
[2021-02-28] MEDS ORDERED: IV NORMAL SALINE 1000ML BAG 1,000 ML IV ONE (15:45)
[2021-02-28] MEDS ORDERED: KETOROLAC 30 MG/ML VIAL. IVP ONE (15:45)
[2021-02-28] MEDS ORDERED: ONDANSETRON PF 4 MG/2 ML VIAL. IVP ONE (15:45)
--- NOTE | 2021-02-28 15:59 | RAD ---
EXAM: Chest, single view. HISTORY: Shortness of breath. COMPARISON: 11/14/2020 FINDINGS: A frontal view of the chest is obtained. There are decreased lung volumes with associated v essel crowding and atelectasis. There are suspected superimposed bilateral lower lobe interstitial in filtrate. There is no consolidation, pleural effusion or pneumothorax. The heart is normal in size. IMPRESSION: Suspected bilateral lower lobe interstitial infiltrate superimposed on atelectasis and va scular crowding. Electronically signed by: Veronica Anne MD (02/28/2021 3:56 PM) [id number]
[2021-02-28] MEDS ORDERED: hydrOXYzine IM 50 MG/ML VIAL IM ONE (16:30)
[2021-02-28] MEDS ORDERED: AZIT250T6 PO (16:37)
--- NOTE | 2021-02-28 16:45 | PHYS DOC ---
Past Medical History Past Medical History: Alcoholism, Endometriosis, Fibromyalgia, Hypertension, Hypothyroid, Sciatica Additional Past Medical Histor: Graves Disease,x2 blood trans, Bulging disc, Lupus, Neuropathy Past Surgical History: Cholecystectomy, Tubal ligation, Other Additional Past Surgical Histo: back surgery Smoking Status: Current Every Day Smoker Alcohol Use: Heavy Additional Information: 750mL bottle of vodka per day Drug Use: Marijuana General Adult EDM: Chief Complaint: SHORTNESS OF BREATH HPI: HPI: Patient is a 40 year old female who presents with 1 week history of body aches, NVD, shortness of breath. She states her symptoms started about 1 week ago and have gotten worse since onset. She states that when she has diarrhea, she has severe sense of urgency and sometimes does not make it to the bathroom in time. She states she has been wearing briefs, but she has to "clean herself up" each time she does not make it to the toilet. Patient also states that "she knows was going on," and that she has "water in her lungs." She denies history of CHF. Patient reports she did not have company over the recent holiday, but that her apartment building has a lot of "drug activity," with strangers in and out of the building all the time. Review of Systems: Review of Systems: ROS negative or noncontributory except as mentioned in HPI. Heart Score: C/O Chest Pain: No Current Medications: Current Medications Medications (Trade) Dose Ordered Sig/Emelia Start Time Stop Time Status Last Admin Dose Admin Hydroxyzine HCl (Vistaril Im) 25 mg 1X ONCE 02/28/21 16:30 02/28/21 16:31 DC Ketorolac Tromethamine (Toradol 30mg Vial) 15 mg 1X ONCE 02/28/21 15:45 02/28/21 15:46 DC 02/28/21 16:05 15 MG Ondansetron HCl (Zofran) 4 mg 1X ONCE 02/28/21 15:45 02/28/21 15:46 DC 02/28/21 16:03 4 MG Sodium Chloride 1,000 ml @ 1,000 mls/hr 1X ONCE 02/28/21 15:45 02/28/21 16:44 02/28/21 15:45 1,000 MLS/HR Allergies: Allergies: Allergies Coded Allergies Type Severity Reaction Last Updated Verified Sulfa (Sulfonamide Antibiotics) Adverse Reaction Intermediate rapid heart beat 09/14/20 Yes Physical Exam: PE: Constitutional: Well developed, well nourished, no acute distress, non-toxic appearance. HENT: Normocephalic, atraumatic, bilateral external ears without deformity or discharge, oropharynx moist, no oral exudates, nose without deformity or discharge. Eyes: PERRLA, EOMI, conjunctiva normal, no discharge. Neck: Normal range of motion, no tenderness, supple, no stridor. Cardiovascular: Heart rate regular rhythm, no obvious murmur. Lungs & Thorax: Diminished breath sounds throughout, hardly audible at the bases. Abdomen: Bowel sounds normal, soft, no tenderness, no masses, no pulsatile masses. Skin: Warm, dry, no erythema, no rash. Extremities: No tenderness, no cyanosis, no clubbing, ROM intact, no edema, distal pulses intact. Neurologic: Alert and oriented x4, no focal deficits noted. Current Patient Data: Labs: Laboratory Tests Test 02/28/21 15:58 02/28/21 16:09 White Blood Count 6.0 x10^3/uL (4.0-11.0) Red Blood Count 2.59 x10^6/uL (3.50-5.40) Hemoglobin 8.9 g/dL (12.0-15.5) Hematocrit 26.8 % (36.0-47.0) Mean Corpuscular Volume 104 fL (79-100) Mean Corpuscular Hemoglobin 34 pg (25-35) Mean Corpuscular Hemoglobin Concent 33 g/dL (31-37) Red Cell Distribution Width 20.4 % (11.5-14.5) Platelet Count 335 x10^3/uL (140-400) Neutrophils (%) (Auto) 77 % (31-73) Lymphocytes (%) (Auto) 15 % (24-48) Monocytes (%) (Auto) 7 % (0-9) Eosinophils (%) (Auto) 0 % (0-3) Basophils (%) (Auto) 1 % (0-3) Neutrophils # (Auto) 4.6 x10^3/uL (1.8-7.7) Lymphocytes # (Auto) 0.9 x10^3/uL (1.0-4.8) Monocytes # (Auto) 0.4 x10^3/uL (0.0-1.1) Eosinophils # (Auto) 0.0 x10^3/uL (0.0-0.7) Basophils # (Auto) 0.0 x10^3/uL (0.0-0.2) Sodium Level 146 mmol/L (136-145) Potassium Level 1.9 mmol/L (3.5-5.1) Chloride Level 101 mmol/L (98-107) Carbon Dioxide Level 24 mmol/L (21-32) Anion Gap 21 (6-14) Blood Urea Nitrogen 4 mg/dL (7-20) Creatinine 0.5 mg/dL (0.6-1.0) Estimated GFR (Cockcroft-Gault) 164.5 BUN/Creatinine Ratio 8 (6-20) Glucose Level 83 mg/dL (70-99) Calcium Level 6.8 mg/dL (8.5-10.1) Total Bilirubin 0.3 mg/dL (0.2-1.0) Aspartate Amino Transf (AST/SGOT) 47 U/L (15-37) Alanine Aminotransferase (ALT/SGPT) 16 U/L (14-59) Alkaline Phosphatase 106 U/L (46-116) Total Protein 7.3 g/dL (6.4-8.2) Albumin 2.7 g/dL (3.4-5.0) Albumin/Globulin Ratio 0.6 (1.0-1.7) Influenza Type A Antigen Negative (NEGATIVE) Influenza Type B Antigen Negative (NEGATIVE) SARS-CoV-2 Antigen (Rapid) Negative (NEGATIVE) Vital Signs: Vital Signs Date Time Temp Pulse Resp B/P (MAP) Pulse Ox O2 Delivery O2 Flow Rate FiO2 02/28/21 15:11 98.0 118 18 101/67 (78) 98 Room Air 98.0 Radiology/Procedures: Radiology/Procedures: PROCEDURE: PORTABLE CHEST 1V EXAM: Chest, single view. HISTORY: Shortness of breath. COMPARISON: 11/14/2020 FINDINGS: A frontal view of the chest is obtained. There are decreased lung volumes with associated vessel crowding and atelectasis. There are suspected superimposed bilateral lower lobe interstitial infiltrate. There is no consolidation, pleural effusion or pneumothorax. The heart is normal in size. IMPRESSION: Suspected bilateral lower lobe interstitial infiltrate superimposed on atelectasis and vascular crowding. Electronically signed by: Veronica Anne MD (02/28/2021 3:56 PM) [id number] Course & Med Decision Making: Course & Med Decision Making Pertinent Labs and Imaging studies reviewed. (See chart for details) Patient is a 40-year-old female with 1 week history of multiple symptoms concerning for COVID-19 infection or other viral illness. Work-up will include labs as well as swabs for influenza A&B as well as COVID-19. Patient also provided with IV fluids, ketorolac and Zofran. While waiting lab results, patient demands something for anxiety or says to BREANNA Morgan she will "bug the shit out of [her]." I went into reevaluate the patient and discussed with her that her manner of requesting medication for a new symptom was not appropriate. I informed her is more than happy to provide her something for her anxiety, but to respect the staff members in the process. Patient apologized and agreed. Shortly after leaving the patient's room, she told nursing staff, "Fuck this. Get me a wheelchair." The patient has decided to leave AGAINST MEDICAL ADVICE. I advised her that should she leave before her labs had resulted, she risks worsening symptoms, permanent disability and . Benefits testing would be identification and treatment for any abnormal results and her current symptoms. She still elects to leave the department. Addendum: After patient left AMA, critical lab value of potassium at 1.9 resulted. Attempted to contact patient by phone to inform her of the critical lab result and advise that she come back for inpatient potassium replenishment, but the phone number listed on her file for herself and her family members are the same phone number, which is out of service. I added a prescription for potassium effervescent tablets to the pharmacy that is on file for the patient. Dragon Disclaimer: OX FACTORYemily Disclaimer: This electronic medical record was generated, in whole or in part, using a voice recognition dictation system. Departure Departure Impression: Primary Impression: Community acquired pneumonia Qualified Codes: J18.9 - Pneumonia, unspecified organism Additional Impressions: Person under investigation for COVID-19 Nausea, vomiting and diarrhea Hypokalemia Disposition: LEFT AGAINST MEDICAL ADVICE Condition: GUARDED Referrals: Mani MILLS MD (PCP) Patient Instructions: Pneumonia, Adult, [id number] Scripts Potassium Bicarbonate/Cit Ac (KLOR-CON-EF 25 MEQ TAB EFF) 25 Meq Tablet.eff 25 MEQ PO DAILY for hypokalemia for 12 Days, #12 TAB May cause stomach upset. Take with food. Prov: TAIWO MORTON 02/28/21 Azithromycin (AZITHROMYCIN TABLET) 250 Mg Tablet 1 PKG PO UD for 5 Days, #6 TAB 0 Refills 2 the first day followed by 1 for days 2-5 Prov: TAIWO MORTON 02/28/21 TAIWO MORTON Feb 28, 2021 16:45
[2021-02-28 17:02] LABS: BASO % 1 % (0-3); EOS % 0 % (0-3); HEMATOCRIT 26.8 % (36.0-47.0); HEMOGLOBIN 8.9 g/dL (12.0-15.5); LYMPH # 0.9 x10^3/uL (1.0-4.8); LYMPH % 15 % (24-48); MEAN CORPUSCULAR HEMOGLOBIN 34 pg (25-35); MEAN CORPUSCULAR HGB CONC 33 g/dL (31-37); MEAN CORPUSCULAR VOLUME 104 fL (79-100); MONO # 0.4 x10^3/uL (0.0-1.1); MONO % 7 % (0-9); NEUT # 4.6 x10^3/uL (1.8-7.7); NEUT % 77 % (31-73); PLATELET COUNT 335 x10^3/uL (140-400); RED BLOOD COUNT 2.59 x10^6/uL (3.50-5.40); RED CELL DISTRIBUTION WIDTH 20.4 % (11.5-14.5)
[2021-02-28 17:19] LABS: ALBUMIN 2.7 g/dL (3.4-5.0); ALBUMIN/GLOBULIN RATIO 0.6 (1.0-1.7); CALCIUM 6.8 mg/dL (8.5-10.1); CREATININE 0.5 mg/dL (0.6-1.0); GFR 164.5; TOTAL BILIRUBIN 0.3 mg/dL (0.2-1.0); TOTAL PROTEIN 7.3 g/dL (6.4-8.2)
[2021-02-28 17:22] LABS: INFLUENZA A PATIENT NEGATIVE (NEGATIVE); INFLUENZA B PATIENT NEGATIVE (NEGATIVE)
[2021-02-28 17:24] LABS: POTASSIUM 1.9 mmol/L (3.5-5.1)
[2021-02-28] MEDS ORDERED: POTA25TA21 PO (17:28)
[2021-02-28 17:33] LABS: ANISOCYTOSIS MOD; PLT ESTIMATE ADEQUATE (ADEQUATE)
[2021-02-28 17:34] LABS: POLYCHROMASIA SLIGHT
--- NOTE | 2021-03-01 14:28 | NUR ---
IP: Attempted to contact pt concerning covid results. Phone number provided is not in service.
== END 2021-02-28 17:15 | disposition left against medical advice (07) ==
LOC: ER 15:00
DX: J18.9 Pneumonia, unspecified organism (principal); R11.2 Nausea with vomiting, unspecified; R19.7 Diarrhea, unspecified; E87.6 Hypokalemia; I10 Essential (primary) hypertension; E03.9 Hypothyroidism, unspecified; F17.200 Nicotine dependence, unspecified, uncomplicated; Z90.49 Acquired absence of other specified parts of digestive tract; Z98.51 Tubal ligation status; Z88.2 Allergy status to sulfonamides
CPT/HCPCS: 36415; 71045; 80053; 85025; 87426; 87804; 96361; 96372; 96374; 96375; 99284; J1885; J2405; J3410; J7030; U0003; U0005